=== PATIENT | male | born 1960 | race Caucasian/White ===

== ENCOUNTER 2017-02-24 18:11 | Emergency (ER) | payer OTHER ==
[~2017-02-24] VITALS: Ht 185.4 cm; Wt 92.9 kg
[~2017-02-24 18:11] MED LIST: AMLO-114 PO; GABA600T PO; METH10TA2 PO; OXYC-57 PO
[2017-02-24 18:24] VITALS: TEMP 36.5; Ht 185.4 cm; Wt 92.9 kg
[2017-02-24] MEDS ORDERED: NRN800 PO (19:10)
[2017-02-24] MEDS ORDERED: AMT10 PO (19:10)
--- NOTE | 2017-02-24 19:13 | DIAGNOSTIC IMAGING REPORT ---
PA CHEST WITH LEFT-SIDED RIB SERIES CLINICAL HISTORY: Left chest wall pain. FINDINGS: A PA chest radiograph with 4 additional views may left-sided rib series is obtained. No prior studies are available for comparison at the time of dictation. The cardiomediastinal silhouette is unremarkable. The lungs and pleural spaces are clear. Apical scarring is observed. No pneumothorax is seen. There is no radiographic evidence of acute/distracted left-sided rib fracture on the rib series. Chronic appearing bilateral rib fractures are noted. Degenerative change is seen throughout the thoracic spine. IMPRESSION: 1. No active disease in the chest. 2. There is no radiographic evidence of acute/distracted left-sided rib fracture on the rib series. 3. There are numerous chronic-appearing/healed bilateral rib fractures identified. Electronically signed by: Wyatt Williamson M.D. 02/24/2017 7:12 PM Dictated Date/Time: 02/24/2017 7:10 PM
[2017-02-24] MEDS ORDERED: HYDR-5688 PO (19:51)
--- NOTE | 2017-02-24 19:51 | EMERGENCY ROOM VISIT NOTE ---
ED Visit Note First contact with patient: 18:27 This Patient was discussed with the physician [employer] Sponger, Pilo Roe PA-C. The pertinent historical and physical exam findings were confirmed. I agree with the studies ordered and with the interpretations of these studies. I agree with the disposition and care plan.
[2017-02-24] MEDS ORDERED: NORCO 5/325MG HOME PACK PO STA (19:52)
--- NOTE | 2017-02-24 19:52 | EMERGENCY ROOM VISIT NOTE ---
History First contact with patient: 18:26 Chief Complaint: RIB PAIN Stated Complaint: BROKEN RIBS History of Present Illness The patient is a 56 year old male who presents to the Emergency Room via private vehicle with complaints of "broken ribs". The patient states that 3 days ago he was attempting to plug a flat tire, when he was pressing up on the told, and had his friend press on his back to help compress. He states that when his friend pressed upon his back it pushed his left rib cage into the total. He notes pain in this region since that time. He felt a pop in the region. He is concerned he may broken his ribs. He rates the pain as a 7/10. Review of Systems A complete 6-point Review of Systems was discussed with the patient, with pertinent positives and negatives listed in the History of Present Illness. All remaining Review of Systems questions can be considered negative unless otherwise specified. Past Medical/Surgical History Medical Problems: (1) Cervical disc herniation (2) Hypertension Social History Smoking Status: Current Every Day Smoker Alcohol Use: none Drug Use: none Marital Status: Housing Status: lives with family Occupation Status: unemployed Current/Historical Medications Scheduled Amitriptyline HCl (Amitriptyline HCl), 10 MG PO DAILY Amlodipine (Norvasc), 10 MG PO DAILY Gabapentin (Gabapentin), 800 MG PO TID Scheduled PRN Hydrocodone/Acetaminophen 5MG/325MG (Lyle 5MG/325MG), 1-2 TABLET PO Q6 PRN for Pain Physical Exam Vital Signs Date Time Temp Pulse Resp B/P (MAP) Pulse Ox O2 Delivery O2 Flow Rate FiO2 02/24/17 19:58 78 16 174/100 97 02/24/17 18:24 36.5 78 20 188/112 97 Room Air Physical Exam VITAL SIGNS - Vital signs and nursing notes were reviewed. Stable. GENERAL - 56-year-old male appearing his stated age who is in no acute distress. Communicates well with provider and answers questions appropriately. SKIN - Without rashes. Small area of bruising on L anterior ribs. HEAD - NC/AT. EYES - Sclera anicteric. EARS - No deformities of external structures noted on gross examination bilaterally. NOSE - Midline and without cyanosis. No epistaxis or purulent drainage noted. MOUTH/OROPHARYNX - Without perioral cyanosis. LUNGS - Chest wall symmetric without accessory muscle use, intercostals retractions, or central cyanosis. Normal vesicular breath sounds CTA B/L. No wheezes, rales, or rhonchi appreciated. CARDIAC - RRR with S1/S2. No murmur, rubs, or gallops appreciated. L anterior ribs are tender. No step off. No flail chest. ABDOMEN - Abdominal contour normal without pulsations or visible masses. No tenderness, palpable masses, hepatosplenomegaly, or ascites noted. Medical Decision & Procedures ER Provider Diagnostic Interpretation: PA CHEST WITH LEFT-SIDED RIB SERIES CLINICAL HISTORY: Left chest wall pain. FINDINGS: A PA chest radiograph with 4 additional views may left-sided rib series is obtained. No prior studies are available for comparison at the time of dictation. The cardiomediastinal silhouette is unremarkable. The lungs and pleural spaces are clear. Apical scarring is observed. No pneumothorax is seen. There is no radiographic evidence of acute/distracted left-sided rib fracture on the rib series. Chronic appearing bilateral rib fractures are noted. Degenerative change is seen throughout the thoracic spine. IMPRESSION: 1. No active disease in the chest. 2. There is no radiographic evidence of acute/distracted left-sided rib fracture on the rib series. 3. There are numerous chronic-appearing/healed bilateral rib fractures identified. Electronically signed by: Wyatt Williamson M.D. 02/24/2017 7:12 PM Dictated Date/Time: 02/24/2017 7:10 PM Medications Administered Medications (Trade) Dose Ordered Sig/Shahid Route Start Time Stop Time Status Last Admin Dose Admin Acetaminophen/ Hydrocodone Bitart (Lyle 5/325mg Home Pack) 1 [facility] [place] UD STAT PO 02/24/17 19:52 02/24/17 19:54 DC 02/24/17 19:58 1 [facility] Medical Decision Patient was seen and evaluated as above. He presents to us today with rib pain. Status post minimal trauma. It is reproducible on exam. No evidence of underlying etiology. X-ray was obtained and found to be negative. I suspect he likely has bruised ribs or even cracked ribs that are not apparent on x-ray. He declined pain medication here, but was given a short supply of pain medicine at home. No red flags the [employer] drug monitoring system. He is to follow with his family doctor. He was given an incentive spirometer. He was educated upon management, educated upon worrisome symptoms which to return, had questions and provided discharge, and was discharged home in good condition. In the evaluation and treatment of this patient, the following differential diagnoses were considered: Rib Fracture, Rib Contusion, Hemothorax, Pneumothorax , Pneumonia, Pleural Effusion. Medication list reviewed. He is hypertensive I believe secondary to use a situation but he is to follow-up with the family doctor. Impression Primary Impression: Rib injury Departure Information Dispostion Home / Self-Care Condition GOOD Prescriptions Hydrocodone/Acetaminophen 5MG/325MG (Lyle 5MG/325MG) Tab 1-2 TABLET PO Q6 Y for Pain, #15 TAB For Initial Treatment Prov: Pilo Roe PA-C 02/24/17 Referrals No Doctor, Assigned (PCP) Patient Instructions [facility] Additional Instructions You have been treated in the Emergency Department for Rib pain. You have been prescribed Lyle to be used for pain control. This is a narcotic medication. You cannot drive or consume alcohol while on this medicine. This medicine should only be used for pain that cannot be controlled with over-the- counter pain medicines. For pain control, you can use the following [id number] medicines (if >12 yo): - Regular strength (325mg/tab) Tylenol (acetaminophen) 2 tabs every 4-6 hours as needed. Do not exceed 12 tablets in a 24 hour period. Avoid taking more than 3 grams (3000 mg) of Tylenol per day. This includes any other sources of acetaminophen you may take on a regular basis. - Regular strength (200 mg/tab) Advil (ibuprofen) 1-2 tabs every 4-6 hours as needed. Do not exceed a dose of 3200 mg per day. If this is an acute injury, ice can be applied to the area of pain for the first 3 days to help decrease pain and inflammation. After the first 3 days, a heating pad can be used over the area for continued soothing relief. To minimize your discomfort, you can hug a pillow while coughing or sneezing. Additionally, you should continue to force yourself to take nice, deep breaths. Full expansion of the lungs is necessary to prevent the accumulation of fluid in the lung tissue and development of pneumonia. You should schedule a follow-up appointment in 2-3 days with your Primary Care Provider for further evaluation and treatment of your back pain. Please use the Incentive Spirometer several times per hour while awake to help prevent the development of pneumonia. Return to the Emergency Department if your current symptoms worsen despite treatment course outlined above, or if you develop any of the following symptoms : intractable pain despite aforementioned treatment course, development of a wet cough, bloody cough, fever, chills, or increased shortness of breath.
[2017-02-24 19:58] VITALS: BP 174/100; PULSE 78; O2SAT 97
== END 2017-02-24 20:00 | disposition home or self-care (01) ==
LOC: C.EDB 18:12 → C.EDD 20:00
DX: S29.9XXA Unspecified injury of thorax, initial encounter (principal); X58.XXXA Exposure to other specified factors, initial encounter; I10 Essential (primary) hypertension; F17.200 Nicotine dependence, unspecified, uncomplicated

== ENCOUNTER → 2017-04-13 | Outpatient (CLI) | payer OTHER ==
[~2017-04-13] MED LIST changes: +AMT10 PO; -GABA600T PO; +HYDR-5688 PO; -METH10TA2 PO; +NRN800 PO; -OXYC-57 PO
[2017-04-13 12:40] LABS: BASO % 0.7 %; BASO ABS # 0.05 K/uL (0-0.2); EOS % 4.2 %; EOS ABS # 0.32 K/uL (0-0.5); HEMATOCRIT 38.6 % (42-52); HEMOGLOBIN 12.8 g/dL (14.0-18.0); IG# 0.01 K/uL (0.00-0.02); LYMPH % 20.1 %; LYMPH ABS # 1.54 K/uL (1.2-3.4); MEAN CELL VOLUME 85.2 fL (80-100); MEAN CORPUSCULAR HEMOGLOBIN 28.3 pg (25-34); MEAN CORPUSCULAR HGB CONC 33.2 g/dl (32-36); MEAN PLATELET VOLUME 10.7 fL (7.4-10.4); MONO ABS # 0.46 K/uL (0.11-0.59); NEUT % 68.9 %; NEUT ABS # 5.29 K/uL (1.4-6.5); PLATELET COUNT 409 K/uL (130-400); RED CELL DISTRIBUTION WIDTH SD 43.8 fL (36.4-46.3); WHITE BLOOD COUNT 7.67 K/uL (4.8-10.8)
[2017-04-13 13:18] LABS: ALT/SGPT 24 U/L (12-78); BLOOD UREA NITROGEN 15 mg/dl (7-18); CALCIUM 9.5 mg/dl (8.5-10.1); CARBON DIOXIDE 28 mmol/L (21-32); CHOLESTEROL 198 mg/dl (0-200); CREATININE 0.98 mg/dl (0.60-1.40); GLUCOSE 97 mg/dl (70-99); POTASSIUM 4.4 mmol/L (3.5-5.1); SODIUM 135 mmol/L (136-145)
[2017-04-13 13:21] LABS: ALKALINE PHOSPHATASE 91 U/L (45-117); AST/SGOT 16 U/L (15-37); LDL CHOLESTEROL CALCULATED 139 mg/dl
== END | disposition home or self-care (01) ==
LOC: C.LABMFLN 09:10
PROVIDERS: ATTEND Neuromusculoskeletal Medicine & OMM
DX: Z00.00 Encounter for general adult medical examination without abnormal findings (principal); Z13.220 Encounter for screening for lipoid disorders; Z13.1 Encounter for screening for diabetes mellitus

== ENCOUNTER 2019-03-01 00:16 | Observation (INO) ==
[2019-03-01] MEDS ORDERED: NICOTINE 21 MG/24 HR TDSY TD STA (00:42)
[2019-03-01] MEDS ORDERED: SODIUM CHLORIDE 0.9% 1000ML 1,000 ML IV SCH (00:45)
--- NOTE | 2019-03-01 00:50 | Emergency Department Note ---
History of Present Illness General Chief complaint: Chest Pain Stated complaint: CHEST PAIN,BACK PAIN,SOB History of Present Illness Maximum Pain Intensity: 4 This 58-year-old presents to the ER complaining of chest pain, dyspnea, back pain and abdominal pain Location: Chest back and abdomen Quality: Painful Severity: Moderate Duration: Past few days Timing: Started few days ago Context: Symptoms persisted and patient came in Modifying factors: better with nothing; worse with palpation Patient has a history of anemia and states symptoms feel somewhat similar. Last blood transfusion was a year ago. He normally needs a more frequently. No recent H&H testing. He does smoke. He does have high blood pressure. No prior heart disease. He is currently being weaned off narcotics. He has had unintentional weight loss. Patient denies vomiting, diarrhea, fevers, flulike illness, leg pain or swelling. Home Medications Home Medications Medication Instructions Recorded Confirmed Type diclofenac sodium 1 dose TOPICAL QID PRN 06/06/18 03/01/19 History fluticasone propionate 50 1 spray INTRANASAL BID PRN #16 gm 11/25/18 03/01/19 Rx mcg/actuation nasal spray,suspension gabapentin 600 mg tablet 1,200 mg PO TID #180 tab 11/25/18 03/01/19 Rx lisinopril 10 1 tab PO DAILY #30 tab 11/25/18 03/01/19 Rx mg-hydrochlorothiazide 12.5 mg tablet methadone 10 mg tablet 10 mg PO Q8H 14 Days #42 tabs 02/19/19 03/01/19 Rx hydrocodone 5 mg-acetaminophen 325 1 tab PO BID PRN 7 Days #14 tab 02/26/19 03/01/19 Rx mg tablet Allergies Allergy/AdvReac Type Severity Reaction Status Date / Time No Known Allergies Allergy Verified 03/01/19 03:33 Past Med/Surg History Medical History Anemia HX Cervical disc disease C5-C6 Chronic back pain Hepatitis C treated--no longer has Hx of bleeding disorder HAS CAUSED BLEEDING INTO STOMACH REQUIRING CAUTERIZATION-F/U DR LORETA KELLEY-HX BLOOD TRANSFUSIONS IN THE PAST Hypertension Osler-Rendu disease (Acute) Surgical History History of colonoscopy History of esophagogastroduodenoscopy (EGD) History of herniorrhaphy X 4 History of open reduction and internal fixation (ORIF) procedure left hand/wrist fx--hardware removed History of repair of rotator cuff RIGHT History of shoulder surgery right History of tooth extraction all teeth removed Hx of excision of testicular mass X MULTIPLE BENIGN CYSTS Family History Other No family history of adverse response to anesthesia Social History Preferred Language: Chinese Communication Ability: Effective Visual Impairment: Limited Hearing Ability: Hard of Hearing On Air Announcer Required: No Beliefs That Will Affect Care: None Current Living Situation: Spouse and Family Current Living Situation Comment: Lives with and daughter current occupational status: employed Feels Safe at Home: Yes Smoking Status: Current every day smoker Tobacco Type: cigarettes ; Cigarettes Per Day: 20 a day ; Second Hand Exposure: No ; Hx Alcohol Use: No Hx Substance Use: No Dental Care, Regularly: Yes Physical Activity Frequency: Daily Seatbelt Use: never Sunscreen Use: No Review of Systems A total of 10 systems reviewed and were otherwise negative Physical Exam Vital Signs Vital Signs - 24 hr 03/01/19 00:23 03/01/19 00:36 03/01/19 00:55 Temperature 36.8 C Temperature Source Oral Pulse Rate 67 Pulse Rate [Bilateral Apical] 65 Respiratory Rate 18 18 Respiratory Effort / Characteristics Non-Labored Spontaneous Respiratory Depth Normal Blood Pressure 158/89 H Blood Pressure [Left Arm] 155/87 H Blood Pressure Mean 112 Blood Pressure Mean [Left Arm] 109 Pulse Oximetry 97 96 94 Oxygen Delivery Method Room Air Room Air Room Air Sepsis Recent Fever Within 48 Hours No Sepsis Action Taken by Nursing No Action Required 03/01/19 02:02 03/01/19 02:48 Temperature Temperature Source Pulse Rate Pulse Rate [Bilateral Apical] 55 L 65 Respiratory Rate 20 18 Respiratory Effort / Characteristics Respiratory Depth Blood Pressure Blood Pressure [Left Arm] 152/73 H 156/93 H Blood Pressure Mean Blood Pressure Mean [Left Arm] 99 114 Pulse Oximetry 93 93 Oxygen Delivery Method Room Air Room Air Sepsis Recent Fever Within 48 Hours Sepsis Action Taken by Nursing VITALS: Vitals are noted on the nurse's note and reviewed by myself. Vital signs stable. GENERAL: Pleasant male with tobacco odor, in no acute distress, nondiaphoretic, well-developed well-nourished. SKIN: The skin was without rashes, erythema, edema, or bruising. There is no tenting of the skin. Capillary reflex less than 2 seconds. HEAD: Normocephalic atraumatic. EARS: External auditory canals clear, tympanic membranes pearly brown without erythema or effusion bilaterally. EYES: Pupils equal round and reactive to light and accommodation. Conjunctivae without injection, sclerae without icterus. Extraocular movements intact. NOSE: Patent, turbinates without inflammation or discharge. MOUTH: Mucous membranes moist. Pharynx without erythema or exudate. Uvula midline. Airway patent. Tongue does not deviate. NECK: Supple without nuchal rigidity. No lymphadenopathy. No thyromegaly. Cervical spine is nontender. No JVD. HEART: Regular rate and rhythm LUNGS: Clear to auscultation bilaterally without wheezes, rales or rhonchi. No retractions or accessory muscle use. ABDOMEN: Positive bowel sounds x 4. Normal tympanic percussion. Soft, tender to palpation upper abdomen, without masses or organomegaly. Hughes sign negative. No guarding or rebound tenderness. No CVA tenderness MUSCULOSKELETAL: No muscle atrophy, erythema, or edema noted. NEURO: Patient was alert and oriented to person place and time. Normal sensation to light and sharp touch. No focal neurological deficits. Course Administered Medications Ioversol (Optiray 320 125ml) 118 ml IV ONCE PRN PRN Reason: Interaction Checking Stop: 03/05/19 03:05 Last Admin: 03/01/19 03:06 Dose: 118 ml Documented by: [id number] Discontinued Medications Sodium Chloride (Nss 1000ml) 1,000 mls @ 999 mls/hr IV .Q1H1M TOSHIA Stop: 03/01/19 01:45 Last Infusion: 03/01/19 02:05 Dose: 0 mls/hr Documented by: [id number] Admin: 03/01/19 00:53 Dose: 999 mls/hr Documented by: [id number] Nicotine (Nicoderm Cq) 21 mg TD NOW STA Stop: 03/01/19 00:43 Last Admin: 03/01/19 00:53 Dose: 21 mg Documented by: [id number] Medical Decision Making Medical Records Attestation: I reviewed the patient's medical records. Home Medications Current Medication List: was personally reviewed by me Laboratory Data Attestation: I reviewed the patient's lab results. Result diagrams: 03/01/19 00:34 03/01/19 00:34 Lab Results 03/01/19 03/01/19 03/01/19 Range/Units 00:34 00:34 00:34 WBC 8.32 (4.8-10.8) K/uL RBC 3.84 L (4.7-6.1) M/uL Hgb 7.2 L (14.0-18.0) g/dL Hct 25.1 L (42-52) % MCV 65.4 L (80-100) fL MCH 18.8 L (25-34) pg MCHC 28.7 L (32-36) g/dL RDW Std Deviation 37.9 (36.4-46.3) fL RDW Coeff of Ady 15.9 H (11.5-14.5) % Plt Count 436 H (130-400) K/uL MPV 9.5 (7.4-10.4) fL Immature Gran % (Auto) 0.1 % Neut % (Auto) 62.9 % Lymph % (Auto) 22.7 % [place] % (Auto) 8.8 % Eos % (Auto) 4.9 % Baso % (Auto) 0.6 % Immature Gran # (Auto) 0.01 (0.00-0.02) K/uL Neut # (Auto) 5.23 (1.4-6.5) K/uL Lymph # (Auto) 1.89 (1.2-3.4) K/uL [place] # (Auto) 0.73 H (0.11-0.59) K/uL Eos # (Auto) 0.41 (0-0.5) K/uL Baso # (Auto) 0.05 (0-0.2) K/uL Polychromasia 1+ Hypochromasia Present Anisocytosis Present Ovalocytes 1+ D-Dimer 250 (0-500) ug/L FEU Sodium 138 (136-145) mmol/L Potassium 4.1 (3.5-5.1) mmol/L Chloride 106 (98-107) mmol/L Carbon Dioxide 29 (21-32) mmol/L Anion Gap 3.0 (3-11) BUN 15 (7-18) mg/dl Creatinine 0.96 (0.6-1.4) mg/dl Est Cr Clr Drug Dosing 92.9 ml/min Est GFR ( Amer) 101.3 Est GFR (Non-Af Amer) 87.4 BUN/Creatinine Ratio 15.3 (10-20) Glucose 94 (70-99) mg/dl Calcium 8.5 (8.5-10.1) mg/dl Total Bilirubin 0.2 (0.2-1) mg/dl AST 9 L (15-37) U/L ALT 16 (12-78) U/L Alkaline Phosphatase 90 (45-117) U/L Troponin I < 0.015 (0-0.045) ng/ml Total Protein 7.0 (6.4-8.2) gm/dl Albumin 3.3 L (3.4-5.0) gm/dl Globulin 3.7 (2.5-4.0) gm/dl Albumin/Globulin Ratio 0.9 (0.9-2) Lipase 52 L (73-393) U/L Blood Type Antibody Screen Crossmatch 03/01/19 Range/Units 02:16 WBC (4.8-10.8) K/uL RBC (4.7-6.1) M/uL Hgb (14.0-18.0) g/dL Hct (42-52) % MCV (80-100) fL MCH (25-34) pg MCHC (32-36) g/dL RDW Std Deviation (36.4-46.3) fL RDW Coeff of Ady (11.5-14.5) % Plt Count (130-400) K/uL MPV (7.4-10.4) fL Immature Gran % (Auto) % Neut % (Auto) % Lymph % (Auto) % [place] % (Auto) % Eos % (Auto) % Baso % (Auto) % Immature Gran # (Auto) (0.00-0.02) K/uL Neut # (Auto) (1.4-6.5) K/uL Lymph # (Auto) (1.2-3.4) K/uL [place] # (Auto) (0.11-0.59) K/uL Eos # (Auto) (0-0.5) K/uL Baso # (Auto) (0-0.2) K/uL Polychromasia Hypochromasia Anisocytosis Ovalocytes D-Dimer (0-500) ug/L FEU Sodium (136-145) mmol/L Potassium (3.5-5.1) mmol/L Chloride (98-107) mmol/L Carbon Dioxide (21-32) mmol/L Anion Gap (3-11) BUN (7-18) mg/dl Creatinine (0.6-1.4) mg/dl Est Cr Clr Drug Dosing ml/min Est GFR ( Amer) Est GFR (Non-Af Amer) BUN/Creatinine Ratio (10-20) Glucose (70-99) mg/dl Calcium (8.5-10.1) mg/dl Total Bilirubin (0.2-1) mg/dl AST (15-37) U/L ALT (12-78) U/L Alkaline Phosphatase (45-117) U/L Troponin I (0-0.045) ng/ml Total Protein (6.4-8.2) gm/dl Albumin (3.4-5.0) gm/dl Globulin (2.5-4.0) gm/dl Albumin/Globulin Ratio (0.9-2) Lipase (73-393) U/L Blood Type B Positive Antibody Screen NEGATIVE Crossmatch See Detail Imaging Data Attestation: I personally reviewed and interpreted this imaging study as follows: Blood Pressure Blood Pressure Findings: Elevated blood pressure Blood Pressure Disposition: Referred to patients primary care provider MDM Narrative Prior records/ancillary studies reviewed. Triage Nursing notes reviewed. Additional history obtained from family. The patient's history was concerning for chest pain. Differential diagnosis: Etiologies such as cardiac ischemia, aortic dissection, pulmonary embolism, pneumonia, pneumothorax, musculoskeletal, infections, pericarditis, myocarditis, esophageal rupture, gastrointestinal, as well as others were entertained. Physical examination: As above. ER treatment provided: An order was placed for continuous cardiac monitoring. The monitor shows a rate of 60-90 with a normal sinus rhythm. IV fluids, 3 units of blood and patient was typed and crossmatched and consented On reassessment the patient felt better. Diagnostic interpretation by me: The electrocardiogram was negative for pathologic change. Normal sinus, normal intervals, no acute ST-T wave changes. Impression normal sinus rhythm interpreted by myself EKG ordered for chest pain I think arrhythmia is unlikely. EKG shows normal sinus rhythm with no interval abnormalities such as QT prolongation or WPW. There are no findings to suggest Brugada syndrome. Cardiac monitoring in the emergency department reveals no tachycardic or bradycardic dysrhythmia. Hypertrophic cardiomyopathy was considered but there are no clear historical elements pointing toward this. EKG is not suggestive. The QRS voltage is not extremely large and there are no suggestive Q waves. The labs revealed severe anemia. Negative troponin Imaging studies: Chest x-ray with no acute consolidation, pneumothorax or free air per my interpretation CTA CHEST: No evidence of aortic aneurysm or dissection. Mild atherosclerotic calcifications including coronary arteries. Some breathing motion artifact. No PE visualized. Small and mildly enlarged mediastinal and right hilar nodes. Largest approximately 12 mm. Nonspecific. Correlate and consider follow-up. Emphysematous changes. Bilateral upper lobe blebs. Bibasilar atelectasis. Mild bronchial wall thickening especially in the lower lobes and mucous plugging of few of the smaller airways. May represent bronchitis/bronchiolitis. Old right rib fractures. Multilevel degenerative changes of the thoracic spine. No evidence of acute fracture or malalignment. CTA ABDOMEN & PELVIS With Contrast: No aortic dissection or aneurysm. Mild atherosclerotic vascular calcifications. Major abdominal arteries are patent without severe stenosis. Mild to moderate narrowing of the left common iliac artery. Appendicolith within otherwise normal appearing appendix. No evidence of acute appendicitis. No free air, free fluid or bowel obstruction. Mild nonspecific perinephric stranding appears slightly greater on the left side. No hydronephrosis or obstructing calculus. Correlate for medical renal disease, infection. Small fat-containing inguinal hernias Skin thickening/chronic changes of the umbilicus and subjacent abdominal wall. Degenerative changes of the lumbosacral spine. No evidence of acute fracture or malalignment Radiologist: Robyn Tierney M.D. HEART SCORE: Hx: high/mod/low suspicion: 0 ECG: ST depression/nonspecific changes/normal: 0 Age: Greater than 65/45-64/less than 45: 1 Risk factors: (Hypertension, hyperlipidemia, diabetes, coronary disease, tobacco use, cocaine use): 2 Troponin: Greater than 2 times normal limits/1-2 times normal limits/normal: 0 Total: 3 Consultation: A consultation was placed with the hospitalist. The case was discussed and diagnostics were reviewed. The patient was evaluated in the ER for further treatment. Exam and history seem consistent with chest pain with severe anemia. Patient was typed and crossmatched for 3 units. He was consented to the blood. CTA was negative. Patient is agreeable to treatment plan of admission. Medicine was consulted. Patient seemed pleased with treatment plan. By the evaluation outlined above emergent etiologies such as aortic dissection, pulmonary embolism, pneumonia, pneumothorax, infections, pericarditis, myocarditis, gastr ointestinal, as well as others were deemed relatively unlikely. The pt informed about the findings as listed above. All questions were answered and pleased with the treatment. Case reviewed with my attending The chart was completed utilizing [employer] voice recognition software. Grammatical errors, random word insertions, pronoun errors, and incomplete sentences are an occassional consequence of this system due to software limitations, ambient noise, and hardware issues. Any formal questions or concerns about the content, text, or information contained within the body of this dictation should be directly addressed to the physician workforce development assistant for clarification. Impression & Plan Anemia, Pcdbh-Mpzpg-Mxgmk disease, Chest pain Discharge Plan Visit Data Chief Complaint: Chest Pain Stated Complaint: CHEST PAIN,BACK PAIN,SOB ED Provider: Rozina Mitchell ED Midlevel Provider: Margot Matthew Discharge Problem: Anemia, Kvvhr-Vetbf-Bhfdx disease, Chest pain Patient Disposition: Being Evaluated by Hospitalist Condition: Good Forms Stand Alone Forms: Call Back Authorization, [facility] Prescriptions Prescriptions: No Action hydrocodone-acetaminophen 5-325 mg tablet 1 tab PO BID PRN (Reason: Pain) 7 Days Qty: 14 RF: 0 methadone 10 mg tablet 10 mg PO Q8H 14 Days Qty: 42 RF: 0 lisinopril-hydrochlorothiazide 10-12.5 mg tablet 1 tab PO DAILY Qty: 30 RF: 11 gabapentin 600 mg tablet 1,200 mg PO TID Qty: 180 RF: 5 fluticasone propionate [Flonase Allergy Relief] 50 mcg/actuation spray,suspension 1 spray INTRANASAL BID PRN (Reason: Allergy Symptoms) Qty: 16 RF: 5 diclofenac sodium 1 % Gel 1 dose TOPICAL QID PRN (Reason: joint pain) RF: 0 Referrals Referrals: Roger Talbert DO [Primary Care Provider] - Discharge Problem: Chest pain Qualifiers: Chest pain type: unspecified Qualified Code(s): R07.9 - Chest pain, unspecified
[2019-03-01 01:19] LABS: D Dimer 250 ug/L FEU (0-500)
[2019-03-01 01:21] LABS: Alanine Aminotransferase 16 U/L (12-78); Albumin Level 3.3 gm/dl (3.4-5.0); Aspartate Aminotransferase 9 U/L (15-37); BUN Creatinine Ratio 15.3 (10-20); Blood Urea Nitrogen 15 mg/dl (7-18); Calcium 8.5 mg/dl (8.5-10.1); Carbon Dioxide 29 mmol/L (21-32); Chloride 106 mmol/L (98-107); Creatinine Clr Calc Pharmacy 92.9 ml/min; Est GFR (African American) 101.3; Est GFR (Non-African American) 87.4; Glucose 94 mg/dl (70-99); Lipase 52 U/L (73-393); Potassium 4.1 mmol/L (3.5-5.1); Sodium 138 mmol/L (136-145)
[2019-03-01 01:26] LABS: Albumin Globulin Ratio 0.9 (0.9-2); Alkaline Phosphatase 90 U/L (45-117); Bilirubin,Total 0.2 mg/dl (0.2-1); Globulin 3.7 gm/dl (2.5-4.0); Troponin I < 0.015 ng/ml (0-0.045)
[2019-03-01 02:08] LABS: Hematocrit (blood only) 25.1 % (42-52); Hemoglobin 7.2 g/dL (14.0-18.0); Mean Corpuscular Hemoglobin 18.8 pg (25-34); Mean Corpuscular Hgb Conc 28.7 g/dL (32-36); Mean Corpuscular Volume 65.4 fL (80-100); Mean Platelet Volume 9.5 fL (7.4-10.4); Platelet Count 436 K/uL (130-400); RDW Coefficient of Variation 15.9 % (11.5-14.5); RDW Standard Deviation 37.9 fL (36.4-46.3); Red Blood Count 3.84 M/uL (4.7-6.1); White Blood Count 8.32 K/uL (4.8-10.8)
[2019-03-01] MEDS ORDERED: SODIUM CHLORIDE 0.9% 250 ML IV PRN ×3 (02:08→09:05)
[2019-03-01 02:11] LABS: Anisocytosis Present; Basophils # (auto) 0.05 K/uL (0-0.2); Basophils % (auto) 0.6 %; Eosinophils # (auto) 0.41 K/uL (0-0.5); Eosinophils % (auto) 4.9 %; Hypochromasia Present; Immature Granulocytes # (auto) 0.01 K/uL (0.00-0.02); Immature Granulocytes % (auto) 0.1 %; Lymphocytes # (auto) 1.89 K/uL (1.2-3.4); Lymphocytes % (auto) 22.7 %; Monocytes # (auto) 0.73 K/uL (0.11-0.59); Monocytes % (auto) 8.8 %; Neutrophils # (auto) 5.23 K/uL (1.4-6.5); Neutrophils % (auto) 62.9 %; Ovalocytes 1+; Polychromasia 1+
[2019-03-01] MEDS ORDERED: OPTIRAY 320 125ml IV PRN (03:06)
--- NOTE | 2019-03-01 04:01 | Emergency Department Note ---
ED Visit Note I saw this patient in conjunction with Iraida Matthew PA-C. I agree with her decision making and treatment plan. . : Chest pain Qualifiers: Chest pain type: unspecified Qualified Code(s): R07.9 - Chest pain, unspecified
[2019-03-01 04:03] LABS: Appearance Urine Clear (Clear); Bilirubin Urine Negative (Negative); Blood Urine Negative (Negative); Color Urine Yellow; Glucose Urine UA Negative (Negative); Ketones Urine Negative (Negative); Leukocyte Esterase Urine Negative (Negative); Nitrite Urine Negative (Negative); Protein Urine Negative (Negative); Specific Gravity Urine 1.041 (1.000-1.030); Urobilinogen Urine Negative (Negative)
[2019-03-01] MEDS ORDERED: MoRPHine SULFATE 4 MG/ML 1 ML CARP\\VIAL IV STA (04:05)
[2019-03-01 04:21] LABS: Amphetamines+Metham, Urine Neg (Neg); Barbiturates, Urine Neg (Neg); Benzodiazepine, Urine Neg (Neg); Cocaine, Urine Neg (Neg); MDMA (Ecstacy), Urine Neg (Neg); Methadone, Urine Pos (Neg); Opiate, Urine Pos (Neg); Phencyclidine, Urine Neg (Neg)
--- NOTE | 2019-03-01 04:21 | History & Physical Report ---
Date of Service March 01, 2019 Assessment & Plan (1) Symptomatic anemia: Symptomatic anemia/Wrctf-Mxfcs-Bquoz disease- Patient reports that he periodically requires transfusions, and is usually aware of the need for transfusion by being short of breath and having dyspnea on exertion has now. Admit to medical telemetry unit. Transfusion of PRBCs written for by ED. Follow-up H&H following last unit. Patient has had a complete work-up in the past Present on Admission?: Yes (2) Ecldu-Ufsiu-Zuzwr disease: See above Present on Admission?: Yes (3) Chest pain: Chest pain is likely combination of symptoms related to anemia and also mucus plugging and COPD. Present on Admission?: Yes (4) Hilar lymphadenopathy: Mediastinal and right hilar lymphadenopathy- Consult pulmonology Present on Admission?: Yes (5) Mediastinal lymphadenopathy: See above Present on Admission?: Yes (6) Hypertension: Continue lisinopril/HCTZ 10/12.5 p.o. daily Present on Admission?: Yes (7) Opioid dependence: Chronic back pain and generalized bone pain- Orders as written for methadone and as needed Vicodin for breakthrough Present on Admission?: Yes (8) Tobacco use disorder, continuous: Patient is working on tobacco cessation, along with cessation from narcotics Present on Admission?: Yes (9) Chronic back pain: See above Present on Admission?: Yes History of Present Illness Chief Complaint: The patient presents to the emergency department with worsening shortness of breath and dyspnea on exertion. Primary Care Provider: Roger Talbert, The patient is a 58-year-old male with a past medical history including hypertension, cervical disc herniation, opioid dependence, anemia, Olajl-Upcsc-Crwcb disease and chronic back, shoulder and generalized joint pain. He presents to the emergency department with shortness of breath at rest and worsening dyspnea on exertion, which in the past has indicated to him that his hemoglobin is low and needs to be transfused. His hemoglobin is 7.2 emergency department, significantly below his range of 8.8-12.8, with usual range 11-12.8. Allergies Allergy/AdvReac Type Severity Reaction Status Date / Time No Known Allergies Allergy Verified 03/01/19 03:33 Home Medications Home Medications Medication Instructions Recorded Confirmed Type diclofenac sodium 1 dose TOPICAL QID PRN 06/06/18 03/01/19 History fluticasone propionate 50 1 spray INTRANASAL BID PRN #16 gm 11/25/18 03/01/19 Rx mcg/actuation nasal spray,suspension gabapentin 600 mg tablet 1,200 mg PO TID #180 tab 11/25/18 03/01/19 Rx lisinopril 10 1 tab PO DAILY #30 tab 11/25/18 03/01/19 Rx mg-hydrochlorothiazide 12.5 mg tablet methadone 10 mg tablet 10 mg PO Q8H 14 Days #42 tabs 02/19/19 03/01/19 Rx hydrocodone 5 mg-acetaminophen 325 1 tab PO BID PRN 7 Days #14 tab 02/26/19 03/01/19 Rx mg tablet Past Med/Surg History Medical History Anemia HX Cervical disc disease C5-C6 Chronic back pain Hepatitis C treated--no longer has Hx of bleeding disorder HAS CAUSED BLEEDING INTO STOMACH REQUIRING CAUTERIZATION-F/U DR LORETA KELLEY-HX BLOOD TRANSFUSIONS IN THE PAST Hypertension Osler-Rendu disease (Acute) Surgical History History of colonoscopy History of esophagogastroduodenoscopy (EGD) History of herniorrhaphy X 4 History of open reduction and internal fixation (ORIF) procedure left hand/wrist fx--hardware removed History of repair of rotator cuff RIGHT History of shoulder surgery right History of tooth extraction all teeth removed Hx of excision of testicular mass X MULTIPLE BENIGN CYSTS Family History Other No family history of adverse response to anesthesia Social History Preferred Language: Icelandic Communication Ability: Effective Visual Impairment: Limited Hearing Ability: Hard of Hearing Box Stamper Required: No Beliefs That Will Affect Care: None Current Living Situation: Spouse and Family Current Living Situation Comment: Lives with and daughter current occupational status: employed Feels Safe at Home: Yes Smoking Status: Current every day smoker Tobacco Type: cigarettes ; Cigarettes Per Day: 20 a day ; Second Hand Exposure: No ; Hx Alcohol Use: No Hx Substance Use: No Dental Care, Regularly: Yes Physical Activity Frequency: Daily Seatbelt Use: never Sunscreen Use: No Review of Systems Review of Systems: The patient denies palpitations, cough, lower extremity swelling, sore throat, fevers, chills, sweats, weight change, nausea, vomiting, diarrhea , constipation, abdominal pain, pelvic pain, blood in urine or stool, dysuria, urinary frequency or urgency, lightheadedness, dizziness, headache, memory loss, loss of consciousness, rash, imbalance, focal weakness, numbness or tingling in arms or legs, or night sweats. The review of systems is otherwise negative other than for that already noted above, and at least 10 systems have been reviewed. Physical Exam Physical Exam: The patient is awake, alert and oriented 3, looks fatigued, normocephalic and atraumatic, sitting upright on the edge of the bed and in no acute distress. HEENT--PERRL, EOMI, mucous membranes and oropharynx dry. Neck--supple. No JVD. No bruits. Thyroid normal, trachea midline, no adenopathy. Heart--normal S1 and S2. No murmurs, rubs or gallops. Lungs--clear bilaterally, no respiratory distress, no accessory muscle use. Abdomen--normal bowel sounds and soft. Nontender. Nondistended, no hernias or masses, no organomegaly. Extremities--no cyanosis or clubbing. No edema. There are good distal pulses b/l. Dermatologic--normal skin turgor, normal color, no abnormal lymph nodes, no rash. Neurologic--cranial nerves II through XII grossly intact. Rheumatologic--normal range of motion. Psychiatric--normal affect. Results & Data Vital Signs (Past 12 Hours) Vital Signs Temp Pulse Pulse Resp BP BP Pulse Ox 03/01/19 03:55 60 20 162/85 H 94 03/01/19 02:48 65 18 156/93 H 93 03/01/19 02:02 55 L 20 152/73 H 93 03/01/19 00:55 65 18 155/87 H 94 03/01/19 00:36 96 03/01/19 00:23 98.2 F 67 18 158/89 H 97 Laboratory Results Laboratory Results WBC 8.32 K/uL (4.8-10.8) 03/01/19 00:34 RBC 3.84 M/uL (4.7-6.1) L 03/01/19 00:34 Hgb 7.2 g/dL (14.0-18.0) L 03/01/19 00:34 Hct 25.1 % (42-52) L 03/01/19 00:34 MCV 65.4 fL (80-100) L 03/01/19 00:34 MCH 18.8 pg (25-34) L 03/01/19 00:34 MCHC 28.7 g/dL (32-36) L 03/01/19 00:34 RDW Std Deviation 37.9 fL (36.4-46.3) 03/01/19 00:34 RDW Coeff of Ady 15.9 % (11.5-14.5) H 03/01/19 00:34 Plt Count 436 K/uL (130-400) H 03/01/19 00:34 MPV 9.5 fL (7.4-10.4) 03/01/19 00:34 Immature Gran % (Auto) 0.1 % 03/01/19 00:34 Neut % (Auto) 62.9 % 03/01/19 00:34 Lymph % (Auto) 22.7 % 03/01/19 00:34 [place] % (Auto) 8.8 % 03/01/19 00:34 Eos % (Auto) 4.9 % 03/01/19 00:34 Baso % (Auto) 0.6 % 03/01/19 00:34 Immature Gran # (Auto) 0.01 K/uL (0.00-0.02) 03/01/19 00:34 Neut # (Auto) 5.23 K/uL (1.4-6.5) 03/01/19 00:34 Lymph # (Auto) 1.89 K/uL (1.2-3.4) 03/01/19 00:34 [place] # (Auto) 0.73 K/uL (0.11-0.59) H 03/01/19 00:34 Eos # (Auto) 0.41 K/uL (0-0.5) 03/01/19 00:34 Baso # (Auto) 0.05 K/uL (0-0.2) 03/01/19 00:34 Polychromasia 1+ 03/01/19 00:34 Hypochromasia Present 03/01/19 00:34 Anisocytosis Present 03/01/19 00:34 Ovalocytes 1+ 03/01/19 00:34 D-Dimer 250 ug/L FEU (0-500) 03/01/19 00:34 Sodium 138 mmol/L (136-145) 03/01/19 00:34 Potassium 4.1 mmol/L (3.5-5.1) 03/01/19 00:34 Chloride 106 mmol/L (98-107) 03/01/19 00:34 Carbon Dioxide 29 mmol/L (21-32) 03/01/19 00:34 Anion Gap 3.0 (3-11) 03/01/19 00:34 BUN 15 mg/dl (7-18) 03/01/19 00:34 Creatinine 0.96 mg/dl (0.6-1.4) 03/01/19 00:34 Est Cr Clr Drug Dosing 92.9 ml/min 03/01/19 00:34 Est GFR ( Amer) 101.3 03/01/19 00:34 Est GFR (Non-Af Amer) 87.4 03/01/19 00:34 BUN/Creatinine Ratio 15.3 (10-20) 03/01/19 00:34 Glucose 94 mg/dl (70-99) 03/01/19 00:34 Calcium 8.5 mg/dl (8.5-10.1) 03/01/19 00:34 Total Bilirubin 0.2 mg/dl (0.2-1) 03/01/19 00:34 AST 9 U/L (15-37) L 03/01/19 00:34 ALT 16 U/L (12-78) 03/01/19 00:34 Alkaline Phosphatase 90 U/L (45-117) 03/01/19 00:34 Troponin I < 0.015 ng/ml (0-0.045) 03/01/19 00:34 Total Protein 7.0 gm/dl (6.4-8.2) 03/01/19 00:34 Albumin 3.3 gm/dl (3.4-5.0) L 03/01/19 00:34 Globulin 3.7 gm/dl (2.5-4.0) 03/01/19 00:34 Albumin/Globulin Ratio 0.9 (0.9-2) 03/01/19 00:34 Lipase 52 U/L (73-393) L 03/01/19 00:34 Urine Color Yellow 03/01/19 03:00 Urine Appearance Clear (Clear) 03/01/19 03:00 Urine pH 7.0 (4.5-7.5) 03/01/19 03:00 Ur Specific [place] 1.041 (1.000-1.030) H 03/01/19 03:00 Urine Protein Negative (Negative) 03/01/19 03:00 Urine Glucose (UA) Negative (Negative) 03/01/19 03:00 Urine Ketones Negative (Negative) 03/01/19 03:00 Urine Blood Negative (Negative) 03/01/19 03:00 Urine Nitrite Negative (Negative) 03/01/19 03:00 Urine Bilirubin Negative (Negative) 03/01/19 03:00 Urine Urobilinogen Negative (Negative) 03/01/19 03:00 Ur Leukocyte Esterase Negative (Negative) 03/01/19 03:00 Blood Type B Positive 03/01/19 02:16 Antibody Screen NEGATIVE 03/01/19 02:16 Crossmatch See Detail 03/01/19 02:16 Code Status & VTE Plan Code Status Full code VTE Prophylaxis Plan VTE Prophylaxis will be ordered: Yes PG Care Time/CCT Total # of Minutes Spent Total Time Spent with Patient: Total time spent is greater than 50% in coordination of care (as documented) at patient's floor/unit and/or counseling patient: Coding Level of Care Code 28148 OBS Care - Level 3 Diagnoses Symptomatic anemia D64.9 Ckbfu-Vqujo-Bdrdb disease I78.0 Chest pain R07.9 Chest pain type: unspecified Hilar lymphadenopathy R59.0 Mediastinal lymphadenopathy R59.0 Hypertension I10 Opioid dependence F11.20 Tobacco use disorder, continuous F17.209 Chronic back pain M54.6; G89.29 Back pain location: thoracic back pain Back pain laterality: bilateral (1) Chest pain Chest pain type: unspecified Qualified Code(s): R07.9 - Chest pain, unspecified (2) Chronic back pain Back pain location: thoracic back pain Back pain laterality: bilateral Q ualified Code(s): M54.6 - Pain in thoracic spine; G89.29 - Other chronic pain
[2019-03-01] MEDS ORDERED: FLUTICASONE PROPIONATE NA SPR 16 GM BTL NAE PRN (05:26)
[2019-03-01] MEDS ORDERED: ALUMINUM/MAGNESIUM SUSP 30 ML UDC PO PRN (05:26)
[2019-03-01] MEDS ORDERED: ONDANSETRON INJ 2 MG/ML 2 ML VIAL IV PRN (05:26)
[2019-03-01] MEDS ORDERED: MAGNESIUM HYDROXIDE SUSP 30 ML UDC PO PRN (05:26)
[2019-03-01] MEDS ORDERED: ACETAMINOPHEN 325 MG TAB PO PRN (05:26)
[2019-03-01] MEDS ORDERED: DICLOFENAC SOD 1% GEL 100 GM TUBE EXT PRN (05:26)
[2019-03-01] MEDS ORDERED: PNEUMOCOCCAL ADMINISTRATION CHARGE ONE (06:03)
[2019-03-01] MEDS ORDERED: PNEUMOCOCCAL POLYSACCHARIDES 25 MCG/0.5 ML VIAL/SYR IM ONE (06:03)
[2019-03-01] MEDS ORDERED: INFLUENZA VIRUS QUAD VACCINE 0.5 ML SYR IM ONE (06:03)
[2019-03-01] MEDS ORDERED: INFLUENZA ADMINISTRATION CHARGE ONE (06:03)
[2019-03-01] MEDS: METHADONE HCL 10 MG TAB PO SCH ×3 (06:31→21:38)
--- NOTE | 2019-03-01 07:31 | CT Scan Report ---
CT ANGIOGRAM OF THE CHEST COMBO; CT ANGIOGRAM OF THE ABDOMEN AND PELVIS CLINICAL HISTORY: Atypical chest pain radiating to the back. COMPARISON STUDY: Chest x-ray dated 03/01/2019. TECHNIQUE: Unenhanced CT scan of the chest is performed. Following the IV administration of 118 cc of Optiray 320, CT angiogram of the chest, abdomen, and pelvis was performed from the thoracic inlet to the proximal femora. Images are reviewed in the axial, sagittal, and coronal planes. 3-D MIPS images are created and assessed. IV contrast was administered without complication. A dose lowering techniq ue was utilized adhering to the principles of ALARA. CT DOSE: 1045.19 mGy.cm FINDINGS: CHEST: Thyroid: Imaged portions of the thyroid gland are normal in size and attenuation. Thoracic aorta: No intramural hemorrhage is seen on the unenhanced series. There is mild atherosclero tic calcification of the thoracic aorta, which is normal in caliber and demonstrates standard 3-vesse l arch anatomy. No dissection is seen. The arch vessels are widely patent. Pulmonary vasculature: The pulmonary trunk is normal in caliber. There are no filling defects identif ied in the main, lobar, or segmental pulmonary arteries to suggest pulmonary embolus. Heart: The heart is normal in size and without pericardial effusion. The coronary arteries are densel y calcified. Lungs and pleural spaces: There is biapical scarring and moderate emphysematous change. No airspace c onsolidation or pleural effusion is identified. There are foci of bibasilar scarring/atelectasis. Mil d peribronchial thickening is noted in the lower lobes with foci of mucus plugging. There is a 7 mm n odule at the left lung base seen on image #254. Mediastinum: There is no mediastinal lymphadenopathy. Hailee: Clear. Axillae: There is no axillary lymphadenopathy. Bony thorax: The skeletal structures are osteopenic. Degenerative change and mild hyperkyphosis are n oted in the thoracic spine. No lytic or blastic lesion is identified. There are numerous healed right -sided rib fractures. ABDOMEN AND PELVIS: Liver: The contrast-enhanced liver is normal in size, contour, and attenuation. There is no intrahepa tic biliary ductal dilatation. The main portal vein appears patent. Gallbladder: Unremarkable. Spleen: Normal in size and attenuation noting heterogeneous arterial phase enhancement. Pancreas: Unremarkable. Adrenal glands: Unremarkable. Kidneys: The contrast enhanced kidneys are normal in size and without hydronephrosis. The kidneys enh ance symmetrically. Abdominal aorta and iliac arteries: The abdominal aorta is normal in course and caliber noting mild t o moderate atherosclerotic calcification. The abdominal aorta and iliac arteries are widely patent bi laterally. No dissection is seen. Major branches of the abdominal aorta: The celiac trunk, superior mesenteric, and inferior mesenteric arteries are widely patent. There is an accessory left hepatic artery which arises from the left gas tric artery. The splenic artery is patent. Single bilateral renal arteries are patent. Bowel: There is no bowel obstruction. Mild fecal retention is noted in the colon. There are scattered colonic diverticula without CT evidence of acute diverticulitis. The appendix is well-visualized an d normal. Peritoneum: There is no intraperitoneal free air or abdominal ascites. Findings suggest previous vent ral hernia repair. Lymphadenopathy: None. Pelvic viscera: The prostate gland is mildly enlarged and heterogeneous. The bladder wall appears thi ckened and trabeculated indicating chronic outlet obstruction. Skeletal structures: The skeletal structures are osteopenic. There is mild to moderate lumbosacral sp ondylosis. No lytic or blastic lesion is seen. IMPRESSION: 1. There is no aneurysm or dissection involving the thoracic or abdominal aorta. 2. Moderate emphysema. 3. There is no evidence of pulmonary embolus in the main, lobar, or segmental pulmonary arteries. 4. There is no airspace consolidation or pleural effusion. 5. Unremarkable CT angiogram of the major branches of the abdominal aorta. 6. No acute infectious or inflammatory findings are identified in the abdomen or pelvis. 7. A 7 mm nodular density is identified at the left lung base. Follow-up as per the Fleischner criter ia. See below. 8. Additional findings as above. Please refer to below summary of Fleischner criteria recommendations for follow-up of incidental CT n odules (Viky Angulo, Guidelines for management of small pulmonary nodules detected on CT scans: A sta tement from the Fleischner Society, Radiology 237: [phone].) SOLID NODULES Solitary nodule size: <6 mm * low risk patients: no follow-up needed * high risk patients: optional CT at 12 months Solitary nodule size: 6-8 mm * low risk patients: follow-up at 6-12 months, then consider further follow-up at 18-24 months * high risk patients: initial follow-up CT at 6-12 months and then at 18-24 months if no change Solitary nodule size: >8 mm * either low or high risk patients - consider follow-up CT at 3 months, and/or CT-PET, and/or biopsy Multiple nodules size: <6 mm * low risk patients: no routine follow-up * high risk patients: optional CT at 12 months Multiple nodules size: 6-8 mm * low risk patients: follow-up at 3-6 months, then consider further follow-up at 18-24 months * high risk patients: follow-up at 3-6 months, then at 18-24 months if no change Multiple nodules size: >8 mm * low risk patients: follow-up at 3-6 months, then consider further follow-up at 18-24 months * high risk patients: follow-up at 3-6 months, then at 18-24 months if no change Note: newly detected indeterminate nodule in persons 35 years of age or older. * low risk patients: minimal or absent history of smoking and/or other known risk factors * high risk patients: history of smoking or of other known risk factors (e.g. first degree relative with lung cancer, or exposure to asbestos, radon, uranium) * if a nodule up to 8 mm is partly solid or is ground glass further follow-up is required after 24 m onths to exclude possible slow growing adenocarcinoma (SERA) SUBSOLID NODULES Solitary pure ground-glass nodule * nodule size <6 mm - no CT follow-up required * nodule size >=6 mm - follow-up CT at 6-12 months, then every 2 years until 5 years Solitary part-solid nodule * nodule size <6 mm - no CT follow-up required * nodule size >=6 mm - follow-up CT at 3-6 months. If unchanged, and solid component remains <6 mm, then annual follow-up for 5 years Multiple subsolid nodules * nodule size <6 mm - follow-up CT at 3-6 months, consider further follow-up at 2 and 4 years if sta ble * nodule size >=6 mm - follow-up CT at 3-6 months, subsequent management based on the most suspiciou s nodule(s) ACT 112: Negative or not required by law. Electronically signed by: Wyatt Williamson M.D. 03/01/2019 7:30 AM
[2019-03-01] MEDS: GABAPENTIN 600 MG TAB PO SCH ×3 (07:46→21:38)
[2019-03-01] MEDS: LISINOPRIL/HCTZ 10/12.5MG TAB PO SCH (07:46)
[2019-03-01 08:33] LABS: Hematocrit (blood only) 27.6 % (42-52); Hemoglobin 8.1 g/dL (14.0-18.0); Mean Corpuscular Hemoglobin 19.9 pg (25-34); Mean Corpuscular Hgb Conc 29.3 g/dL (32-36); Mean Corpuscular Volume 67.6 fL (80-100); Mean Platelet Volume 9.5 fL (7.4-10.4); Platelet Count 408 K/uL (130-400); RDW Coefficient of Variation 17.9 % (11.5-14.5); RDW Standard Deviation 41.2 fL (36.4-46.3); Red Blood Count 4.08 M/uL (4.7-6.1); White Blood Count 7.41 K/uL (4.8-10.8)
[2019-03-01] MEDS: HYDROCODONE/ACETAMOPHEN 5/325MG TAB PO PRN (09:11)
--- NOTE | 2019-03-01 12:35 | Hospitalist Progress Note ---
Date of Service March 01, 2019 Assessment & Plan (1) Symptomatic anemia: - Symptomatic anemia in setting of Ufhgx-Omagu-Muage disease. Also developed acute SOB at home related to anemia. - Pt. reports he typically requires transfusion support every 2-3 years. - Transfused 1 unit pRBCs, repeat H/H was 8.1. - Hgb increased to 9.5 following additional unit; will repeat CBC in the morning. - Iron panel is pending; concern for underlying bleed leading to iron deficiency anemia. (2) Lwckb-Inzna-Vazei disease: - Monitored, anemia as noted above. (3) Chest pain: - CT PE was negative. - Possibly related to anemia and mucous plugging in setting of COPD. Per patient, this is likely a chronic issue. (4) Hypertension: - Continue Lisinopril/HCTZ as prescribed. (5) Pulmonary nodule: - 7 mm nodule noted in left lung base. - Will need f/u CT PE in 6-12 months. (6) Opioid dependence: - Continue home Methadone as prescribed. (7) Tobacco use disorder, continuous: - Nicotine patch. - Encourage tobacco cessation -- pt. has requested prescription for Nicotine patches at discharge. (8) Chronic back pain: - Continue Methadone and gabapentin as prescribed. DVT ppx: SCDs; hold pharmacologic ppx in setting of acute anemia. Dispo: Med/surg with tele for evaluation of anemia/transfusion support. Discharge likely on Sunday pending improvement in anemia. Subjective Pt. reports shortness of breath is improved following 1 unit pRBCs. He usually requires 2-3 units to achieve goal hgb. Pt. has not required blood transfusions for 2-3 years but developed SOB over the last week leading to hospitalization. Denies chest pain but does have "shoulder blade pain" -- CT chest neg for PE. Is currently smoking but would like to quit. Has pulm nodule on CT that will need follow up in 6-12 months. Currently receiving 2nd unit of PRBCs this morning, will repeat H/H this afternoon. Review of Systems Review of Systems: All systems reviewed & are unremarkable except as noted in HPI & below Constitutional: + fatigue and + weakness; no fever and no chills Respiratory: no cough, no dyspnea and no dyspnea on exertion Cardiovascular: no chest pain, no palpitations and no edema Gastrointestinal: no abdominal pain, no nausea and no constipation Genitourinary: no difficulty urinating Musculoskeletal: no back pain and no joint pain Integumentary: no non-healing lesions Physical Exam Physical Exam: General: Resting comfortably HEENT: NC/AT; PERRLA with EOMI; [place] conjunctiva, MMM. No erythema of posterior pharynx Neck: Supple and nontender Cardiac: RRR Lungs: CTA bilaterally Abdomen: Bowel normoactive X 4; Nontender to palpation Extremities: Warm. No edema present Neuro: No focal weakness Skin: No rash Results & Data Vital Signs (Past 12 Hours) Vital Signs Temp Pulse Pulse Resp BP BP Pulse Ox 03/01/19 11:30 36.6 C 62 16 116/63 96 03/01/19 10:30 36.9 C 60 20 164/85 H 03/01/19 09:48 36.5 C 64 18 170/63 H 94 03/01/19 09:31 36.3 C L 67 18 159/84 H 93 03/01/19 07:44 36.5 C 52 L 20 168/78 H 95 03/01/19 07:25 56 L 03/01/19 06:21 36.5 C 57 L 20 173/90 H 95 03/01/19 05:45 36.4 C L 55 L 20 161/89 H 93 03/01/19 04:51 36.5 C 57 L 18 160/88 H 93 03/01/19 04:36 36.6 C 58 L 18 167/84 H 92 03/01/19 04:32 58 L 18 153/92 H 92 03/01/19 04:18 36.8 C 59 L 18 153/92 H 92 03/01/19 03:55 60 20 162/85 H 94 03/01/19 02:48 65 18 156/93 H 93 03/01/19 02:02 55 L 20 152/73 H 93 03/01/19 00:55 65 18 155/87 H 94 03/01/19 00:36 96 Laboratory Results 03/01/19 03/01/19 03/01/19 Range/Units 08:22 03:00 03:00 WBC 7.41 (4.8-10.8) K/uL RBC 4.08 L (4.7-6.1) M/uL Hgb 8.1 L (14.0-18.0) g/dL Hct 27.6 L (42-52) % MCV 67.6 L (80-100) fL MCH 19.9 L (25-34) pg MCHC 29.3 L (32-36) g/dL RDW Std Deviation 41.2 (36.4-46.3) fL RDW Coeff of Ady 17.9 H (11.5-14.5) % Plt Count 408 H (130-400) K/uL MPV 9.5 (7.4-10.4) fL Immature Gran % (Auto) % Neut % (Auto) % Lymph % (Auto) % [place] % (Auto) % Eos % (Auto) % Baso % (Auto) % Immature Gran # (Auto) (0.00-0.02) K/uL Neut # (Auto) (1.4-6.5) K/uL Lymph # (Auto) (1.2-3.4) K/uL [place] # (Auto) (0.11-0.59) K/uL Eos # (Auto) (0-0.5) K/uL Baso # (Auto) (0-0.2) K/uL Polychromasia Hypochromasia Anisocytosis Ovalocytes D-Dimer (0-500) ug/L FEU Sodium (136-145) mmol/L Potassium (3.5-5.1) mmol/L Chloride (98-107) mmol/L Carbon Dioxide (21-32) mmol/L Anion Gap (3-11) BUN (7-18) mg/dl Creatinine (0.6-1.4) mg/dl Est Cr Clr Drug Dosing ml/min Est GFR ( Amer) Est GFR (Non-Af Amer) BUN/Creatinine Ratio (10-20) Glucose (70-99) mg/dl Calcium (8.5-10.1) mg/dl Total Bilirubin (0.2-1) mg/dl AST (15-37) U/L ALT (12-78) U/L Alkaline Phosphatase (45-117) U/L Troponin I (0-0.045) ng/ml Total Protein (6.4-8.2) gm/dl Albumin (3.4-5.0) gm/dl Globulin (2.5-4.0) gm/dl Albumin/Globulin Ratio (0.9-2) Lipase (73-393) U/L Urine Color Urine Appearance (Clear) Urine pH (4.5-7.5) Ur Specific [place] (1.000-1.030) Urine Protein (Negative) Urine Glucose (UA) (Negative) Urine Ketones (Negative) Urine Blood (Negative) Urine Nitrite (Negative) Urine Bilirubin (Negative) Urine Urobilinogen (Negative) Ur Leukocyte Esterase (Negative) Urine Opiates Screen Pos H (Neg) U Codeine Confrm GC/MS Pending Ur Morphine (GC/MS) Pending Ur Hydrocodone (GC/MS) Pending Ur Norhydrocodone Pending Ur Noroxycodone Pending Urine Oxycodone (GC/MS) Pending U Oxymorphone GC/MS Pending Ur Methadone, Qual Pos H (Neg) U Methadone Metabolites Pending Ur Methadone Confirm Pending Ur Hydromorphone (GC/MS) Pending Urine Barbiturates Neg (Neg) Ur Phencyclidine (PCP) Neg (Neg) U Amphetamin/Meth Scrn Neg (Neg) MDMA (Ecstasy) Screen Neg (Neg) U Benzodiazepines Scrn Neg (Neg) Ur Cocaine Metabolite Neg (Neg) U Marijuana (THC) Screen Neg (Neg) Drug Screen Comment Pending Blood Type Antibody Screen Crossmatch 03/01/19 03/01/19 03/01/19 Range/Units 03:00 02:16 00:34 WBC (4.8-10.8) K/uL RBC (4.7-6.1) M/uL Hgb (14.0-18.0) g/dL Hct (42-52) % MCV (80-100) fL MCH (25-34) pg MCHC (32-36) g/dL RDW Std Deviation (36.4-46.3) fL RDW Coeff of Ady (11.5-14.5) % Plt Count (130-400) K/uL MPV (7.4-10.4) fL Immature Gran % (Auto) % Neut % (Auto) % Lymph % (Auto) % [place] % (Auto) % Eos % (Auto) % Baso % (Auto) % Immature Gran # (Auto) (0.00-0.02) K/uL Neut # (Auto) (1.4-6.5) K/uL Lymph # (Auto) (1.2-3.4) K/uL [place] # (Auto) (0.11-0.59) K/uL Eos # (Auto) (0-0.5) K/uL Baso # (Auto) (0-0.2) K/uL Polychromasia Hypochromasia Anisocytosis Ovalocytes D-Dimer (0-500) ug/L FEU Sodium 138 (136-145) mmol/L Potassium 4.1 (3.5-5.1) mmol/L Chloride 106 (98-107) mmol/L Carbon Dioxide 29 (21-32) mmol/L Anion Gap 3.0 (3-11) BUN 15 (7-18) mg/dl Creatinine 0.96 (0.6-1.4) mg/dl Est Cr Clr Drug Dosing 92.9 ml/min Est GFR ( Amer) 101.3 Est GFR (Non-Af Amer) 87.4 BUN/Creatinine Ratio 15.3 (10-20) Glucose 94 (70-99) mg/dl Calcium 8.5 (8.5-10.1) mg/dl Total Bilirubin 0.2 (0.2-1) mg/dl AST 9 L (15-37) U/L ALT 16 (12-78) U/L Alkaline Phosphatase 90 (45-117) U/L Troponin I < 0.015 (0-0.045) ng/ml Total Protein 7.0 (6.4-8.2) gm/dl Albumin 3.3 L (3.4-5.0) gm/dl Globulin 3.7 (2.5-4.0) gm/dl Albumin/Globulin Ratio 0.9 (0.9-2) Lipase 52 L (73-393) U/L Urine Color Yellow Urine Appearance Clear (Clear) Urine pH 7.0 (4.5-7.5) Ur Specific [place] 1.041 H (1.000-1.030) Urine Protein Negative (Negative) Urine Glucose (UA) Negative (Negative) Urine Ketones Negative (Negative) Urine Blood Negative (Negative) Urine Nitrite Negative (Negative) Urine Bilirubin Negative (Negative) Urine Urobilinogen Negative (Negative) Ur Leukocyte Esterase Negative (Negative) Urine Opiates Screen (Neg) U Codeine Confrm GC/MS Ur Morphine (GC/MS) Ur Hydrocodone (GC/MS) Ur Norhydrocodone Ur Noroxycodone Urine Oxycodone (GC/MS) U Oxymorphone GC/MS Ur Methadone, Qual (Neg) U Methadone Metabolites Ur Methadone Confirm Ur Hydromorphone (GC/MS) Urine Barbiturates (Neg) Ur Phencyclidine (PCP) (Neg) U Amphetamin/Meth Scrn (Neg) MDMA (Ecstasy) Screen (Neg) U Benzodiazepines Scrn (Neg) Ur Cocaine Metabolite (Neg) U Marijuana (THC) Screen (Neg) Drug Screen Comment Blood Type B Positive Antibody Screen NEGATIVE Crossmatch See Detail 03/01/19 03/01/19 Range/Units 00:34 00:34 WBC 8.32 (4.8-10.8) K/uL RBC 3.84 L (4.7-6.1) M/uL Hgb 7.2 L (14.0-18.0) g/dL Hct 25.1 L (42-52) % MCV 65.4 L (80-100) fL MCH 18.8 L (25-34) pg MCHC 28.7 L (32-36) g/dL RDW Std Deviation 37.9 (36.4-46.3) fL RDW Coeff of Ady 15.9 H (11.5-14.5) % Plt Count 436 H (130-400) K/uL MPV 9.5 (7.4-10.4) fL Immature Gran % (Auto) 0.1 % Neut % (Auto) 62.9 % Lymph % (Auto) 22.7 % [place] % (Auto) 8.8 % Eos % (Auto) 4.9 % Baso % (Auto) 0.6 % Immature Gran # (Auto) 0.01 (0.00-0.02) K/uL Neut # (Auto) 5.23 (1.4-6.5) K/uL Lymph # (Auto) 1.89 (1.2-3.4) K/uL [place] # (Auto) 0.73 H (0.11-0.59) K/uL Eos # (Auto) 0.41 (0-0.5) K/uL Baso # (Auto) 0.05 (0-0.2) K/uL Polychromasia 1+ Hypochromasia Present Anisocytosis Present Ovalocytes 1+ D-Dimer 250 (0-500) ug/L FEU Sodium (136-145) mmol/L Potassium (3.5-5.1) mmol/L Chloride (98-107) mmol/L Carbon Dioxide (21-32) mmol/L Anion Gap (3-11) BUN (7-18) mg/dl Creatinine (0.6-1.4) mg/dl Est Cr Clr Drug Dosing ml/min Est GFR ( Amer) Est GFR (Non-Af Amer) BUN/Creatinine Ratio (10-20) Glucose (70-99) mg/dl Calcium (8.5-10.1) mg/dl Total Bilirubin (0.2-1) mg/dl AST (15-37) U/L ALT (12-78) U/L Alkaline Phosphatase (45-117) U/L Troponin I (0-0.045) ng/ml Total Protein (6.4-8.2) gm/dl Albumin (3.4-5.0) gm/dl Globulin (2.5-4.0) gm/dl Albumin/Globulin Ratio (0.9-2) Lipase (73-393) U/L Urine Color Urine Appearance (Clear) Urine pH (4.5-7.5) Ur Specific [place] (1.000-1.030) Urine Protein (Negative) Urine Glucose (UA) (Negative) Urine Ketones (Negative) Urine Blood (Negative) Urine Nitrite (Negative) Urine Bilirubin (Negative) Urine Urobilinogen (Negative) Ur Leukocyte Esterase (Negative) Urine Opiates Screen (Neg) U Codeine Confrm GC/MS Ur Morphine (GC/MS) Ur Hydrocodone (GC/MS) Ur Norhydrocodone Ur Noroxycodone Urine Oxycodone (GC/MS) U Oxymorphone GC/MS Ur Methadone, Qual (Neg) U Methadone Metabolites Ur Methadone Confirm Ur Hydromorphone (GC/MS) Urine Barbiturates (Neg) Ur Phencyclidine (PCP) (Neg) U Amphetamin/Meth Scrn (Neg) MDMA (Ecstasy) Screen (Neg) U Benzodiazepines Scrn (Neg) Ur Cocaine Metabolite (Neg) U Marijuana (THC) Screen (Neg) Drug Screen Comment Blood Type Antibody Screen Crossmatch PG Care Time/CCT Total # of Minutes Spent Total Time Spent with Patient: Total time spent is greater than 50% in coordination of care (as documented) at patient's floor/unit and/or counseling patient: Coding Level of Care Code None Diagnoses Symptomatic anemia D64.9 Mpebq-Txxpq-Fvons disease I78.0 Chest pain R07.9 Chest pain type: unspecified Hypertension I10 Pulmonary nodule R91.1 Opioid dependence F11.20 Tobacco use disorder, continuous F17.209 Chronic back pain M54.6; G89.29 Back pain laterality: bilateral Back pain location: thoracic back pain (1) Chronic back pain Back pain laterality: bilateral Back pain location: thoracic back pain Qualified Code(s): M54.6 - Pain in thoracic spine; G89.29 - Other chronic pain (2) Chest pain Chest pain type: unspecified Qualified Code(s): R07.9 - Chest pain, unspecified
--- NOTE | 2019-03-01 12:37 | XRay Report ---
SINGLE VIEW CHEST CLINICAL HISTORY: Atypical chest pain. FINDINGS: An AP, portable, upright chest radiograph is compared to study dated 02/24/2017. The examina tion is mildly degraded by portable technique and patient rotation. The heart is top normal for proje ction noting atherosclerotic calcification of the thoracic aorta. Emphysema and chronic interstitial thickening are similar to previous. There is bibasilar scarring/atelectasis. No airspace consolidatio n or large pleural effusion is seen. No pneumothorax is seen. There are healed right-sided rib fractu res. Degenerative change is noted throughout the thoracic spine. IMPRESSION: Emphysematous change with no acute cardiopulmonary abnormality. ACT 112: Negative or not required by law. Electronically signed by: Wyatt Williamson M.D. 03/01/2019 12:36 PM
[2019-03-01 12:46] LABS: Hematocrit (blood only) 31.8 % (42-52); Hemoglobin 9.5 g/dL (14.0-18.0)
[2019-03-01 15:06] LABS: Ferritin 2.9 ng/ml (8-388)
[2019-03-01] MEDS ORDERED: IRON SUCROSE 100 MG in 0.9 % SODIUM CHLORIDE 100 ML IV SCH (15:15)
--- NOTE | 2019-03-01 20:10 | Electrocardiogram Report ---
Test Reason : Blood Pressure : / mmHG Vent. Rate : 068 BPM Atrial Rate : 068 BPM P-R Int : 136 ms QRS Dur : 088 ms QT Int : 398 ms P-R-T Axes : 073 072 066 degrees QTc Int : 423 ms Poor data quality, interpretation may be adversely affected Normal sinus rhythm Normal ECG No previous ECGs available Confirmed by Kyle Contreras ([id number]) on 03/01/2019 8:10:47 PM Referred By: REFERRED SELF Confirmed By:Addy Contreras
[2019-03-01] MEDS: NICOTINE 21 MG/24 HR TDSY TD SCH (23:28)
[2019-03-02] MEDS: METHADONE HCL 10 MG TAB PO SCH (06:04)
[2019-03-02 06:23] LABS: Hematocrit (blood only) 32.9 % (42-52); Hemoglobin 9.8 g/dL (14.0-18.0); Mean Corpuscular Hemoglobin 20.7 pg (25-34); Mean Corpuscular Hgb Conc 29.8 g/dL (32-36); Mean Corpuscular Volume 69.6 fL (80-100); Mean Platelet Volume 9.5 fL (7.4-10.4); Platelet Count 428 K/uL (130-400); RDW Coefficient of Variation 19.6 % (11.5-14.5); RDW Standard Deviation 47.4 fL (36.4-46.3); Red Blood Count 4.73 M/uL (4.7-6.1); White Blood Count 8.53 K/uL (4.8-10.8)
[2019-03-02 06:55] LABS: BUN Creatinine Ratio 11.7 (10-20); Calcium 8.9 mg/dl (8.5-10.1); Creatinine Clr Calc Pharmacy 100.1 ml/min; Est GFR (African American) 106.6; Potassium 3.7 mmol/L (3.5-5.1)
[2019-03-02] MEDS: GABAPENTIN 600 MG TAB PO SCH (07:42)
[2019-03-02] MEDS: LISINOPRIL/HCTZ 10/12.5MG TAB PO SCH (07:42)
[2019-03-02] MEDS: NICOTINE 21 MG/24 HR TDSY TD SCH (07:43)
[2019-03-02] MEDS: HYDROCODONE/ACETAMOPHEN 5/325MG TAB PO PRN (07:53)
[2019-03-02] MEDS ORDERED: PANTOprazole 40 MG TAB PO SCH (09:00)
[2019-03-02] MEDS ORDERED: IRON SUCROSE 100 MG in 0.9 % SODIUM CHLORIDE 100 ML IV SCH (09:00)
--- NOTE | 2019-03-02 13:11 | Discharge Summary ---
Date of Service March 02, 2019 Admission HPI Per Admitting Provider The patient is a 58-year-old male with a past medical history including hypertension, cervical disc herniation, opioid dependence, anemia, Zkpkz-Zbbfa-Bttvb disease and chronic back, shoulder and generalized joint pain. He presents to the emergency department with shortness of breath at rest and worsening dyspnea on exertion, which in the past has indicated to him that his hemoglobin is low and needs to be transfused. His hemoglobin is 7.2 emergency department, significantly below his range of 8.8-12.8, with usual range 11-12.8. Admission Exam Per Admitting Provider The patient is awake, alert and oriented 3, looks fatigued, normocephalic and atraumatic, sitting upright on the edge of the bed and in no acute distress. HEENT--PERRL, EOMI, mucous membranes and oropharynx dry. Neck--supple. No JVD. No bruits. Thyroid normal, trachea midline, no adenopathy. Heart--normal S1 and S2. No murmurs, rubs or gallops. Lungs--clear bilaterally, no respiratory distress, no accessory muscle use. Abdomen--normal bowel sounds and soft. Nontender. Nondistended, no hernias or masses, no organomegaly. Extremities--no cyanosis or clubbing. No edema. There are good distal pulses b/l. Dermatologic--normal skin turgor, normal color, no abnormal lymph nodes, no rash. Neurologic--cranial nerves II through XII grossly intact. Rheumatologic--normal range of motion. Psychiatric--normal affect. Principal Diagnosis Iron deficiency anemia, GI bleed Discharge Exam General: Resting comfortably HEENT: NC/AT; PERRLA with EOMI; [place] conjunctiva, MMM. No erythema of posterior pharynx Neck: Supple and nontender Cardiac: RRR Lungs: CTA bilaterally Abdomen: Bowel normoactive X 4; Nontender to palpation Extremities: Warm. No edema present Neuro: No focal weakness Skin: No rash Discharge Data Allergies Allergy/AdvReac Type Severity Reaction Status Date / Time No Known Allergies Allergy Verified 03/01/19 03:33 Consultations 03/01/19 03:21 ED Decision to Admit Stat 03/01/19 05:26 Consult Case Management - Discharge Planning Routine 03/01/19 15:55 Consult Gastroenterology Routine 03/02/19 10:21 Consult [facility] jury consultant Routine Ordered Studies 03/01/19 02:06 CT angio abdomen pelvis w con Urgent CT angio chest dissec wo/w con Urgent CXR Hospital Course (1) Symptomatic anemia: Symptomatic anemia in setting of Pkzpa-Hgmpw-Imwnu disease & presumed GI bleed. Had SOB at home. Hgb responded well to 2 units pRBCs. Iron panel c/w severe iron deficiency anemia; received Venofer 100 mg x 2 days. Recommend taking ferrous sulfate 325 mg BID. FOBT was positive; presumed slow GI bleed at home -- started Protonix 40 mg PO daily. Will need close follow up with [facility] to discuss completing EGD/colonoscopy to evaluate for source of bleed. Provided script for labs in 2 days to monitor H/H. (2) Tfhxg-Jeljk-Erlka disease: Anemia as noted above. (3) Chest pain: CT PE was negative. Per patient, this is likely a chronic issue. (4) Hypertension: Continued Lisinopril/HCTZ as prescribed. (5) Pulmonary nodule: 7 mm nodule noted in left lung base. F/u CT PE in 6-12 months. (6) Opioid dependence: Continued home Methadone as prescribed. (7) Tobacco use disorder, continuous: Nicotine patch. Encouraged tobacco cessation -- script for tapering patches at discharge (21 mg x 7 days, 14 mg x 7 days, 7 mg x 7 days) (8) Chronic back pain: Continued Methadone and gabapentin as prescribed. Discharged to home on 03/02/19. Total Time Total Time Spent Total Time Spent (In Minutes): >30 minutes Total Time Includes: Examination of the Patient, Discharge Planning, Medication Reconciliation, Communication With Other Providers and Other Discharge Plan Discharge Items Patient Disposition: Home - Self-Care Reason For Visit: SYMPTOMATIC ANEMIA Discharge Diagnosis: Iron Deficiency Anemia, GI bleed Condition on Discharge: Good Goals: You have been hospitalized for an acute medical problem. During your stay at [facility], we have made an effort to correct the problem that brought you to the hospital while keeping you as comfortable as possible. Medications were used to bring your condition under control and your discharge instructions will include directions for any medications you should take after leaving the hospital. Please make sure you see your Primary Care Provider as part of your follow up plan. Activity: As commented below Exercise/Sports: Wait until after follow-up appointment Non-emergency contact: Primary Care Provider and Communications Planner Call non-emergency contact if: you have any medication questions, your symptoms worsen and you have a fever Follow-up/Referrals: Roger Talbert DO [Primary Care Provider] - Diet: Regular Ambulatory Orders: Complete Blood Count no Diff (Timed) Timeframe: 2 Days Location: Determined by Patient Ordered By: Melvina York Attending Provider Instructions: 1. Iron Deficiency Anemia in setting of presumed GI bleed * You will need to follow up with [facility] in 1-2 weeks to discuss scheduling a scope due to concern for underlying bleed. This appointment will be scheduled by our nurse navigator; you will be contacted regarding a time/date of this appointment. * It is also recommended to follow up with your primary care provider in 5-7 days. * A script was provided for lab work in 2 days (on Sunday or Sunday of this week) to monitor blood counts. Results will need to be faxed to your PCP. * Please take Protonix 40 mg daily for presumed GI bleeding. * Please take ferrous sulfate 325 mg twice daily at home. Continue to follow up with PCP for Venofer infusions. 2. Tobacco cessation * A script was sent to your pharmacy for nicotine patches (21 mg x 7 days, 14 mg x 7 days, 7 mg x 7 days then discontinue) * Complete discontinuation of tobacco containing products is encouraged. 3. Pulmonary nodule * 7 mm pulmonary nodule was noted on CT during this admission. * You will need follow up imaging in 6-12 months -- please discuss with PCP. Pending Studies at Discharge: No Stand-Alone Forms: Call Back Authorization, [facility], Smoking Cessation Medications and DC Order Prescriptions: New pantoprazole 40 mg Tablet,Delayed Release (Dr/Ec) 40 mg PO DAILY 30 Days Qty: 30 RF: 2 nicotine [Nicoderm CQ] 21 mg/24 hr Patch 24 Hour 21 mg transdermal QAM 7 Days Qty: 7 RF: 0 nicotine 14 mg/24 hr patch 24 hour 1 patch TD DAILY Qty: 7 RF: 0 nicotine 7 mg/24 hr patch 24 hour 1 patch TD DAILY Qty: 7 RF: 0 ferrous sulfate 325 mg (65 mg iron) tablet 325 mg PO BID Qty: 60 RF: 2 Continued hydrocodone-acetaminophen 5-325 mg tablet 1 tab PO BID PRN (Reason: Pain) 7 Days Qty: 14 RF: 0 methadone 10 mg tablet 10 mg PO Q8H 14 Days Qty: 42 RF: 0 lisinopril-hydrochlorothiazide 10-12.5 mg tablet 1 tab PO DAILY Qty: 30 RF: 11 gabapentin 600 mg tablet 1,200 mg PO TID Qty: 180 RF: 5 fluticasone propionate [Flonase Allergy Relief] 50 mcg/actuation spray,suspension 1 spray INTRANASAL BID PRN (Reason: Allergy Symptoms) Qty: 16 RF: 5 diclofenac sodium 1 % Gel 1 dose TOPICAL QID PRN (Reason: joint pain) RF: 0 Discharge Orders: Discharge Order (Routine); Ordered 03/02/19 Ordered By: Melvina Humphries Admission Data Admit Date/Time: 03/01/19 04:05 Attending Provider: Satya Duron Admit Provider: Luis Gonzalez Primary Care Provider: Roger Talbert Other Providers: Luis Gonzalez ; Sharad Carter Other Interventions: Discharge Summary Assessment (RN) Last Done: 03/02/19 10:33 DC Date/Time DO NOT enter until pt leaves facility: 03/02/19 11:58 Supervising Physician Co-Signing Physician Notes Attending note: patient seen and examined with Melvina Humphries PA-C. I agree with her discharge summary. I personally reviewed the labs and imaging findings. patient feeling great, his Hb is up to 9.8. blood pressure stable, eating well heme occult was positive very iron deficient with Ferritin of 2 discussed need for iron supplementation as well as endoscopy to look for bleeding he agrees to outpatient work up, does not want to stay - Symptomatic anemia: likely related to slow GI bleed related to Krolo-Bvbyb-Psurl disease Hb up to 9.8 after transfusions very iron deficient, cells are microcytic d/c to home with iron supplementation, PCP should arrange for Venofer routinely [facility] Nurse Navigator consulted to help arrange follow up with [facility] for scopes in near future - GI bleed: highly likely given his anemia, Iron deficiency and heme occult positive stool sample has been scoped by [facility] in the past Hqjsr-Jefof-Ayner disease can cause AVM in the GI tract will arrange for outpatient endoscopic evaluation Coding Level of Care Code D/C Day Management >30 mins Diagnoses Symptomatic anemia D64.9 Ucljt-Bjhzk-Bovkj disease I78.0 Chest pain R07.9 Chest pain type: unspecified Hypertension I10 Pulmonary nodule R91.1 Opioid dependence F11.20 Tobacco use disorder, continuous F17.209 Chronic back pain M54.6; G89.29 Back pain laterality: bilateral Back pain location: thoracic back pain
--- NOTE | 2019-03-02 14:51 | Gastroenterology Progress Note ---
Date of Service March 02, 2019 Subjective Pt discharged by time I came to see for consult. Results & Data Vital Signs (Past 12 Hours) Vital Signs Temp Pulse Pulse Pulse Resp BP BP 03/02/19 10:33 36.7 C 52 L 67 18 146/69 H 149/82 H 03/02/19 08:00 69 03/02/19 07:40 36.7 C 67 18 146/69 H Pulse Ox 03/02/19 10:33 94 03/02/19 08:00 03/02/19 07:40 94
[2019-03-03 15:17] LABS: Codeine Urine NEGATIVE ng/mL (<50); Hydrocodone Urine 102 ng/mL (<50); Hydromor Urine 57 ng/mL (<50); Methadone, Ur Metabolite 782 ng/mL (<100); Morphine Urine NEGATIVE ng/mL (<50); Norhydrocodone Conf Ur 350 ng/mL (<50); Noroxycodone Urine NEGATIVE ng/mL (<50); Oxycodone Urine NEGATIVE ng/mL (<50); Oxymorph Urine NEGATIVE ng/mL (<50)
== END 2019-03-02 11:58 | disposition home or self-care (01) ==
LOC: 2N 00:16 → ED 00:16 → SUATTDRO 04:05 → 2N 04:57

== ENCOUNTER 2019-04-22 05:42 | Inpatient (IN) ==
--- NOTE | 2019-04-22 06:24 | Emergency Department Note ---
History of Present Illness General Chief complaint: Chest Pain Stated complaint: CHEST PAIN,BACK PAIN,SHOULDER,POSS HEART ATTACK Time Seen by Provider: 04/22/19 05:56 Source: patient Mode of arrival: ambulatory Limitations: no limitations History of Present Illness Provider complaint: chest pain Onset (ago): hour(s) 6 Location: chest Radiation: back and extremity (left shoulder) Severity: moderate Pain Consistency: + constant Maximum Pain Intensity: 4 Quality: + aching and + constant Relieved By: + none Exacerbated By: + movement Associated symptoms: + nausea/vomiting and + shortness of breath Treatments prior to arrival: none This is a 58-year-old male who presents tonight with concerns for central and left-sided chest pain. Patient states he began feeling not well yesterday while at work. Patient states around lunchtime he left work early and went home to rest. He states that approximately 5 PM he began noticing some discomfort in his chest. Patient states he continued to rest and wait at home to see if it would pass. Patient states it continued to become severe. Patient states this morning he eventually decided he should come and be seen. Patient denies any recent change in medications. 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 Patient has previously been admitted for this and needed prior blood transfusions. Patient denies any recent vomiting, although was nauseated with pain tonight. No recent change in stools, including no black or bloody stools. Patient denies any recent fevers, does admit to a persistent cough, however he is still smoking. Patient states yesterday when he left work he did go to the [place] emergency room and asked him to check his blood counts. He states it was reported to him that his hemoglobin was 8. Home Medications Home Medications Medication Instructions Recorded Confirmed Type diclofenac sodium 1 dose TOPICAL QID PRN 06/06/18 04/22/19 History lisinopril 10 1 tab PO DAILY #30 tab 11/25/18 04/22/19 Rx mg-hydrochlorothiazide 12.5 mg tablet ferrous sulfate 325 mg PO BID #60 tab 03/02/19 04/22/19 Rx nicotine 1 patch TD DAILY #7 ea 03/02/19 04/22/19 Rx pantoprazole 40 mg PO DAILY 30 Days #30 tab 03/02/19 04/22/19 Rx dutasteride 0.5 mg capsule 0.5 mg PO DAILY #30 cap 04/08/19 04/22/19 Rx fluticasone propionate 50 1 spray INTRANASAL BID PRN #16 gm 04/08/19 04/22/19 Rx mcg/actuation nasal spray,suspension gabapentin 600 mg tablet 1,200 mg PO TID #180 tab 04/08/19 04/22/19 Rx hydrocodone 5 mg-acetaminophen 325 1 tab PO TID PRN 14 Days #42 tabs 04/08/19 04/22/19 Rx mg tablet methadone 10 mg tablet 10 mg PO Q8H 30 Days #90 tabs 04/08/19 04/22/19 Rx albuterol sulfate 90 mcg/actuation 1 - 2 puffs INH QID #18 gm 04/14/19 04/22/19 Rx aerosol inhaler Allergies Allergy/AdvReac Type Severity Reaction Status Date / Time No Known Allergies Allergy Verified 04/22/19 06:27 Past Med/Surg History Medical History Anemia HX Cervical disc disease C5-C6 Chronic back pain Hepatitis C treated--no longer has Hx of bleeding disorder HAS CAUSED BLEEDING INTO STOMACH REQUIRING CAUTERIZATION-F/U DR LORETA KELLEY-HX BLOOD TRANSFUSIONS IN THE PAST Hypertension Osler-Rendu disease (Acute) Surgical History History of colonoscopy History of esophagogastroduodenoscopy (EGD) History of herniorrhaphy X 4 History of open reduction and internal fixation (ORIF) procedure left hand/wrist fx--hardware removed History of repair of rotator cuff RIGHT History of shoulder surgery right History of tooth extraction all teeth removed Hx of excision of testicular mass X MULTIPLE BENIGN CYSTS Family History Other No family history of adverse response to anesthesia Denies family history of Colon cancer Ovarian cancer Prostate cancer Myocardial infarction Breast cancer Social History Preferred Language: [place] Communication Ability: Effective Visual Impairment: Limited Hearing Ability: Hard of Hearing 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 Beliefs That Will Affect Care: None marital status: Current Living Situation: Alone Current Living Situation Comment: Lives with and daughter current occupational status: employed Other Information That Helps Us Care for You: No Feels Safe at Home: Yes Safety Concerns: Feels Safe At This Time Smoking Status: Current every day smoker Tobacco Type: cigarettes ; Cigarettes Per Day: 20 ; Do You Dip or Chew Tobacco: No ; Second Hand Exposure: No ; Tobacco Cessation Education Requested by Patient: No Hx Alcohol Use: No Hx Substance Use: Yes substance use type: opiates and prescription drug Substance Use Type Other:: opiate, methadone Last Used Substance: Unknown Dental Care, Regularly: Yes Physical Activity Frequency: Daily Seatbelt Use: never Sunscreen Use: No Review of Systems See HPI for pertinent positives & negatives. and A total of 10 systems reviewed and were otherwise negative Physical Exam Vital Signs Vital Signs - 24 hr 04/22/19 05:45 04/22/19 05:56 04/22/19 06:00 Temperature 36.7 C Temperature Source Oral Pulse Rate 80 79 73 Pulse Rate from SpO2 Sensor 79 74 Respiratory Rate 18 21 17 Respiratory Effort / Characteristics Non-Labored Spontaneous Respiratory Depth Normal Respiratory Pattern Regular Blood Pressure 158/92 H Blood Pressure Mean 114 Blood Pressure Position Sitting Pulse Oximetry 95 93 93 Oxygen Delivery Method Room Air Sepsis Recent Fever Within 48 Hours No Sepsis Action Taken by Nursing No Action Required 04/22/19 06:01 04/22/19 06:15 04/22/19 06:30 Temperature Temperature Source Pulse Rate 72 77 75 Pulse Rate from SpO2 Sensor 73 78 75 Respiratory Rate 15 17 15 Respiratory Effort / Characteristics Respiratory Depth Respiratory Pattern Blood Pressure 153/89 H 156/81 H Blood Pressure Mean 111 92 Blood Pressure Position Pulse Oximetry 93 94 92 Oxygen Delivery Method Sepsis Recent Fever Within 48 Hours Sepsis Action Taken by Nursing 04/22/19 06:45 04/22/19 07:00 04/22/19 07:15 Temperature Temperature Source Pulse Rate 78 75 85 Pulse Rate from SpO2 Sensor 77 76 Respiratory Rate 16 15 Respiratory Effort / Characteristics Respiratory Depth Respiratory Pattern Blood Pressure 151/92 H Blood Pressure Mean 94 Blood Pressure Position Pulse Oximetry 91 94 Oxygen Delivery Method Sepsis Recent Fever Within 48 Hours Sepsis Action Taken by Nursing 04/22/19 07:30 04/22/19 07:45 04/22/19 07:59 Temperature Temperature Source Pulse Rate 76 69 Pulse Rate from SpO2 Sensor Respiratory Rate 16 17 Respiratory Effort / Characteristics Spontaneous Respiratory Depth Respiratory Pattern Blood Pressure Blood Pressure Mean Blood Pressure Position Pulse Oximetry 94 Oxygen Delivery Method Room Air Sepsis Recent Fever Within 48 Hours Sepsis Action Taken by Nursing 04/22/19 08:00 04/22/19 08:15 04/22/19 08:35 Temperature Temperature Source Pulse Rate 68 72 94 H Pulse Rate from SpO2 Sensor Respiratory Rate 13 15 21 Respiratory Effort / Characteristics Respiratory Depth Respiratory Pattern Blood Pressure 138/83 Blood Pressure Mean 102 Blood Pressure Position Pulse Oximetry Oxygen Delivery Method Sepsis Recent Fever Within 48 Hours Sepsis Action Taken by Nursing 04/22/19 08:45 04/22/19 09:00 04/22/19 09:01 Temperature Temperature Source Pulse Rate 77 73 75 Pulse Rate from SpO2 Sensor 77 73 75 Respiratory Rate 14 14 20 Respiratory Effort / Characteristics Respiratory Depth Respiratory Pattern Blood Pressure 161/89 H Blood Pressure Mean 119 Blood Pressure Position Pulse Oximetry 90 90 91 Oxygen Delivery Method Sepsis Recent Fever Within 48 Hours Sepsis Action Taken by Nursing 04/22/19 09:15 Temperature Temperature Source Pulse Rate 75 Pulse Rate from SpO2 Sensor 74 Respiratory Rate 13 Respiratory Effort / Characteristics Respiratory Depth Respiratory Pattern Blood Pressure Blood Pressure Mean Blood Pressure Position Pulse Oximetry 91 Oxygen Delivery Method Sepsis Recent Fever Within 48 Hours Sepsis Action Taken by Nursing GENERAL: alert, uncomfortable appearing, well nourished, no distress, non-toxic EYE EXAM: normal conjunctiva, PERRL and EOM's grossly intact OROPHARYNX: no exudate, no erythema, lips, buccal mucosa, and tongue normal and mucous membranes are dry with brown staining on tongue consistent with chronic tobacco abuse NECK: supple, no nuchal rigidity, no adenopathy, non-tender LUNGS: Clear to auscultation but decreased. Normal chest wall mechanics, no w/r/r HEART: no murmurs, S1 normal and S2 normal, mild chest wall tenderness with palpation ABDOMEN: abdomen soft, non-tender, normo-active bowel sounds, no masses, no rebound or guarding. Well-healed scar from prior trauma per patient as well as well-healed surgical scars noted. BACK: Back is symmetrical on inspection and there is no deformity, no midline tenderness, no CVA tenderness. SKIN: no rashes and no bruising, no petechiae UPPER EXTREMITIES: upper extremities are grossly normal. FROM, nml pulses b/l. LOWER EXTREMITIES: 1+ pitting edema. FROM, nml pulses b/l. NEURO EXAM: Normal sensorium, cranial nerves II-XII grossly intact, normal speech, no gross weakness of arms, no gross weakness of legs. Gross sensation intact. Course Course 0755: Patient updated on results so far. No prior history of pneumonia. Patient states he did not get a flu vaccine this year. 0900: Patient updated on all results. Discussed concern given risks of COPD/emphysema and multi lobar pneumonia. Patient's oxygen saturations holding at 90% on room air. Patient states pain is mildly improved. Discussed with agnes taylor additional inpatient evaluation and he was in agreement. 09: Discussed with Dr. Satya Duron, [place] [facility] for additional inpatient evaluation and management. Administered Medications Acetaminophen (Tylenol) 650 mg PO Q4H PRN PRN Reason: pain/fever Stop: 05/22/19 10:46 Last Admin: 04/23/19 00:28 Dose: 650 mg Documented by: [id number] Hydrocodone Bitart/Acetaminophen ([place] 5/325) 1 tab PO TID PRN PRN Reason: Pain Stop: 05/06/19 11:00 Last Admin: 04/22/19 20:08 Dose: 1 tab Documented by: [id number] Admin: 04/22/19 13:57 Dose: 1 tab Documented by: [id number] Albuterol (Duoneb) 3 ml NEB QIDR TOSHIA Stop: 05/22/19 10:59 Last Admin: 04/22/19 19:10 Dose: 3 ml Documented by: [id number] Admin: 04/22/19 15:23 Dose: 3 ml Documented by: [id number] Admin: 04/22/19 11:42 Dose: 3 ml Documented by: [id number] Ferrous Sulfate (Feosol) 325 mg PO BID TOSHIA Stop: 05/22/19 20:59 Last Admin: 04/22/19 20:08 Dose: 325 mg Documented by: [id number] Gabapentin (Neurontin) 1,200 mg PO TID TOSHIA Stop: 05/22/19 13:59 Last Admin: 04/22/19 20:08 Dose: 1,200 mg Documented by: [id number] Admin: 04/22/19 13:57 Dose: 1,200 mg Documented by: [id number] Sodium Chloride (Nss 1000ml) 1,000 mls @ 80 mls/hr IV .[id number] TOSHIA Stop: 05/22/19 10:46 Last Admin: 04/23/19 00:21 Dose: 80 mls/hr Documented by: [id number] Infusion: 04/23/19 00:07 Dose: 80 mls/hr Documented by: [id number] Admin: 04/22/19 11:37 Dose: 80 mls/hr Documented by: [id number] Ioversol (Optiray 320 125ml) 120 ml IV ONCE PRN PRN Reason: Interaction Checking Stop: 04/26/19 08:24 Last Admin: 04/22/19 08:25 Dose: 120 ml Documented by: [id number] Methadone HCl (Dolophine) 10 mg PO Q8H TOSHIA Stop: 05/06/19 11:59 Last Admin: 04/22/19 20:07 Dose: 10 mg Documented by: [id number] Admin: 04/22/19 11:37 Dose: 10 mg Documented by: [id number] Miscellaneous (Order Awaiting Action) 1 ea N/A QS TOSHIA Stop: 05/22/19 15:59 Last Admin: 04/22/19 22:59 Dose: Not Given Documented by: [id number] Admin: 04/22/19 15:27 Dose: Not Given Documented by: [id number] Discontinued Medications Albuterol (Duoneb) 3 ml NEB NOW STA Stop: 04/22/19 07:23 Last Admin: 04/22/19 07:58 Dose: 3 ml Documented by: [id number] Acetaminophen (Ofirmev) 1,000 mg in 100 mls @ 400 mls/hr IV NOW STA Stop: 04/22/19 07:27 Last Infusion: 04/22/19 08:12 Dose: 0 mls/hr Documented by: [id number] Admin: 04/22/19 07:52 Dose: 400 mls/hr Documented by: [id number] Levofloxacin/Dextrose (Levaquin/D5w) 750 mg in 150 mls @ 100 mls/hr IV NOW STA Stop: 04/22/19 08:42 Last Infusion: 04/22/19 09:41 Dose: 0 mls/hr Documented by: [id number] Admin: 04/22/19 07:53 Dose: 100 mls/hr Documented by: [id number] Sodium Chloride (Nss 1000ml) 1,000 mls @ 999 mls/hr IV .Q1H1M ONE Stop: 04/22/19 08:16 Last Infusion: 03/17/20 09:41 Dose: 0 mls/hr Documented by: [id number] Admin: 04/22/19 07:53 Dose: 999 mls/hr Documented by: [id number] Methylprednisolone (Solumedrol) 40 mg IV NOW STA Stop: 04/22/19 07:23 Last Admin: 04/22/19 07:53 Dose: 40 mg Documented by: [id number] Medical Decision Making Differential Diagnosis Differential diagnoses includes but is not limited to acute coronary syndrome, myocardial infarction, pericarditis, pulmonary embolus, aortic dissection, pneumonia, pneumothorax, musculoskeletal, shingles, esophageal. Medical Records Attestation: I reviewed the patient's medical records. Home Medications Current Medication List: was personally reviewed by me Laboratory Data Attestation: I reviewed the patient's lab results. Result diagrams: 04/22/19 05:55 04/22/19 05:55 Lab Results 04/22/19 04/22/19 04/22/19 Range/Units 05:55 05:55 05:55 WBC 14.05 H (4.8-10.8) K/uL RBC 4.46 L (4.7-6.1) M/uL Hgb 9.4 L (14.0-18.0) g/dL Hct 31.7 L (42-52) % MCV 71.1 L (80-100) fL MCH 21.1 L (25-34) pg MCHC 29.7 L (32-36) g/dL RDW Std Deviation 55.2 H (36.4-46.3) fL RDW Coeff of Ady 21.4 H (11.5-14.5) % Plt Count 516 H (130-400) K/uL MPV 9.7 (7.4-10.4) fL Immature Gran % (Auto) 0.2 % Neut % (Auto) 86.3 % Lymph % (Auto) 6.8 % Carbon % (Auto) 5.5 % Eos % (Auto) 1.0 % Baso % (Auto) 0.2 % Immature Gran # (Auto) 0.03 H (0.00-0.02) K/uL Neut # (Auto) 12.13 H (1.4-6.5) K/uL Lymph # (Auto) 0.95 L (1.2-3.4) K/uL Carbon # (Auto) 0.77 H (0.11-0.59) K/uL Eos # (Auto) 0.14 (0-0.5) K/uL Baso # (Auto) 0.03 (0-0.2) K/uL Hypochromasia Present Anisocytosis Present Spherocytes 1+ D-Dimer 640 H* (0-500) ug/L FEU Sodium 134 L (136-145) mmol/L Potassium 3.9 (3.5-5.1) mmol/L Chloride 101 (98-107) mmol/L Carbon Dioxide 28 (21-32) mmol/L Anion Gap 5.0 (3-11) BUN 13 (7-18) mg/dl Creatinine 0.87 (0.6-1.4) mg/dl Est Cr Clr Drug Dosing 105.9 ml/min Est GFR ( Amer) 111.0 Est GFR (Non-Af Amer) 95.8 BUN/Creatinine Ratio 14.4 (10-20) Glucose 123 H (70-99) mg/dl Calcium 9.3 (8.5-10.1) mg/dl Magnesium 2.2 (1.8-2.4) mg/dl Total Bilirubin 0.4 (0.2-1) mg/dl AST 10 L (15-37) U/L ALT 19 (12-78) U/L Alkaline Phosphatase 105 (45-117) U/L Troponin I < 0.015 (0-0.045) ng/ml NT-Pro-B Natriuret Pep 139 (0-900) pg/ml Total Protein 8.8 H (6.4-8.2) gm/dl Albumin 3.5 (3.4-5.0) gm/dl Globulin 5.3 H (2.5-4.0) gm/dl Albumin/Globulin Ratio 0.7 L (0.9-2) Lipase 75 (73-393) U/L TSH 0.794 (0.300-4.500) uIu/ml Influenza Type A (PCR) (Neg) Influenza Type B (PCR) (Neg) 04/22/19 Range/Units 07:50 WBC (4.8-10.8) K/uL RBC (4.7-6.1) M/uL Hgb (14.0-18.0) g/dL Hct (42-52) % MCV (80-100) fL MCH (25-34) pg MCHC (32-36) g/dL RDW Std Deviation (36.4-46.3) fL RDW Coeff of Ady (11.5-14.5) % Plt Count (130-400) K/uL MPV (7.4-10.4) fL Immature Gran % (Auto) % Neut % (Auto) % Lymph % (Auto) % Carbon % (Auto) % Eos % (Auto) % Baso % (Auto) % Immature Gran # (Auto) (0.00-0.02) K/uL Neut # (Auto) (1.4-6.5) K/uL Lymph # (Auto) (1.2-3.4) K/uL Carbon # (Auto) (0.11-0.59) K/uL Eos # (Auto) (0-0.5) K/uL Baso # (Auto) (0-0.2) K/uL Hypochromasia Anisocytosis Spherocytes D-Dimer (0-500) ug/L FEU Sodium (136-145) mmol/L Potassium (3.5-5.1) mmol/L Chloride (98-107) mmol/L Carbon Dioxide (21-32) mmol/L Anion Gap (3-11) BUN (7-18) mg/dl Creatinine (0.6-1.4) mg/dl Est Cr Clr Drug Dosing ml/min Est GFR ( Amer) Est GFR (Non-Af Amer) BUN/Creatinine Ratio (10-20) Glucose (70-99) mg/dl Calcium (8.5-10.1) mg/dl Magnesium (1.8-2.4) mg/dl Total Bilirubin (0.2-1) mg/dl AST (15-37) U/L ALT (12-78) U/L Alkaline Phosphatase (45-117) U/L Troponin I (0-0.045) ng/ml NT-Pro-B Natriuret Pep (0-900) pg/ml Total Protein (6.4-8.2) gm/dl Albumin (3.4-5.0) gm/dl Globulin (2.5-4.0) gm/dl Albumin/Globulin Ratio (0.9-2) Lipase (73-393) U/L TSH (0.300-4.500) uIu/ml Influenza Type A (PCR) Neg for Influ A (Neg) Influenza Type B (PCR) Neg for Influ B (Neg) Imaging Data Radiologist's Impression: XR chest 1V portable CLINICAL HISTORY: Chest pain. COMPARISON STUDY: Chest radiograph and chest CT March 01, 2019. FINDINGS: Note is made of a 5.8 cm left infrahilar airspace opacity which is new since prior chest radiograph and chest CT of March 01, 2019. There is no evidence for pulmonary edema. No pneumothorax or pleural effusion is noted. Cardiac size is normal. Mediastinal contours are normal. There is underlying emphysema. IMPRESSION: 5.8 cm left infrahilar airspace opacity, new since chest CT of March 01, 2019. This favors pneumonia. Post treatment radiographs to ensure resolution are recommended. ACT 112: Negative or not required by law. CT angio chest PE protocol CT DOSE: 321.59 mGy.cm HISTORY: PE TECHNIQUE: Multiaxial CT images of the chest were performed following the intravenous administration of contrast to evaluate the pulmonary arteries. Maximal intensity projection images were also obtained. A dose lowering technique was utilized adhering to the principles of ALARA. COMPARISON STUDY: None. FINDINGS: There is a normal caliber thoracic aorta with no evidence for dissection. There is no evidence for pulmonary embolus. No pleural effusions. No evidence for pneumothorax. Minimal interstitial change at both lung bases. Consolidative infiltrative process left upper lobe measuring 4.5 cm at maximum. Patchy somewhat nodular infiltrative changes in the right upper lung. Emphysematous change. Bleb formation over the pulmonary apices. IMPRESSION: 1. Study is negative for pulmonary embolus. 2. Consolidative parenchymal infiltrate left upper lobe. 3. Patchy parenchymal infiltrative changes right upper and to a lesser extent right lower lobe region. ACT 112: Negative or not required by law. The above report was generated using voice recognition software. It may contain grammatical, syntax or spelling errors. Electronically signed by: Chino Morrison M.D. 04/22/2019 8:44 AM ECG Data Attestation: I personally reviewed and interpreted this ECG as follows: Indication: + chest pain Rate (beats per minute): 80 Rhythm: + normal sinus ECG Intervals/blocks: + Normal QRS and + Normal QT ECG [place]: + Normal ECG ST segments: + Normal ST segments Blood Pressure Blood Pressure Findings: Elevated blood pressure Blood Pressure Disposition: further management by hospitalist GABBI Gallo Patient here ill-appearing and in distress with complaints of chest pain. Initial concern for both cardiac, pulmonary, and vascular etiology given patient's comorbidities. Patient remained hemodynamically stable in the emergency room and did not require any additional oxygen. Patient found to have infiltrate noted on chest x-ray, and due to concern for increased risk because of severe underlying COPD/emphysema, patient sent for additional CT imaging. This revealed a multi lobar pneumonia. 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 Patient denies any recent black or bloody stools, or hematemesis. Patient does admit to intermittent nosebleeds. While patient's pneumonia severity index scoring is not significantly elevated, I feel given his comorbidities and a multi lobar pneumonia, that he would benefit from additional inpatient evaluation and treatment. Patient was started on IV Levaquin in the emergency room and was given a dose of Solu-Medrol. Patient was given duo nebs here which she did state helped with his breathing. Patient was given Tylenol for pain. No additional narcotics were given as patient is already on chronic narcotics for pain control. Will defer additional pain medications to the admitting team. Case discussed with hospitalist for additional evaluation and management. I do not suspect bacteremia/sepsis at this time. No evidence for PE, ACS, pericardial effusion. I do not suspect pericarditis/myocarditis. No other evidence of vascular etiology. I do not suspect COVID 19. Impression & Plan Chest pain, Anemia, Pneumonia, Tobacco use disorder, continuous Discharge Plan Visit Data *Final* Discharge Date/Time: 04/22/19 10:30 Chief Complaint: Chest Pain Stated Complaint: CHEST PAIN,BACK PAIN,SHOULDER,POSS HEART ATTACK ED Provider: Karena Denney Discharge Problem: Chest pain, Anemia, Pneumonia, Tobacco use disorder, continuous Patient Disposition: Admitted As Inpatient Condition: Good Discharge Instructions Interventions: ED Discharge Assessment Last Done: 04/22/19 10:30 Discharge Problem: Chest pain Qualifiers: Chest pain type: unspecified Qualified Code(s): R07.9 - Chest pain, unspecified Anemia Qualifiers: Anemia type: other cause Other causes of anemia: other cause, not classified Qualified Code(s): D64.89 - Other specified anemias Pneumonia Qualifiers: Pneumonia type: due to unspecified organism Laterality: left Lung location: lower lobe of lung Qualified Code(s): J18.9 - Pneumonia, unspecified organism
[2019-04-22 06:26] LABS: Basophils # (auto) 0.03 K/uL (0-0.2); Basophils % (auto) 0.2 %; Eosinophils # (auto) 0.14 K/uL (0-0.5); Hematocrit (blood only) 31.7 % (42-52); Hemoglobin 9.4 g/dL (14.0-18.0); Immature Granulocytes # (auto) 0.03 K/uL (0.00-0.02); Immature Granulocytes % (auto) 0.2 %; Lymphocytes # (auto) 0.95 K/uL (1.2-3.4); Lymphocytes % (auto) 6.8 %; Mean Corpuscular Hemoglobin 21.1 pg (25-34); Mean Corpuscular Hgb Conc 29.7 g/dL (32-36); Mean Corpuscular Volume 71.1 fL (80-100); Mean Platelet Volume 9.7 fL (7.4-10.4); Monocytes # (auto) 0.77 K/uL (0.11-0.59); Monocytes % (auto) 5.5 %; Neutrophils # (auto) 12.13 K/uL (1.4-6.5); Neutrophils % (auto) 86.3 %; Platelet Count 516 K/uL (130-400); RDW Coefficient of Variation 21.4 % (11.5-14.5); RDW Standard Deviation 55.2 fL (36.4-46.3); Red Blood Count 4.46 M/uL (4.7-6.1); White Blood Count 14.05 K/uL (4.8-10.8)
[2019-04-22 06:44] LABS: Alanine Aminotransferase 19 U/L (12-78); Albumin Level 3.5 gm/dl (3.4-5.0); Aspartate Aminotransferase 10 U/L (15-37); BUN Creatinine Ratio 14.4 (10-20); Blood Urea Nitrogen 13 mg/dl (7-18); Calcium 9.3 mg/dl (8.5-10.1); Carbon Dioxide 28 mmol/L (21-32); Chloride 101 mmol/L (98-107); Creatinine Clr Calc Pharmacy 105.9 ml/min; Est GFR (Non-African American) 95.8; Glucose 123 mg/dl (70-99); Lipase 75 U/L (73-393); Magnesium 2.2 mg/dl (1.8-2.4); Potassium 3.9 mmol/L (3.5-5.1); Sodium 134 mmol/L (136-145)
--- NOTE | 2019-04-22 06:44 | XRay Report ---
XR chest 1V portable CLINICAL HISTORY: Chest pain. COMPARISON STUDY: Chest radiograph and chest CT March 01, 2019. FINDINGS: Note is made of a 5.8 cm left infrahilar airspace opacity which is new since prior chest ra diograph and chest CT of March 01, 2019. There is no evidence for pulmonary edema. No pneumothorax or pleural effusion is noted. Cardiac size is normal. Mediastinal contours are normal. There is under lying emphysema. IMPRESSION: 5.8 cm left infrahilar airspace opacity, new since chest CT of March 01, 2019. This fa vors pneumonia. Post treatment radiographs to ensure resolution are recommended. ACT 112: Negative or not required by law. Electronically signed by: Jeremiah Smith M.D. 04/22/2019 6:43 AM
[2019-04-22 06:55] LABS: Albumin Globulin Ratio 0.7 (0.9-2); Alkaline Phosphatase 105 U/L (45-117); Bilirubin,Total 0.4 mg/dl (0.2-1); Globulin 5.3 gm/dl (2.5-4.0); NT Pro B Type Natriuretic Pept 139 pg/ml (0-900); Thyroid Stimulating Hormone 0.794 uIu/ml (0.300-4.500); Total Protein 8.8 gm/dl (6.4-8.2); Troponin I < 0.015 ng/ml (0-0.045)
[2019-04-22 07:05] LABS: Anisocytosis Present; Hypochromasia Present; Spherocytes 1+
[2019-04-22 07:11] LABS: D Dimer 640 ug/L FEU (0-500)
[2019-04-22] MEDS ORDERED: LEVOFLOXACIN/D5W 750 MG/150 ML BAG IV STA (07:13)
[2019-04-22] MEDS ORDERED: ACETAMINOPHEN 1,000 MG/100 ML VIAL IV STA (07:13)
[2019-04-22] MEDS ORDERED: SODIUM CHLORIDE 0.9% 1000ML 1,000 ML IV ONE (07:16)
[2019-04-22] MEDS ORDERED: ALBUT/IPRATROP 3MG/0.5MG NEB 3 ML VIAL NEB STA (07:22)
[2019-04-22] MEDS ORDERED: OPTIRAY 320 125ml IV PRN (08:25)
[2019-04-22 08:35] LABS: Influenza A virus by PCR Neg for Influ A (Neg); Influenza B virus by PCR Neg for Influ B (Neg)
--- NOTE | 2019-04-22 08:45 | CT Scan Report ---
CT angio chest PE protocol CT DOSE: 321.59 mGy.cm HISTORY: PE TECHNIQUE: Multiaxial CT images of the chest were performed following the intravenous administration of contrast to evaluate the pulmonary arteries. Maximal intensity projection images were also obtaine d. A dose lowering technique was utilized adhering to the principles of ALARA. COMPARISON STUDY: None. FINDINGS: There is a normal caliber thoracic aorta with no evidence for dissection. There is no evide nce for pulmonary embolus. No pleural effusions. No evidence for pneumothorax. Minimal interstitial c hange at both lung bases. Consolidative infiltrative process left upper lobe measuring 4.5 cm at maxi mum. Patchy somewhat nodular infiltrative changes in the right upper lung. Emphysematous change. Bleb formation over the pulmonary apices. IMPRESSION: 1. Study is negative for pulmonary embolus. 2. Consolidative parenchymal infiltrate left upper lobe. 3. Patchy parenchymal infiltrative changes right upper and to a lesser extent right lower lobe region . ACT 112: Negative or not required by law. The above report was generated using voice recognition software. It may contain grammatical, syntax or spelling errors. Electronically signed by: Chino Morrison M.D. 04/22/2019 8:44 AM
[2019-04-22] MEDS ORDERED: ONDANSETRON INJ 2 MG/ML 2 ML VIAL IV PRN (10:47)
[2019-04-22] MEDS ORDERED: ACETAMINOPHEN 325 MG TAB PO PRN (10:47)
[2019-04-22] MEDS ORDERED: POLYETHYLENE (MIRALAX) 17 GM PACK PO PRN (10:47)
[2019-04-22] MEDS ORDERED: FLUTICASONE PROPIONATE NA SPR 16 GM BTL PRN (10:47)
[2019-04-22] MEDS ORDERED: DICLOFENAC SOD 1% GEL 100 GM TUBE EXT PRN (10:47)
[2019-04-22] MEDS: METHADONE HCL 10 MG TAB PO SCH ×2 (11:37→20:07)
[2019-04-22] MEDS: SODIUM CHLORIDE 0.9% 1000ML 1,000 ML IV SCH (11:37)
[2019-04-22] MEDS: ALBUT/IPRATROP 3MG/0.5MG NEB 3 ML VIAL NEB SCH ×3 (11:42→19:10)
[2019-04-22] MEDS: HYDROCODONE/ACETAMOPHEN 5/325MG TAB PO PRN ×2 (13:57→20:08)
[2019-04-22] MEDS: GABAPENTIN 600 MG TAB PO SCH ×2 (13:57→20:08)
--- NOTE | 2019-04-22 15:17 | History & Physical Report ---
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 He said the symptoms started yesterday morning, they were mild at that time. He just felt fatigued, did not notice dyspnea. He pushed himself yesterday, working outside on a job all day. Toward the end of the day he started to feel more run down. He assumed that his hemoglobin was getting low as he is prone to anemia, Hb has been as low at 5 in the past. He figured he would just get some rest and get his Hb checked the next few days. He ate a little last night but appetite was not great. He did not drink much either. He started to feel more short of breath, even a little when at rest. He did not notice any fever or chills. He came to the ED primarily for the dyspnea. In the ED he was afebrile, hypertensive, no hypoxia. He had a WBC of 14k and Hb was 9. D dimer was elevated so he was sent for CTA chest. No evidence of PE but he did have left upper lobe infiltrate, right upper and middle lobe infiltrates. He was started on Levaquin and given IV fluids. BMP was normal. Allergies Allergy/AdvReac Type Severity Reaction Status Date / Time No Known Allergies Allergy Verified 04/22/19 06:27 Home Medications Home Medications Medication Instructions Recorded Confirmed Type diclofenac sodium 1 dose TOPICAL QID PRN 06/06/18 04/22/19 History lisinopril 10 1 tab PO DAILY #30 tab 11/25/18 04/22/19 Rx mg-hydrochlorothiazide 12.5 mg tablet ferrous sulfate 325 mg PO BID #60 tab 03/02/19 04/22/19 Rx nicotine 1 patch TD DAILY #7 ea 03/02/19 04/22/19 Rx pantoprazole 40 mg PO DAILY 30 Days #30 tab 03/02/19 04/22/19 Rx dutasteride 0.5 mg capsule 0.5 mg PO DAILY #30 cap 04/08/19 04/22/19 Rx fluticasone propionate 50 1 spray INTRANASAL BID PRN #16 gm 04/08/19 04/22/19 Rx mcg/actuation nasal spray,suspension gabapentin 600 mg tablet 1,200 mg PO TID #180 tab 04/08/19 04/22/19 Rx hydrocodone 5 mg-acetaminophen 325 1 tab PO TID PRN 14 Days #42 tabs 04/08/19 04/22/19 Rx mg tablet methadone 10 mg tablet 10 mg PO Q8H 30 Days #90 tabs 04/08/19 04/22/19 Rx albuterol sulfate 90 mcg/actuation 1 - 2 puffs INH QID #18 gm 04/14/19 04/22/19 Rx aerosol inhaler Past Med/Surg History Medical History Anemia HX Cervical disc disease C5-C6 Chronic back pain Hepatitis C treated--no longer has Hx of bleeding disorder HAS CAUSED BLEEDING INTO STOMACH REQUIRING CAUTERIZATION-F/U DR LORETA KELLEY-HX BLOOD TRANSFUSIONS IN THE PAST Hypertension Osler-Rendu disease (Acute) Surgical History History of colonoscopy History of esophagogastroduodenoscopy (EGD) History of herniorrhaphy X 4 History of open reduction and internal fixation (ORIF) procedure left hand/wrist fx--hardware removed History of repair of rotator cuff RIGHT History of shoulder surgery right History of tooth extraction all teeth removed Hx of excision of testicular mass X MULTIPLE BENIGN CYSTS Family History Other No family history of adverse response to anesthesia Denies family history of Colon cancer Ovarian cancer Prostate cancer Myocardial infarction Breast cancer Social History Preferred Language: Sami Communication Ability: Effective Visual Impairment: Limited Hearing Ability: Hard of Hearing Mannequin Molder Required: No Beliefs That Will Affect Care: None marital status: Current Living Situation: Alone Current Living Situation Comment: Lives with and daughter current occupational status: employed Other Information That Helps Us Care for You: No Feels Safe at Home: Yes Safety Concerns: Feels Safe At This Time Smoking Status: Current every day smoker Tobacco Type: cigarettes ; Cigarettes Per Day: 20 ; Do You Dip or Chew Tobacco: No ; Second Hand Exposure: No ; Tobacco Cessation Education Requested by Patient: No Hx Alcohol Use: No Hx Substance Use: Yes substance use type: opiates and prescription drug Substance Use Type Other:: opiate, methadone Last Used Substance: Unknown Dental Care, Regularly: Yes Physical Activity Frequency: Daily Seatbelt Use: never Sunscreen Use: No Review of Systems Review of Systems: All systems reviewed & are unremarkable except as noted in HPI & below Constitutional: + fatigue and + weakness; no fever, no chills and no sweats Respiratory: + cough, + dyspnea and + dyspnea on exertion; no pain on inspiration and no wheezing Cardiovascular: no chest pain and no edema Gastrointestinal: no abdominal pain, no nausea, no vomiting, no constipation, no diarrhea/loose stools, no blood in stools and no melena Genitourinary: no dysuria and no difficulty urinating Musculoskeletal: + muscle weakness; no back pain and no joint pain Physical Exam Constitutional: WD/WN, vitals as above Eyes: PERRL, conjunctivae normal, anicteric sclerae ENMT: external ear and nose normal, oropharynx normal Neck: trachea midline, no thyromegaly Respiratory: normal respiratory effort, lungs clear to auscultation Cardiovascular: RRR, no murmur, no edema Gastrointestinal (Abdomen): normal bowel sounds, soft, nontender, no hepatosplenomegaly Musculoskeletal: no cyanosis or clubbing, extremities motor strength 5/5 Skin: no rashes, warm and dry Neurologic: patellar DTR's 2+ bilat, sensation intact and PERRL, EOMI, accommodation nl, no face palsy, no dysarthria Psychiatric: A+Ox3, euthymic affect Lymphatic: no cervical or axillary lymphadenopathy Results & Data Vital Signs (Past 12 Hours) Vital Signs Temp Pulse Pulse Resp BP BP Pulse Ox 04/22/19 11:46 75 18 95 04/22/19 10:40 36.4 C L 74 16 157/94 H 93 04/22/19 10:00 75 14 140/102 H 92 04/22/19 09:48 93 04/22/19 09:31 84 18 04/22/19 09:15 75 13 91 04/22/19 09:01 75 20 91 04/22/19 09:00 73 14 161/89 H 90 04/22/19 08:45 77 14 90 04/22/19 08:35 94 H 21 04/22/19 08:15 72 15 04/22/19 08:00 68 13 138/83 04/22/19 07:59 17 94 04/22/19 07:45 69 16 04/22/19 07:30 76 04/22/19 07:15 85 04/22/19 07:00 75 15 151/92 H 94 04/22/19 06:45 78 16 91 04/22/19 06:30 75 15 156/81 H 92 04/22/19 06:15 77 17 94 04/22/19 06:01 72 15 153/89 H 93 04/22/19 06:00 73 17 93 04/22/19 05:56 79 21 93 04/22/19 05:45 36.7 C 80 18 158/92 H 95 Laboratory Results Laboratory Results - last 24 hr 04/22/19 04/22/19 04/22/19 05:55 05:55 05:55 WBC 14.05 H RBC 4.46 L Hgb 9.4 L Hct 31.7 L MCV 71.1 L MCH 21.1 L MCHC 29.7 L RDW Std Deviation 55.2 H RDW Coeff of Ady 21.4 H Plt Count 516 H MPV 9.7 Immature Gran % (Auto) 0.2 Neut % (Auto) 86.3 Lymph % (Auto) 6.8 [place] % (Auto) 5.5 Eos % (Auto) 1.0 Baso % (Auto) 0.2 Immature Gran # (Auto) 0.03 H Neut # (Auto) 12.13 H Lymph # (Auto) 0.95 L [place] # (Auto) 0.77 H Eos # (Auto) 0.14 Baso # (Auto) 0.03 Hypochromasia Present Anisocytosis Present Spherocytes 1+ D-Dimer 640 H* Sodium 134 L Potassium 3.9 Chloride 101 Carbon Dioxide 28 Anion Gap 5.0 BUN 13 Creatinine 0.87 Est Cr Clr Drug Dosing 105.9 Est GFR ( Amer) 111.0 Est GFR (Non-Af Amer) 95.8 BUN/Creatinine Ratio 14.4 Glucose 123 H Calcium 9.3 Magnesium 2.2 Total Bilirubin 0.4 AST 10 L ALT 19 Alkaline Phosphatase 105 Troponin I < 0.015 NT-Pro-B Natriuret Pep 139 Total Protein 8.8 H Albumin 3.5 Globulin 5.3 H Albumin/Globulin Ratio 0.7 L Lipase 75 TSH 0.794 Influenza Type A (PCR) Influenza Type B (PCR) 04/22/19 07:50 WBC RBC Hgb Hct MCV MCH MCHC RDW Std Deviation RDW Coeff of Ady Plt Count MPV Immature Gran % (Auto) Neut % (Auto) Lymph % (Auto) [place] % (Auto) Eos % (Auto) Baso % (Auto) Immature Gran # (Auto) Neut # (Auto) Lymph # (Auto) [place] # (Auto) Eos # (Auto) Baso # (Auto) Hypochromasia Anisocytosis Spherocytes D-Dimer Sodium Potassium Chloride Carbon Dioxide Anion Gap BUN Creatinine Est Cr Clr Drug Dosing Est GFR ( Amer) Est GFR (Non-Af Amer) BUN/Creatinine Ratio Glucose Calcium Magnesium Total Bilirubin AST ALT Alkaline Phosphatase Troponin I NT-Pro-B Natriuret Pep Total Protein Albumin Globulin Albumin/Globulin Ratio Lipase TSH Influenza Type A (PCR) Neg for Influ A Influenza Type B (PCR) Neg for Influ B Diagnostic Findings CTA chest IMPRESSION: 1. Study is negative for pulmonary embolus. 2. Consolidative parenchymal infiltrate left upper lobe. 3. Patchy parenchymal infiltrative changes right upper and to a lesser extent right lower lobe region. XR chest 1V portable CLINICAL HISTORY: Chest pain. COMPARISON STUDY: Chest radiograph and chest CT March 01, 2019. FINDINGS: Note is made of a 5.8 cm left infrahilar airspace opacity which is new since prior chest radiograph and chest CT of March 01, 2019. There is no evidence for pulmonary edema. No pneumothorax or pleural effusion is noted. Cardiac size is normal. Mediastinal contours are normal. There is underlying emphysema. IMPRESSION: 5.8 cm left infrahilar airspace opacity, new since chest CT of March 01, 2019. This favors pneumonia. Post treatment radiographs to ensure resolution are recommended. Code Status & VTE Plan Code Status full code VTE Prophylaxis Plan VTE Prophylaxis will be ordered: Yes PG Care Time/CCT Total # of Minutes Spent Total Time Spent with Patient: Total time spent is greater than 50% in coordination of care (as documented) at patient's floor/unit and/or counseling patient: Coding Level of Care Code 61162 Initial Inpt Care Lvl 3 Diagnoses Pneumonia J18.9 Laterality: left Lung location: lower lobe of lung Pneumonia type: due to unspecified organism Anemia D64.89 Anemia type: other cause Other causes of anemia: other cause, not classified Dyspnea R06.00 Pnaxu-Hytdn-Cyhlj disease I78.0 Opioid dependence F11.20 (1) Pneumonia Laterality: left Lung location: lower lobe of lung Pneumonia type: due to unspecified organism Qualified Code(s): J18.9 - Pneumonia, unspecified organism (2) Anemia Anemia type: other cause Other causes of anemia: other cause, not classified Qualified Code(s): D64.89 - Other specified anemias
[2019-04-22] MEDS: FERROUS SULFATE 325 MG TAB PO SCH (20:08)
--- NOTE | 2019-04-22 22:30 | Electrocardiogram Report ---
Test Reason : Blood Pressure : / mmHG Vent. Rate : 080 BPM Atrial Rate : 080 BPM P-R Int : 130 ms QRS Dur : 092 ms QT Int : 372 ms P-R-T Axes : 073 070 047 degrees QTc Int : 429 ms Normal sinus rhythm Normal ECG When compared with ECG of 01-MAR-2019 00:24, No significant change was found Confirmed by Luis Ramirez ([id number]) on 04/22/2019 10:30:14 PM Referred By: REFERRED SELF Confirmed By:Luis Ramirez
[2019-04-23] MEDS: SODIUM CHLORIDE 0.9% 1000ML 1,000 ML IV SCH ×2 (00:21→13:07)
[2019-04-23] MEDS: METHADONE HCL 10 MG TAB PO SCH ×2 (03:50→13:26)
[2019-04-23] MEDS: HYDROCODONE/ACETAMOPHEN 5/325MG TAB PO PRN (06:00)
[2019-04-23 06:04] LABS: BUN Creatinine Ratio 18.1 (10-20); Calcium 8.7 mg/dl (8.5-10.1); Creatinine Clr Calc Pharmacy 122.8 ml/min; Est GFR (Non-African American) 101.8; Potassium 3.8 mmol/L (3.5-5.1)
[2019-04-23 06:08] LABS: Hematocrit (blood only) 27.2 % (42-52); Hemoglobin 7.8 g/dL (14.0-18.0); Mean Corpuscular Hemoglobin 20.4 pg (25-34); Mean Corpuscular Hgb Conc 28.7 g/dL (32-36); Mean Corpuscular Volume 71.2 fL (80-100); Mean Platelet Volume 9.6 fL (7.4-10.4); Platelet Count 406 K/uL (130-400); RDW Coefficient of Variation 21.2 % (11.5-14.5); RDW Standard Deviation 54.8 fL (36.4-46.3); Red Blood Count 3.82 M/uL (4.7-6.1); White Blood Count 11.56 K/uL (4.8-10.8)
[2019-04-23 06:22] LABS: Anisocytosis Present; Basophils # (auto) 0.02 K/uL (0-0.2); Basophils % (auto) 0.2 %; Eosinophils # (auto) 0.09 K/uL (0-0.5); Eosinophils % (auto) 0.8 %; Hypochromasia Present; Immature Granulocytes # (auto) 0.01 K/uL (0.00-0.02); Immature Granulocytes % (auto) 0.1 %; Lymphocytes # (auto) 1.92 K/uL (1.2-3.4); Lymphocytes % (auto) 16.6 %; Monocytes # (auto) 0.89 K/uL (0.11-0.59); Monocytes % (auto) 7.7 %; Neutrophils # (auto) 8.63 K/uL (1.4-6.5); Neutrophils % (auto) 74.6 %; Ovalocytes 1+; Spherocytes Occasional
[2019-04-23] MEDS: ALBUT/IPRATROP 3MG/0.5MG NEB 3 ML VIAL NEB SCH ×2 (07:01→11:45)
[2019-04-23] MEDS: GABAPENTIN 600 MG TAB PO SCH ×2 (07:50→13:26)
[2019-04-23] MEDS: FERROUS SULFATE 325 MG TAB PO SCH (07:53)
[2019-04-23] MEDS ORDERED: LEVOFLOXACIN/D5W 750 MG/150 ML BAG IV SCH (08:00)
[2019-04-23] MEDS ORDERED: NICOTINE 14 MG/24 HR PATCH TD SCH (09:00)
[2019-04-23] MEDS ORDERED: PANTOprazole 40 MG TAB PO SCH (09:00)
[2019-04-24] MEDS ORDERED: levoFLOXacin 750 MG TAB PO SCH (08:00)
--- NOTE | 2019-04-24 15:30 | Discharge Summary ---
Date of Service April 23, 2019 Admission HPI Per Admitting Provider 58 yo male with history of anemia and iron deficiency, presents with shortness of breath, mild cough and just feeling incredibly fatigued. He said the symptoms started yesterday morning, they were mild at that time. He just felt fatigued, did not notice dyspnea. He pushed himself yesterday, working outside on a job all day. Toward the end of the day he started to feel more run down. He assumed that his hemoglobin was getting low as he is prone to anemia, Hb has been as low at 5 in the past. He figured he would just get some rest and get his Hb checked the next few days. He ate a little last night but appetite was not great. He did not drink much either. He started to feel more short of breath, even a little when at rest. He did not notice any fever or chills. He came to the ED primarily for the dyspnea. In the ED he was afebrile, hypertensive, no hypoxia. He had a WBC of 14k and Hb was 9. D dimer was elevated so he was sent for CTA chest. No evidence of PE but he did have left upper lobe infiltrate, right upper and middle lobe infiltrates. He was started on Levaquin and given IV fluids. BMP was normal. Principal Diagnosis Multifocal pneumonia Discharge Exam Constitutional WD/WN, vitals as above Eyes PERRL, conjunctivae normal, anicteric sclerae ENMT external ear and nose normal, oropharynx normal Neck trachea midline, no thyromegaly Respiratory normal respiratory effort, lungs clear to auscultation Cardiovascular RRR, no murmur, no edema Gastrointestinal (Abdomen) normal bowel sounds, soft, nontender, no hepatosplenomegaly Musculoskeletal no cyanosis or clubbing, extremities motor strength 5/5 Skin no rashes, warm and dry Neurologic patellar DTR's 2+ bilat, sensation intact and PERRL, EOMI, accommodation nl, no face palsy, no dysarthria Psychiatric A+Ox3, euthymic affect Lymphatic no cervical or axillary lymphadenopathy Discharge Data Allergies Allergy/AdvReac Type Severity Reaction Status Date / Time No Known Allergies Allergy Verified 04/22/19 06:27 Consultations 04/22/19 09:21 ED Decision to Admit Stat Ordered Studies 04/22/19 07:16 CT angio chest PE protocol Stat Hospital Course (1) Pneumonia: WBC elevated 14k on admission, bilateral infiltrates on CT chest responded well to Levaquin 750mg IV NSS at 80cc/hr, eating and drinking much better today, no further fluids required WBC down to 11k, no fever, vitals stable plan for 7 days of treatment, will transition to PO Levaquin on discharge there was no concern for COVID 19, he had no travel history, no exposure to a confirmed case, he had no fever got better with Levofloxacin (2) 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 continue iron supplement Hb down to 7.8 patient agrees to blood work later this week, will check ferritin level as well (3) Dyspnea: due to pneumonia improved greatly in 24 hours, no hypoxia (4) Oqwef-Uloms-Kychj disease: gets routine colonoscopies (5) Opioid dependence: continue chronic opiates, pain is controlled Total Time Total Time Spent Total Time Spent (In Minutes): 32 minutes Total Time Includes: Examination of the Patient, Discharge Planning and Medication Reconciliation Discharge Plan Discharge Items Patient Disposition: Home - Self-Care Reason For Visit: PNEUMONIA Discharge Diagnosis: Pneumonia Condition on Discharge: Good Goals: improve strength and mobility complete course of Levofloxacin follow up for hemoglobin level and iron level on Sunday Activity: Resume your previous activity Non-emergency contact: Primary Care Provider Call non-emergency contact if: you have any medication questions, your symptoms worsen and you have a fever Follow-up/Referrals: Roger Talbert, DO [Primary Care Provider] - () Diet: Regular Ambulatory Orders: Complete Blood Count no Diff (Routine) Timeframe: 2 Days Location: Determined by Patient Ordered By: Satya Duron Ferritin (Routine) Timeframe: 2 Days Location: Determined by Patient Ordered By: Satya York Attending Provider Instructions: Medications: LEVOFLOXACIN: 750mg daily for 5 more days, next dose due tomorrow morning Bilateral pneumonia, dehydration responded well to IV fluids and Levaquin IV your WBC went down to 11k from 14k Hb is low at 7.8 which is relatively stable for you since it was 8.3 recommend finishing course of Levofloxacin you need to stay well hydrated, well nourished, get plenty of sleep okay to resume work but NO strenuous activity for two weeks Anemia, iron deficiency follow up for labs on Monday 04/24 may need transfusion in near future at the [facility] No concerns for coronavirus, you are clear to return to work Pending Studies at Discharge: No Stand-Alone Forms: [facility], Work/School Release (Inpt), Smoking Cessation Medications and DC Order Prescriptions: New levofloxacin 750 mg Tablet 750 mg PO Q24H 5 Days Qty: 5 RF: 0 Continued albuterol sulfate [ProAir HFA] 90 mcg/actuation HFA aerosol inhaler 1 - 2 puffs INH QID Qty: 18 RF: 2 lisinopril-hydrochlorothiazide 10-12.5 mg tablet 1 tab PO DAILY Qty: 30 RF: 11 methadone 10 mg tablet 10 mg PO Q8H 30 Days Qty: 90 RF: 0 dutasteride [Avodart] 0.5 mg capsule 0.5 mg PO DAILY Qty: 30 RF: 2 gabapentin 600 mg tablet 1,200 mg PO TID Qty: 180 RF: 5 fluticasone propionate [Flonase Allergy Relief] 50 mcg/actuation spray,suspension 1 spray INTRANASAL BID PRN (Reason: Allergy Symptoms) Qty: 16 RF: 5 diclofenac sodium 1 % Gel 1 dose TOPICAL QID PRN (Reason: joint pain) RF: 0 pantoprazole 40 mg Tablet,Delayed Release (Dr/Ec) 40 mg PO DAILY 30 Days Qty: 30 RF: 2 nicotine 14 mg/24 hr patch 24 hour 1 patch TD DAILY Qty: 7 RF: 0 ferrous sulfate 325 mg (65 mg iron) tablet 325 mg PO BID Qty: 60 RF: 2 No Action hydrocodone-acetaminophen 5-325 mg tablet 1 tab PO TID PRN (Reason: Pain) 14 Days Qty: 42 RF: 0 Discharge Orders: Discharge Order (Routine); Ordered 04/23/19 Ordered By: Satya Duron Admission Data Admit Date/Time: 04/22/19 09:25 Attending Provider: Satya Duron Admit Provider: Satya Duron Primary Care Provider: Roger Talbert Other Providers: Satya Duron Other Interventions: Discharge Summary Assessment (RN) Last Done: 04/23/19 13:19 DC Date/Time DO NOT enter until pt leaves facility: 04/23/19 13:49 Coding Level of Care Code D/C Day Management >30 mins Diagnoses Pneumonia J18.9 Laterality: left Lung location: lower lobe of lung Pneumonia type: due to unspecified organism Anemia D64.89 Anemia type: other cause Other causes of anemia: other cause, not classified Dyspnea R06.00 Ydvdy-Nrmcn-Kkzav disease I78.0 Opioid dependence F11.20
== END 2019-04-23 13:49 | disposition home or self-care (01) | DRG 194 ==
LOC: ED 05:42 → 4W 09:25

== ENCOUNTER 2019-06-22 12:23 | Observation (INO) ==
--- NOTE | 2019-06-22 12:45 | Emergency Department Note ---
History of Present Illness General Chief complaint: Shortness of Breath/Dyspnea Stated complaint: SOB,DIZZY Time Seen by Provider: 06/22/19 12:31 Source: patient, RN notes reviewed and old records reviewed Mode of arrival: ambulatory Limitations: no limitations History of Present Illness Provider complaint: weakness Onset (ago): day(s) 3 Associated symptoms: + cough (white phlegm) and + headaches; no chest pain, no fever/chills, no nausea/vomiting and no shortness of breath Treatments prior to arrival: none This is a 59-year-old male who presents emergency department complaining of generalized weakness. Patient has a history of Osler Connor Rendu syndrome. He feels he needs a blood transfusion. He reports that he normally watches his stool very closely and he has had not had any black or tarry stools or bleeding that he knows of. However the patient has needed blood transfusions previously and feels because of how weak he feels as well as the headache that he needs 1. He reports this is not the worst headache of his life and he normally gets headaches like this when he needs a blood transfusion due to his anemia. He also reports a white phlegmy cough as well as a history of pneumonia previously. Home Medications Home Medications Medication Instructions Recorded Confirmed Type diclofenac sodium 1 dose TOPICAL QID PRN 06/06/18 06/22/19 History fluticasone propionate 50 1 spray INTRANASAL BID PRN #16 gm 04/08/19 06/22/19 Rx mcg/actuation nasal spray,suspension albuterol sulfate 90 mcg/actuation 1 - 2 puffs INH QID #18 gm 04/14/19 06/22/19 Rx aerosol inhaler ferrous sulfate [iron] 325 mg PO BID 06/22/19 06/22/19 History gabapentin [Neurontin] 1,200 mg PO TID 06/22/19 06/22/19 History lisinopril-hydrochlorothiazide 1 tab PO QAM 06/22/19 06/22/19 History [Zestoretic] methadone [Dolophine] 20 mg PO Q12H 06/22/19 06/22/19 History nicotine [Nicoderm CQ] 1 patch TD DAILY 06/22/19 06/22/19 History pantoprazole [Protonix] 40 mg PO DAILY 06/22/19 06/22/19 History Allergies Allergy/AdvReac Type Severity Reaction Status Date / Time No Known Allergies Allergy Verified 06/22/19 14:29 Past Med/Surg History Medical History Anemia HX Cervical disc disease C5-C6 Chronic back pain Fall from ladder (Inactive) Hepatitis C treated--no longer has Hx of bleeding disorder HAS CAUSED BLEEDING INTO STOMACH REQUIRING CAUTERIZATION-F/U DR LORETA KELLEY-HX BLOOD TRANSFUSIONS IN THE PAST Hypertension Osler-Rendu disease (Acute) Pneumonia (Inactive) Scrotal mass (Inactive) Surgical History History of colonoscopy History of esophagogastroduodenoscopy (EGD) History of herniorrhaphy X 4 History of open reduction and internal fixation (ORIF) procedure left hand/wrist fx--hardware removed History of repair of rotator cuff RIGHT History of shoulder surgery right History of tooth extraction all teeth removed Hx of excision of testicular mass X MULTIPLE BENIGN CYSTS Family History Other No family history of adverse response to anesthesia Denies family history of Colon cancer Ovarian cancer Prostate cancer Myocardial infarction Breast cancer Social History Preferred Language: [place] Communication Ability: Effective Visual Impairment: Limited Hearing Ability: Hard of Hearing Process Pumper Required: No Beliefs That Will Affect Care: None marital status: Current Living Situation: Family Current Living Situation Comment: Lives with and daughter current occupational status: employed Feels Safe at Home: Yes Smoking Status: Current every day smoker Tobacco Type: cigarettes ; Cigarettes Per Day: 5 ; Second Hand Exposure: No ; Hx Alcohol Use: No Hx Substance Use: No Dental Care, Regularly: Yes Physical Activity Frequency: Daily Seatbelt Use: never Sunscreen Use: No Review of Systems A total of 10 systems reviewed and were otherwise negative Physical Exam Vital Signs Vital Signs - 24 hr 06/22/19 12:26 06/22/19 12:31 06/22/19 12:32 Temperature 36.6 C Temperature Source Oral Pulse Rate 74 Pulse Rate from SpO2 Sensor Pulse Rhythm Regular Pulse Strength Normal Respiratory Rate 18 Respiratory Effort / Characteristics Non-Labored Spontaneous Respiratory Depth Normal Respiratory Pattern Regular Blood Pressure 176/93 H Blood Pressure Mean 120 Blood Pressure Position Sitting Pulse Oximetry 94 93 Oxygen Delivery Method Room Air Room Air Room Air Sepsis Recent Fever Within 48 Hours No Sepsis Action Taken by Nursing No Action Required 06/22/19 12:49 06/22/19 13:00 06/22/19 13:30 Temperature Temperature Source Pulse Rate 66 62 74 Pulse Rate from SpO2 Sensor 64 63 75 Pulse Rhythm Pulse Strength Respiratory Rate 17 15 21 Respiratory Effort / Characteristics Respiratory Depth Respiratory Pattern Blood Pressure 161/92 H 144/85 H 146/92 H Blood Pressure Mean 109 100 111 Blood Pressure Position Pulse Oximetry 93 93 94 Oxygen Delivery Method Room Air Room Air Room Air Sepsis Recent Fever Within 48 Hours Sepsis Action Taken by Nursing 06/22/19 14:00 06/22/19 14:28 06/22/19 14:29 Temperature 36.7 C Temperature Source Oral Pulse Rate 74 61 58 L Pulse Rate from SpO2 Sensor 71 57 L Pulse Rhythm Regular Pulse Strength Respiratory Rate 25 H 16 16 Respiratory Effort / Characteristics Respiratory Depth Respiratory Pattern Blood Pressure 176/117 H 154/93 H 154/93 H Blood Pressure Mean 146 113 115 Blood Pressure Position Lying Pulse Oximetry 94 94 93 Oxygen Delivery Method Room Air Room Air Sepsis Recent Fever Within 48 Hours Sepsis Action Taken by Nursing 06/22/19 14:30 06/22/19 14:45 06/22/19 14:46 Temperature 36.6 C 36.4 C L Temperature Source Oral Oral Pulse Rate 57 L 66 56 L Pulse Rate from SpO2 Sensor 56 L 68 Pulse Rhythm Regular Pulse Strength Normal Respiratory Rate 14 16 18 Respiratory Effort / Characteristics Respiratory Depth Respiratory Pattern Blood Pressure 167/98 H 162/92 H 177/92 H Blood Pressure Mean 126 105 120 Blood Pressure Position Lying Pulse Oximetry 93 92 94 Oxygen Delivery Method Room Air Room Air Sepsis Recent Fever Within 48 Hours Sepsis Action Taken by Nursing 06/22/19 15:00 06/22/19 15:01 06/22/19 15:15 Temperature 36.3 C L Temperature Source Oral Pulse Rate 61 70 55 L Pulse Rate from SpO2 Sensor 61 55 L Pulse Rhythm Pulse Strength Respiratory Rate 14 16 13 Respiratory Effort / Characteristics Respiratory Depth Respiratory Pattern Blood Pressure 186/94 H 153/79 H 173/76 H Blood Pressure Mean 105 103 90 Blood Pressure Position Sitting Pulse Oximetry 96 92 97 Oxygen Delivery Method Room Air Room Air Sepsis Recent Fever Within 48 Hours Sepsis Action Taken by Nursing VITAL SIGNS - Vital signs and nursing notes were reviewed. GENERAL - 59-year-old male appearing stated age who is in no acute distress. Communicates well with provider and answers questions appropriately. SKIN - Without rashes. HEAD - NC/AT. EYES - PERRL with EOMI bilaterally. Sclera anicteric. Palpebral conjunctiva pink and moist with no injection noted. EARS - No deformities of external structures noted on gross examination bilaterally. No pain elicited with palpation of the tragus bilaterally. External auditory canals without discharge or otorrhea. Tympanic membranes pearly brown without retraction or bulging. No fluid or purulent material visualized behind the TM. Handle of malleus, umbo, cone of light, pars tensa/flaccid all easily visualized. NOSE - Midline and without cyanosis. No epistaxis or purulent drainage noted. Septum midline without deviation or septal hematoma noted. MOUTH/OROPHARYNX - Without perioral cyanosis. Buccal mucosa pink and moist and without leukoplakia. Tongue midline with equal elevation of palate bilaterally. No tonsillar hypertrophy, erythema, or exudates noted. dentition noted. NECK - Neck with FROM. Supple to palpation. lymphadenopathy noted. No nuchal rigidity. LUNGS - Chest wall symmetric without accessory muscle use, intercostals retractions, or central cyanosis. Normal vesicular breath sounds CTA B/L. No wheezes, rales, or rhonchi appreciated. CARDIAC - RRR with S1/S2. No murmur, rubs, or gallops appreciated. ABDOMEN - Abdominal contour without pulsations or visible masses. BS normoactive all four quadrants. No tenderness, palpable masses, hepat osplenomegaly, or ascites noted. EXTREMITIES - No clubbing or peripheral cyanosis. No pretibial edema present. +3/5 radial, posterior tibial, and dorsalis pedis pulses palpated throughout. +5/5 strength noted in UE/LE bilaterally. NEUROLOGIC - Cranial nerves II through XII grossly intact. Sensory intact to light touch throughout. Patellar reflexes +2/4. PSYCH - A&Ox3 and cooperates fully with examiner. Pt is very pleasant and interacts well with examiner. Course Administered Medications Pantoprazole Sodium 40 mg/ (Dextrose) 100 mls @ 20 mls/hr IV Q5H TOSHIA Stop: 07/22/19 14:14 Last Admin: 06/22/19 14:43 Dose: 8 mg/hr, 20 mls/hr Documented by: [id number] Discontinued Medications Pantoprazole Sodium (Protonix Bolus/Drip) 0 mls @ 1 mls/hr IV ONE STA Stop: 06/22/19 14:00 Last Admin: 06/22/19 14:32 Dose: Not Given Documented by: [id number] Pantoprazole Sodium 80 mg/ (Dextrose) 120 mls @ 400 mls/hr IV NOW ONE Stop: 06/22/19 14:16 Last Infusion: 06/22/19 14:39 Dose: 0 mls/hr Documented by: [id number] Admin: 06/22/19 14:20 Dose: 400 mls/hr Documented by: [id number] Critical Care Time I have personally spent greater than 90 minutes of critical care time in the direct management of this patient. This includes bedside care, interpretation of diagnostic studies, and testing, discussion with consultants, patient, and family members, and other required patient management activities. This 90 minutes is in excess of all separately billable procedures. Medical Decision Making Differential Diagnosis Cardiac ischemia, aortic dissection, pulmonary embolism, pneumothorax, pneumonia, pericarditis, myocarditis, esophageal rupture, GERD, cholecystitis, pancreatitis, musculoskeletal, as well as other pathologies. Medical Records Attestation: I reviewed the patient's medical records. Home Medications Current Medication List: was personally reviewed by me Laboratory Data Attestation: I reviewed the patient's lab results. Result diagrams: 06/22/19 12:39 06/22/19 12:39 Lab Results 06/22/19 06/22/19 06/22/19 Range/Units 12:39 12:39 12:39 WBC 10.34 (4.8-10.8) K/uL RBC 4.32 L (4.7-6.1) M/uL Hgb 8.5 L (14.0-18.0) g/dL POC Hgb (14.0-18.0) g/dl Hct 29.1 L (42-52) % POC Hct (42-52) % MCV 67.4 L (80-100) fL MCH 19.7 L (25-34) pg MCHC 29.2 L (32-36) g/dL RDW Std Deviation 40.4 (36.4-46.3) fL RDW Coeff of Ady 16.2 H (11.5-14.5) % Plt Count 464 H (130-400) K/uL MPV 9.2 (7.4-10.4) fL Immature Gran % (Auto) 0.2 % Neut % (Auto) 77.7 % Lymph % (Auto) 13.4 % [place] % (Auto) 5.4 % Eos % (Auto) 2.8 % Baso % (Auto) 0.5 % Immature Gran # (Auto) 0.02 (0.00-0.02) K/uL Neut # (Auto) 8.03 H (1.4-6.5) K/uL Lymph # (Auto) 1.39 (1.2-3.4) K/uL [place] # (Auto) 0.56 (0.11-0.59) K/uL Eos # (Auto) 0.29 (0-0.5) K/uL Baso # (Auto) 0.05 (0-0.2) K/uL Hypochromasia Present Microcytosis Present Ovalocytes 1+ ESR (0-14) mm/hr PT 10.1 (9.0-12.0) Seconds INR 1.0 (0.9-1.1) APTT 28.5 (21.0-31.0) Seconds PTT Ratio 1.0 POC Sodium (135-144) mmol/L Sodium (136-145) mmol/L POC Potassium (3.3-5.0) mmol/L Potassium (3.5-5.1) mmol/L POC Chloride (101-112) mmol/L Chloride (98-107) mmol/L Carbon Dioxide (21-32) mmol/L POC Total CO2 (24-31) mmol/L Anion Gap (3-11) POC Anion Gap (16-25) mmol/L POC BUN (7-18) mg/dl BUN (7-18) mg/dl Creatinine (0.6-1.4) mg/dl POC Creatinine (0.6-1.3) mg/dl Est Cr Clr Drug Dosing ml/min Est GFR ( Amer) Est GFR (Non-Af Amer) BUN/Creatinine Ratio (10-20) Glucose (70-99) mg/dl POC Glucose (other) (70-99) mg/dl Calcium (8.5-10.1) mg/dl POC Ioniz Calcium Arnaldo (1.12-1.32) mmol/l Ferritin (8-388) ng/ml Total Bilirubin (0.2-1) mg/dl AST (15-37) U/L ALT (12-78) U/L Alkaline Phosphatase (45-117) U/L Lactate Dehydrogenase (87-241) U/L Total Creatine Kinase (39-308) U/L CK-MB (CK-2) (0.5-3.6) ng/ml CK/CKMB % Calc (0-3.0) C-Reactive Protein (0-0.29) mg/dl NT-Pro-B Natriuret Pep (0-900) pg/ml Total Protein (6.4-8.2) gm/dl Albumin (3.4-5.0) gm/dl Globulin (2.5-4.0) gm/dl Albumin/Globulin Ratio (0.9-2) POC Stool Occult Blood (Negative) Blood Type B Positive Antibody Screen NEGATIVE Crossmatch See Detail 06/22/19 06/22/19 06/22/19 Range/Units 12:39 12:39 12:39 WBC (4.8-10.8) K/uL RBC (4.7-6.1) M/uL Hgb (14.0-18.0) g/dL POC Hgb (14.0-18.0) g/dl Hct (42-52) % POC Hct (42-52) % MCV (80-100) fL MCH (25-34) pg MCHC (32-36) g/dL RDW Std Deviation (36.4-46.3) fL RDW Coeff of Ady (11.5-14.5) % Plt Count (130-400) K/uL MPV (7.4-10.4) fL Immature Gran % (Auto) % Neut % (Auto) % Lymph % (Auto) % [place] % (Auto) % Eos % (Auto) % Baso % (Auto) % Immature Gran # (Auto) (0.00-0.02) K/uL Neut # (Auto) (1.4-6.5) K/uL Lymph # (Auto) (1.2-3.4) K/uL [place] # (Auto) (0.11-0.59) K/uL Eos # (Auto) (0-0.5) K/uL Baso # (Auto) (0-0.2) K/uL Hypochromasia Microcytosis Ovalocytes ESR > 90 H (0-14) mm/hr PT (9.0-12.0) Seconds INR (0.9-1.1) APTT (21.0-31.0) Seconds PTT Ratio POC Sodium (135-144) mmol/L Sodium 138 (136-145) mmol/L POC Potassium (3.3-5.0) mmol/L Potassium 3.9 (3.5-5.1) mmol/L POC Chloride (101-112) mmol/L Chloride 102 (98-107) mmol/L Carbon Dioxide 30 (21-32) mmol/L POC Total CO2 (24-31) mmol/L Anion Gap 6.0 (3-11) POC Anion Gap (16-25) mmol/L POC BUN (7-18) mg/dl BUN 11 (7-18) mg/dl Creatinine 1.08 (0.6-1.4) mg/dl POC Creatinine (0.6-1.3) mg/dl Est Cr Clr Drug Dosing 84.3 ml/min Est GFR ( Amer) 87.2 Est GFR (Non-Af Amer) 75.3 BUN/Creatinine Ratio 9.8 L (10-20) Glucose 83 (70-99) mg/dl POC Glucose (other) (70-99) mg/dl Calcium 8.9 (8.5-10.1) mg/dl POC Ioniz Calcium Arnaldo (1.12-1.32) mmol/l Ferritin 3.0 L (8-388) ng/ml Total Bilirubin 0.2 (0.2-1) mg/dl AST 11 L (15-37) U/L ALT 20 (12-78) U/L Alkaline Phosphatase 114 (45-117) U/L Lactate Dehydrogenase 156 (87-241) U/L Total Creatine Kinase 81 (39-308) U/L CK-MB (CK-2) 1.4 (0.5-3.6) ng/ml CK/CKMB % Calc 1.7 (0-3.0) C-Reactive Protein 2.33 H (0-0.29) mg/dl NT-Pro-B Natriuret Pep 118 (0-900) pg/ml Total Protein 8.3 H (6.4-8.2) gm/dl Albumin 3.5 (3.4-5.0) gm/dl Globulin 4.8 H (2.5-4.0) gm/dl Albumin/Globulin Ratio 0.7 L (0.9-2) POC Stool Occult Blood (Negative) Blood Type Antibody Screen Crossmatch 06/22/19 06/22/19 Range/Units 12:53 13:59 WBC (4.8-10.8) K/uL RBC (4.7-6.1) M/uL Hgb (14.0-18.0) g/dL POC Hgb 10.5 L (14.0-18.0) g/dl Hct (42-52) % POC Hct 31 L (42-52) % MCV (80-100) fL MCH (25-34) pg MCHC (32-36) g/dL RDW Std Deviation (36.4-46.3) fL RDW Coeff of Ady (11.5-14.5) % Plt Count (130-400) K/uL MPV (7.4-10.4) fL Immature Gran % (Auto) % Neut % (Auto) % Lymph % (Auto) % [place] % (Auto) % Eos % (Auto) % Baso % (Auto) % Immature Gran # (Auto) (0.00-0.02) K/uL Neut # (Auto) (1.4-6.5) K/uL Lymph # (Auto) (1.2-3.4) K/uL [place] # (Auto) (0.11-0.59) K/uL Eos # (Auto) (0-0.5) K/uL Baso # (Auto) (0-0.2) K/uL Hypochromasia Microcytosis Ovalocytes ESR (0-14) mm/hr PT (9.0-12.0) Seconds INR (0.9-1.1) APTT (21.0-31.0) Seconds PTT Ratio POC Sodium 138 (135-144) mmol/L Sodium (136-145) mmol/L POC Potassium 3.9 (3.3-5.0) mmol/L Potassium (3.5-5.1) mmol/L POC Chloride 99 L (101-112) mmol/L Chloride (98-107) mmol/L Carbon Dioxide (21-32) mmol/L POC Total CO2 28 (24-31) mmol/L Anion Gap (3-11) POC Anion Gap 16.0 (16-25) mmol/L POC BUN 10 (7-18) mg/dl BUN (7-18) mg/dl Creatinine (0.6-1.4) mg/dl POC Creatinine 1.0 (0.6-1.3) mg/dl Est Cr Clr Drug Dosing ml/min Est GFR ( Amer) Est GFR (Non-Af Amer) BUN/Creatinine Ratio (10-20) Glucose (70-99) mg/dl POC Glucose (other) 86 (70-99) mg/dl Calcium (8.5-10.1) mg/dl POC Ioniz Calcium Arnaldo 1.17 (1.12-1.32) mmol/l Ferritin (8-388) ng/ml Total Bilirubin (0.2-1) mg/dl AST (15-37) U/L ALT (12-78) U/L Alkaline Phosphatase (45-117) U/L Lactate Dehydrogenase (87-241) U/L Total Creatine Kinase (39-308) U/L CK-MB (CK-2) (0.5-3.6) ng/ml CK/CKMB % Calc (0-3.0) C-Reactive Protein (0-0.29) mg/dl NT-Pro-B Natriuret Pep (0-900) pg/ml Total Protein (6.4-8.2) gm/dl Albumin (3.4-5.0) gm/dl Globulin (2.5-4.0) gm/dl Albumin/Globulin Ratio (0.9-2) POC Stool Occult Blood Positive A (Negative) Blood Type Antibody Screen Crossmatch ECG Data Attestation: I personally reviewed and interpreted this ECG as follows: Indication: + weakness Rate (beats per minute): 61 Rhythm: + normal sinus ECG [place]: + Normal ECG ST segments: no ST depression and no ST elevation Blood Pressure Blood Pressure Findings: Normal blood pressure Blood Pressure Disposition: elevated BP felt to be situational MDM Narrative This is a 59-year-old male who presents the emergency department complaining of generalized weakness. Patient has a history of anemia. He is heme positive on my physical examination of his rectum. He was started on a Protonix bolus and drip. He was typed and screened for unit of packed red blood cells and given 1 unit of packed red blood cells. I did discuss his case with the hospitalist service who did agree to admit the patient. Patient is in agreement with the treatment plan. Patient was seen and evaluated as above in room A2. Review was performed of nursing notes and vital signs. I did review pertinent previous visits and patient history. After obtaining a thorough history and physical examination the above work up was performed. While in the department, I personally reevaluated the patient several times and each time the patient was found to be resting comfortably. The patient was educ ated upon management, educated upon todays findings/results, educated upon importance of follow up from today's visit, educated upon symptoms in which to return, had questions answered prior to discharge, verbalized understanding, and was discharged home in good condition. An order was placed for continuous cardiac monitoring. The monitor shows a rate of 62 with Normal Sinus rhythm. The patient was evaluated during the global COVID-19 pandemic, and that diagnosis was suspected/considered upon their initial presentation. Their evaluation, treatment and testing was consistent with current guidelines for patients who present with complaints or symptoms that may be related to COVID- 19. Impression & Plan Anemia, Acute GI bleeding Discharge Plan Visit Data *Final* Discharge Date/Time: 06/22/19 16:09 Chief Complaint: Shortness of Breath/Dyspnea Stated Complaint: SOB,DIZZY ED Provider: Xander Mitchell Discharge Problem: Anemia, Acute GI bleeding Patient Disposition: Admitted As Inpatient Discharge Instructions Interventions: ED Discharge Assessment Last Done: 06/22/19 16:09 Discharge Problem: Anemia Qualifiers: Anemia type: unspecified type Qualified Code(s): D64.9 - Anemia, unspecified
[2019-06-22 12:51] LABS: Basophils # (auto) 0.05 K/uL (0-0.2); Basophils % (auto) 0.5 %; Eosinophils # (auto) 0.29 K/uL (0-0.5); Eosinophils % (auto) 2.8 %; Hematocrit (blood only) 29.1 % (42-52); Hemoglobin 8.5 g/dL (14.0-18.0); Immature Granulocytes # (auto) 0.02 K/uL (0.00-0.02); Immature Granulocytes % (auto) 0.2 %; Lymphocytes # (auto) 1.39 K/uL (1.2-3.4); Lymphocytes % (auto) 13.4 %; Mean Corpuscular Hemoglobin 19.7 pg (25-34); Mean Corpuscular Hgb Conc 29.2 g/dL (32-36); Mean Corpuscular Volume 67.4 fL (80-100); Mean Platelet Volume 9.2 fL (7.4-10.4); Monocytes # (auto) 0.56 K/uL (0.11-0.59); Monocytes % (auto) 5.4 %; Neutrophils # (auto) 8.03 K/uL (1.4-6.5); Neutrophils % (auto) 77.7 %; Platelet Count 464 K/uL (130-400); RDW Coefficient of Variation 16.2 % (11.5-14.5); RDW Standard Deviation 40.4 fL (36.4-46.3); Red Blood Count 4.32 M/uL (4.7-6.1); White Blood Count 10.34 K/uL (4.8-10.8)
[2019-06-22 13:02] LABS: Partial Thromboplastin Time 28.5 Seconds (21.0-31.0); Prothrombin Time 10.1 Seconds (9.0-12.0)
[2019-06-22 13:09] LABS: Albumin Level 3.5 gm/dl (3.4-5.0); BUN Creatinine Ratio 9.8 (10-20); C Reactive Protein 2.33 mg/dl (0-0.29); Calcium 8.9 mg/dl (8.5-10.1); Creatinine Clr Calc Pharmacy 84.3 ml/min; Est GFR (African American) 87.2; Est GFR (Non-African American) 75.3; Potassium 3.9 mmol/L (3.5-5.1)
[2019-06-22 13:12] LABS: iSTAT Hemoglobin 10.5 g/dl (14.0-18.0); iSTAT Ionized Calcium 1.17 mmol/l (1.12-1.32); iSTAT Potassium 3.9 mmol/L (3.3-5.0)
[2019-06-22 13:14] LABS: Albumin Globulin Ratio 0.7 (0.9-2); Bilirubin,Total 0.2 mg/dl (0.2-1); Creatine Kinase MB 1.4 ng/ml (0.5-3.6); Globulin 4.8 gm/dl (2.5-4.0); Total Protein 8.3 gm/dl (6.4-8.2)
[2019-06-22 13:21] LABS: Hypochromasia Present; Microcytosis Present; Ovalocytes 1+
--- NOTE | 2019-06-22 13:31 | XRay Report ---
XR chest 1V portable HISTORY: 59 years-old Male Pt c/o SOB acute shortness of breath COMPARISON: Chest radiograph and CTA chest 04/22/2019 TECHNIQUE: Portable AP view of the chest FINDINGS: Cardiomediastinal and hilar silhouettes are within normal limits. Resolution of the previously descri bed left infrahilar opacity is suggestive of resolving pneumonia. No pneumothorax, pleural effusion o r overt pulmonary edema. Degenerative changes of the shoulders and spine. IMPRESSION: No acute process. ACT 112: Negative or not required by law. The above report was generated using voice recognition software. It may contain grammatical, syntax o r spelling errors. Electronically signed by: Anshul Hall M.D. 06/22/2019 1:30 PM
[2019-06-22] MEDS ORDERED: PANTOprazole 80 MG in DEXTROSE 5% 100 ML IV ONE (13:59)
[2019-06-22] MEDS ORDERED: SODIUM CHLORIDE 0.9% 250 ML IV PRN ×2 (13:59→16:52)
[2019-06-22] MEDS ORDERED: PANTOPRAZOLE BOLUS/DRIP 1 EA IV STA (13:59)
[2019-06-22] MEDS: PANTOprazole 40 MG in DEXTROSE 5% 100 ML IV SCH ×2 (14:43→19:08)
--- NOTE | 2019-06-22 15:31 | History & Physical Report ---
Date of Service June 22, 2019 Assessment & Plan (1) Dyspnea on exertion: patient describes severe symptoms, only on exertion he attributes this to his Hb of 8.5, discussed with him that he should not feel this short of breath he had a Hb of 7.8 in April and was not experiencing these symptoms need to consider other diagnoses that could be contributing to dyspnea on exertion - check echocardiogram, not just for heart failure but he may have pulmonary HTN with his smoking history - possible COPD, would recommend PFT as outpatient, smoker for decades describes coughing when he exerts himself, may have bronchospastic disease transfuse only one unit of PRBC that was started in the ED see how he feels tomorrow of note, there is no evidence of hypoxia, 96% room air (2) Symptomatic anemia: Hb is 8.5, he says he has extreme dyspnea on exertion certainly anemia could be contributing to symptoms, one unit PRBC ordered long discussion with him that any Hb above 8 should be adequate he insists that he is different, that a academic affairs dean years ago transfused him to level of 14 and then he was good for 6 years explained that there is no evidence based practice to give further transfusions after this one is complete repeat Hb in the morning (3) Rpwwr-Ypbrh-Xmbun disease: h/o cauterization of bleeding sites no recent scopes patient says he is agreeable to endoscopy while here if indicated has had some difficulty getting scopes outpatient due to COVID 19 [facility], make NPO after midnight (4) Iron deficiency: Ferritin very low at 3.0 despite Ferrous sulfate give Venofer IV tomorrow consider getting home infusions or MTU infusions if possible Ferrous sulfate will not be sufficient to raise his ferritin levels (5) Hypertension: continue home regimen BP elevated in the ED (6) Opioid dependence: continue Methadone no narcotics should be given (7) Chronic back pain: follows with his PCP Dr. Talbert prescribes Methadone and performs OMT regularly (8) Tobacco use disorder, continuous: nicotine patch History of Present Illness Chief Complaint: I need blood transfusions Primary Care Provider: Roger Talbert, DO 59 yo male with well established history of Yhqmr-Okgyi-Yyrsr disease with GI bleeding from telangiectasias, iron deficiency, anemia requiring transfusions. Recent history shows that he was admitted in February 2019 for similar presentation, was transfused, Hb responded appropriately, he felt better and went home to follow up with [facility] for endoscopic evaluation. He reports that due to COVID 19 the scopes were post poned and he has not had any type of evaluation. He was admitted briefly in April 2019 for bacterial pneumonia, got better with Levofloxacin and went home in 24 hours. At that time his Hb was 7.8 but he did not have any symptoms of severe dyspnea. Today he says that he has f elt extremely dyspneic on exertion for the past 3 days. He will walk down the stairs to his basement and when he comes back up he can hardly breathe, gasping, coughing, his daughter has wanted to call EMS a few times because he has been in so much distress. He cannot walk to the mailbox without getting extremely winded. At rest he is completely fine, can talk in full sentences. No fever or chills or night sweats recently. No sick contacts. Asked him about any history of heart failure, he denied, thinks he had an echo a few years ago. No known history of COPD but he is a smoker and has been smoking for several decades. In the ED his Hb was 8.5 and was ordered one unit to be transfused. Rectal exam showed brown stool but was heme positive. CXR was unremarkable. BMP stable. Ferritin extremely low at 3.0 despite being on Ferrous Sulfate. Allergies Allergy/AdvReac Type Severity Reaction Status Date / Time No Known Allergies Allergy Verified 06/22/19 14:29 Home Medications Home Medications Medication Instructions Recorded Confirmed Type diclofenac sodium 1 dose TOPICAL QID PRN 06/06/18 06/22/19 History fluticasone propionate 50 1 spray INTRANASAL BID PRN #16 gm 04/08/19 06/22/19 Rx mcg/actuation nasal spray,suspension albuterol sulfate 90 mcg/actuation 1 - 2 puffs INH QID #18 gm 04/14/19 06/22/19 Rx aerosol inhaler ferrous sulfate [iron] 325 mg PO BID 06/22/19 06/22/19 History gabapentin [Neurontin] 1,200 mg PO TID 06/22/19 06/22/19 History lisinopril-hydrochlorothiazide 1 tab PO QAM 06/22/19 06/22/19 History [Zestoretic] methadone [Dolophine] 20 mg PO Q12H 06/22/19 06/22/19 History nicotine [Nicoderm CQ] 1 patch TD DAILY 06/22/19 06/22/19 History pantoprazole [Protonix] 40 mg PO DAILY 06/22/19 06/22/19 History Past Med/Surg History Medical History Anemia HX Cervical disc disease C5-C6 Chronic back pain Fall from ladder (Inactive) Hepatitis C treated--no longer has Hx of bleeding disorder HAS CAUSED BLEEDING INTO STOMACH REQUIRING CAUTERIZATION-F/U DR LORETA KELLEY-HX BLOOD TRANSFUSIONS IN THE PAST Hypertension Osler-Rendu disease (Acute) Pneumonia (Inactive) Scrotal mass (Inactive) Surgical History History of colonoscopy History of esophagogastroduodenoscopy (EGD) History of herniorrhaphy X 4 History of open reduction and internal fixation (ORIF) procedure left hand/wrist fx--hardware removed History of repair of rotator cuff RIGHT History of shoulder surgery right History of tooth extraction all teeth removed Hx of excision of testicular mass X MULTIPLE BENIGN CYSTS Family History Other No family history of adverse response to anesthesia Denies family history of Colon cancer Ovarian cancer Prostate cancer Myocardial infarction Breast cancer Social History Preferred Language: Guyanese Communication Ability: Effective Visual Impairment: Limited Hearing Ability: Hard of Hearing School Health Aide Required: No Beliefs That Will Affect Care: None marital status: Current Living Situation: Alone Current Living Situation Comment: Lives with and daughter current occupational status: employed Feels Safe at Home: Yes Smoking Status: Current every day smoker Tobacco Type: cigarettes ; Cigarettes Per Day: 20 ; Second Hand Exposure: No ; Hx Alcohol Use: No Hx Substance Use: Yes substance use type: opiates and prescription drug Substa nce Use Type Other:: opiate, methadone Last Used Substance: Unknown Dental Care, Regularly: Yes Physical Activity Frequency: Daily Seatbelt Use: never Sunscreen Use: No Review of Systems Review of Systems: All systems reviewed & are unremarkable except as noted in HPI & below Constitutional: + fatigue, + malaise and + weakness; no fever, no chills, no sweats and no weight loss Respiratory: + dyspnea on exertion; no cough, no chest congestion, no dyspnea, no hemoptysis and no wheezing Cardiovascular: + edema (trace bilaterally); no chest pain, no dyspnea, no dyspnea at rest, no dyspnea on exertion, no syncope and no claudication Gastrointestinal: no abdominal pain, no nausea, no vomiting, no constipation, no diarrhea/loose stools, no blood in stools (no gross bleeding) and no melena (stools brown consistently) Physical Exam Constitutional: WD/WN, vitals as above Eyes: PERRL, conjunctivae normal, anicteric sclerae ENMT: external ear and nose normal, oropharynx normal Neck: trachea midline, no thyromegaly Respiratory: normal respiratory effort, lungs clear to auscultation Cardiovascular: RRR, no murmur, no edema Gastrointestinal (Abdomen): normal bowel sounds, soft, nontender, no hepatosplenomegaly Musculoskeletal: Head/Neck/Chest: normocephalic and head atraumatic Extremities: extremities normal to inspection, strength 5/5 throughout and + clubbing; no cyanosis and no petechiae Skin: normal turgor and + rash (telangiectasias over the nose and cheeks) Neurologic: patellar DTR's 2+ bilat, sensation intact and PERRL, EOMI, accommodation nl, no face palsy, no dysarthria Psychiatric: A+Ox3, euthymic affect Lymphatic: no cervical or axillary lymphadenopathy Results & Data Results & Data ([facility]) Vital Signs (Past 12 Hours) Vital Signs Temp Pulse Resp BP Pulse Ox 06/22/19 14:45 36.6 C 74 13 162/92 H 94 06/22/19 14:30 57 L 14 167/98 H 93 06/22/19 14:29 58 L 16 154/93 H 93 06/22/19 14:28 36.7 C 61 16 154/93 H 94 06/22/19 14:00 74 25 H 176/117 H 94 06/22/19 13:30 74 21 146/92 H 94 06/22/19 13:00 62 15 144/85 H 93 06/22/19 12:49 66 17 161/92 H 93 06/22/19 12:32 93 06/22/19 12:26 36.6 C 74 18 176/93 H 94 Laboratory Results Laboratory Results - last 24 hr 06/22/19 06/22/19 06/22/19 12:39 12:39 12:39 WBC 10.34 RBC 4.32 L Hgb 8.5 L POC Hgb Hct 29.1 L POC Hct MCV 67.4 L MCH 19.7 L MCHC 29.2 L RDW Std Deviation 40.4 RDW Coeff of Ady 16.2 H Plt Count 464 H MPV 9.2 Immature Gran % (Auto) 0.2 Neut % (Auto) 77.7 Lymph % (Auto) 13.4 [place] % (Auto) 5.4 Eos % (Auto) 2.8 Baso % (Auto) 0.5 Immature Gran # (Auto) 0.02 Neut # (Auto) 8.03 H Lymph # (Auto) 1.39 [place] # (Auto) 0.56 Eos # (Auto) 0.29 Baso # (Auto) 0.05 Hypochromasia Present Microcytosis Present Ovalocytes 1+ ESR PT 10.1 INR 1.0 APTT 28.5 PTT Ratio 1.0 POC Sodium Sodium POC Potassium Potassium POC Chloride Chloride Carbon Dioxide POC Total CO2 Anion Gap POC Anion Gap POC BUN BUN Creatinine POC Creatinine Est Cr Clr Drug Dosing Est GFR ( Amer) Est GFR (Non-Af Amer) BUN/Creatinine Ratio Glucose POC Glucose (other) Calcium POC Ioniz Calcium Arnaldo Ferritin Total Bilirubin AST ALT Alkaline Phosphatase Lactate Dehydrogenase Total Creatine Kinase CK-MB (CK-2) CK/CKMB % Calc C-Reactive Protein NT-Pro-B Natriuret Pep Total Protein Albumin Globulin Albumin/Globulin Ratio POC Stool Occult Blood Blood Type B Positive Antibody Screen NEGATIVE Crossmatch See Detail 06/22/19 06/22/19 06/22/19 12:39 12:39 12:39 WBC RBC Hgb POC Hgb Hct POC Hct MCV MCH MCHC RDW Std Deviation RDW Coeff of Ady Plt Count MPV Immature Gran % (Auto) Neut % (Auto) Lymph % (Auto) [place] % (Auto) Eos % (Auto) Baso % (Auto) Immature Gran # (Auto) Neut # (Auto) Lymph # (Auto) [place] # (Auto) Eos # (Auto) Baso # (Auto) Hypochromasia Microcytosis Ovalocytes ESR > 90 H PT INR APTT PTT Ratio POC Sodium Sodium 138 POC Potassium Potassium 3.9 POC Chloride Chloride 102 Carbon Dioxide 30 POC Total CO2 Anion Gap 6.0 POC Anion Gap POC BUN BUN 11 Creatinine 1.08 POC Creatinine Est Cr Clr Drug Dosing 84.3 Est GFR ( Amer) 87.2 Est GFR (Non-Af Amer) 75.3 BUN/Creatinine Ratio 9.8 L Glucose 83 POC Glucose (other) Calcium 8.9 POC Ioniz Calcium Arnaldo Ferritin 3.0 L Total Bilirubin 0.2 AST 11 L ALT 20 Alkaline Phosphatase 114 Lactate Dehydrogenase 156 Total Creatine Kinase 81 CK-MB (CK-2) 1.4 CK/CKMB % Calc 1.7 C-Reactive Protein 2.33 H NT-Pro-B Natriuret Pep 118 Total Protein 8.3 H Albumin 3.5 Globulin 4.8 H Albumin/Globulin Ratio 0.7 L POC Stool Occult Blood Blood Type Antibody Screen Crossmatch 06/22/19 06/22/19 12:53 13:59 WBC RBC Hgb POC Hgb 10.5 L Hct POC Hct 31 L MCV MCH MCHC RDW Std Deviation RDW Coeff of Ady Plt Count MPV Immature Gran % (Auto) Neut % (Auto) Lymph % (Auto) [place] % (Auto) Eos % (Auto) Baso % (Auto) Immature Gran # (Auto) Neut # (Auto) Lymph # (Auto) [place] # (Auto) Eos # (Auto) Baso # (Auto) Hypochromasia Microcytosis Ovalocytes ESR PT INR APTT PTT Ratio POC Sodium 138 Sodium POC Potassium 3.9 Potassium POC Chloride 99 L Chloride Carbon Dioxide POC Total CO2 28 Anion Gap POC Anion Gap 16.0 POC BUN 10 BUN Creatinine POC Creatinine 1.0 Est Cr Clr Drug Dosing Est GFR ( Amer) Est GFR (Non-Af Amer) BUN/Creatinine Ratio Glucose POC Glucose (other) 86 Calcium POC Ioniz Calcium Arnaldo 1.17 Ferritin Total Bilirubin AST ALT Alkaline Phosphatase Lactate Dehydrogenase Total Creatine Kinase CK-MB (CK-2) CK/CKMB % Calc C-Reactive Protein NT-Pro-B Natriuret Pep Total Protein Albumin Globulin Albumin/Globulin Ratio POC Stool Occult Blood Positive A Blood Type Antibody Screen Crossmatch Diagnostic Findings XR chest 1V portable HISTORY: 59 years-old Male Pt c/o SOB acute shortness of breath COMPARISON: Chest radiograph and CTA chest 04/22/2019 TECHNIQUE: Portable AP view of the chest FINDINGS: Cardiomediastinal and hilar silhouettes are within normal limits. Resolution of the previously described left infrahilar opacity is suggestive of resolving pneumonia. No pneumothorax, pleural effusion or overt pulmonary edema. Degenerative changes of the shoulders and spine. IMPRESSION: No acute process. Code Status & VTE Plan Code Status full code VTE Prophylaxis Plan VTE Prophylaxis will be ordered: Yes PG Care Time/CCT Total # of Minutes Spent Total Time Spent with Patient: Total time spent is greater than 50% in coordination of care (as documented) at patient's floor/unit and/or counseling patient: Coding Level of Care Code 16693 Initial Inpt Care Lvl 3 Diagnoses Dyspnea on exertion R06.00 Symptomatic anemia D64.9 Tjjlz-Eygou-Qtykb disease I78.0 Iron deficiency E61.1 Hypertension I10 Opioid dependence F11.20 Chronic back pain M54.6; G89.29 Back pain location: thoracic back pain Back pain laterality: bilateral Tobacco use disorder, continuous F17.209 (1) Chronic back pain Back pain location: thoracic back pain Back pain laterality: bilateral Qualified Code(s): M54.6 - Pain in thoracic spine; G89.29 - Other chronic pain
[2019-06-22] MEDS ORDERED: ONDANSETRON INJ 2 MG/ML 2 ML VIAL IV PRN (16:31)
[2019-06-22] MEDS ORDERED: DICLOFENAC SOD 1% GEL 100 GM TUBE EXT PRN (16:31)
[2019-06-22] MEDS ORDERED: ACETAMINOPHEN 325 MG TAB PO PRN (16:31)
[2019-06-22] MEDS ORDERED: FLUTICASONE PROPIONATE NA SPR 16 GM BTL PRN (16:31)
--- NOTE | 2019-06-22 18:37 | Electrocardiogram Report ---
Test Reason : Blood Pressure : / mmHG Vent. Rate : 061 BPM Atrial Rate : 061 BPM P-R Int : 140 ms QRS Dur : 086 ms QT Int : 442 ms P-R-T Axes : 060 071 067 degrees QTc Int : 444 ms Normal sinus rhythm Normal ECG When compared with ECG of 22-APR-2019 05:53, No significant change was found Confirmed by Kyle Contreras ([id number]) on 06/22/2019 6:36:46 PM Referred By: REFERRED SELF Confirmed By:Addy Contreras
[2019-06-22] MEDS ORDERED: AMIODARONE 200 MG TAB PO ONE (19:27)
[2019-06-22] MEDS: GABAPENTIN 600 MG TAB PO SCH (20:26)
[2019-06-22] MEDS: METHADONE HCL 10 MG TAB PO SCH (20:29)
[2019-06-22] MEDS ORDERED: METOPROLOL TARTRATE 25 MG TAB PO SCH (21:00)
[2019-06-23 06:57] LABS: Hematocrit (blood only) 31.8 % (42-52); Hemoglobin 9.6 g/dL (14.0-18.0); Mean Corpuscular Hemoglobin 20.9 pg (25-34); Mean Corpuscular Hgb Conc 30.2 g/dL (32-36); Mean Corpuscular Volume 69.1 fL (80-100); Mean Platelet Volume 9.9 fL (7.4-10.4); Platelet Count 373 K/uL (130-400); RDW Coefficient of Variation 17.5 % (11.5-14.5); RDW Standard Deviation 43.5 fL (36.4-46.3); White Blood Count 9.42 K/uL (4.8-10.8)
[2019-06-23 07:28] LABS: BUN Creatinine Ratio 13.6 (10-20); Creatinine Clr Calc Pharmacy 118.2 ml/min; Est GFR (African American) 115.9; Potassium 4.4 mmol/L (3.5-5.1)
[2019-06-23] MEDS ORDERED: AMIODARONE 200 MG TAB PO SCH ×2 (08:00)
[2019-06-23] MEDS: GABAPENTIN 600 MG TAB PO SCH ×2 (08:08→14:31)
[2019-06-23] MEDS: METHADONE HCL 10 MG TAB PO SCH (08:13)
--- NOTE | 2019-06-23 08:59 | Hospitalist Progress Note ---
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 causing presenting symptoms transfuse only one unit of PRBC that was started in the ED of note, there is no evidence of hypoxia, 96% room air (2) Symptomatic anemia: pt did have an appropriate rise in hgb after trnasfusion, concern for ESR > 90 (3) Tzhuq-Saxgo-Wouun disease: h/o cauterization of bleeding sites no recent scopes, or clinical signs of bleeding patient says he is agreeable to endoscopy while here if indicated has had some difficulty getting scopes outpatient due to COVID 19 [facility], make NPO after midnight (4) Iron deficiency: Ferritin very low at 3.0 despite Ferrous sulfate give Venofer IV tomorrow consider getting home infusions or MTU infusions if possible Ferrous sulfate will not be sufficient to raise his ferritin levels (5) Hypertension: continue home regimen BP elevated in the ED (6) Opioid dependence: continue Methadone no narcotics should be given (7) Chronic back pain: follows with his PCP Dr. Talbert prescribes Methadone and performs OMT regularly (8) Tobacco use disorder, continuous: nicotine patch Admission and Anticipated Discharge Date Admission Date: June 22, 2019 Results & Data Results & Data ([facility]) Vital Signs (Past 12 Hours) Vital Signs Temp Pulse Pulse Resp BP BP Pulse Ox 06/23/19 07:14 97.5 F L 57 L 18 150/85 H 92 06/23/19 03:29 97.7 F 64 18 157/83 H 91 06/23/19 02:42 64 06/23/19 00:08 97.9 F 63 20 147/86 H 94 06/22/19 21:07 97.5 F L 64 20 169/83 H 92 PG Care Time/CCT Total # of Minutes Spent Total Time Spent with Patient: Total time spent is greater than 50% in coordination of care (as documented) at patient's floor/unit and/or counseling patient: Coding Diagnoses Dyspnea on exertion R06.00 Symptomatic anemia D64.9 Jbrbi-Tkhxx-Jxovn disease I78.0 Iron deficiency E61.1 Hypertension I10 Opioid dependence F11.20 Chronic back pain M54.6; G89.29 Back pain laterality: bilateral Back pain location: thoracic back pain Tobacco use disorder, continuous F17.209 (1) Chronic back pain Back pain laterality: bilateral Back pain location: thoracic back pain Qualified Code(s): M54.6 - Pain in thoracic spine; G89.29 - Other chronic pain
[2019-06-23] MEDS ORDERED: LISINOPRIL/HCTZ 10/12.5MG TAB PO SCH (09:00)
[2019-06-23] MEDS ORDERED: NICOTINE 14 MG/24 HR PATCH TD SCH (09:00)
[2019-06-23] MEDS ORDERED: PANTOprazole 40 MG TAB PO SCH (09:00)
[2019-06-23] MEDS ORDERED: IRON SUCROSE 200 MG in 0.9 % SODIUM CHLORIDE 100 ML IV SCH (09:00)
--- NOTE | 2019-06-23 09:13 | Cardiology Consultation ---
Date of Consultation June 23, 2019 Assessment & Plan (1) Dyspnea on exertion: 1. Symptomatic VTach - 11 beat episode at 18:12 on 06/21 - acutely symptomatic with shortness of breath while changing clothes - received 400 mg amiodarone following episode, 200 mg BID today - no hx abnormal heart rhythms - EKGs otherwise bradycardic but without abnormal rhythms - ECHO without valvular abnormalities, no focal hypokinesis, normal ejection fraction - would likely benefit from stress test to evaluate for underlying CAD in setting of smoking hx and fmhx ID 2. 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 Velasquez. Briefly, the patient has been struggling with some exertional dyspnea. He is not appear to have a prominent symptom of chest discomfort. He states that his current symptoms are similar to those he has experienced in the past with low hemoglobin. His not seem to have symptoms at rest. We were asked to evaluate him due to an episode of nonsustained ventricular tachycardia occurring yesterday evening. Was some debate as to whether the patient had symptoms with this episode. My interpretation is that he was active around his room and had become short of breath as result. It seems that he had this brief episode during that time. I think it is more likely that he was dyspneic from activity rather than from the ventricular tachycardia. He did not endorse symptoms of dizziness or lightheadedness. He has not had any recent episodes of syncope or been aware of any palpitations. In the setting of preserved LV systolic function and in the absence of other concerning symptoms I think his likelihood of sudden cardiac or sustained ventricular tachycardia is low. He certainly has some risk factors for coronary artery disease and a complete evaluation would involve some assessment of his coronaries. Given his anemia the best option would be perfusion imaging, Ie Lexiscan nuclear study. This can be accomplished on an outpatient basis. He does take methadone. Methadone has been associated with ventricular tachycardia, but this is generally polymorphic VT associated with prolongation of the QT interval. His VT was moved monomorphic and his QT interval is normal. Do not believe he requires amiodarone or beta blockade based on what we have seen so far. History of Present Illness Reason for Consultation: symptomatic Vtach Attending Physician: Oliverio Cloud MD History of Present Illness 59 yo M with PMH wpgsr-drfvq-bvuqq syndrome, HTN, opioid dependence controlled on methadone who presented to the ED for worsening dyspnea on exertion for the past 3 days. States normal activities including walking to mailbox and getting laundry from downstairs basement now make him severely short of breath. He denies any SOB at rest. He states his chest feels tight during the SOB episodes and he goes into a "panic mode" because he is having trouble breathing and can feel his heart racing. he is unsure whether the heart racing precedes the SOB symptoms or if he is just more aware of his heart while SOB. He states he has had some periodic peripheral swelling in his hands and feet but this has not been on a consistent basis. He has no personal history of heart attacks, family history significant for his father dying of a heart attack at age 60. Hg on arrival at ED was 8.5, he received 1 unit which brought him up to 9.6. He feels mildly better after transfusion. environmental protection specialist showed an 11 beat run of Vtabobbi at 18:12 yesterday. During that time he was acutely short of breath with chest palpitations, but denies any preceding symptoms or changes. Received 400 mg amiodarone, followed by 200 mg BID now. Allergies Allergy/AdvReac Type Severity Reaction Status Date / Time No Known Allergies Allergy Verified 06/22/19 14:29 Home Medications Home Medications Medication Instructions Recorded Confirmed Type diclofenac sodium 1 dose TOPICAL QID PRN 06/06/18 06/22/19 History fluticasone propionate 50 1 spray INTRANASAL BID PRN #16 gm 04/08/19 06/22/19 Rx mcg/actuation nasal spray,suspension albuterol sulfate 90 mcg/actuation 1 - 2 puffs INH QID #18 gm 04/14/19 06/22/19 Rx aerosol inhaler ferrous sulfate [iron] 325 mg PO BID 06/22/19 06/22/19 History gabapentin [Neurontin] 1,200 mg PO TID 06/22/19 06/22/19 History lisinopril-hydrochlorothiazide 1 tab PO QAM 06/22/19 06/22/19 History [Zestoretic] methadone [Dolophine] 20 mg PO Q12H 06/22/19 06/22/19 History nicotine [Nicoderm CQ] 1 patch TD DAILY 06/22/19 06/22/19 History pantoprazole [Protonix] 40 mg PO DAILY 06/22/19 06/22/19 History Patient History Medical History Anemia HX Cervical disc disease C5-C6 Chronic back pain Fall from ladder (Inactive) Hepatitis C treated--no longer has Hx of bleeding disorder HAS CAUSED BLEEDING INTO STOMACH REQUIRING CAUTERIZATION-F/U DR LORETA KELLEY-HX BLOOD TRANSFUSIONS IN THE PAST Hypertension Osler-Rendu disease (Acute) Pneumonia (Inactive) Scrotal mass (Inactive) Surgical History History of colonoscopy History of esophagogastroduodenoscopy (EGD) History of herniorrhaphy X 4 History of open reduction and internal fixation (ORIF) procedure left hand/wrist fx--hardware removed History of repair of rotator cuff RIGHT History of shoulder surgery right History of tooth extraction all teeth removed Hx of excision of testicular mass X MULTIPLE BENIGN CYSTS Family History Other No family history of adverse response to anesthesia Denies family history of Colon cancer Ovarian cancer Prostate cancer Myocardial infarction Breast cancer Social History Preferred Language: Israeli Communication Ability: Effective Visual Impairment: Limited Hearing Ability: Hard of Hearing Equity Director Required: No Beliefs That Will Affect Care: None marital status: Current Living Situation: Family Current Living Situation Comment: Lives with and daughter current occupational status: employed Feels Safe at Home: Yes Smoking Status: Current every day smoker Tobacco Type: cigarettes ; Cigarettes Per Day: 5 ; Second Hand Exposure: No ; Hx Alcohol Use: No Hx Substance Use: No Dental Care, Regularly: Yes Physical Activity Frequency: Daily Seatbelt Use: never Sunscreen Use: No Review of Systems Review of Systems: All systems reviewed & are unremarkable except as noted in HPI & below Constitutional: + fatigue and + weakness Respiratory: + dyspnea on exertion; no chest congestion and no pain on inspiration Cardiovascular: + dyspnea on exertion, + palpitations and + edema; no chest pain with activity and no dyspnea at rest Physical Exam Constitutional: Tired and ill appearing. A&Ox3, able to follow conversation but looked like he was fighting falling asleep/passing out during the discussion. Respiratory: + abnormal respiratory effort (decreased air movement due to decreased inspiratory effort), no respiratory distress, no labored breathing, no retractions and does not use accessory muscles Auscultation: lungs clear to auscultation bilaterally; no crackles, no rales, no rhonchi and no wheezes Cardiovascular: Rate/Rhythm: regular rate and regular rhythm Heart Sounds: normal S1 and normal S2; no gallop, no murmur and no cardiac rub Palpation: no heave Vessels: no JVD Extremities: normal capillary refill; no calf tenderness and no edema Results & Data ([facility]) Vital Signs (Past 12 Hours) Vital Signs Temp Pulse Pulse Resp BP Pulse Ox 06/23/19 07:14 36.4 C L 57 L 18 150/85 H 92 06/23/19 03:29 36.5 C 64 18 157/83 H 91 06/23/19 02:42 64 06/23/19 00:08 36.6 C 63 20 147/86 H 94 Laboratory Results WBC 9.42 K/uL (4.8-10.8) 06/23/19 06:35 RBC 4.60 M/uL (4.7-6.1) L 06/23/19 06:35 Hgb 9.6 g/dL (14.0-18.0) L 06/23/19 06:35 POC Hgb 10.5 g/dl (14.0-18.0) L 06/22/19 12:53 Hct 31.8 % (42-52) L 06/23/19 06:35 POC Hct 31 % (42-52) L 06/22/19 12:53 MCV 69.1 fL (80-100) L 06/23/19 06:35 MCH 20.9 pg (25-34) L 06/23/19 06:35 MCHC 30.2 g/dL (32-36) L 06/23/19 06:35 RDW Std Deviation 43.5 fL (36.4-46.3) 06/23/19 06:35 RDW Coeff of Ady 17.5 % (11.5-14.5) H 06/23/19 06:35 Plt Count 373 K/uL (130-400) 06/23/19 06:35 MPV 9.9 fL (7.4-10.4) 06/23/19 06:35 Immature Gran % (Auto) 0.2 % 06/22/19 12:39 Neut % (Auto) 77.7 % 06/22/19 12:39 Lymph % (Auto) 13.4 % 06/22/19 12:39 Pepin % (Auto) 5.4 % 06/22/19 12:39 Eos % (Auto) 2.8 % 06/22/19 12:39 Baso % (Auto) 0.5 % 06/22/19 12:39 Immature Gran # (Auto) 0.02 K/uL (0.00-0.02) 06/22/19 12:39 Neut # (Auto) 8.03 K/uL (1.4-6.5) H 06/22/19 12:39 Lymph # (Auto) 1.39 K/uL (1.2-3.4) 06/22/19 12:39 Pepin # (Auto) 0.56 K/uL (0.11-0.59) 06/22/19 12:39 Eos # (Auto) 0.29 K/uL (0-0.5) 06/22/19 12:39 Baso # (Auto) 0.05 K/uL (0-0.2) 06/22/19 12:39 Hypochromasia Present 06/22/19 12:39 Microcytosis Present 06/22/19 12:39 Ovalocytes 1+ 06/22/19 12:39 ESR > 90 mm/hr (0-14) H 06/22/19 12:39 PT 10.1 Seconds (9.0-12.0) 06/22/19 12:39 INR 1.0 (0.9-1.1) 06/22/19 12:39 APTT 28.5 Seconds (21.0-31.0) 06/22/19 12:39 PTT Ratio 1.0 06/22/19 12:39 POC Sodium 138 mmol/L (135-144) 06/22/19 12:53 Sodium 138 mmol/L (136-145) 06/23/19 06:35 POC Potassium 3.9 mmol/L (3.3-5.0) 06/22/19 12:53 Potassium 4.4 mmol/L (3.5-5.1) 06/23/19 06:35 POC Chloride 99 mmol/L (101-112) L 06/22/19 12:53 Chloride 105 mmol/L (98-107) 06/23/19 06:35 Carbon Dioxide 29 mmol/L (21-32) 06/23/19 06:35 POC Total CO2 28 mmol/L (24-31) 06/22/19 12:53 Anion Gap 4.0 (3-11) 06/23/19 06:35 POC Anion Gap 16.0 mmol/L (16-25) 06/22/19 12:53 POC BUN 10 mg/dl (7-18) 06/22/19 12:53 BUN 10 mg/dl (7-18) 06/23/19 06:35 Creatinine 0.77 mg/dl (0.6-1.4) D 06/23/19 06:35 POC Creatinine 1.0 mg/dl (0.6-1.3) 06/22/19 12:53 Est Cr Clr Drug Dosing 118.2 ml/min 06/23/19 06:35 Est GFR ( Amer) 115.9 06/23/19 06:35 Est GFR (Non-Af Amer) 100.0 06/23/19 06:35 BUN/Creatinine Ratio 13.6 (10-20) 06/23/19 06:35 Glucose 97 mg/dl (70-99) 06/23/19 06:35 POC Glucose (other) 86 mg/dl (70-99) 06/22/19 12:53 Calcium 9.0 mg/dl (8.5-10.1) 06/23/19 06:35 POC Ioniz Calcium Arnaldo 1.17 mmol/l (1.12-1.32) 06/22/19 12:53 Ferritin 3.0 ng/ml (8-388) L 06/22/19 12:39 Total Bilirubin 0.2 mg/dl (0.2-1) 06/22/19 12:39 AST 11 U/L (15-37) L 06/22/19 12:39 ALT 20 U/L (12-78) 06/22/19 12:39 Alkaline Phosphatase 114 U/L (45-117) 06/22/19 12:39 Lactate Dehydrogenase 156 U/L (87-241) 06/22/19 12:39 Total Creatine Kinase 81 U/L (39-308) 06/22/19 12:39 CK-MB (CK-2) 1.4 ng/ml (0.5-3.6) 06/22/19 12:39 CK/CKMB % Calc 1.7 (0-3.0) 06/22/19 12:39 C-Reactive Protein 2.33 mg/dl (0-0.29) H 06/22/19 12:39 NT-Pro-B Natriuret Pep 118 pg/ml (0-900) 06/22/19 12:39 Total Protein 8.3 gm/dl (6.4-8.2) H 06/22/19 12:39 Albumin 3.5 gm/dl (3.4-5.0) 06/22/19 12:39 Globulin 4.8 gm/dl (2.5-4.0) H 06/22/19 12:39 Albumin/Globulin Ratio 0.7 (0.9-2) L 06/22/19 12:39 POC Stool Occult Blood Positive (Negative) A 06/22/19 13:59 Blood Type B Positive 06/22/19 12:39 Antibody Screen NEGATIVE 06/22/19 12:39 Crossmatch See Detail 06/22/19 12:39 Resident Activity Tracking Resident Involvement: Resident Care Provided Care Provided: Adult Hospital Medicine (1) Anemia Anemia type: unspecified type Qualified Code(s): D64.9 - Anemia, unspecified
--- NOTE | 2019-06-23 09:19 | Gastrointestinal Consultation ---
Date of Consultation June 23, 2019 Assessment & Plan (1) Iron deficiency: OP EGD/Colonoscopy arranged for July 18, [address] Reyes at [place] [facility]. Discussed with Dr. Cloud. GI will sign off. Please notify us if any gross GI bleeding or any other new/worsening GI issues. Present on Admission?: Yes (2) Anemia: Present on Admission?: Yes Supervising Physician Co-Signing Physician Notes I have discussed the management with TALA Loo. Patient admitted through the ER yesterday for sob and found to be slightly anemic. No bun rise and recieved 1 unit of blood. 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 He has not had overt gi bleeding during this admission, though ? hemoccult + stool. Per chart review is + covid 19 symptoms given sob. Given low ferritin in the past - would opt for outpatient egd/colon for evaluation of iron deficiency anemia - this is arranged to be done in [place] on 07/18/19 with myself. Ok to discharge home on PPI once daily (40 mg po daily). Avoidance of ethanol if he is taking in any is highly recommended. GI will sign off. History of Present Illness Reason for Consultation: GI bleed, anemia Requesting Physician: Dr. Satya Duron Attending Physician: Oliverio Cloud MD History of Present Illness Mr. Sean Hyatt is a 59 yr old male pt of Dr. Roger Talbert. Mr. Bruno carries a hx of Osler Fung Rendu, possibly also COPD who presented to the ED for cough, generalized weakness and SOB. He reports feeling these symptoms previously when he was anemic. Because he suspected need for a transfusion, he presented with that request. Notes were reviewed and pt reported no GI bleeding though occult stool on arrival was (+). According to nursing notes, no records of gross GI bleeding since arrival. On arrival, Hb 8.5, he received a transfusion and Hb now 9.6. BUN remains normal. The pt underwent EGD in 2016 with multiple non bleeding gastric and duodenal angiectasias. Colonoscopy in 2015 with a superficial rectal erosion, otherwise normal. He no showed for a GI office visit in May. Allergies Allergy/AdvReac Type Severity Reaction Status Date / Time No Known Allergies Allergy Verified 06/22/19 14:29 Home Medications Home Medications Medication Instructions Recorded Confirmed Type diclofenac sodium 1 dose TOPICAL QID PRN 06/06/18 06/22/19 History fluticasone propionate 50 1 spray INTRANASAL BID PRN #16 gm 04/08/19 06/22/19 Rx mcg/actuation nasal spray,suspension albuterol sulfate 90 mcg/actuation 1 - 2 puffs INH QID #18 gm 04/14/19 06/22/19 Rx aerosol inhaler ferrous sulfate [iron] 325 mg PO BID 06/22/19 06/22/19 History gabapentin [Neurontin] 1,200 mg PO TID 06/22/19 06/22/19 History lisinopril-hydrochlorothiazide 1 tab PO QAM 06/22/19 06/22/19 History [Zestoretic] methadone [Dolophine] 20 mg PO Q12H 06/22/19 06/22/19 History nicotine [Nicoderm CQ] 1 patch TD DAILY 06/22/19 06/22/19 History pantoprazole [Protonix] 40 mg PO DAILY 06/22/19 06/22/19 History Patient History Medical History Anemia HX Cervical disc disease C5-C6 Chronic back pain Fall from ladder (Inactive) Hepatitis C treated--no longer has Hx of bleeding disorder HAS CAUSED BLEEDING INTO STOMACH REQUIRING CAUTERIZATION-F/U DR LORETA KELLEY-HX BLOOD TRANSFUSIONS IN THE PAST Hypertension Osler-Rendu disease (Acute) Pneumonia (Inactive) Scrotal mass (Inactive) Surgical History History of colonoscopy History of esophagogastroduodenoscopy (EGD) History of herniorrhaphy X 4 History of open reduction and internal fixation (ORIF) procedure left hand/wrist fx--hardware removed History of repair of rotator cuff RIGHT History of shoulder surgery right History of tooth extraction all teeth removed Hx of excision of testicular mass X MULTIPLE BENIGN CYSTS Family History Other No family history of adverse response to anesthesia Denies family history of Colon cancer Ovarian cancer Prostate cancer Myocardial infarction Breast cancer Social History Preferred Language: Divehi Communication Ability: Effective Visual Impairment: Limited Hearing Ability: Hard of Hearing Wound Treatment Rn Required: No Beliefs That Will Affect Care: None marital status: Current Living Situation: Family Current Living Situation Comment: Lives with and daughter current occupational status: employed Feels Safe at Home: Yes Smoking Status: Current every day smoker Tobacco Type: cigarettes ; Cigarettes Per Day: 5 ; Second Hand Exposure: No ; Hx Alcohol Use: No Hx Substance Use: No Dental Care, Regularly: Yes Physical Activity Frequency: Daily Seatbelt Use: never Sunscreen Use: No Review of Systems Review of Systems: ROS from chart review negative for CP, fevers, abdominal pain, nausea, vomiting. Constitutional: +weakness, weight loss, denies fevers Eyes: No eye redness, no impaired vision or double vision Physical Exam Physical Exam: COVID testing is pending. Exam was deferred. Results & Data ([facility]) Vital Signs (Past 12 Hours) Vital Signs Temp Pulse Pulse Resp BP Pulse Ox 06/23/19 07:14 36.4 C L 57 L 18 150/85 H 92 06/23/19 03:29 36.5 C 64 18 157/83 H 91 06/23/19 02:42 64 06/23/19 00:08 36.6 C 63 20 147/86 H 94 Laboratory Results BUN 10 Ferritin 3 Hb 9.6 post transfusion (1) Anemia Anemia type: unspecified type Qualified Code(s): D64.9 - Anemia, unspecified
--- NOTE | 2019-06-23 10:27 | XCELERA ---
[id number] [id number]
[2019-06-23 12:21] LABS: Appearance Urine Clear (Clear); Bilirubin Urine Negative (Negative); Blood Urine Negative (Negative); Color Urine Yellow; Glucose Urine UA Negative (Negative); Ketones Urine Negative (Negative); Leukocyte Esterase Urine Negative (Negative); Nitrite Urine Negative (Negative); Protein Urine Negative (Negative); Specific Gravity Urine 1.013 (1.000-1.030); Urobilinogen Urine Negative (Negative); pH Urine 8.5 (4.5-7.5)
--- NOTE | 2019-06-23 16:57 | Electrocardiogram Report ---
Test Reason : Blood Pressure : / mmHG Vent. Rate : 057 BPM Atrial Rate : 057 BPM P-R Int : 150 ms QRS Dur : 088 ms QT Int : 458 ms P-R-T Axes : 070 069 069 degrees QTc Int : 445 ms Sinus bradycardia Otherwise normal ECG When compared with ECG of 22-JUN-2019 12:47, No significant change was found Confirmed by Kyle Contreras ([id number]) on 06/23/2019 4:57:11 PM Referred By: REFERRED SELF Confirmed By:Addy Contreras
--- NOTE | 2019-06-23 18:32 | Discharge Summary ---
Date of Service June 23, 2019 Admission HPI Per Admitting Provider 59 yo male with well established history of Yvsif-Mtkew-Qsknr disease with GI bleeding from telangiectasias, iron deficiency, anemia requiring transfusions. Recent history shows that he was admitted in February 2019 for similar presentation, was transfused, Hb responded appropriately, he felt better and went [facility]. He reports that due to COVID 19 the scopes were post poned and he has not had any type of evaluation. He was admitted briefly in April 2019 for bacterial pneumonia, got better with Levofloxacin and went home in 24 hours. At that time his Hb was 7.8 but he did not have any symptoms of severe dyspnea. Today he says that he has felt extremely dyspneic on exertion for the past 3 days. He will walk down the stairs to his basement and when he comes back up he can hardly breathe, gasping, coughing, his daughter has wanted to call EMS a few times because he has been in so much distress. He cannot walk to the mailbox without getting extremely winded. At rest he is completely fine, can talk in full sentences. No fever or chills or night sweats recently. No sick contacts. Asked him about any history of heart failure, he denied, thinks he had an echo a few years ago. No known history of COPD but he is a smoker and has been smoking for several decades. In the ED his Hb was 8.5 and was ordered one unit to be transfused. Rectal exam showed brown stool but was heme positive. CXR was unremarkable. BMP stable. Ferritin extremely low at 3.0 despite being on Ferrous Sulfate. Principal Diagnosis exertional dyspnea symptomatic angina hereditary hemorrhagic tele angiectasia elevated Erythrocyte sedimentation rate Discharge Exam The patient appeared well claims to be at his baseline Vital signs as documented. Lungs are clear to auscultation and appear unlabored Cardiac exam, Rhythm is regular.. No murmurs, rubs or gallops. Abdominal exam reveals normal bowel sounds, soft non tender, no masses Extremities are nonedematous and both pedal pulses are normal. Neurologic exam is alert and oriented, no focal loss of strength or sensation Skin is with telangiectasia especially on bridge of nose Psychologically is without concerns for anxiety or depression Discharge Data Allergies Allergy/AdvReac Type Severity Reaction Status Date / Time No Known Allergies Allergy Verified 05/17/20 14:29 Consultations 06/22/19 14:38 ED Decision to Admit Stat 06/22/19 16:31 Consult Gastroenterology Routine 06/22/19 18:31 Consult Cardiology Routine Hospital Course (1) Dyspnea on exertion: patient describes severe symptoms, only on exertion he attributes this to his Hb of 8.5, pt feels much better after transfusion, pt interested in going home to care for daughter, states he will keep follow up appointments with gastroenterology and cardiology( stress testing) need to consider other diagnoses that could be contributing to dyspnea on exertion - check echocardiogram, not just for heart failure but he may have pulmonary HTN with his smoking history - possible COPD, would recommend PFT as outpatient, smoker for decades describes coughing when he exerts himself, may have bronchospastic disease possible 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 in part causing presenting symptoms transfused one unit of PRBC that was started in the ED of note, there is no evidence of hypoxia, 96% room air (2) Symptomatic anemia: pt did have an appropriate rise in hgb after transfusion, now without symptoms (3) Gutzc-Jlivq-Gdgnf disease: h/o cauterization of bleeding sites no recent scopes, or clinical signs of bleeding patient says he is agreeable to endoscopy while here if indicated has had some difficulty getting scopes outpatient due to COVID 19 consult [facility], since does not seem to be actively bleeding recommend outpt follow up and has out pt colonoscopy in upcomming weeks (4) Iron deficiency: Ferritin very low at 3.0 despite Ferrous sulfate, pt claims compliance with oral medicines given Venofer consider getting home infusions as an outpt recommend outpt surveillance of iron levels (5) Hypertension: continue home regimen BP elevated in the ED (6) Opioid dependence: continue Methadone no narcotics should be given (7) Chronic back pain: follows with his PCP Dr. 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, did suggest outpt follow up and consider Rheumatologic follow up Total Time Total Time Spent Total Time Spent (In Minutes): It required greater than 30 minutes to prepare this patient for discharge, this includes conversations with cardiology regarding his outpatient follow-up coordination and medication management Discharge Plan Discharge Items Patient Disposition: Home - Self-Care Reason For Visit: SYMPTOMATIC ANEMIA, SEVERE DYSPNEA ON EXERTION Discharge Diagnosis: symptomatic iron deficiency anemia Activity: Resume your previous activity Non-emergency contact: Primary Care Provider and [employer] Call non-emergency contact if: you have any medication questions and your symptoms worsen Follow-up/Referrals: [facility] [Other] - 06/26/19 11:00 am (Please, be at the registration desk, in the main lobby of the [facility], on June 25 at 11:00 am to register for a stress test. YOU SHOULD NOT EAT OR DRINK ANYTHING FOR 4 HOURS, PRIOR TO THE TEST. YOU SHOULD NOT HAVE ANY CAFFEINATED OR DECAFFEINATED DRINKS FOR 24 HOURS, PRIOR TO THE TEST. If you need to change this appointment, call the Central Scheduling Dept at [phone].) Roger Talbert DO [Primary Care Provider] - Diet: Heart Healthy Ambulatory Orders: NM yuni perf spect lexiscan (Routine) Timeframe: 2 Days Location: Determined by Patient Ordered By: Oliverio York Attending Provider Instructions: If you find certain activity makes you feel worse, please limit this activity. please follow up for outpt stress testing and Gastroeterology as scheduled Always return if you feel worsening symptoms For your stress test of 06/26/19 at 11 am, please arrive 30 mins early for paper work and registration. No Caffiene for at least 24 hours hold your metoprolol for the morning of your stress test Pending Studies at Discharge: No Stand-Alone Forms: My [facility] [employer], Smoking Cessation Medications and DC Order Prescriptions: Continued albuterol sulfate [ProAir HFA] 90 mcg/actuation HFA aerosol inhaler 1 - 2 puffs INH QID Qty: 18 RF: 2 fluticasone propionate [Flonase Allergy Relief] 50 mcg/actuation spray,suspension 1 spray INTRANASAL BID PRN (Reason: Allergy Symptoms) Qty: 16 RF: 5 diclofenac sodium 1 % Gel 1 dose TOPICAL QID PRN (Reason: joint pain) RF: 0 gabapentin [Neurontin] 600 mg tablet 1,200 mg PO TID RF: 0 nicotine [Nicoderm CQ] 14 mg/24 hr patch 24 hour 1 patch TD DAILY RF: 0 methadone [Dolophine] 10 mg tablet 20 mg PO Q12H RF: 0 pantoprazole [Protonix] 40 mg tablet,delayed release (DR/EC) 40 mg PO DAILY RF: 0 ferrous sulfate [iron] 325 mg (65 mg iron) tablet 325 mg PO BID RF: 0 lisinopril-hydrochlorothiazide [Zestoretic] 10-12.5 mg tablet 1 tab PO QAM RF: 0 Discharge Orders: Discharge Order (Routine); Ordered 06/23/19 Ordered By: Oliverio Partida/Other Patient Handouts: Nuclear Stress Test Admission Data Admit Date/Time: 06/22/19 15:28 Attending Provider: Oliverio Cloud Admit Provider: Satya Duron Primary Care Provider: Roger Talbert Other Providers: Satya Duron ; Karis Duron ; Melissa Carrillo ; Alida Aguilar ; Etta Elizondo ; Vitor Shaw ; Adriano Menendez ; Wyatt Salvador ; Mehreen Rankin ; Gee Bailey ; Sharad Carter ; Moraima Okeefe ; Marquita Calderon ; Marisela Rowe ; Suzanne Reyes ; Onesimo Pulido ; Matthew Contreras. Other Interventions: Discharge Summary Assessment (RN) Last Done: 06/23/19 14:32 DC Date/Time DO NOT enter until pt leaves facility: 06/23/19 14:59 Coding Level of Care Code D/C Day Management >30 mins Diagnoses Dyspnea on exertion R06.00 Symptomatic anemia D64.9 Wmhdn-Vfdcq-Beuto disease I78.0 Iron deficiency E61.1 Hypertension I10 Opioid dependence F11.20 Chronic back pain M54.6; G89.29 Back pain location: thoracic back pain Back pain laterality: bilateral Tobacco use disorder, continuous F17.209 ESR raised R70.0
== END 2019-06-23 14:59 | disposition home or self-care (01) | DRG 300 ==
LOC: ED 12:23 → INTOOBSV 15:28 → 2W 15:28 → SUATTDRO 15:28 → 2W 16:09

== ENCOUNTER 2019-12-24 21:18 | Inpatient (IN) ==
[2019-12-24] MEDS ORDERED: SODIUM CHLORIDE 0.9% 250 ML IV PRN (21:36)
--- NOTE | 2019-12-24 21:39 | Emergency Department Note ---
History of Present Illness General Chief complaint: Abnormal Labs/Diagnostic Testing Stated complaint: bleeding internally, hemoglobin low Time Seen by Provider: 12/24/19 21:25 Source: patient History of Present Illness Provider complaint: Shortness of breath Onset (ago): day(s) 4 Location: chest Severity: moderate Pain Consistency: + constant Maximum Pain Intensity: 5 Quality: + other (Shortness of breath) Exacerbated By: + other (Exertion) Associated symptoms: + weakness; no chest pain, no cough, no fever/chills and no nausea/vomiting This is a 59-year-old male with a history of Xpxqc-Rifnc-Jgiqn presenting with shortness of breath and fatigue for the past 4 to 5 days. He states he feels more short of breath when he exerts himself. He is otherwise short of breath constantly. He denies any associated fever, cough, loss of taste or smell, abdominal pain, vomiting, diarrhea or black or bloody stools. He was seen by his physician and had a low hemoglobin. He was sent here for admission and transfusion. He denies any known exposure to COVID-19. He has had transfusions in the past due to his disease. Home Medications Medication Instructions Recorded Confirmed Type fluticasone propionate 50 1 spray INTRANASAL BID PRN #16 gm 08/20/19 12/24/19 Rx mcg/actuation nasal spray,suspension fluticasone propionate 220 1 puff INHALATION BID #12 g 09/23/19 12/24/19 Rx mcg/actuation HFA aerosol inhaler gabapentin 600 mg tablet 1,200 mg PO TID #540 tab 09/29/19 12/24/19 Rx albuterol sulfate [ProAir HFA] 1 - 2 puffs INH QID PRN 11/23/19 12/24/19 History diclofenac sodium 2 gm TOPICAL QID PRN 11/23/19 12/24/19 History methadone 10 mg tablet 10 mg PO Q8H 30 Days #90 tab 12/12/19 12/24/19 Rx hydroxyzine HCl 50 mg PO Q6 PRN 12/24/19 12/24/19 History Allergies Allergy/AdvReac Type Severity Reaction Status Date / Time No Known Allergies Allergy Verified 12/24/19 23:18 Past Med/Surg History Medical History (Updated 12/25/19 @ 00:42 by Oliverio Haley MD) Anemia HX Cervical disc disease C5-C6 Chronic back pain Dog bite of face 08/12/2019- received care at [facility]- Lip and nose sutured and pt placed on antibiotics. Fall from ladder Hepatitis C treated--no longer has Hx of bleeding disorder HAS CAUSED BLEEDING INTO STOMACH REQUIRING CAUTERIZATION-F/U DR KAN Mario CAYUGA-HX BLOOD TRANSFUSIONS IN THE PAST Hypertension Osler-Rendu disease Pneumonia Scrotal mass Surgical History History of colonoscopy History of esophagogastroduodenoscopy (EGD) History of herniorrhaphy X 4 History of open reduction and internal fixation (ORIF) procedure left hand/wrist fx--hardware removed History of repair of rotator cuff RIGHT History of shoulder surgery right History of tooth extraction all teeth removed Hx of excision of testicular mass X MULTIPLE BENIGN CYSTS Family History Other No family history of adverse response to anesthesia Denies family history of Colon cancer Ovarian cancer Prostate cancer Myocardial infarction Breast cancer Social History Smoking Status: Never smoker Tobacco Type: Cigarettes Cigarettes Per Day: 5; Second Hand Exposure: No; Hx Alcohol Use: No Hx Substance Use: No Preferred Language: Fijian Communication Ability: Effective Visual Impairment: Limited Hearing Ability: Hard of Hearing 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 and A total of 10 systems reviewed and were otherwise negative Physical Exam Vital Signs Vital Signs - 24 hr 12/24/19 21:19 12/24/19 21:46 12/24/19 23:50 Temperature 36.6 C 36.8 C Temperature Source Oral Oral Pulse Rate 74 69 Respiratory Rate 18 19 Respiratory Effort / Characteristics Non-Labored Spontaneous Respiratory Depth Normal Blood Pressure 151/85 H 166/99 H Blood Pressure Mean 107 121 Blood Pressure Position Sitting Sitting Pulse Oximetry 91 96 91 Oxygen Delivery Method Room Air Room Air Sepsis Recent Fever Within 48 Hours No Sepsis New/Unexplained Change in Mental Status N/A Sepsis Action Taken by Nursing No Action Required 12/25/19 00:05 12/25/19 00:20 12/25/19 00:33 Temperature 36.6 C 36.6 C 36.7 C Temperature Source Oral Oral Oral Pulse Rate 64 67 Respiratory Rate 15 24 Respiratory Effort / Characteristics Respiratory Depth Blood Pressure 159/94 H 160/98 H Blood Pressure Mean 115 118 Blood Pressure Position Sitting Sitting Pulse Oximetry 93 94 Oxygen Delivery Method Sepsis Recent Fever Within 48 Hours Sepsis New/Unexplained Change in Mental Status Sepsis Action Taken by Nursing Constitutional: Vital signs reviewed. Eyes: Pupils are equal round reactive to light. Conjunctiva are noninjected. ENT: Pharynx is clear without erythema or exudate. Mucous membranes are moist. Neck supple without meningeal signs. Respiratory: Clear to auscultation bilaterally. Breath sounds are equal bilaterally. Cardiovascular: Regular rate and rhythm. No rubs or gallops. GI: Soft, nondistended and nontender. Bowel sounds are present. Rectal: Guaiac positive brown stool. No blood. Musculoskeletal: No peripheral edema. No lower extremity tenderness. Integumentary: No cyanosis. or jaundice. Telangiectasias to the face. Neurological: The patient is awake and alert. No focal deficits. Psychiatric: Normal affect. Not anxious appearing. Course Administered Medications Discontinued Medications Pantoprazole Sodium 80 mg/ (Dextrose) 100 mls @ 400 mls/hr IV ONE STA Stop: 12/24/19 22:42 Last Infusion: 12/24/19 23:21 Dose: 0 mls/hr Documented by: [id number] Admin: 12/24/19 23:09 Dose: 400 mls/hr Documented by: [id number] Critical Care Time Critical Care Time: Yes Total Critical Care Time: 35 I have personally spent approximately 35 minutes of critical care time in the direct management of this patient. This includes bedside care, interpretation of diagnostic studies, and testing, discussion with consultants, patient, and family members, and other required patient management activities. These minutes are in excess of all separately billable procedures. Medical Decision Making Differential Diagnosis Hckjn-Stxkk-Lvoqv, GI bleed, symptomatic anemia, ACS, pneumonia Medical Records Attestation: I reviewed the patient's medical records. The patient was seen by Dr. Talbert today who attempted to admit the patient for symptomatic anemia and transfusion. He was unable to contact the hospitalist and so sent the patient to the ED. His hemoglobin yesterday was 7.7. Home Medications Current Medication List: was personally reviewed by me Laboratory Data Attestation: I reviewed the patient's lab results. Result diagrams: 12/24/19 21:46 12/24/19 21:46 Lab Results 12/24/19 12/24/19 12/24/19 Range/Units 21:46 21:46 21:46 WBC 3.72 L (4.8-10.8) K/uL RBC 3.77 L (4.7-6.1) M/uL Hgb 8.3 L (14.0-18.0) g/dL Hct 27.9 L (42-52) % MCV 74.0 L (80-100) fL MCH 22.0 L (25-34) pg MCHC 29.7 L (32-36) g/dL RDW Std Deviation 43.0 (36.4-46.3) fL RDW Coeff of Ady 15.8 H (11.5-14.5) % Plt Count 356 (130-400) K/uL MPV 10.1 (7.4-10.4) fL Immature Gran % (Auto) 0.3 % Neut % (Auto) 62.0 % Lymph % (Auto) 25.0 % [place] % (Auto) 11.6 % Eos % (Auto) 0.8 % Baso % (Auto) 0.3 % Neut # (Auto) 2.31 (1.4-6.5) K/uL Lymph # (Auto) 0.93 L (1.2-3.4) K/uL [place] # (Auto) 0.43 (0.11-0.59) K/uL Eos # (Auto) 0.03 (0-0.5) K/uL Baso # (Auto) 0.01 (0-0.2) K/uL Immature Gran # (Auto) 0.01 (0.00-0.02) K/uL Hypochromasia Present Ovalocytes 1+ PT (9.0-12.0) Seconds INR (0.9-1.1) APTT (21.0-31.0) Seconds PTT Ratio Sodium 138 (136-145) mmol/L Potassium 3.8 (3.5-5.1) mmol/L Chloride 102 (98-107) mmol/L Carbon Dioxide 30 (21-32) mmol/L Anion Gap 6.0 (3-11) BUN 9 (7-18) mg/dl Creatinine 0.79 (0.6-1.4) mg/dl Est Cr Clr Drug Dosing Not Reportable Est GFR ( Amer) 114.7 Est GFR (Non-Af Amer) 99.0 BUN/Creatinine Ratio 10.8 (10-20) Glucose 78 (70-99) mg/dl Calcium 8.6 (8.5-10.1) mg/dl Total Bilirubin 0.2 (0.2-1) mg/dl AST 21 (15-37) U/L ALT 20 (12-78) U/L Alkaline Phosphatase 110 (45-117) U/L Troponin I < 0.015 (0-0.045) ng/ml Total Protein 7.1 (6.4-8.2) gm/dl Albumin 3.2 L (3.4-5.0) gm/dl Globulin 3.9 (2.5-4.0) gm/dl Albumin/Globulin Ratio 0.8 L (0.9-2) COVID-19 Eval Order SARS-CoV-2, RNA, NAAT (NEGATIVE) SARS-CoV-2 Ag (Rapid) (Negative) Blood Type B Positive Antibody Screen NEGATIVE Crossmatch See Detail 12/24/19 12/24/19 12/24/19 Range/Units 21:46 22:46 22:46 WBC (4.8-10.8) K/uL RBC (4.7-6.1) M/uL Hgb (14.0-18.0) g/dL Hct (42-52) % MCV (80-100) fL MCH (25-34) pg MCHC (32-36) g/dL RDW Std Deviation (36.4-46.3) fL RDW Coeff of Ady (11.5-14.5) % Plt Count (130-400) K/uL MPV (7.4-10.4) fL Immature Gran % (Auto) % Neut % (Auto) % Lymph % (Auto) % [place] % (Auto) % Eos % (Auto) % Baso % (Auto) % Neut # (Auto) (1.4-6.5) K/uL Lymph # (Auto) (1.2-3.4) K/uL [place] # (Auto) (0.11-0.59) K/uL Eos # (Auto) (0-0.5) K/uL Baso # (Auto) (0-0.2) K/uL Immature Gran # (Auto) (0.00-0.02) K/uL Hypochromasia Ovalocytes PT 10.4 (9.0-12.0) Seconds INR 1.0 (0.9-1.1) APTT 30.5 (21.0-31.0) Seconds PTT Ratio 1.1 Sodium (136-145) mmol/L Potassium (3.5-5.1) mmol/L Chloride (98-107) mmol/L Carbon Dioxide (21-32) mmol/L Anion Gap (3-11) BUN (7-18) mg/dl Creatinine (0.6-1.4) mg/dl Est Cr Clr Drug Dosing Est GFR ( Amer) Est GFR (Non-Af Amer) BUN/Creatinine Ratio (10-20) Glucose (70-99) mg/dl Calcium (8.5-10.1) mg/dl Total Bilirubin (0.2-1) mg/dl AST (15-37) U/L ALT (12-78) U/L Alkaline Phosphatase (45-117) U/L Troponin I (0-0.045) ng/ml Total Protein (6.4-8.2) gm/dl Albumin (3.4-5.0) gm/dl Globulin (2.5-4.0) gm/dl Albumin/Globulin Ratio (0.9-2) COVID-19 Eval Order Covid19 [facility] SARS-CoV-2, RNA, NAAT (NEGATIVE) SARS-CoV-2 Ag (Rapid) Positive A* (Negative) Blood Type Antibody Screen Crossmatch 12/24/19 Range/Units 22:46 WBC (4.8-10.8) K/uL RBC (4.7-6.1) M/uL Hgb (14.0-18.0) g/dL Hct (42-52) % MCV (80-100) fL MCH (25-34) pg MCHC (32-36) g/dL RDW Std Deviation (36.4-46.3) fL RDW Coeff of Ady (11.5-14.5) % Plt Count (130-400) K/uL MPV (7.4-10.4) fL Immature Gran % (Auto) % Neut % (Auto) % Lymph % (Auto) % [place] % (Auto) % Eos % (Auto) % Baso % (Auto) % Neut # (Auto) (1.4-6.5) K/uL Lymph # (Auto) (1.2-3.4) K/uL [place] # (Auto) (0.11-0.59) K/uL Eos # (Auto) (0-0.5) K/uL Baso # (Auto) (0-0.2) K/uL Immature Gran # (Auto) (0.00-0.02) K/uL Hypochromasia Ovalocytes PT (9.0-12.0) Seconds INR (0.9-1.1) APTT (21.0-31.0) Seconds PTT Ratio Sodium (136-145) mmol/L Potassium (3.5-5.1) mmol/L Chloride (98-107) mmol/L Carbon Dioxide (21-32) mmol/L Anion Gap (3-11) BUN (7-18) mg/dl Creatinine (0.6-1.4) mg/dl Est Cr Clr Drug Dosing Est GFR ( Amer) Est GFR (Non-Af Amer) BUN/Creatinine Ratio (10-20) Glucose (70-99) mg/dl Calcium (8.5-10.1) mg/dl Total Bilirubin (0.2-1) mg/dl AST (15-37) U/L ALT (12-78) U/L Alkaline Phosphatase (45-117) U/L Troponin I (0-0.045) ng/ml Total Protein (6.4-8.2) gm/dl Albumin (3.4-5.0) gm/dl Globulin (2.5-4.0) gm/dl Albumin/Globulin Ratio (0.9-2) COVID-19 Eval Order SARS-CoV-2, RNA, NAAT POSITIVE A* (NEGATIVE) SARS-CoV-2 Ag (Rapid) (Negative) Blood Type Antibody Screen Crossmatch Imaging Data Attestation: I personally reviewed and interpreted this imaging study as follows: My Impression: Chest x-ray per my interpretation shows no acute cardiopulmonary process. Radiologist's Impression: ECG Data Attestation: I personally reviewed and interpreted this ECG as follows: Indication: + SOB/dyspnea Rate (beats per minute): 70 Rhythm: + normal sinus ECG [place]: + Normal ECG ST segments: no ST elevation ECG Findings: no PVCs MDM Narrative I did evaluate the patient as noted above. The patient is presenting for admission for symptomatic anemia with shortness of breath and fatigue. He denies any cough or cold symptoms or any chest pain. He has been transfused in the past due to Zwuqn-Rhxpr-Lluuo syndrome. On exam he has guaiac positive with brown stool. IV access was established. He was given Protonix IV. I did place an order for continuous cardiac monitoring. The monitor showed normal sinus rhythm at a rate of 74 bpm. I did order and personally review the patient's 12- lead EKG as described above. He has no acute ischemic changes on twelve-lead EKG. I did order and personally reviewed the images of the patient's chest x- ray as described above. Chest x-ray is clear without evidence of infiltrate. I did order a transfusion of 2 units packed RBCs. Transfusion was started in the emergency department. I did obtain informed consent. I did order and review the patient's blood work as noted in the electronic medical record. His white c ount is 3.7. Hemoglobin is 8.3. Electrolytes are unremarkable. A screening COVID-19 test for admission was obtained. This was positive. He was placed in respiratory isolation. He is not requiring any oxygen. He will be hospitalized for further care and evaluation. I did discuss the case with the hospitalist and case picker. Impression & Plan Symptomatic anemia, Nrrtb-Jglsu-Abdep disease, Acute GI bleeding, COVID-19 Discharge Plan Visit Data Chief Complaint: Abnormal Labs/Diagnostic Testing Stated Complaint: bleeding internally, hemoglobin low ED Provider: Oliverio Haley Discharge Problem: Symptomatic anemia, Yiurg-Aixra-Ldnzg disease, Acute GI bleeding, COVID-19 Patient Disposition: Admitted As Inpatient Forms Stand Alone Forms: My [facility] Prescriptions Prescriptions: No Action gabapentin [Neurontin] 600 mg tablet 1,200 mg PO TID Qty: 540 RF: 1 Flovent HFA 220 mcg/actuation HFA aerosol inhaler 1 puff inhalation BID Qty: 12 RF: 2 methadone [Dolophine] 10 mg tablet 10 mg PO Q8H 30 Days Qty: 90 RF: 0 fluticasone propionate [Flonase Allergy Relief] 50 mcg/actuation spray,suspension 1 spray INTRANASAL BID PRN (Reason: Allergy Symptoms) Qty: 16 RF: 5 albuterol sulfate [ProAir HFA] 90 mcg/actuation HFA aerosol inhaler 1 - 2 puffs INH QID PRN (Reason: Shortness Of Breath Or Wheezing) RF: 0 diclofenac sodium 1 % gel 2 gm TOPICAL QID PRN (Reason: Joint Pain) RF: 0 hydroxyzine HCl 50 mg tablet 50 mg PO Q6 PRN (Reason: Anxiety) RF: 0 Referrals Referrals: Roger Talbert, [Primary Care Provider] -
[2019-12-24 22:11] LABS: Basophils # (auto) 0.01 K/uL (0-0.2); Basophils % (auto) 0.3 %; Eosinophils # (auto) 0.03 K/uL (0-0.5); Eosinophils % (auto) 0.8 %; Hematocrit (blood only) 27.9 % (42-52); Hemoglobin 8.3 g/dL (14.0-18.0); Immature Granulocytes # (auto) 0.01 K/uL (0.00-0.02); Immature Granulocytes % (auto) 0.3 %; Lymphocytes # (auto) 0.93 K/uL (1.2-3.4); Mean Corpuscular Hgb Conc 29.7 g/dL (32-36); Mean Platelet Volume 10.1 fL (7.4-10.4); Monocytes # (auto) 0.43 K/uL (0.11-0.59); Monocytes % (auto) 11.6 %; Neutrophils # (auto) 2.31 K/uL (1.4-6.5); Platelet Count 356 K/uL (130-400); RDW Coefficient of Variation 15.8 % (11.5-14.5); Red Blood Count 3.77 M/uL (4.7-6.1); White Blood Count 3.72 K/uL (4.8-10.8)
[2019-12-24 22:25] LABS: Partial Thromboplastin Ratio 1.1; Partial Thromboplastin Time 30.5 Seconds (21.0-31.0); Prothrombin Time 10.4 Seconds (9.0-12.0)
[2019-12-24] MEDS ORDERED: PANTOprazole 80 MG in DEXTROSE 5% 100 ML IV STA (22:28)
[2019-12-24 22:29] LABS: Alanine Aminotransferase 20 U/L (12-78); Albumin Level 3.2 gm/dl (3.4-5.0); Aspartate Aminotransferase 21 U/L (15-37); BUN Creatinine Ratio 10.8 (10-20); Blood Urea Nitrogen 9 mg/dl (7-18); Calcium 8.6 mg/dl (8.5-10.1); Carbon Dioxide 30 mmol/L (21-32); Chloride 102 mmol/L (98-107); Est GFR (African American) 114.7; Glucose 78 mg/dl (70-99); Potassium 3.8 mmol/L (3.5-5.1); Sodium 138 mmol/L (136-145)
[2019-12-24 22:34] LABS: Albumin Globulin Ratio 0.8 (0.9-2); Alkaline Phosphatase 110 U/L (45-117); Bilirubin,Total 0.2 mg/dl (0.2-1); Globulin 3.9 gm/dl (2.5-4.0); Total Protein 7.1 gm/dl (6.4-8.2); Troponin I < 0.015 ng/ml (0-0.045)
[2019-12-24 23:28] LABS: Hypochromasia Present; Ovalocytes 1+
--- NOTE | 2019-12-24 23:46 | History & Physical Report ---
Date of Service December 24, 2019 Assessment & Plan (1) Symptomatic anemia: 59yo C male presenting with fatigue, CONROY/SOB. Patient with history of Ifwbe-Dvnmo-Stgeh syndrome, chronic anemia. He has had GI bleeding in the past requiring transfusion support and IV iron. He denies melena, hematochezia. BUN, coags and platelets are within normal limits. Hgb=8.3, Hct=27.9, MCV=74 and MCH=22. Gradual decline from 10.3 on 11/23/19. Recent iron studies with iron level of 9 and ferritin of 7.1 (drawn pre-Covid). Patient reported to be strongly hemoccult positive in the ER, stool brown. EGD in 2017 with multiple non-bleeding gastric and duodenal angiectasias. Patient has been seen by Dr. Reyes in the past. He was admitted to [facility] for similar presentation of extreme fatigue and CONROY - at that time he had an Hgb of 8.5. His symptoms improved with transfusion. 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 Uncertain how much Covid-19 is contributing to patient's complaints of fatigue, dyspnea. -Admit to medical with telemetry -NPO except medications -Transfuse 2u PRBCs for symptomatic anemia -Monitor CBC q 8 hours -Protonix 40mg IV BID -GI consultation appreciated - ?need for EGD during this hospital stay vs outpatient followup. Patient is presently HD stable, no brisk bleeding suggested by exam, BUN is normal. Covid-19 POSITIVE Present on Admission?: Yes (2) GIB (gastrointestinal bleeding): As above. Patient presently HD stable, NAD. Stool is brown. IV access in place -Protonix 40mg IV BID -Transfusion -GI consultation appreciated -Trend CBC Present on Admission?: Yes (3) COVID-19: Patient found to be positive for Covid-19. He thinks he was exposed through a family friend several weeks ago. Presently with adequate oxygenation on room air. -Maintain isolation precautions -No indication for Dexamethasone, Remdesivir at this time -?transfusion of convalescent plasma - will hold off for now as patient is to receive PRBCs -Albuterol PRN -Patient instructed to notify his family of his recent positive Covid-19 test - family should monitor for symptoms, self quarantine as able. Present on Admission?: Yes (4) Chronic back pain: Patinet with chronic spinal pain. History of opioid dependency -Continue methadone 10mg po TID -Continue Gabapentin Present on Admission?: Yes (5) Hypertension: Chronic -Continue Zestoretic -Continue to monitor F/E/N - Heplock. Monitor electrolytes. NPO Ppx - SCDs Code - Full Dispo - Admit to medical with telemetry Present on Admission?: Yes History of Present Illness Chief Complaint: SOB Primary Care Provider: Roger Talbert DO Sean Bruno is a 59yo C male with history of Ooste-Axqpx-Fybiu disease, chronic anemia presenting with progressive CONROY and SOB as well as fatigue. Patient was seen by his PCP today with these complaints - found to be anemic with Hbg=. He was recommended to come to the ER for possible admission. Found to be positive for SARS-CoV-2. Patient is unsure where he contracted the virus. Presently with no complaint of chest pain, cough, fever, chills, loss of taste or smell, nausea, vomiting or diarrhea. ER Course: Hemoccult positive, Protonix bolus and gtt, transfusion ordered Allergies Allergy/AdvReac Type Severity Reaction Status Date / Time No Known Allergies Allergy Verified 12/24/19 23:18 Home Medications Medication Instructions Recorded Confirmed Type fluticasone propionate 50 1 spray INTRANASAL BID PRN #16 gm 08/20/19 12/24/19 Rx mcg/actuation nasal spray,suspension fluticasone propionate 220 1 puff INHALATION BID #12 g 09/23/19 12/24/19 Rx mcg/actuation HFA aerosol inhaler gabapentin 600 mg tablet 1,200 mg PO TID #540 tab 09/29/19 12/24/19 Rx albuterol sulfate [ProAir HFA] 1 - 2 puffs INH QID PRN 11/23/19 12/24/19 History diclofenac sodium 2 gm TOPICAL QID PRN 11/23/19 12/24/19 History methadone 10 mg tablet 10 mg PO Q8H 30 Days #90 tab 12/12/19 12/24/19 Rx hydroxyzine HCl 50 mg PO Q6 PRN 12/24/19 12/24/19 History Past Med/Surg History Medical History (Updated 12/24/19 @ 23:58 by Kinga Suazo DO) Anemia HX Cervical disc disease C5-C6 Chronic back pain Dog bite of face 08/12/2019- received care at [facility]- Lip and nose sutured and pt placed on antibiotics. Fall from ladder Hepatitis C treated--no longer has Hx of bleeding disorder HAS CAUSED BLEEDING INTO STOMACH REQUIRING CAUTERIZATION-F/U DR KAN Mario [place]-HX BLOOD TRANSFUSIONS IN THE PAST Hypertension Osler-Rendu disease Pneumonia Scrotal mass Surgical History History of colonoscopy History of esophagogastroduodenoscopy (EGD) History of herniorrhaphy X 4 History of open reduction and internal fixation (ORIF) procedure left hand/wrist fx--hardware removed History of repair of rotator cuff RIGHT History of shoulder surgery right History of tooth extraction all teeth removed Hx of excision of testicular mass X MULTIPLE BENIGN CYSTS Family History Other No family history of adverse response to anesthesia Denies family history of Colon cancer Ovarian cancer Prostate cancer Myocardial infarction Breast cancer Social History Smoking Status: Never smoker Tobacco Type: Cigarettes Cigarettes Per Day: 5; Second Hand Exposure: No; Hx Alcohol Use: No Hx Substance Use: No Preferred Language: Maltese Communication Ability: Effective Visual Impairment: Limited Hearing Ability: Hard of Hearing 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 Beliefs That Will Affect Care: None marital status: Current Living Situation: Family Current Living Situation Comment: Lives with and daughter current occupational status: employed Feels Safe at Home: Yes Dental Care, Regularly: Yes Physical Activity Frequency: Daily Seatbelt Use: never Sunscreen Use: No Assistive Devices: None Review of Systems Review of Systems: All systems reviewed & are unremarkable except as noted in HPI & below Physical Exam Physical Exam: General: patient resting comfortably, NAD, non-toxic in appearance, AA&O x 4 Skin: warm, dry, intact, +telangiectasias on face/nose HEENT: NC/AT, PERRL, EOMI, anicteric sclera, conjunctiva without injection, ex ternal ear normal to inspection and nontender, nares patent, moist mucus membranes, dentition intact, no oropharyngeal lesions, neck supple, trachea midline, no LAD, no thyromegaly, no JVD Heart: +S1/S2, regular, no m/r/g Lungs: equal air entry bilaterally, no rales/rhonchi/wheezes Abd: +BS, soft, NT/ND, no masses/organomegaly/ascites Ext: warm, 2+ pulses in UE/LE bilaterally, no clubbing/cyanosis or edema Neuro: nonfocal, patient AA&O x 4, speech intact, no facial droop, moving all extremities on command with equal strength 5/5 Results & Data Results & Data ([facility]) Vital Signs (Past 12 Hours) Vital Signs Temp Pulse Resp BP Pulse Ox 12/24/19 21:46 96 12/24/19 21:19 36.6 C 74 18 151/85 H 91 Laboratory Results Lab Results 12/24/19 12/24/19 12/24/19 Range/Units 21:46 21:46 21:46 WBC 3.72 L (4.8-10.8) K/uL RBC 3.77 L (4.7-6.1) M/uL Hgb 8.3 L (14.0-18.0) g/dL Hct 27.9 L (42-52) % MCV 74.0 L (80-100) fL MCH 22.0 L (25-34) pg MCHC 29.7 L (32-36) g/dL RDW Std Deviation 43.0 (36.4-46.3) fL RDW Coeff of Ady 15.8 H (11.5-14.5) % Plt Count 356 (130-400) K/uL MPV 10.1 (7.4-10.4) fL Immature Gran % (Auto) 0.3 % Neut % (Auto) 62.0 % Lymph % (Auto) 25.0 % [place] % (Auto) 11.6 % Eos % (Auto) 0.8 % Baso % (Auto) 0.3 % Neut # (Auto) 2.31 (1.4-6.5) K/uL Lymph # (Auto) 0.93 L (1.2-3.4) K/uL [place] # (Auto) 0.43 (0.11-0.59) K/uL Eos # (Auto) 0.03 (0-0.5) K/uL Baso # (Auto) 0.01 (0-0.2) K/uL Immature Gran # (Auto) 0.01 (0.00-0.02) K/uL Hypochromasia Present Ovalocytes 1+ PT (9.0-12.0) Seconds INR (0.9-1.1) APTT (21.0-31.0) Seconds PTT Ratio Sodium 138 (136-145) mmol/L Potassium 3.8 (3.5-5.1) mmol/L Chloride 102 (98-107) mmol/L Carbon Dioxide 30 (21-32) mmol/L Anion Gap 6.0 (3-11) BUN 9 (7-18) mg/dl Creatinine 0.79 (0.6-1.4) mg/dl Est Cr Clr Drug Dosing Not Reportable Est GFR ( Amer) 114.7 Est GFR (Non-Af Amer) 99.0 BUN/Creatinine Ratio 10.8 (10-20) Glucose 78 (70-99) mg/dl Calcium 8.6 (8.5-10.1) mg/dl Total Bilirubin 0.2 (0.2-1) mg/dl AST 21 (15-37) U/L ALT 20 (12-78) U/L Alkaline Phosphatase 110 (45-117) U/L Troponin I < 0.015 (0-0.045) ng/ml Total Protein 7.1 (6.4-8.2) gm/dl Albumin 3.2 L (3.4-5.0) gm/dl Globulin 3.9 (2.5-4.0) gm/dl Albumin/Globulin Ratio 0.8 L (0.9-2) COVID-19 Eval Order SARS-CoV-2, RNA, NAAT (NEGATIVE) SARS-CoV-2 Ag (Rapid) (Negative) Blood Type B Positive Antibody Screen NEGATIVE Crossmatch See Detail 12/24/19 12/24/19 12/24/19 Range/Units 21:46 22:46 22:46 WBC (4.8-10.8) K/uL RBC (4.7-6.1) M/uL Hgb (14.0-18.0) g/dL Hct (42-52) % MCV (80-100) fL MCH (25-34) pg MCHC (32-36) g/dL RDW Std Deviation (36.4-46.3) fL RDW Coeff of Ady (11.5-14.5) % Plt Count (130-400) K/uL MPV (7.4-10.4) fL Immature Gran % (Auto) % Neut % (Auto) % Lymph % (Auto) % [place] % (Auto) % Eos % (Auto) % Baso % (Auto) % Neut # (Auto) (1.4-6.5) K/uL Lymph # (Auto) (1.2-3.4) K/uL [place] # (Auto) (0.11-0.59) K/uL Eos # (Auto) (0-0.5) K/uL Baso # (Auto) (0-0.2) K/uL Immature Gran # (Auto) (0.00-0.02) K/uL Hypochromasia Ovalocytes PT 10.4 (9.0-12.0) Seconds INR 1.0 (0.9-1.1) APTT 30.5 (21.0-31.0) Seconds PTT Ratio 1.1 Sodium (136-145) mmol/L Potassium (3.5-5.1) mmol/L Chloride (98-107) mmol/L Carbon Dioxide (21-32) mmol/L Anion Gap (3-11) BUN (7-18) mg/dl Creatinine (0.6-1.4) mg/dl Est Cr Clr Drug Dosing Est GFR ( Amer) Est GFR (Non-Af Amer) BUN/Creatinine Ratio (10-20) Glucose (70-99) mg/dl Calcium (8.5-10.1) mg/dl Total Bilirubin (0.2-1) mg/dl AST (15-37) U/L ALT (12-78) U/L Alkaline Phosphatase (45-117) U/L Troponin I (0-0.045) ng/ml Total Protein (6.4-8.2) gm/dl Albumin (3.4-5.0) gm/dl Globulin (2.5-4.0) gm/dl Albumin/Globulin Ratio (0.9-2) COVID-19 Eval [facility] SARS-CoV-2, RNA, NAAT (NEGATIVE) SARS-CoV-2 Ag (Rapid) Positive A* (Negative) Blood Type Antibody Screen Crossmatch 12/24/19 Range/Units 22:46 WBC (4.8-10.8) K/uL RBC (4.7-6.1) M/uL Hgb (14.0-18.0) g/dL Hct (42-52) % MCV (80-100) fL MCH (25-34) pg MCHC (32-36) g/dL RDW Std Deviation (36.4-46.3) fL RDW Coeff of Ady (11.5-14.5) % Plt Count (130-400) K/uL MPV (7.4-10.4) fL Immature Gran % (Auto) % Neut % (Auto) % Lymph % (Auto) % [place] % (Auto) % Eos % (Auto) % Baso % (Auto) % Neut # (Auto) (1.4-6.5) K/uL Lymph # (Auto) (1.2-3.4) K/uL [place] # (Auto) (0.11-0.59) K/uL Eos # (Auto) (0-0.5) K/uL Baso # (Auto) (0-0.2) K/uL Immature Gran # (Auto) (0.00-0.02) K/uL Hypochromasia Ovalocytes PT (9.0-12.0) Seconds INR (0.9-1.1) APTT (21.0-31.0) Seconds PTT Ratio Sodium (136-145) mmol/L Potassium (3.5-5.1) mmol/L Chloride (98-107) mmol/L Carbon Dioxide (21-32) mmol/L Anion Gap (3-11) BUN (7-18) mg/dl Creatinine (0.6-1.4) mg/dl Est Cr Clr Drug Dosing Est GFR ( Amer) Est GFR (Non-Af Amer) BUN/Creatinine Ratio (10-20) Glucose (70-99) mg/dl Calcium (8.5-10.1) mg/dl Total Bilirubin (0.2-1) mg/dl AST (15-37) U/L ALT (12-78) U/L Alkaline Phosphatase (45-117) U/L Troponin I (0-0.045) ng/ml Total Protein (6.4-8.2) gm/dl Albumin (3.4-5.0) gm/dl Globulin (2.5-4.0) gm/dl Albumin/Globulin Ratio (0.9-2) COVID-19 Eval Order SARS-CoV-2, RNA, NAAT POSITIVE A* (NEGATIVE) SARS-CoV-2 Ag (Rapid) (Negative) Blood Type Antibody Screen Crossmatch Diagnostic Findings By my interpretation - CXR with mild hyperinflation, no acute process/consolidation/PNA/PTX ECG Additional Comments: EKG with SR at 70bpm, normal axis, PACs, MA=332, QRS=4, WBb=173, no acute ischemic changes Code Status & VTE Plan VTE Prophylaxis Plan VTE Prophylaxis will be ordered: Yes PG Care Time/CCT Total # of Minutes Spent Total Time Spent with Patient: Total time spent is greater than 50% in coordination of care (as documented) at patient's floor/unit and/or counseling patient: Coding Level of Care Code 52056 Initial Inpt Care Lvl 3 Diagnoses Symptomatic anemia D64.9 GIB (gastrointestinal bleeding) K92.2 GI bleed type/associated pathology: unspecified gastrointestinal hemorrhage type COVID-19 U07.1 Chronic back pain M54.6; G89.29 Back pain location: thoracic back pain Back pain laterality: bilateral Hypertension I10 Hypertension type: essential hypertension (1) Chronic back pain Back pain location: thoracic back pain Back pain laterality: bilateral Qualified Code(s): M54.6 - Pain in thoracic spine; G89.29 - Other chronic pain (2) GIB (gastrointestinal bleeding) GI bleed type/associated pathology: unspecified gastrointestinal hemorrhage type Qualified Code(s): K92.2 - Gastrointestinal hemorrhage, unspecified (3) Hypertension Hypertension type: essential hypertension Qualified Code(s): I10 - Essential (primary) hypertension
[2019-12-25] MEDS ORDERED: ONDANSETRON INJ 2 MG/ML 2 ML VIAL IV PRN (01:24)
[2019-12-25] MEDS ORDERED: ALBUTEROL HFA 8 GM INHALER INH PRN (01:24)
[2019-12-25] MEDS ORDERED: ACETAMINOPHEN 325 MG TAB PO PRN (01:24)
[2019-12-25] MEDS ORDERED: hydrOXYzine HCl 25 MG TAB PO PRN (01:24)
[2019-12-25] MEDS ORDERED: SODIUM CHLORIDE 0.9% 250 ML IV PRN (03:58)
[2019-12-25] MEDS ORDERED: METHADONE HCL 10 MG TAB PO SCH (06:00)
--- NOTE | 2019-12-25 08:15 | XRay Report ---
SINGLE VIEW CHEST CLINICAL HISTORY: Dyspnea. FINDINGS: An AP, portable, upright chest radiograph is compared to study dated 11/23/2019. Correlatio n is made with chest CT dated 04/22/2019. The heart is top normal for projection noting atherosclerot ic calcification of the thoracic aorta. Emphysema and chronic interstitial thickening are similar to previous. There is bibasilar scarring/atelectasis. No airspace consolidation or large pleural effusio n is identified. No pneumothorax is seen. There are healed right-sided rib fractures. Degenerative ch syed is noted throughout the thoracic spine. There is evidence of right shoulder separation. IMPRESSION: Emphysematous change with no acute cardiopulmonary abnormality. ACT 112: Negative or not required by law. Electronically signed by: Wyatt Williamson M.D. 12/25/2019 8:14 AM
--- NOTE | 2019-12-25 08:47 | Gastrointestinal Consultation ---
Date of Consultation December 25, 2019 Assessment & Plan (1) GIB (gastrointestinal bleeding): Though no clear evidence of gross GI bleeding, with his hx of Uqted-Pmfbc-Xicoq and hx of prior gastric and duodenal angiectasia, it is likely that his acute drop in Hb is from a slow GI bleed. Appreciate primary hospitalists management of fluids and blood transfusions. Will plan for OP EGD and colonoscopy in approx 4 weeks, after pt has had full recovery from COVID-19. Will follow patient and will reconsider doing an urgent IP EGD if there is clear evidence of gross GI bleeding and a further drop in Hb/Hct. For today, OK to have a full liquids diet. Present on Admission?: Yes Supervising Physician Co-Signing Physician Notes Attending attestation I have seen, examined this patient, and agree with the findings and above by our mid-level provider Ms. Karis EDGAR, with the following additions: No signs of GI bleeding and presents with symptomatic anemia, Brown stools, no melena. Hb baseline is around 9. Given lack of acute bleeding, Covid Positivity, will defer elective procedure due to increased risk of pulmonary complications BID PPI Avoid Antiplatelets Call with questions History of Present Illness Reason for Consultation: GIB - Xrrfq-Wiqer-Kojjo, Covid + Requesting Physician: Dr. Suazo Attending Physician: Augusto Newman History of Present Illness 59 yr old male pt of Dr. Roger Talbert. Mr. Bruno carries a hx of Osler Connor Rendu, possibly also COPD, who presented to the ED yesterday because he was SOB and was found to be COVID +. GI is consulted for a GI bleed. Because he is COVID positive and no gross GI bleeding, instead of entering the room, Dr. Shaw and I spoke with the pt by phone. He denies any gross GI bleeding or current significant abdominal pain though he does currently have nausea that he suspects is from not having food to eat. He recalls "horrendous" abdominal pain, "in the front," near his umbilicus, present intermittently for most of a day occurring earlier this week. He recalls having loose, frequent BMs on the day that he had the pain. On arrival, Hb 7.7. He received 2 units of RBCs and Hb this morning is 8.3. he passed one brown, formed BM since arrival early this morning. No vomiting. Prior Endoscopy: Two EGDs [place] [address] Calderon with multiple gastric and duodenal angioectasia's APC'ed. He was seen by myself and Dr. Reyes here at [facility] in June 2019 and set up for EGD and colonoscopy at [facility], but those did not take place. When asked, he recalls cancelling but doesn't recall why. He was laid off from work and believes it may have something to do with that. Most recent Colonoscopy in 2016 with mild rectal erythema, otherwise normal. Allergies Allergy/AdvReac Type Severity Reaction Status Date / Time No Known Allergies Allergy Verified 12/24/19 23:18 Home Medications Medication Instructions Recorded Confirmed Type fluticasone propionate 50 1 spray INTRANASAL BID PRN #16 gm 08/20/19 12/24/19 Rx mcg/actuation nasal spray,suspension fluticasone propionate 220 1 puff INHALATION BID #12 g 09/23/19 12/24/19 Rx mcg/actuation HFA aerosol inhaler gabapentin 600 mg tablet 1,200 mg PO TID #540 tab 09/29/19 12/24/19 Rx albuterol sulfate [ProAir HFA] 1 - 2 puffs INH QID PRN 11/23/19 12/24/19 History diclofenac sodium 2 gm TOPICAL QID PRN 11/23/19 12/24/19 History methadone 10 mg tablet 10 mg PO Q8H 30 Days #90 tab 12/12/19 12/24/19 Rx hydroxyzine HCl 50 mg PO Q6 PRN 12/24/19 12/24/19 History Patient History Medical History (Updated 12/25/19 @ 00:42 by Oliverio Haley MD) Anemia HX Cervical disc disease C5-C6 Chronic back pain Dog bite of face 08/12/2019- received care at [facility]- Lip and nose sutured and pt placed on antibiotics. Fall from ladder Hepatitis C treated--no longer has Hx of bleeding disorder HAS CAUSED BLEEDING INTO STOMACH REQUIRING CAUTERIZATION-F/U DR KAN [facility]-HX BLOOD TRANSFUSIONS IN THE PAST Hypertension Osler-Rendu disease Pneumonia Scrotal mass Surgical History History of colonoscopy History of esophagogastroduodenoscopy (EGD) History of herniorrhaphy X 4 History of open reduction and internal fixation (ORIF) procedure left hand/wrist fx--hardware removed History of repair of rotator cuff RIGHT History of shoulder surgery right History of tooth extraction all teeth removed Hx of excision of testicular mass X MULTIPLE BENIGN CYSTS Family History Other No family history of adverse response to anesthesia Denies family history of Colon cancer Ovarian cancer Prostate cancer Myocardial infarction Breast cancer Social History Smoking Status: Former smoker Tobacco Type: Cigarettes Cigarettes Per Day: 10; Second Hand Exposure: No; Hx Alcohol Use: No Hx Substance Use: No Preferred Language: Montenegrin Communication Ability: Effective Visual Impairment: Limited Hearing Ability: Hard of Hearing 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 Beliefs That Will Affect Care: None marital status: Current Living Situation: Alone Current Living Situation Comment: Lives with and daughter current occupational status: employed Feels Safe at Home: Yes Dental Care, Regularly: Yes Physical Activity Frequency: Daily Seatbelt Use: never Sunscreen Use: No Assistive Devices: Glasses Review of Systems Review of Systems: ROS: Gen: + weakness, easily fatigued, no fevers, weight loss Eyes: No eye redness, or pain, no recent vision changes Resp: + SOB, no cough Cardio: No palpitations/irregular beats, no chest pain GI: See HPI otherwise (-) : Denies pain on urination Skin: No jaundice, itching or new rashes Physical Exam Physical Exam: Deferred Results & Data ([facility]) Vital Signs (Past 12 Hours) Vital Signs Temp Pulse Pulse Resp BP BP Pulse Ox 12/25/19 07:45 36.6 C 72 18 160/76 H 92 12/25/19 06:45 36.7 C 62 18 151/83 H 94 12/25/19 06:15 36.4 C L 64 18 168/94 H 95 12/25/19 06:00 36.7 C 58 L 18 167/95 H 94 12/25/19 05:45 36.4 C L 61 18 169/91 H 94 12/25/19 03:52 36.6 C 61 18 147/81 H 93 12/25/19 02:11 66 12/25/19 01:50 36.8 C 60 18 160/90 H 92 12/25/19 01:38 36.8 C 60 18 160/90 H 92 12/25/19 00:50 36.7 C 64 14 179/89 H 93 12/25/19 00:33 36.7 C 12/25/19 00:20 36.6 C 67 24 160/98 H 94 12/25/19 00:05 36.6 C 64 15 159/94 H 93 12/24/19 23:50 36.8 C 69 19 166/99 H 91 12/24/19 21:46 96 12/24/19 21:19 36.6 C 74 18 151/85 H 91 Laboratory Results WBC 3.7,Hb 8.3, Hct 27.9, Glucose 356, INR 1.0, Na 138, K 3.8, Ch 102, CO2 30, BUN 9, Cr. 0.78, glucose 78. (1) GIB (gastrointestinal bleeding) GI bleed type/associated pathology: unspecified gastrointestinal hemorrhage type Qualified Code(s): K92.2 - Gastrointestinal hemorrhage, unspecified
[2019-12-25] MEDS: FLUTICASONE FUROATE 100MCG 14 PUFFS/INHALER INH SCH (08:59)
[2019-12-25] MEDS: GABAPENTIN 600 MG TAB PO SCH ×3 (09:00→20:49)
[2019-12-25] MEDS: PANTOprazole 40 MG in SYRINGE 0 ML IV SCH ×2 (09:00→20:49)
[2019-12-25] MEDS: METHADONE HCL 10 MG TAB PO SCH ×2 (09:03→17:09)
[2019-12-25 10:08] LABS: Basophils # (auto) 0.01 K/uL (0-0.2); Basophils % (auto) 0.3 %; Eosinophils # (auto) 0.02 K/uL (0-0.5); Eosinophils % (auto) 0.5 %; Hematocrit (blood only) 31.3 % (42-52); Hemoglobin 9.5 g/dL (14.0-18.0); Immature Granulocytes # (auto) 0.01 K/uL (0.00-0.02); Immature Granulocytes % (auto) 0.3 %; Lymphocytes # (auto) 0.55 K/uL (1.2-3.4); Lymphocytes % (auto) 14.9 %; Mean Corpuscular Hemoglobin 22.4 pg (25-34); Mean Corpuscular Hgb Conc 30.4 g/dL (32-36); Mean Corpuscular Volume 73.6 fL (80-100); Monocytes # (auto) 0.43 K/uL (0.11-0.59); Monocytes % (auto) 11.7 %; Neutrophils # (auto) 2.67 K/uL (1.4-6.5); Neutrophils % (auto) 72.3 %; Platelet Count 325 K/uL (130-400); RDW Standard Deviation 43.3 fL (36.4-46.3); Red Blood Count 4.25 M/uL (4.7-6.1); White Blood Count 3.69 K/uL (4.8-10.8)
[2019-12-25 10:30] LABS: BUN Creatinine Ratio 11.8 (10-20); Calcium 8.7 mg/dl (8.5-10.1); Est GFR (African American) 126.7; Est GFR (Non-African American) 109.3
[2019-12-25] MEDS ORDERED: CHLORASEPTIC 1.4% SOLN 180 ML BTL PO PRN (10:32)
[2019-12-25 10:35] LABS: Hypochromasia Present; Microcytosis Present
[2019-12-25 13:15] LABS: Basophils # (auto) 0.01 K/uL (0-0.2); Basophils % (auto) 0.3 %; Eosinophils # (auto) 0.01 K/uL (0-0.5); Eosinophils % (auto) 0.3 %; Hematocrit (blood only) 31.7 % (42-52); Hemoglobin 9.7 g/dL (14.0-18.0); Immature Granulocytes # (auto) 0.01 K/uL (0.00-0.02); Immature Granulocytes % (auto) 0.3 %; Lymphocytes # (auto) 0.84 K/uL (1.2-3.4); Lymphocytes % (auto) 23.5 %; Mean Corpuscular Hemoglobin 22.4 pg (25-34); Mean Corpuscular Hgb Conc 30.6 g/dL (32-36); Mean Corpuscular Volume 73.2 fL (80-100); Monocytes # (auto) 0.35 K/uL (0.11-0.59); Monocytes % (auto) 9.8 %; Neutrophils # (auto) 2.36 K/uL (1.4-6.5); Neutrophils % (auto) 65.8 %; Nucleated RBC # (auto) 0.03 K/uL (0-0); Nucleated RBC % (auto) 0.7 %; Platelet Count 319 K/uL (130-400); RDW Coefficient of Variation 15.8 % (11.5-14.5); RDW Standard Deviation 42.9 fL (36.4-46.3); Red Blood Count 4.33 M/uL (4.7-6.1); White Blood Count 3.58 K/uL (4.8-10.8)
[2019-12-25 13:48] LABS: Hypochromasia Present; Microcytosis Present; Polychromasia 1+
--- NOTE | 2019-12-25 15:24 | Electrocardiogram Report ---
Test Reason : Blood Pressure : / mmHG Vent. Rate : 070 BPM Atrial Rate : 070 BPM P-R Int : 138 ms QRS Dur : 084 ms QT Int : 426 ms P-R-T Axes : 072 069 071 degrees QTc Int : 460 ms Sinus rhythm with Premature atrial complexes Otherwise normal ECG When compared with ECG of 19-DEC-2019 23:19, Premature atrial complexes are now Present Confirmed by Luis Ramirez ([id number]) on 12/25/2019 3:23:36 PM Referred By: Roger Talbert Confirmed By:Luis Ramirez
[2019-12-25 21:19] LABS: Basophils # (auto) 0.01 K/uL (0-0.2); Basophils % (auto) 0.3 %; Eosinophils # (auto) 0.05 K/uL (0-0.5); Eosinophils % (auto) 1.4 %; Hematocrit (blood only) 32.3 % (42-52); Hemoglobin 9.8 g/dL (14.0-18.0); Immature Granulocytes # (auto) 0.02 K/uL (0.00-0.02); Immature Granulocytes % (auto) 0.6 %; Lymphocytes # (auto) 1.03 K/uL (1.2-3.4); Lymphocytes % (auto) 29.4 %; Mean Corpuscular Hemoglobin 22.4 pg (25-34); Mean Corpuscular Hgb Conc 30.3 g/dL (32-36); Mean Corpuscular Volume 73.9 fL (80-100); Mean Platelet Volume 10.2 fL (7.4-10.4); Monocytes # (auto) 0.48 K/uL (0.11-0.59); Monocytes % (auto) 13.7 %; Neutrophils # (auto) 1.91 K/uL (1.4-6.5); Neutrophils % (auto) 54.6 %; Platelet Count 342 K/uL (130-400); RDW Coefficient of Variation 16.2 % (11.5-14.5); RDW Standard Deviation 44.1 fL (36.4-46.3); Red Blood Count 4.37 M/uL (4.7-6.1)
[2019-12-25 22:34] LABS: Polychromasia 1+
--- NOTE | 2019-12-25 23:01 | Hospitalist Progress Note ---
Date of Service December 25, 2019 Assessment & Plan (1) Symptomatic anemia: 59yo C male presenting with fatigue, CONROY/SOB. Patient with history of Zqkrb-Yreyk-Kxwpd syndrome, chronic anemia. He has had GI bleeding in the past requiring transfusion support and IV iron. He denies melena, hematochezia. BUN, coags and platelets are within normal limits. Hgb=8.3, Hct=27.9, MCV=74 and MCH=22. Gradual decline from 10.3 on 11/23/19. Recent iron studies with iron level of 9 and ferritin of 7.1 (drawn pre-Covid). Patient reported to be strongly hemoccult positive in the ER, stool brown. EGD in 2017 with multiple non-bleeding gastric and duodenal angiectasias. Patient has been seen by Dr. Reyes in the past. He was admitted to [facility] for similar presentation of extreme fatigue and CONROY - at that time he had an Hgb of 8.5. His symptoms improved with transfusion. 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 Uncertain how much Covid-19 is contributing to patient's complaints of fatigue, dyspnea. -Admit to medical with telemetry -Transfused 2u PRBCs for symptomatic anemia -Hemoglobin is stable. -Protonix 40mg IV BID --radha have colonoscopy as an outpatient. -GI consultation appreciated - Patient is presently HD stable, no brisk bleeding suggested by exam, BUN is normal. Covid-19 POSITIVE (2) GIB (gastrointestinal bleeding): As above. Patient presently HD stable, NAD. Stool is brown. IV access in place -Protonix 40mg IV BID -Transfusion -GI consultation appreciated -Trend CBC (3) COVID-19: Patient found to be positive for Covid-19. He thinks he was exposed thro ugh a family friend several weeks ago. Presently with adequate oxygenation on room air. -Maintain isolation precautions -No indication for Dexamethasone, Remdesivir at this time -?transfusion of convalescent plasma - will hold off for now as patient is to receive PRBCs -Albuterol PRN -Patient instructed to notify his family of his recent positive Covid-19 test - family should monitor for symptoms, self quarantine as able. (4) Chronic back pain: Patinet with chronic spinal pain. History of opioid dependency -Continue methadone 10mg po TID -Continue Gabapentin (5) Hypertension: Chronic -Continue Zestoretic -Continue to monitor F/E/N - Heplock. Admission and Anticipated Discharge Date Admission Date: December 24, 2019 Subjective 59 yo male reports feeling better. He has no new complaints. Review of Systems Review of Systems: All systems reviewed & are unremarkable except as noted in HPI & below Physical Exam Physical Exam: General: patient resting comfortably, NAD, non-toxic in appearance, AA&O x 4 Skin: warm, dry, intact, +telangiectasias on face/nose HEENT: NC/AT, PERRL, EOMI, anicteric sclera, conjunctiva without injection, external ear normal to inspection and nontender, nares patent, moist mucus membranes, dentition intact, no oropharyngeal lesions, neck supple, trachea midline, no LAD, no thyromegaly, no JVD Heart: +S1/S2, regular, no m/r/g Lungs: equal air entry bilaterally, no rales/rhonchi/wheezes Abd: +BS, soft, NT/ND, no masses/organomegaly/ascites Ext: warm, 2+ pulses in UE/LE bilaterally, no clubbing/cyanosis or edema Neuro: nonfocal, patient AA&O x 4, speech intact, no facial droop, moving all extremities on command with equal strength 5/5 Results & Data Results & Data ([facility]) Vital Signs (Past 12 Hours) Vital Signs Temp Pulse Pulse Resp BP Pulse Ox 12/25/19 18:51 36.6 C 72 18 160/76 H 91 12/25/19 17:10 71 12/25/19 14:33 36.6 C 70 143/78 H 96 12/25/19 11:45 36.3 C L 64 18 160/92 H 94 PG Care Time/CCT Total # of Minutes Spent Total Time Spent with Patient: Total time spent is greater than 50% in coordination of care (as documented) at patient's floor/unit and/or counseling patient: Coding Level of Care Code 79891 Subseq Hosp Care Lvl 3 Diagnoses Symptomatic anemia D64.9 GIB (gastrointestinal bleeding) K92.2 GI bleed type/associated pathology: unspecified gastrointestinal hemorrhage type COVID-19 U07.1 Chronic back pain M54.6; G89.29 Back pain laterality: bilateral Back pain location: thoracic back pain Hypertension I10 Hypertension type: essential hypertension Time Spent (min) 35 (1) GIB (gastrointestinal bleeding) GI bleed type/associated pathology: unspecified gastrointestinal hemorrhage type Qualified Code(s): K92.2 - Gastrointestinal hemorrhage, unspecified (2) Chronic back pain Back pain laterality: bilateral Back pain location: thoracic back pain Qualified Code(s): M54.6 - Pain in thoracic spine; G89.29 - Other chronic pain (3) Hypertension Hypertension type: essential hypertension Qualified Code(s): I10 - Essential (primary) hypertension
[2019-12-26] MEDS: METHADONE HCL 10 MG TAB PO SCH ×3 (01:29→17:04)
[2019-12-26 06:09] LABS: Basophils # (auto) 0.01 K/uL (0-0.2); Basophils % (auto) 0.2 %; Eosinophils # (auto) 0.06 K/uL (0-0.5); Eosinophils % (auto) 1.4 %; Hematocrit (blood only) 33.1 % (42-52); Hemoglobin 9.7 g/dL (14.0-18.0); Immature Granulocytes # (auto) 0.02 K/uL (0.00-0.02); Immature Granulocytes % (auto) 0.5 %; Lymphocytes # (auto) 0.89 K/uL (1.2-3.4); Lymphocytes % (auto) 21.5 %; Mean Corpuscular Hemoglobin 21.8 pg (25-34); Mean Corpuscular Hgb Conc 29.3 g/dL (32-36); Mean Corpuscular Volume 74.5 fL (80-100); Mean Platelet Volume 10.1 fL (7.4-10.4); Monocytes # (auto) 0.57 K/uL (0.11-0.59); Monocytes % (auto) 13.8 %; Neutrophils # (auto) 2.59 K/uL (1.4-6.5); Neutrophils % (auto) 62.6 %; Platelet Count 359 K/uL (130-400); RDW Coefficient of Variation 16.3 % (11.5-14.5); RDW Standard Deviation 44.7 fL (36.4-46.3); Red Blood Count 4.44 M/uL (4.7-6.1); White Blood Count 4.14 K/uL (4.8-10.8)
[2019-12-26 06:36] LABS: Hypochromasia Present; Ovalocytes 1+; Polychromasia 1+
[2019-12-26 07:05] LABS: BUN Creatinine Ratio 18.1 (10-20); Calcium 8.6 mg/dl (8.5-10.1); Creatinine Clr Calc Pharmacy 104.6 ml/min; Est GFR (African American) 112.4; Potassium 4.6 mmol/L (3.5-5.1)
[2019-12-26] MEDS: FLUTICASONE FUROATE 100MCG 14 PUFFS/INHALER INH SCH (08:49)
[2019-12-26] MEDS: PANTOprazole 40 MG in SYRINGE 0 ML IV SCH ×2 (08:50→20:38)
[2019-12-26] MEDS: GABAPENTIN 600 MG TAB PO SCH ×3 (08:50→20:38)
--- NOTE | 2019-12-26 10:58 | XRay Report ---
XR chest 1V portable HISTORY: covid/ dc lower oxygen saturation. COMPARISON: Chest 12/24/2019. FINDINGS: No pneumothorax. No pleural effusions. The lungs are clear. No focal lung consolidations to suggest pneumonia. No evidence for pulmonary edema. The heart is normal in size. Old, healed right-s ided rib fractures. Suspect mild emphysema. IMPRESSION: No significant change compared to the prior study. No acute process. ACT 112: Negative or not required by law. Electronically signed by: Milton Livingston M.D. 12/26/2019 10:57 AM
[2019-12-26 12:01] LABS: D Dimer 510 ug/L FEU (0-500)
[2019-12-27] MEDS: METHADONE HCL 10 MG TAB PO SCH ×2 (00:11→08:55)
--- NOTE | 2019-12-27 08:16 | Hospitalist Progress Note ---
Date of Service December 26, 2019 Assessment & Plan (1) Symptomatic anemia: 59yo C male presenting with fatigue, CONROY/SOB. Patient with history of Xaagj-Skegv-Wdrvd syndrome, chronic anemia. He has had GI bleeding in the past requiring transfusion support and IV iron. He denies melena, hematochezia. BUN, coags and platelets are within normal limits. Hgb=8.3, Hct=27.9, MCV=74 and MCH=22. Gradual decline from 10.3 on 11/23/19. Recent iron studies with iron level of 9 and ferritin of 7.1 (drawn pre-Covid). Patient reported to be strongly hemoccult positive in the ER, stool brown. EGD in 2017 with multiple non-bleeding gastric and duodenal angiectasias. Patient has been seen by Dr. Reyes in the past. He was admitted to [facility] for similar presentation of extreme fatigue and CONROY - at that time he had an Hgb of 8.5. His symptoms improved with transfusion. 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 Uncertain how much Covid-19 is contributing to patient's complaints of fatigue, dyspnea. -Admit to medical with telemetry -Transfused 2u PRBCs for symptomatic anemia/ feeling improved. -Hemoglobin is stable. -Protonix 40mg IV BID --radha have colonoscopy as an outpatient. -GI consultation appreciated - Patient is presently HD stable, no brisk bleeding suggested by exam, BUN is normal. Covid-19 POSITIVE (2) GIB (gastrointestinal bleeding): As above. Patient presently HD stable, NAD. Stool is brown. IV access in place -Protonix 40mg IV BID -Transfusion -GI consultation appreciated -Trend CBC (3) COVID-19: Patient found to be positive for Covid-19. -He thinks he was exposed through a family friend several weeks ago. Presently with adequate oxygenation on room air. -Maintain isolation precautions -No indication for Dexamethasone, Remdesivir at this time. will hold off these medications for now as patient remains on room air. chest x ray appears normal. will monitor for another 24 hours, if he continues to not have elevated inflammatory markers will discharge in AM. -Albuterol PRN -Patient instructed to notify his family of his recent positive Covid-19 test - family should monitor for symptoms, self quarantine as able. (4) Chronic back pain: Patinet with chronic spinal pain. History of opioid dependency -Continue methadone 10mg po TID -Continue Gabapentin (5) Hypertension: Chronic -Continue Zestoretic -Continue to monitor F/E/N - Heplock. Admission and Anticipated Discharge Date Admission Date: December 24, 2019 Subjective Late entry: 59 yo male reports feeling well. He has no new complaints. He is concerned about possibly requiring remdesivir. Review of Systems Review of Systems: All systems reviewed & are unremarkable except as noted in HPI & below Physical Exam Physical Exam: General: patient resting comfortably, NAD, non-toxic in appearance, AA&O x 4 Skin: warm, dry, intact, +telangiectasias on face/nose HEENT: NC/AT, PERRL, EOMI, anicteric sclera, conjunctiva without injection, external ear normal to inspection and nontender, nares patent, moist mucus membranes, dentition intact, no oropharyngeal lesions, neck supple, trachea midline, no LAD, no thyromegaly, no JVD Heart: +S1/S2, regular, no m/r/g Lungs: equal air entry bilaterally, no rales/rhonchi/wheezes Abd: +BS, soft, NT/ND, no masses/organomegaly/ascites Ext: warm, 2+ pulses in UE/LE bilaterally, no clubbing/cyanosis or edema Neuro: nonfocal, patient AA&O x 4, speech intact, no facial droop, moving all extremities on command with equal strength 5/5 Results & Data Results & Data ([facility]) Vital Signs (Past 12 Hours) Vital Signs Temp Pulse Pulse Resp BP BP Pulse Ox 12/27/19 08:00 36.4 C L 57 L 20 160/96 H 94 12/27/19 06:58 58 L 12/27/19 04:25 36.6 C 66 16 157/91 H 91 12/27/19 00:12 36.4 C L 66 16 159/85 H 96 12/26/19 23:56 58 L 12/26/19 20:44 36.5 C 65 16 155/97 H 93 PG Care Time/CCT Total # of Minutes Spent Total Time Spent with Patient: Total time spent is greater than 50% in coordination of care (as documented) at patient's floor/unit and/or counseling patient: Coding Level of Care Code 41559 Subseq Hosp Care Lvl 3 Diagnoses Symptomatic anemia D64.9 GIB (gastrointestinal bleeding) K92.2 GI bleed type/associated pathology: unspecified gastrointestinal hemorrhage type COVID-19 U07.1 Chronic back pain M54.6; G89.29 Back pain laterality: bilateral Back pain location: thoracic back pain Hypertension I10 Hypertension type: essential hypertension Time Spent (min) 35 (1) GIB (gastrointestinal bleeding) GI bleed type/associated pathology: unspecified gastrointestinal hemorrhage type Qualified Code(s): K92.2 - Gastrointestinal hemorrhage, unspecified (2) Chronic back pain Back pain laterality: bilateral Back pain location: thoracic back pain Qualified Code(s): M54.6 - Pain in thoracic spine; G89.29 - Other chronic pain (3) Hypertension Hypertension type: essential hypertension Qualified Code(s): I10 - Essential (primary) hypertension
[2019-12-27] MEDS: FLUTICASONE FUROATE 100MCG 14 PUFFS/INHALER INH SCH (08:55)
[2019-12-27] MEDS: GABAPENTIN 600 MG TAB PO SCH (08:55)
[2019-12-27] MEDS: PANTOprazole 40 MG in SYRINGE 0 ML IV SCH (08:55)
[2019-12-27 09:02] LABS: Basophils # (auto) 0.02 K/uL (0-0.2); Basophils % (auto) 0.4 %; Eosinophils # (auto) 0.11 K/uL (0-0.5); Hematocrit (blood only) 35.5 % (42-52); Hemoglobin 10.4 g/dL (14.0-18.0); Immature Granulocytes # (auto) 0.01 K/uL (0.00-0.02); Immature Granulocytes % (auto) 0.2 %; Lymphocytes # (auto) 1.11 K/uL (1.2-3.4); Lymphocytes % (auto) 20.3 %; Mean Corpuscular Hemoglobin 21.8 pg (25-34); Mean Corpuscular Hgb Conc 29.3 g/dL (32-36); Mean Corpuscular Volume 74.6 fL (80-100); Mean Platelet Volume 10.1 fL (7.4-10.4); Monocytes # (auto) 0.52 K/uL (0.11-0.59); Monocytes % (auto) 9.5 %; Neutrophils # (auto) 3.69 K/uL (1.4-6.5); Neutrophils % (auto) 67.6 %; Platelet Count 373 K/uL (130-400); RDW Coefficient of Variation 16.3 % (11.5-14.5); RDW Standard Deviation 44.4 fL (36.4-46.3); Red Blood Count 4.76 M/uL (4.7-6.1); White Blood Count 5.46 K/uL (4.8-10.8)
--- NOTE | 2019-12-27 09:11 | XRay Report ---
XR chest 1V portable HISTORY: Shortness of breath. covid COMPARISON: Chest 12/26/2019. FINDINGS: No pneumothorax. No pleural effusions. No focal lung consolidations to suggest pneumonia. N o evidence for pulmonary edema. The heart is normal in size. There are old, healed right-sided rib fr actures. Suspect mild emphysema. IMPRESSION: No significant change compared to the prior study. No acute process. ACT 112: Negative or not required by law. Electronically signed by: Milton Livingston M.D. 12/27/2019 9:10 AM
[2019-12-27 09:36] LABS: Albumin Level 3.2 gm/dl (3.4-5.0); BUN Creatinine Ratio 17.8 (10-20); Creatinine Clr Calc Pharmacy 122.2 ml/min; Est GFR (African American) 119.9; Est GFR (Non-African American) 103.4; Potassium 4.3 mmol/L (3.5-5.1)
[2019-12-27 09:37] LABS: Ovalocytes 1+
[2019-12-27 09:41] LABS: Albumin Globulin Ratio 0.8 (0.9-2); Bilirubin,Total 0.3 mg/dl (0.2-1); Ferritin 12.3 ng/ml (8-388); Total Protein 7.2 gm/dl (6.4-8.2)
[2019-12-27] MEDS ORDERED: GABAPENTIN 600 MG TAB PO SCH (16:00)
[2019-12-27] MEDS ORDERED: PANTOprazole 40 MG in SYRINGE 0 ML IV SCH (20:00)
[2019-12-28] MEDS ORDERED: FLUTICASONE FUROATE 100MCG 14 PUFFS/INHALER INH SCH (08:00)
--- NOTE | 2020-01-04 23:10 | Discharge Summary ---
Date of Service December 27, 2019 Admission HPI Per Admitting Provider Sean Bruno is a 59yo C male with history of Jkglm-Okbtm-Wrktj disease, chronic anemia presenting with progressive CONROY and SOB as well as fatigue. Patient was seen by his PCP today with these complaints - found to be anemic with Hbg=. He was recommended to come to the ER for possible admission. Found to be positive for SARS-CoV-2. Patient is unsure where he contracted the virus. Presently with no complaint of chest pain, cough, fever, chills, loss of taste or smell, nausea, vomiting or diarrhea. ER Course: Hemoccult positive, Protonix bolus and gtt, transfusion ordered Principal Diagnosis symptomatic anemia Discharge Exam General: patient resting comfortably, NAD, non-toxic in appearance, AA&O x 4 Skin: warm, dry, intact, +telangiectasias on face/nose HEENT: NC/AT, PERRL, EOMI, anicteric sclera, conjunctiva without injection, external ear normal to inspection and nontender, nares patent, moist mucus membranes, dentition intact, no oropharyngeal lesions, neck supple, trachea midline, no LAD, no thyromegaly, no JVD Heart: +S1/S2, regular, no m/r/g Lungs: equal air entry bilaterally, no rales/rhonchi/wheezes Abd: +BS, soft, NT/ND, no masses/organomegaly/ascites Ext: warm, 2+ pulses in UE/LE bilaterally, no clubbing/cyanosis or edema Neuro: nonfocal, patient AA&O x 4, speech intact, no facial droop, moving all extremities on command with equal strength 5/5 Discharge Data Allergies Allergy/AdvReac Type Severity Reaction Status Date / Time No Known Allergies Allergy Verified 12/24/19 23:18 Consultations 12/24/19 22:41 ED Decision to Admit Stat 12/25/19 01:24 Consult Gastroenterology Routine Hospital Course (1) Symptomatic anemia: 59yo C male presenting with fatigue, CONROY/SOB. Patient with history of Htpri-Jvcnl-Rtqdm syndrome, chronic anemia. He has had GI bleeding in the past requiring transfusion support and IV iron. He denies melena, hematochezia. BUN, coags and platelets are within normal limits. Hgb=8.3, Hct=27.9, MCV=74 and MCH=22. Gradual decline from 10.3 on 11/23/19. Recent iron studies with iron level of 9 and ferritin of 7.1 (drawn pre-Covid). Patient reported to be strongly hemoccult positive in the ER, stool brown. EGD in 2017 with multiple non-bleeding gastric and duodenal angiectasias. Patient has been seen by Dr. Reyes in the past. He was admitted to [facility] for similar presentation of extreme fatigue and CONROY - at that time he had an Hgb of 8.5. His symptoms improved with transfusion. 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 Uncertain how much Covid-19 is contributing to patient's complaints of fatigue, dyspnea. -Admit to medical with telemetry -Transfused 2u PRBCs for symptomatic anemia/ feeling improved. -Hemoglobin is stable. -Protonix 40mg IV BID --radha have colonoscopy as an outpatient. -GI consultation appreciated - Patient is presently HD stable, no brisk bleeding suggested by exam, BUN is normal. Covid-19 POSITIVE (2) GIB (gastrointestinal bleeding): As above. Patient presently HD stable, NAD. Stool is brown. IV access in place -Protonix 40mg IV BID -Transfusion -GI consultation appreciated -Trend CBC (3) COVID-19: Patient found to be positive for Covid-19. -He thinks he was exposed through a family friend several weeks ago. Presently with adequate oxygenation on room air. -Maintain isolation precautions -No indication for Dexamethasone, Remdesivir at this time. will hold off these medications for now as patient remains on room air. -Albuterol PRN -Patient instructed to notify his family of his recent positive Covid-19 test - family should monitor for symptoms, self quarantine as able. (4) Chronic back pain: Patinet with chronic spinal pain. History of opioid dependency -Continue methadone 10mg po TID -Continue Gabapentin (5) Hypertension: Chronic -Continue Zestoretic -Continue to monitor F/E/N - Heplock. Total Time Total Time Spent Total Time Spent (In Minutes): 32 Total Time Includes: Examination of the Patient, Discharge Planning and Medication Reconciliation Discharge Plan Discharge Items Patient Disposition: Home - Self-Care Reason For Visit: SYMPTOMATIC ANEMIA, COVID-19 + Discharge Diagnosis: symptomatic anemia, COVID 19= Activity: Resume your previous activity Non-emergency contact: Primary Care Provider Call non-emergency contact if: you have any medication questions Follow-up/Referrals: Roger Talbert, [Primary Care Provider] - (The office will call with appt date and time ) Diet: Regular Addtl Attending Provider Instructions: Coronavirus disease 2019 (COVID-19) is a virus that causes a respiratory illness. It is caused by a coronavirus called 2019 novel coronavirus (2019- nCoV). There are many types of coronavirus. Coronaviruses are a very common cause of bronchitis. They may sometimes cause lung infection(pneumonia). Symptoms can range from mild to severe respiratory illness. These viruses are also foundin some animals. COVID-19 was first found in people in [facility], in late 2018. In 2020, several cases of COVID-19 have been confirmed in the [place] Public health officials are working to find the source. How the virus spreads is not yet fully known. It may be spread through droplets of fluid that a person coughs or sneezes into the air. It may be spread if you touch a surface with virus on it, such as a handle or object, and then touch your mouth. What are the symptoms of COVID-19? Some people have no symptoms or mild symptoms. Symptoms may appear 2 to 14 days after contact with the virus. Symptoms can include: Fever Coughing Trouble breathing What are possible complications from COVID-19? In many cases, this virus can cause infection (pneumonia) in both lungs. In some cases, this can cause . How is COVID-19 diagnosed? Your healthcare provider will ask about your symptoms. He or she will also ask about your recent travel and contact with sick people. Testing for the virus is only done through the CDC. If yourhealthcare provider thinks you may have COVID- 19, he or she will work with your local health department and the CDC on testing. Follow all instructions from your healthcare provider. COVID-19 is diagnosed by: Nasal and throat swab. A cotton-tipped swab is wiped inside your nose or throat. This is done to check for viruses in your nasal mucus. Sputum culture. A small sample of mucus coughed from your lungs (sputum) is collected if you have a cough. It is checked for the virus. How is COVID-19 treated? There is currently no medicine to treat the virus. Treatment is done to help your body while it fights the virus. This is known as supportive care. Supportive care may include: Pain medicine. These include acetaminophen and ibuprofen. They are used to help ease pain and reduce fever. Bed rest. This helps your body fight the illness. For severe illness, you may need to stay in the hospital. Care during severe illness may include: IV (intravenous) fluids.These are given through a vein to help keep your body hydrated. Oxygen. Supplemental oxygen or ventilation with a breathing machine (ventilator) may be given. This is done to keep enough oxygen in your body. Thankfully, you do not have a severe illness. If you have been diagnosed with COVID-19 Follow all instructions from your healthcare provider. Dont leave your home, except to get medical care. Call your healthcare providers office before going. They can prepare and give you instructions. This will help prevent the virus from spreading. Dont go to work, school, or public areas. Dont use public transport or taxis. Stay away from other people in your home. Have them wear face masks around you. Dont share household items or food. Wear a face mask if you can. This includes at home or in a medical facility. Cover your face with a tissue when you cough or sneeze. Throw the tissue away. Wash your hands. Wash your hands often. Caregivers should: Follow all instructions from healthcare staff. Wear a face mask and protective clothing as advised. Wash hands often. Keep track of the sick persons symptoms. Clean surfaces, fabrics, and laundry thoroughly. Keep other people away from the sick person. When to call your healthcare provider Call your healthcare provider: If youve recently traveled and have symptoms If you have been diagnosed with COVID-19 and your symptoms are worse To learn more To find out more about COVID-19, visit the CDC website at www.cdc.gov/coronavirus/2019-ncov/index.html. The [employer]. [address] [place] [address], [place] [address]. All rights reserved. This information is not intended as a substitute for professional medical care. Always follow your healthcare professional's instructions. This information has been adapted from [employer] Pending Studies at Discharge: No Stand-Alone Forms: My [facility] [employer], Smoking Cessation Medications and DC Order Prescriptions: Continued gabapentin [Neurontin] 600 mg tablet 1,200 mg PO TID Qty: 540 RF: 1 Flovent HFA 220 mcg/actuation HFA aerosol inhaler 1 puff inhalation BID Qty: 12 RF: 2 methadone [Dolophine] 10 mg tablet 10 mg PO Q8H 30 Days Qty: 90 RF: 0 fluticasone propionate [Flonase Allergy Relief] 50 mcg/actuation spray,suspension 1 spray INTRANASAL BID PRN (Reason: Allergy Symptoms) Qty: 16 RF: 5 albuterol sulfate [ProAir HFA] 90 mcg/actuation HFA aerosol inhaler 1 - 2 puffs INH QID PRN (Reason: Shortness Of Breath Or Wheezing) RF: 0 diclofenac sodium 1 % gel 2 gm TOPICAL QID PRN (Reason: Joint Pain) RF: 0 hydroxyzine HCl 50 mg tablet 50 mg PO Q6 PRN (Reason: Anxiety) RF: 0 Discharge Orders: Discharge Order (Routine); Ordered 12/27/19 Ordered By: Augusto Newman Admission Data Admit Date/Time: 12/24/19 23:33 Attending Provider: Augusto Newman Admit Provider: Kinga Suazo Primary Care Provider: Roger Talbert Other Providers: Kinga Suazo ; Suzanne Reyes Other Interventions: Discharge Summary Assessment (RN) Last Done: 12/27/19 11:40 Coding Level of Care Code D/C Day Management >30 mins Diagnoses Symptomatic anemia D64.9 GIB (gastrointestinal bleeding) K92.2 GI bleed type/associated pathology: unspecified gastrointestinal hemorrhage type COVID-19 U07.1 Chronic back pain M54.6; G89.29 Back pain location: thoracic back pain Back pain laterality: bilateral Hypertension I10 Hypertension type: essential hypertension
--- NOTE | 2020-01-08 10:37 | Coding Query ---
CODING QUERY To promote full compliance with coding requirements relating to patient care, provider participation is requested in all cases of icd 9 coder uncertainty. Please assist us with the question(s) below: Coding Question(s): Per 12/26/19 Progress Note, documentation states "Acute Blood Loss Anemia." This does not make the Discharge Summary. Please clarify below: (x ) Patient has Acute Blood Loss Anemia ( ) Acute Blood Loss Anemia Ruled Out ( ) Other Please Explain: Thank you Kiko Mora Principal Diagnosis: "that condition established after study, to be chiefly responsible for occasioning the admission of the patient to the hospital for care." Co-Existing Principal Diagnosis: "when two or more diagnoses equally meet the criteria for principal diagnosis as determined by the circumstances of admission, diagnostic work up, and/or therapy provided, and the Alphabetic Index, Tabular List, or another coding guideline does not provide sequencing direction, any one of the diagnoses may be sequenced first." "When the physician has documented what appears to be a current diagnosis in the body of the record, but has not included the diagnosis in the final diagnostic statement, the physician should be asked whether the diagnosis should be added." (Source Coding Clinic 2 QTR90. p3-4) [facility]
== END 2019-12-27 13:51 | disposition home or self-care (01) | DRG 299 ==
LOC: ED 21:18 → 2W 23:33 → SUATTDRO 23:33 → 2W 12-25 00:49

== ENCOUNTER 2020-02-22 03:04 | Observation (INO) ==
[2020-02-22 04:05] LABS: Partial Thromboplastin Ratio 0.9; Partial Thromboplastin Time 24.7 Seconds (21.0-31.0); Prothrombin Time 10.4 Seconds (9.0-12.0)
[2020-02-22 04:06] LABS: Albumin Level 3.5 gm/dl (3.4-5.0); BUN Creatinine Ratio 19.7 (10-20); Calcium 8.7 mg/dl (8.5-10.1); Creatinine Clr Calc Pharmacy 104.6 ml/min; Est GFR (African American) 110.3; Est GFR (Non-African American) 95.1; Potassium 3.6 mmol/L (3.5-5.1)
[2020-02-22 04:09] LABS: Bilirubin,Total 0.2 mg/dl (0.2-1); Globulin 3.6 gm/dl (2.5-4.0); Total Protein 7.1 gm/dl (6.4-8.2)
[2020-02-22 04:32] LABS: Hematocrit (blood only) 25.6 % (42-52); Hemoglobin 7.3 g/dL (14.0-18.0); Mean Corpuscular Hemoglobin 19.7 pg (25-34); Mean Corpuscular Hgb Conc 28.5 g/dL (32-36); Mean Platelet Volume 9.5 fL (7.4-10.4); Platelet Count 488 K/uL (130-400); RDW Coefficient of Variation 16.6 % (11.5-14.5); RDW Standard Deviation 41.9 fL (36.4-46.3); Red Blood Count 3.71 M/uL (4.7-6.1); White Blood Count 10.87 K/uL (4.8-10.8)
[2020-02-22] MEDS ORDERED: SODIUM CHLORIDE 0.9% 250 ML IV PRN (04:35)
[2020-02-22] MEDS ORDERED: PANTOprazole 80 MG in DEXTROSE 5% 100 ML IV ONE (04:35)
[2020-02-22] MEDS ORDERED: PANTOPRAZOLE BOLUS/DRIP 1 EA IV STA (04:35)
[2020-02-22 04:39] LABS: Basophils # (auto) 0.02 K/uL (0-0.2); Basophils % (auto) 0.2 %; Eosinophils # (auto) 0.19 K/uL (0-0.5); Eosinophils % (auto) 1.7 %; Hypochromasia Present; Immature Granulocytes # (auto) 0.03 K/uL (0.00-0.02); Immature Granulocytes % (auto) 0.3 %; Lymphocytes # (auto) 2.31 K/uL (1.2-3.4); Lymphocytes % (auto) 21.3 %; Microcytosis Present; Monocytes # (auto) 0.88 K/uL (0.11-0.59); Monocytes % (auto) 8.1 %; Neutrophils # (auto) 7.44 K/uL (1.4-6.5); Neutrophils % (auto) 68.4 %; Ovalocytes 1+
--- NOTE | 2020-02-22 05:02 | History & Physical Report ---
Date of Service February 22, 2020 Assessment & Plan (1) Symptomatic anemia: Patient with microcytic anemia. Hgb=7.3 which is decreased from 8.3 on 02/17/20. POC Occult blood test POSITIVE. Concern for GI bleeding source. Patient denies melena/hematochezia/hemorrhoids/abdominal pain. He has Oxfin-Qwsdb-Zbhty syndrome and is at risk for telangiectasias that could cause bleeding. He is afebrile, HD stable. NAD -Observation to medical with telemetry -Maintain PIVs x 2 -Transfuse 1 u PRBCs - ordered in ER -Monitor CBC -Continue Protonix infusion -NPO -GI Consultation - possible EGD later today Present on Admission?: Yes (2) Sore throat: Posterior pharynx is erythematous with small white plaques. ?Possible karly infection - esophagitis presenting as sore throat and dysphagia? Patient takes Advair. Also recently on PO Prednisone, ?pill esophagitis - however, patient states his sore throat has been ongoing for weeks. -Check rapid strep -Check monospot -Nystatin QID -GI - EGD as above will assist in diagnosis Present on Admission?: Yes (3) Hypertension: Chronic. Stable. Blood pressure mildly elevated in ER -Continue Lisinopril-HCTZ -Continue to monitor Present on Admission?: Yes (4) Mxjci-Hlenq-Mkklz disease: Noted Present on Admission?: Yes (5) Opioid dependence: Patient on Methadone 10mg po TID -Continue Methadone Present on Admission?: Yes (6) Tobacco use disorder, continuous: Patient smokes only 1/4 ppd. Cessation encouraged -Nicotine patch F/E/N - Transfusion 1u PRBCs, monitor electrolytes, NPO Ppx - SCDs Code - Full per discussion with patient Dispo - Observation to medical with telemetry Present on Admission?: Yes History of Present Illness Chief Complaint: SOB Primary Care Provider: DO Sean Olmos Rajat Bruno is a 59yo C male with history of Nqarh-Moilb-Mloip syndrome, HTN, HCV, recent Covid-19 illness in December s/p recovery. He presents today with mild shortness of breath, decreased exercise tolerance. Patient was to have an outpatient EGD/[place] performed next week. However, he was told to come in to the ER by Dr. Florez of GI due to concern for decreased in Hgb, possible GIB. Patient denies melena/hematochezia. No hematemesis or hematuria. 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 Patient also complaining of a very sore throat and dysphagia. He thinks this has been ongoing for the last several weeks. He was recently started on Advair but is uncertain if his symptoms started before of after this. He denies fever/chills/cough/SOB/abdominal pain/nausea/vomiting/diarrhea or constipation. No additional complaints at this time. In the ER he was found to be afebrile, HD stable, NAD. Hgb of 7.3 down from 8.3 on 02/17/20. ER Course: Protonix. NSS. Blood ordered Allergies Allergy/AdvReac Type Severity Reaction Status Date / Time No Known Allergies Allergy Verified 02/22/20 04:09 Home Medications Medication Instructions Recorded Confirmed Type fluticasone propionate 50 1 spray INTRANASAL BID PRN #16 gm 08/20/19 02/22/20 Rx mcg/actuation nasal spray,suspension gabapentin 600 mg tablet 1,200 mg PO TID #540 tab 09/29/19 02/22/20 Rx diclofenac sodium 2 gm TOPICAL QID PRN 11/23/19 02/22/20 History hydroxyzine HCl 50 mg PO Q6H PRN 12/24/19 02/22/20 History fluticasone 250 mcg-salmeterol 50 1 inh INHALATION BID #60 ea 02/09/20 02/22/20 Rx mcg/dose blistr powdr for inhalation methadone 10 mg tablet 10 mg PO Q8H 30 Days #90 tab 02/09/20 02/22/20 Rx albuterol sulfate [Ventolin HFA] 1 - 2 puff INHALATION QID PRN 02/17/20 02/22/20 History lisinopril-hydrochlorothiazide 1 tab PO DAILY 02/17/20 02/22/20 History prednisone 50 mg PO DAILY 02/22/20 02/22/20 History Past Med/Surg History Medical History (Updated 02/22/20 @ 05:52 by Kinga Suazo DO) Anemia HX Cervical disc disease C5-C6 Chronic back pain Dog bite of face 08/12/2019- received care at [facility]- Lip and nose sutured and pt placed on antibiotics. Fall from ladder Hepatitis C treated--no longer has Hx of bleeding disorder HAS CAUSED BLEEDING INTO STOMACH REQUIRING CAUTERIZATION-F/U DR LORETA KELLEY-HX BLOOD TRANSFUSIONS IN THE PAST Hypertension Osler-Rendu disease Pneumonia Scrotal mass Surgical History History of colonoscopy History of esophagogastroduodenoscopy (EGD) History of herniorrhaphy X 4 History of open reduction and internal fixation (ORIF) procedure left hand/wrist fx--hardware removed History of repair of rotator cuff RIGHT History of shoulder surgery right History of tooth extraction all teeth removed Hx of excision of testicular mass X MULTIPLE BENIGN CYSTS Family History Other No family history of adverse response to anesthesia Denies family history of Colon cancer Ovarian cancer Prostate cancer Myocardial infarction Breast cancer Social History Smoking Status: Current some day smoker Tobacco Type: Cigarettes Cigarettes Per Day: 10; Second Hand Exposure: No; Hx Alcohol Use: No Hx Substance Use: No Preferred Language: Korean Communication Ability: Effective Visual Impairment: Limited Hearing Ability: Hard of Hearing 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: No Beliefs That Will Affect Care: None marital status: Current Living Situation: Alone Current Living Situation Comment: Lives with and daughter current occupational status: employed Feels Safe at Home: Yes Dental Care, Regularly: Yes Physical Activity Frequency: Daily Seatbelt Use: never Sunscreen Use: No Assistive Devices: None Review of Systems Review of Systems: All systems reviewed & are unremarkable except as noted in HPI & below Physical Exam Physical Exam: General: patient resting comfortably, NAD, non-toxic in appearance, AA&O x 4 Skin: warm, dry, intact, no rashes or lesions HEENT: NC/AT, PERRL, EOMI, anicteric sclera, conjunctiva without injection, external ear normal to inspection and nontender, nares patent, moist mucus membranes, dentition intact, posterior pharynx red, some white plaques present which mostly cleared with sips of water, neck supple, trachea midline, +tonsilar LAD, tender, mobile, no thyromegaly, no JVD, Heart: +S1/S2, regular, no m/r/g Lungs: equal air entry bilaterally, no rales/rhonchi/wheezes Abd: +BS, soft, NT/ND, no masses/organomegaly/ascites Ext: warm, 2+ pulses in UE/LE bilaterally, no clubbing/cyanosis or edema Neuro: nonfocal, patient AA&O x 4, speech intact, no facial droop, moving all extremities on command with equal strength 5/5 Results & Data Results & Data ([facility]) Vital Signs (Past 12 Hours) Vital Signs Temp Pulse Resp BP Pulse Ox 02/22/20 03:12 36.6 C 87 22 151/83 H 95 Laboratory Results Lab Results 02/22/20 02/22/20 02/22/20 Range/Units 03:32 03:32 03:32 WBC 10.87 H (4.8-10.8) K/uL RBC 3.71 L (4.7-6.1) M/uL Hgb 7.3 L (14.0-18.0) g/dL Hct 25.6 L (42-52) % MCV 69.0 L (80-100) fL MCH 19.7 L (25-34) pg MCHC 28.5 L (32-36) g/dL RDW Std Deviation 41.9 (36.4-46.3) fL RDW Coeff of Ady 16.6 H (11.5-14.5) % Plt Count 488 H (130-400) K/uL MPV 9.5 (7.4-10.4) fL Immature Gran % (Auto) 0.3 % Neut % (Auto) 68.4 % Lymph % (Auto) 21.3 % [place] % (Auto) 8.1 % Eos % (Auto) 1.7 % Baso % (Auto) 0.2 % Neut # (Auto) 7.44 H (1.4-6.5) K/uL Lymph # (Auto) 2.31 (1.2-3.4) K/uL [place] # (Auto) 0.88 H (0.11-0.59) K/uL Eos # (Auto) 0.19 (0-0.5) K/uL Baso # (Auto) 0.02 (0-0.2) K/uL Immature Gran # (Auto) 0.03 H (0.00-0.02) K/uL Hypochromasia Present Microcytosis Present Ovalocytes 1+ PT 10.4 (9.0-12.0) Seconds INR 1.0 (0.9-1.1) APTT 24.7 (21.0-31.0) Seconds PTT Ratio 0.9 Sodium 139 (136-145) mmol/L Potassium 3.6 (3.5-5.1) mmol/L Chloride 105 (98-107) mmol/L Carbon Dioxide 33 H (21-32) mmol/L Anion Gap 1.0 L (3-11) BUN 17 (7-18) mg/dl Creatinine 0.87 (0.6-1.4) mg/dl Est Cr Clr Drug Dosing 104.6 ml/min Est GFR ( Amer) 110.3 Est GFR (Non-Af Amer) 95.1 BUN/Creatinine Ratio 19.7 (10-20) Glucose 89 (70-99) mg/dl Calcium 8.7 (8.5-10.1) mg/dl Total Bilirubin 0.2 (0.2-1) mg/dl AST 10 L (15-37) U/L ALT 20 (12-78) U/L Alkaline Phosphatase 77 (45-117) U/L Total Protein 7.1 (6.4-8.2) gm/dl Albumin 3.5 (3.4-5.0) gm/dl Globulin 3.6 (2.5-4.0) gm/dl Albumin/Globulin Ratio 1.0 (0.9-2) POC Stool Occult Blood (Negative) Blood Type Antibody Screen Crossmatch 02/22/20 02/22/20 Range/Units 03:59 Unknown WBC (4.8-10.8) K/uL RBC (4.7-6.1) M/uL Hgb (14.0-18.0) g/dL Hct (42-52) % MCV (80-100) fL MCH (25-34) pg MCHC (32-36) g/dL RDW Std Deviation (36.4-46.3) fL RDW Coeff of Ady (11.5-14.5) % Plt Count (130-400) K/uL MPV (7.4-10.4) fL Immature Gran % (Auto) % Neut % (Auto) % Lymph % (Auto) % [place] % (Auto) % Eos % (Auto) % Baso % (Auto) % Neut # (Auto) (1.4-6.5) K/uL Lymph # (Auto) (1.2-3.4) K/uL [place] # (Auto) (0.11-0.59) K/uL Eos # (Auto) (0-0.5) K/uL Baso # (Auto) (0-0.2) K/uL Immature Gran # (Auto) (0.00-0.02) K/uL Hypochromasia Microcytosis Ovalocytes PT (9.0-12.0) Seconds INR (0.9-1.1) APTT (21.0-31.0) Seconds PTT Ratio Sodium (136-145) mmol/L Potassium (3.5-5.1) mmol/L Chloride (98-107) mmol/L Carbon Dioxide (21-32) mmol/L Anion Gap (3-11) BUN (7-18) mg/dl Creatinine (0.6-1.4) mg/dl Est Cr Clr Drug Dosing ml/min Est GFR ( Amer) Est GFR (Non-Af Amer) BUN/Creatinine Ratio (10-20) Glucose (70-99) mg/dl Calcium (8.5-10.1) mg/dl Total Bilirubin (0.2-1) mg/dl AST (15-37) U/L ALT (12-78) U/L Alkaline Phosphatase (45-117) U/L Total Protein (6.4-8.2) gm/dl Albumin (3.4-5.0) gm/dl Globulin (2.5-4.0) gm/dl Albumin/Globulin Ratio (0.9-2) POC Stool Occult Blood Positive A (Negative) Blood Type B Positive Antibody Screen NEGATIVE Crossmatch See Detail ECG Additional Comments: NSR, no acute ischemic changes PG Care Time/CCT Total # of Minutes Spent Total Time Spent with Patient: Total time spent is greater than 50% in coordination of care (as documented) at patient's floor/unit and/or counseling patient: Coding Level of Care Code 58384 OBS Care - Level 3 Diagnoses Symptomatic anemia D64.9 Sore throat J02.9 Hypertension I10 Hypertension type: essential hypertension Rqsip-Sbozm-Vvtvw disease I78.0 Opioid dependence F11.21 Substance use status: in remission Tobacco use disorder, continuous F17.209 (1) Hypertension Hypertension type: essential hypertension Qualified Code(s): I10 - Essential (primary) hypertension (2) Opioid dependence Substance use status: in remission Qualified Code(s): F11.21 - Opioid dependence, in remission
[2020-02-22] MEDS: PANTOprazole 40 MG in DEXTROSE 5% 100 ML IV SCH ×4 (05:08→21:39)
[2020-02-22] MEDS ORDERED: hydrOXYzine HCl 25 MG TAB PO PRN (06:24)
[2020-02-22] MEDS ORDERED: ALBUTEROL HFA 8 GM INHALER INH PRN (06:24)
[2020-02-22] MEDS ORDERED: ONDANSETRON INJ 2 MG/ML 2 ML VIAL IV PRN (06:24)
[2020-02-22] MEDS: METHADONE HCL 10 MG TAB PO SCH ×3 (07:33→20:38)
--- NOTE | 2020-02-22 07:58 | Anesthesiology Consultation ---
Date of Service February 22, 2020 Assessment & Plan (1) Encounter for pre-operative examination: Chart Review Chart Review: Acceptable Risk for Surgery History Surgery Operation Date: 02/22/20 12:00 Proposed Procedures p Esophagogastroduodenoscopy - Adalberto Florez MD Height/Weight Height: 6 ft 1 in Weight: 83.6 kg Allergies Allergy/AdvReac Type Severity Reaction Status Date / Time No Known Allergies Allergy Verified 02/22/20 04:09 Medications Home Medications Medication Instructions Recorded Confirmed Last Taken fluticasone propionate 50 1 spray INTRANASAL BID PRN #16 gm 08/20/19 02/22/20 02/01/20 mcg/actuation nasal spray,suspension gabapentin 600 mg tablet 1,200 mg PO TID #540 tab 09/29/19 02/22/20 02/21/20 diclofenac sodium 2 gm TOPICAL QID PRN 11/23/19 02/22/20 Unknown hydroxyzine HCl 50 mg PO Q6H PRN 12/24/19 02/22/20 Unknown fluticasone 250 mcg-salmeterol 50 1 inh INHALATION BID #60 ea 02/09/20 02/22/20 02/21/20 mcg/dose blistr powdr for inhalation methadone 10 mg tablet 10 mg PO Q8H 30 Days #90 tab 02/09/20 02/22/20 02/21/20 albuterol sulfate [Ventolin HFA] 1 - 2 puff INHALATION QID PRN 02/17/20 02/22/20 Unknown lisinopril-hydrochlorothiazide 1 tab PO DAILY 02/17/20 02/22/20 Unknown prednisone 50 mg PO DAILY 02/22/20 02/22/20 02/21/20 Active Medications Generic Name Dose Route Start Last Admin Trade Name Freq PRN Reason Stop Dose Admin Pantoprazole Sodium 40 mg/ 100 mls @ 20 mls/hr 02/22/20 04:50 02/22/20 05:08 Dextrose IV 03/23/20 04:49 8 mg/hr Q5H TOSHIA 20 mls/hr Administration 8 MG/HR Methadone HCl 10 mg 02/22/20 06:45 02/22/20 07:33 Methadone Hcl 10 Mg Tab PO 03/07/20 06:44 10 mg Q8 TOSHIA Administration Past Medical History Medical History (Updated 02/22/20 @ 08:00 by Kiko Don MD) Anemia HX Cervical disc disease C5-C6 Chronic back pain Dog bite of face 08/12/2019- received care at [facility]- Lip and nose sutured and pt placed on antibiotics. Fall from ladder Hepatitis C treated--no longer has Hx of bleeding disorder HAS CAUSED BLEEDING INTO STOMACH REQUIRING CAUTERIZATION-F/U DR KAN Mario HORTON-HX BLOOD TRANSFUSIONS IN THE PAST Hypertension Osler-Rendu disease Pneumonia Scrotal mass Past Family History Family History Other No family history of adverse response to anesthesia Denies family history of Colon cancer Ovarian cancer Prostate cancer Myocardial infarction Breast cancer Past Surgical History Surgical History History of colonoscopy History of esophagogastroduodenoscopy (EGD) History of herniorrhaphy X 4 History of open reduction and internal fixation (ORIF) procedure left hand/wrist fx--hardware removed History of repair of rotator cuff RIGHT History of shoulder surgery right History of tooth extraction all teeth removed Hx of excision of testicular mass X MULTIPLE BENIGN CYSTS Social History Smoking Status: Current some day smoker tobacco type: cigarettes Smoking cigarettes per day: 10 Do You Dip or Chew Tobacco: No Hx Alcohol Use: No Hx Substance Use: No substance use type: does not use Substance Use Type Other:: opiate, methadone Last Used Substance: Unknown Physical Exam Vital Signs Last Vital Signs Temp 36.8 C 02/22/20 07:00 Pulse 67 02/22/20 07:00 Resp 16 02/22/20 07:00 BP 162/94 H 02/22/20 07:00 Pulse Ox 96 02/22/20 07:00 Testing Laboratory Results 02/22/20 03:32 02/22/20 03:32 PT 10.4 Seconds (9.0-12.0) 02/22/20 03:32 INR 1.0 (0.9-1.1) 02/22/20 03:32 APTT 24.7 Seconds (21.0-31.0) 02/22/20 03:32 Blood Type B Positive 02/22/20 03:59 Antibody Screen NEGATIVE 02/22/20 03:59 Echocardiogram Date: 06/23/19 EF: 65-70% LV Function: normal Other Findings: + diastolic dysfunction (mild) Valvular Disease: + no significant valvular disease
--- NOTE | 2020-02-22 08:12 | Gastrointestinal Consultation ---
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 Recs: NPO EGD to further evaluate and treat today trend H/H, transfuse prn hgb <7 Thank you for allowing me to participate in the care of this patient. 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 He notes decreased exercise tolerance, dyspnea, and has had weakness. Hgb has dropped to 7.3 today from 12 about two weeks ago. Also notes dysphagia and sore throat. labs reviewed, VSS. Allergies Allergy/AdvReac Type Severity Reaction Status Date / Time No Known Allergies Allergy Verified 02/22/20 04:09 Home Medications Medication Instructions Recorded Confirmed Type fluticasone propionate 50 1 spray INTRANASAL BID PRN #16 gm 08/20/19 02/22/20 Rx mcg/actuation nasal spray,suspension gabapentin 600 mg tablet 1,200 mg PO TID #540 tab 09/29/19 02/22/20 Rx diclofenac sodium 2 gm TOPICAL QID PRN 11/23/19 02/22/20 History hydroxyzine HCl 50 mg PO Q6H PRN 12/24/19 02/22/20 History fluticasone 250 mcg-salmeterol 50 1 inh INHALATION BID #60 ea 02/09/20 02/22/20 Rx mcg/dose blistr powdr for inhalation methadone 10 mg tablet 10 mg PO Q8H 30 Days #90 tab 02/09/20 02/22/20 Rx albuterol sulfate [Ventolin HFA] 1 - 2 puff INHALATION QID PRN 02/17/20 02/22/20 History lisinopril-hydrochlorothiazide 1 tab PO DAILY 02/17/20 02/22/20 History prednisone 50 mg PO DAILY 02/22/20 02/22/20 History Patient History Medical History (Updated 02/22/20 @ 08:00 by Kiko Don MD) Anemia HX Cervical disc disease C5-C6 Chronic back pain Dog bite of face 08/12/2019- received care at [facility]- Lip and nose sutured and pt placed on antibiotics. Fall from ladder Hepatitis C treated--no longer has Hx of bleeding disorder HAS CAUSED BLEEDING INTO STOMACH REQUIRING CAUTERIZATION-F/U DR LORETA KELLEY-HX BLOOD TRANSFUSIONS IN THE PAST Hypertension Osler-Rendu disease Pneumonia Scrotal mass Surgical History History of colonoscopy History of esophagogastroduodenoscopy (EGD) History of herniorrhaphy X 4 History of open reduction and internal fixation (ORIF) procedure left hand/wrist fx--hardware removed History of repair of rotator cuff RIGHT History of shoulder surgery right History of tooth extraction all teeth removed Hx of excision of testicular mass X MULTIPLE BENIGN CYSTS Family History Other No family history of adverse response to anesthesia Denies family history of Colon cancer Ovarian cancer Prostate cancer Myocardial infarction Breast cancer Social History Smoking Status: Current some day smoker Tobacco Type: Cigarettes Cigarettes Per Day: 10; Second Hand Exposure: Yes; Do You Dip or Chew Tobacco: No; Tobacco Cessation Education Requested by Patient: No Hx Alcohol Use: No Hx Substance Use: No Preferred Language: Austrian Communication Ability: Effective Visual Impairment: Limited Hearing Ability: Hard of Hearing 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: No Beliefs That Will Affect Care: None marital status: Current Living Situation: Family Current Living Situation Comment: lives with daughter current occupational status: employed Other Information That Helps Us Care for You: No Feels Safe at Home: Yes Dental Care, Regularly: Yes Physical Activity Frequency: Daily Seatbelt Use: never Sunscreen Use: No Assistive Devices: Glasses Review of Systems Constitutional: no fever, no chills and no weight loss Eyes: as per Subjective / HPI Ear, Nose, Mouth, Throat: as per Subjective / HPI Respiratory: no dyspnea and no dyspnea on exertion Cardiovascular: no chest pain and no palpitations Gastrointestinal: as per Subjective / HPI Musculoskeletal: no joint pain and no swelling Integumentary: no rash and no lesions Neurologic: no numbness and no paresthesia Psychiatric: no depression and no anxiety Endocrine: no fatigue Hematologic / Lymphatic: no easy bleeding and no easy bruising Physical Exam Constitutional: WD/WN, vitals as above Eyes: EOM intact bilaterally Neck: normal visual inspection Respiratory: normal respiratory effort, lungs clear to auscultation Cardiovascular: RRR, no murmur, no edema Gastrointestinal (Abdomen): Inspection/Auscultation: abdomen normal to inspection; abdomen not distended Percussion/Palpation: abdomen soft; abdomen nontender and no hepatosplenomegaly Musculoskeletal: Extremities: no cyanosis Gait: normal gait Skin: no rashes, warm and dry Neurologic: moves all extremities Psychiatric: A+Ox3, euthymic affect Results & Data ([facility]) Vital Signs (Past 12 Hours) Vital Signs Temp Pulse Resp BP Pulse Ox 02/22/20 07:35 36.6 C 54 L 18 173/87 H 02/22/20 07:00 36.8 C 67 16 162/94 H 96 02/22/20 06:49 36.5 C 62 12 162/89 H 96 02/22/20 06:30 36.5 C 62 20 139/71 97 02/22/20 05:59 36.6 C 69 20 165/98 H 92 02/22/20 05:45 87 22 160/92 H 92 02/22/20 05:32 36.6 C 70 16 169/90 H 92 02/22/20 05:31 67 14 02/22/20 05:02 74 16 158/83 H 02/22/20 03:34 75 15 160/79 H 93 02/22/20 03:12 36.6 C 87 22 151/83 H 95 PG Care Time/CCT Total # of Minutes Spent Total Time Spent with Patient: Total time spent is greater than 50% in coordination of care (as documented) at patient's floor/unit and/or counseling patient: Coding Level of Care Code 89784 Inpt Consult Level 4 Diagnoses GIB (gastrointestinal bleeding) K92.2 GI bleed type/associated pathology: unspecified gastrointestinal hemorrh age type Anemia D64.9 Anemia type: unspecified type (1) GIB (gastrointestinal bleeding) GI bleed type/associated pathology: unspecified gastrointestinal hemorrhage type Qualified Code(s): K92.2 - Gastrointestinal hemorrhage, unspecified (2) Anemia Anemia type: unspecified type Qualified Code(s): D64.9 - Anemia, unspecified
[2020-02-22] MEDS ORDERED: ATROPINE SULFATE 0.1 MG/ML 10ML SYR IV PRN (08:38)
[2020-02-22] MEDS ORDERED: LIDOCAINE HCL 2% 2 ML VIAL/AMP(20MG/ML) INFIL ONE (09:14)
[2020-02-22] MEDS ORDERED: PROPOFOL IV EMULSION 10 MG/ML 20 ML VIAL IV ONE (09:14)
--- NOTE | 2020-02-22 09:27 | GI REPORT ---
Patient Name: Sean Bruno Procedure Date: 02/22/2020 8:25 AM Date of : 1960 Admit Type: Inpatient Age: 59 Gender: Male Attending MD: Adalberto Florez MD Procedure: Upper GI endoscopy Providers: Adalberto Florez MD Referring MD: Augusto Newman M.d. Indications: Iron deficiency anemia secondary to chronic blood loss Medicines: Monitored Anesthesia Care Complications: No immediate complications. Estimated blood loss: None. Estimated Blood Loss: Estimated blood loss: none. Procedure: Pre-Anesthesia Assessment: - Prior Anticoagulants: The patient has taken no previous anticoagulant or antiplatelet agents. - ASA Grade Assessment: II - A patient with mild systemic disease. After obtaining informed consent, the endoscope was passed under direct vision. Throughout the procedure, the patient's blood pressure, pulse, and oxygen saturations were monitored continuously. The Endoscope was introduced through the mouth, and advanced to the second part of duodenum. The upper GI endoscopy was accomplished without difficulty. The patient tolerated the procedure well. Findings: Moderately severe esophagitis with no bleeding was found. Cells for cytology were obtained by brushing. Estimated blood loss: none. Multiple small angioectasias with no bleeding were found in the gastric body and in the gastric antrum. Coagulation for hemostasis using argon plasma at 0.3 liters/minute and 40 baker was successful. Estimated blood loss: none. Multiple medium angioectasias with stigmata of recent bleeding were found in the duodenal bulb. Coagulation for hemostasis using argon plasma at 0.3 liters/minute and 40 baker was successful. Estimated blood loss: none. The second portion of the duodenum was normal. Impression: - Moderately severe candidiasis esophagitis. Cells for cytology obtained. - Multiple non-bleeding angioectasias in the stomach. Treated with argon plasma coagulation (APC). - Multiple recently bleeding angioectasias in the duodenum. Treated with argon plasma coagulation (APC). - Normal second portion of the duodenum. Recommendation: - [facility]. - Advance diet as tolerated today. -complete PRBC transfusion - follow up cytology results for karly brushing - trend H/H, supportive care Adalberto Florez MD 02/22/2020 9:27:17 AM This report has been signed electronically. Note Initiated On: 02/22/2020 8:25 AM Number of Addenda: 0 I attest to the content of the Intraoperative Record and orders documented therein, exceptions below {[id number]}
[2020-02-22] MEDS: FLUTICASONE/VILANTEROL 100/25MCG 14 PUFFS/INHALER INH SCH (09:58)
[2020-02-22] MEDS: NYSTATIN SUSP 500,000 U/5 ML UDC PO SCH ×4 (09:58→20:28)
[2020-02-22] MEDS: GABAPENTIN 600 MG TAB PO SCH ×3 (09:58→20:28)
[2020-02-22] MEDS: NICOTINE 7 MG/24 HR TDSY TD SCH (09:59)
[2020-02-22] MEDS: LISINOPRIL/HCTZ 10/12.5MG TAB PO SCH ×2 (09:59→10:04)
--- NOTE | 2020-02-22 15:25 | Procedure Note ---
Procedure Note Date of Service February 22, 2020 GI brief procedure note: EGD findings: several AVMs in the stomach and duodenum, treated with APC. extensive esophagitis, brushings for cytology taken for possible karly. Recs: trend H/H, transfuse prn advance diet as tolerated f/u cytology results Adalberto Florez MD Gastroenterology Coding
--- NOTE | 2020-02-22 15:34 | Anesthesiology Progress Note ---
Date of Service February 22, 2020 Anesthesia Post Procedure Vital Signs Vital Signs: Temp Pulse Pulse Pulse Resp BP BP 02/22/20 12:44 36.8 C 74 18 143/76 H 02/22/20 11:55 36.4 C L 69 20 150/88 H 02/22/20 10:12 37.2 C 68 18 156/82 H 02/22/20 09:49 36.5 C 66 16 155/84 H 02/22/20 09:40 37.0 C 67 20 136/85 02/22/20 09:30 66 12 144/83 H 02/22/20 09:20 36.2 C L 65 15 148/89 H 02/22/20 07:35 36.6 C 54 L 18 173/87 H 02/22/20 07:00 36.8 C 67 16 162/94 H 02/22/20 06:49 36.5 C 62 12 162/89 H 02/22/20 06:30 36.5 C 62 20 139/71 02/22/20 05:59 36.6 C 69 20 165/98 H 02/22/20 05:45 87 22 160/92 H 02/22/20 05:32 36.6 C 70 16 169/90 H 02/22/20 05:31 67 14 02/22/20 05:02 74 16 158/83 H 02/22/20 03:34 75 15 160/79 H 02/22/20 03:12 36.6 C 87 22 151/83 H Pulse Ox 02/22/20 12:44 92 02/22/20 11:55 92 02/22/20 10:12 92 02/22/20 09:49 95 02/22/20 09:40 95 02/22/20 09:30 93 02/22/20 09:20 95 02/22/20 07:35 02/22/20 07:00 96 02/22/20 06:49 96 02/22/20 06:30 97 02/22/20 05:59 92 02/22/20 05:45 92 02/22/20 05:32 92 02/22/20 05:31 02/22/20 05:02 02/22/20 03:34 93 02/22/20 03:12 95 Transfer of Care Handoff Completed per policy Notes Mental Status: alert / awake / arousable Patient Amnestic to Procedure: Yes Nausea / Vomiting: adequately controlled Pain: adequately controlled Airway Patency, RR, SpO2: stable & adequate BP & HR: stable & adequate Hydration State: stable & adequate Anesthetic Complications: no major complications apparent
[2020-02-22 17:11] LABS: Hematocrit (blood only) 28.7 % (42-52); Hemoglobin 8.7 g/dL (14.0-18.0)
[2020-02-22] MEDS: prednisoLONE SYRUP 15 MG/5 ML BTL PO SCH (20:27)
[2020-02-23] MEDS: PANTOprazole 40 MG in DEXTROSE 5% 100 ML IV SCH ×2 (02:53→07:51)
--- NOTE | 2020-02-23 06:06 | Electrocardiogram Report ---
Test Reason : Blood Pressure : / mmHG Vent. Rate : 074 BPM Atrial Rate : 074 BPM P-R Int : 130 ms QRS Dur : 090 ms QT Int : 392 ms P-R-T Axes : 065 057 060 degrees QTc Int : 435 ms Normal sinus rhythm Normal ECG When compared with ECG of 17-FEB-2020 17:48, No significant change was found Confirmed by Luis Ramirez ([id number]) on 02/23/2020 6:05:50 AM Referred By: Adalberto Florez Confirmed By:Luis Ramirez
[2020-02-23 06:36] LABS: Hematocrit (blood only) 29.9 % (42-52); Hemoglobin 8.8 g/dL (14.0-18.0); Immature Granulocytes # (auto) 0.02 K/uL (0.00-0.02); Immature Granulocytes % (auto) 0.2 %; Lymphocytes # (auto) 0.59 K/uL (1.2-3.4); Mean Corpuscular Hemoglobin 20.9 pg (25-34); Mean Corpuscular Hgb Conc 29.4 g/dL (32-36); Monocytes # (auto) 0.37 K/uL (0.11-0.59); Monocytes % (auto) 3.8 %; Neutrophils # (auto) 8.88 K/uL (1.4-6.5); Platelet Count 488 K/uL (130-400); RDW Coefficient of Variation 17.8 % (11.5-14.5); RDW Standard Deviation 45.3 fL (36.4-46.3); Red Blood Count 4.21 M/uL (4.7-6.1); White Blood Count 9.86 K/uL (4.8-10.8)
[2020-02-23] MEDS: METHADONE HCL 10 MG TAB PO SCH (06:36)
[2020-02-23 07:06] LABS: Hypochromasia Present; Microcytosis Present; Ovalocytes 1+
[2020-02-23 07:24] LABS: BUN Creatinine Ratio 16.6 (10-20); Calcium 9.4 mg/dl (8.5-10.1); Creatinine Clr Calc Pharmacy 124.7 ml/min; Est GFR (African American) 118.5; Est GFR (Non-African American) 102.2
[2020-02-23] MEDS: NYSTATIN SUSP 500,000 U/5 ML UDC PO SCH (07:56)
[2020-02-23] MEDS: GABAPENTIN 600 MG TAB PO SCH (07:56)
[2020-02-23] MEDS: NICOTINE 7 MG/24 HR TDSY TD SCH (07:56)
[2020-02-23] MEDS: LISINOPRIL/HCTZ 10/12.5MG TAB PO SCH (07:56)
[2020-02-23] MEDS: prednisoLONE SYRUP 15 MG/5 ML BTL PO SCH (07:57)
[2020-02-23] MEDS: FLUTICASONE/VILANTEROL 100/25MCG 14 PUFFS/INHALER INH SCH (07:57)
--- NOTE | 2020-02-23 10:11 | Discharge Summary ---
Date of Service February 23, 2020 Admission HPI Per Admitting Provider Sean Bruno is a 59yo C male with history of Bmhcr-Rgrln-Wnxqf syndrome, HTN, HCV, recent Covid-19 illness in December s/p recovery. He presents today with mild shortness of breath, decreased exercise tolerance. Patient was to have an outpatient EGD/[facility] performed next week. However, he was told to come in to the ER by Dr. Florez of GI due to concern for decreased in Hgb, possible GIB. Patient denies melena/hematochezia. No hematemesis or hematuria. 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 Patient also complaining of a very sore throat and dysphagia. He thinks this has been ongoing for the last several weeks. He was recently started on Advair but is uncertain if his symptoms started before of after this. He denies fever/chills/cough/SOB/abdominal pain/nausea/vomiting/diarrhea or constipation. No additional complaints at this time. In the ER he was found to be afebrile, HD stable, NAD. Hgb of 7.3 down from 8.3 on 02/17/20. ER Course: Protonix. NSS. Blood ordered Principal Diagnosis symptomatic anemia Discharge Exam General: patient resting comfortably, NAD, non-toxic in appearance, AA&O x 4 Skin: warm, dry, intact, no rashes or lesions HEENT: NC/AT, PERRL, EOMI, anicteric sclera, conjunctiva without injection, neck supple, trachea midline, +tonsilar LAD, tender, mobile, no thyromegaly, no JVD, Heart: +S1/S2, regular, no m/r/g Lungs: equal air entry bilaterally, no rales/rhonchi/wheezes Abd: +BS, soft, NT/ND, no masses/organomegaly/ascites Ext: warm, 2+ pulses in UE/LE bilaterally, no clubbing/cyanosis or edema Neuro: nonfocal, patient AA&O x 4, speech intact, no facial droop, moving all extremities on command with equal strength 5/5 Discharge Data Allergies Allergy/AdvReac Type Severity Reaction Status Date / Time No Known Allergies Allergy Verified 02/26/20 13:54 Consultations 02/22/20 05:21 ED Decision to Admit Stat 02/22/20 06:24 Consult Gastroenterology Routine Procedures Performed Operation Date: 02/22/20 12:00 Actual Procedures p Esophagogastroduodenoscopy(Not Applicable) - Adalberto Florez MD Hospital Course (1) Symptomatic anemia: Patient with microcytic anemia. Hgb=7.3 which is decreased from 8.3 on 02/17/20. POC Occult blood test POSITIVE. Concern for GI bleeding source. Patient denies melena/hematochezia/hemorrhoids/abdominal pain. He has Zaiqw-Igmrb-Jckxg syndrome and is at risk for telangiectasias that could cause bleeding. He is afebrile, HD stable. NAD -Observation to medical with telemetry -Maintain PIVs x 2 -Transfuse 1 u PRBCs - ordered in ER -Monitor CBC -Continue Protonix infusion -GI Consultation - EGD completed: Post procedure day #1 from EGD for active GI bleeding by Dr. Florez. 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 Florez yesterday. He is stable w/o further evidence of GI bleeding. Recommendations: May change to BID PPI such as Pantoprazole 40mg po BID No GI contraindication to discharge. Continue OP GI f/u with with [facility] in 1-2 months. Soft diet. (2) Sore throat: Posterior pharynx is erythematous with small white plaques. ?Possible karly infection - esophagitis presenting as sore throat and dysphagia? Patient takes Advair. Also recently on PO Prednisone, ?pill esophagitis - however, patient states his sore throat has been ongoing for weeks. -Check rapid strep -Check monospot -Nystatin QID -GI - EGD as above will assist in diagnosis (3) Hypertension: Chronic. Stable. Blood pressure mildly elevated in ER -Continue Lisinopril-HCTZ -Continue to monitor (4) Nqmqs-Ernzc-Ynpsk disease: Noted (5) Opioid dependence: Patient on Methadone 10mg po TID -Continue Methadone (6) Tobacco use disorder, continuous: Patient smokes only 1/4 ppd. Cessation encouraged -Nicotine patch F/E/N - Transfusion 1u PRBCs, monitor electrolytes, NPO Ppx - SCDs Code - Full per discussion with patient Dispo - Observation to medical with telemetry Total Time Total Time Spent Total Time Spent (In Minutes): 32 Discharge Plan Discharge Items Patient Disposition: Home - Self-Care Reason For Visit: SYMPTOMATIC ANEMIA, ?GIB Discharge Diagnosis: symptomatic anemia/ GIB Activity: Resume your previous activity Non-emergency contact: Primary Care Provider Call non-emergency contact if: you have any medication questions Follow-up/Referrals: Roger Talbert DO [Primary Care Provider] - 02/26/20 2:00 pm Adalberto Florez MD [Physician] - 02/25/20 3:20 pm Diet: Regular Addtl Attending Provider Instructions: You have been hospitalized for an acute medical problem. During your stay at [facility], we have made an effort to correct the problem that brought you to the hospital while keeping you as comfortable as possible. Medications were used to bring your condition under control and your discharge instructions will include directions for any medications you should take after leaving the hospital. Please make sure you see your Primary Care Provider as part of your follow up plan. Followup with PCP in 1-2 weeks Pending Studies at Discharge: No Stand-Alone Forms: My [facility], Smoking Cessation Medications and DC Order Prescriptions: New nystatin 100,000 unit/mL Suspension 5 ml PO QID Qty: 200 RF: 0 pantoprazole 40 mg tablet,delayed release (DR/EC) 40 mg PO BID 14 Days Qty: 28 RF: 0 Continued gabapentin [Neurontin] 600 mg tablet 1,200 mg PO TID Qty: 540 RF: 1 fluticasone propionate [Flonase Allergy Relief] 50 mcg/actuation spray,suspension 1 spray INTRANASAL BID PRN (Reason: Allergy Symptoms) Qty: 16 RF: 5 fluticasone propion-salmeterol [Advair Diskus] 250-50 mcg/dose blister with device 1 inh inhalation BID Qty: 60 RF: 5 methadone [Dolophine] 10 mg tablet 10 mg PO Q8H 30 Days Qty: 90 RF: 0 lisinopril-hydrochlorothiazide 10-12.5 mg Tablet 1 tab PO DAILY RF: 0 albuterol sulfate [Ventolin HFA] 90 mcg/actuation HFA aerosol inhaler 1 - 2 puff INHALATION QID PRN (Reason: Shortness Of Breath Or Wheezing) RF: 0 diclofenac sodium 1 % gel 2 gm TOPICAL QID PRN (Reason: Joint Pain) RF: 0 hydroxyzine HCl 50 mg tablet 50 mg PO Q6H PRN (Reason: Anxiety) RF: 0 No Action fluconazole 200 mg tablet See Rx Instructions PO DAILY Qty: 15 RF: 0 prednisone 20 mg tablet 20 mg PO DAILY Qty: 40 RF: 0 Discharge Orders: Discharge Order (Routine); Ordered 02/23/20 Ordered By: Augusto Newman Admission Data Admit Date/Time: 02/22/20 05:30 Attending Provider: Augusto Newman Admit Provider: Kinga Suazo Primary Care Provider: Roger Talbert Other Providers: Kinga Suazo ; Adalberto Florez Other Interventions: Discharge Summary Assessment (RN) Last Done: 02/23/20 10:36 Coding Level of Care Code 43047 OBS Care - Discharge Diagnoses Symptomatic anemia D64.9 Sore throat J02.9 Hypertension I10 Hypertension type: essential hypertension Vqfmo-Exzch-Igqkk disease I78.0 Opioid dependence F11.21 Substance use status: in remission Tobacco use disorder, continuous F17.209
--- NOTE | 2020-02-23 11:35 | Gastroenterology Progress Note ---
Date of Service February 23, 2020 Assessment & Plan (1) Cpjxp-Bzvgz-Iimox disease: Post procedure day #1 from EGD for active GI bleeding by Dr. Florez. 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 Florez yesterday. He is stable w/o further evidence of GI bleeding. Recommendations: May change to BID PPI such as Pantoprazole 40mg po BID No GI contraindication to discharge. Continue OP GI f/u with with [facility] in 1-2 months. Soft diet. Present on Admission?: Yes Admission and Anticipated Discharge Date Admission Date: February 22, 2020 Supervising Physician Co-Signing Physician Notes I have discussed the patient's management with the advanced practitioner. P cecille refer to the nurse practitioner's note for the documented findings and plan of care. Subjective Mr. Sean Bruno is a 59 yr old male with hx Opuxe-Ibodl-Hdvui syndrome with previous AVMs in GI tract treated via EGD, HTN, HCV, Admitted for melena and symptomatic anemia Hb 7.3 from 12 about two weeks ago. EGD by Dr. Florez on 02/22/20 with APC to multiple gastric and duodenal AVMs, also with candidiasis. Today: Hb 8.8, stable. Feels well. Eating well. No BMs since prior to EGD. Pt requesting DC. Review of Systems Review of Systems: ROS: Gen: Denies weakness, fevers, weight loss Eyes: No eye redness, or pain, no recent vision changes Resp: No SOB, no cough Cardio: No palpitations/irregular beats, no chest pain GI: No abdominal pain, no nausea/vomiting. No melena since prior to EGD : Denies pain on urination Skin: No jaundice, itching or new rashes Physical Exam Constitutional: WD/WN, vitals as above Eyes: PERRL, conjunctivae normal, anicteric sclerae ENMT: external ear and nose normal, oropharynx normal Neck: trachea midline, no thyromegaly Respiratory: normal respiratory effort, lungs clear to auscultation Cardiovascular: RRR, no murmur, no edema Gastrointestinal (Abdomen): normal bowel sounds, soft, nontender, no hepatosplenomegaly Musculoskeletal: no cyanosis or clubbing, extremities motor strength 5/5 Skin: no rashes, warm and dry multiple telangiectasias Neurologic: PERRL, EOMI, accommodation nl, no face palsy, no dysarthria Psychiatric: A+Ox3, euthymic affect Lymphatic: no cervical or axillary lymphadenopathy Results & Data ([facility]) Vital Signs (Past 12 Hours) Vital Signs Temp Pulse Pulse Resp BP BP Pulse Ox 02/23/20 10:36 37.2 C 67 81 17 147/66 H 94 02/23/20 02:35 37.2 C 81 17 147/66 H 94 02/22/20 23:45 160/81 H Laboratory Results WBC 9.8, Hb 8.8, Hct 29.9, Platelets 488, Na 137, K 5.0, BUN 12, Cr 0.73. Diagnostic Findings EGD 02/22/20: - Moderately severe candidiasis esophagitis. Cells for cytology obtained. - Multiple non-bleeding angioectasias in the stomach. Treated with argon plasma coagulation (APC). - Multiple recently bleeding angioectasias in the duodenum. Treated with argon plasma coagulation (APC). - Normal second portion of the duodenum.
--- NOTE | 2020-02-23 15:02 | Emergency Department Note ---
Impression & Plan Anemia due to chronic blood loss, Bahpt-Qgwbz-Guwhg disease, GIB (gastrointestinal bleeding) ED Provider Note NAME: BUTCH RINCON AGE: 59 SEX: M ARRIVES VIA: Walk-In INFORMANT: Patient, ED PROVIDER(S): Delmy Melo MD CHIEF COMPLAINT: Anemia, GI bleed PLAN: Disposition: Inpatient Condition: Fair Referral: Hospitalist MEDICAL DECISION MAKING: This patient was evaluated and appeared to be in no distress. IV access was obtained and laboratory work was drawn. The patient was placed on the laboratory monitor and noted to be in a sinus rhythm at 75 bpm. Patient stool guaiac is positive. Patient was started on IV Protonix bolus and drip. He was typed and crossed for 2 units due to hemoglobin of 7.3. He was ordered for 1 unit to be transfused. Case was discussed with Dr. Suazo of the hospitalist service who will evaluate the patient for further management and GI consultation. Triage Nursing notes reviewed. Additional history obtained from Prior medical records reviewed Vital Signs: reviewed and remarkable for hypertension Differential diagnosis:Diverticulosis, AVM, coagulopathy, colitis, inflammatory bowel disease, malignancy, Ofelia-Richards tear, esophagitis, peptic ulcer disease, variceal bleed, gastritis, epistaxis, fissure, hemorrhoids, as well as other pathologies. ER treatment provided: IV Protonix PRBC transfusion Diagnostics interpreted by me: ECG: Normal sinus rhythm at 74 bpm. Normal axis. QTC is 435. No PVC, no PAC. Normal ST segments. Cardiac Monitoring: An order for cardiac monitoring was placed and the patient is noted to be in a normal sinus rhythm at 75 bpm. Laboratory studies: Hemoglobin is noted to be 7.3, stool guaiac is positive. Consultation(s): Hospitalist HPI: 59/M arrives for evaluation of anemia. 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 Patient is scheduled for endoscopy in several days but was due to receive his prep in the mail. He contacted the on-call pattern illustrator when he did not receive the prep. He explained that he continues to have melanotic stools. His laboratory work was reviewed and it indicates that his hemoglobin has dropped to 7.3. Patient was sent to the emergency department for further management as the patient complained of weakness and shortness of breath. Patient does have history of recurrent GI bleeds. He does require frequent transfusions. ROS: See above HPI for pertinent positives & negatives. A total of 10 systems reviewed and were otherwise negative. PAST MEDICAL HISTORY:See Below PAST SURGICAL HISTORY:See Below FAMILY HISTORY:See Below SOCIAL HISTORY:Positive tobacco, lives at home with his son. HOME MEDICATIONS:See Below ALLERGIES:See Below PHYSICAL EXAMINATION: Vital signs reviewed. Noted to be hypertensive General: Chronically ill-appearing 59-year-old male, in no significant distress. HEENT: No scleral icterus, pale conjunctiva, PERRLA, neck supple. Cardiovascular: Regular rate and rhythm, no extra sounds. Pulmonary: Clear to auscultation bilaterally, normal work of breathing. Abdomen: Soft, nontender, nondistended, positive bowel sounds. Musculoskeletal: Atraumatic, no peripheral edema. Neurologic: Patient awake alert and oriented x 3 GI: Guaiac positive dark brown/black stools Skin: Warm, dry, no rash I have personally spent greater than 35 minutes of critical care time in the direct management of this patient. This includes bedside care, interpretation of diagnostic studies, and testing, discussion with consultants, patient, and family members, and other required patient management activities. This 35 minutes is in excess of all separately billable procedures. Delmy Melo MD Past Med/Surg History Medical History (Updated 02/24/20 @ 22:05 by Delmy Melo MD) Anemia HX Cervical disc disease C5-C6 Chronic back pain Dog bite of face 08/12/2019- received care at [facility]- Lip and nose sutured and pt placed on antibiotics. Fall from ladder Hepatitis C treated--no longer has Hx of bleeding disorder HAS CAUSED BLEEDING INTO STOMACH REQUIRING CAUTERIZATION-F/U DR KAN [facility]-HX BLOOD TRANSFUSIONS IN THE PAST Hypertension Osler-Rendu disease Pneumonia Scrotal mass Surgical History History of colonoscopy History of esophagogastroduodenoscopy (EGD) History of herniorrhaphy X 4 History of open reduction and internal fixation (ORIF) procedure left hand/wrist fx--hardware removed History of repair of rotator cuff RIGHT History of shoulder surgery right History of tooth extraction all teeth removed Hx of excision of testicular mass X MULTIPLE BENIGN CYSTS Family History Other No family history of adverse response to anesthesia Denies family history of Colon cancer Ovarian cancer Prostate cancer Myocardial infarction Breast cancer Social History Smoking Status: Current some day smoker Tobacco Type: Cigarettes Cigarettes Per Day: 10; Second Hand Exposure: Yes; Hx Alcohol Use: No Hx Substance Use: No Preferred Language: Yoruba Communication Ability: Effective Visual Impairment: Limited Hearing Ability: Hard of Hearing Software Test Manager Required: No Beliefs That Will Affect Care: None marital status: Current Living Situation: Family Current Living Situation Comment: lives with daughter current occupational status: employed Feels Safe at Home: Yes Dental Care, Regularly: Yes Physical Activity Frequency: Daily Seatbelt Use: never Sunscreen Use: No Assistive Devices: None Allergies Allergies Allergy/AdvReac Type Severity Reaction Status Date / Time No Known Allergies Allergy Verified 02/22/20 04:09 Home Meds Home Medications Medication Instructions Recorded Confirmed diclofenac sodium 2 gm TOPICAL QID PRN 11/23/19 02/24/20 hydroxyzine HCl 50 mg PO Q6H PRN 12/24/19 02/24/20 albuterol sulfate [Ventolin HFA] 1 - 2 puff INHALATION QID PRN 02/17/20 02/24/20 lisinopril-hydrochlorothiazide 1 tab PO DAILY 02/17/20 02/24/20 Previous Rx's Medication Instructions Recorded fluticasone propionate 50 1 spray INTRANASAL BID PRN #16 gm 08/20/19 mcg/actuation nasal spray,suspension gabapentin 600 mg tablet 1,200 mg PO TID #540 tab 09/29/19 fluticasone 250 mcg-salmeterol 50 1 inh INHALATION BID #60 ea 02/09/20 mcg/dose blistr powdr for inhalation methadone 10 mg tablet 10 mg PO Q8H 30 Days #90 tab 02/09/20 nystatin 5 ml PO QID #200 ml 02/23/20 pantoprazole 40 mg PO BID 14 Days #28 tab 02/23/20 Results & Data (ED) Laboratory Data Result diagrams: 02/23/20 05:41 02/23/20 05:41 Lab Results 02/22/20 02/22/20 02/22/20 Range/Units 03:32 03:32 03:32 WBC 10.87 H (4.8-10.8) K/uL RBC 3.71 L (4.7-6.1) M/uL Hgb 7.3 L (14.0-18.0) g/dL Hct 25.6 L (42-52) % MCV 69.0 L (80-100) fL MCH 19.7 L (25-34) pg MCHC 28.5 L (32-36) g/dL RDW Std Deviation 41.9 (36.4-46.3) fL RDW Coeff of Ady 16.6 H (11.5-14.5) % Plt Count 488 H (130-400) K/uL MPV 9.5 (7.4-10.4) fL Immature Gran % (Auto) 0.3 % Neut % (Auto) 68.4 % Lymph % (Auto) 21.3 % Steele % (Auto) 8.1 % Eos % (Auto) 1.7 % Baso % (Auto) 0.2 % Neut # (Auto) 7.44 H (1.4-6.5) K/uL Lymph # (Auto) 2.31 (1.2-3.4) K/uL Steele # (Auto) 0.88 H (0.11-0.59) K/uL Eos # (Auto) 0.19 (0-0.5) K/uL Baso # (Auto) 0.02 (0-0.2) K/uL Immature Gran # (Auto) 0.03 H (0.00-0.02) K/uL Hypochromasia Present Microcytosis Present Ovalocytes 1+ PT 10.4 (9.0-12.0) Seconds INR 1.0 (0.9-1.1) APTT 24.7 (21.0-31.0) Seconds PTT Ratio 0.9 Sodium 139 (136-145) mmol/L Potassium 3.6 (3.5-5.1) mmol/L Chloride 105 (98-107) mmol/L Carbon Dioxide 33 H (21-32) mmol/L Anion Gap 1.0 L (3-11) BUN 17 (7-18) mg/dl Creatinine 0.87 (0.6-1.4) mg/dl Est Cr Clr Drug Dosing 104.6 ml/min Est GFR ( Amer) 110.3 Est GFR (Non-Af Amer) 95.1 BUN/Creatinine Ratio 19.7 (10-20) Glucose 89 (70-99) mg/dl Calcium 8.7 (8.5-10.1) mg/dl Total Bilirubin 0.2 (0.2-1) mg/dl AST 10 L (15-37) U/L ALT 20 (12-78) U/L Alkaline Phosphatase 77 (45-117) U/L Total Protein 7.1 (6.4-8.2) gm/dl Albumin 3.5 (3.4-5.0) gm/dl Globulin 3.6 (2.5-4.0) gm/dl Albumin/Globulin Ratio 1.0 (0.9-2) Hepatitis C Ab Screen (Neg) Monoscreen (Negative) Blood Type Antibody Screen Crossmatch 02/22/20 02/22/20 02/22/20 Range/Units 03:32 03:32 03:59 WBC (4.8-10.8) K/uL RBC (4.7-6.1) M/uL Hgb (14.0-18.0) g/dL Hct (42-52) % MCV (80-100) fL MCH (25-34) pg MCHC (32-36) g/dL RDW Std Deviation (36.4-46.3) fL RDW Coeff of Ady (11.5-14.5) % Plt Count (130-400) K/uL MPV (7.4-10.4) fL Immature Gran % (Auto) % Neut % (Auto) % Lymph % (Auto) % Steele % (Auto) % Eos % (Auto) % Baso % (Auto) % Neut # (Auto) (1.4-6.5) K/uL Lymph # (Auto) (1.2-3.4) K/uL Steele # (Auto) (0.11-0.59) K/uL Eos # (Auto) (0-0.5) K/uL Baso # (Auto) (0-0.2) K/uL Immature Gran # (Auto) (0.00-0.02) K/uL Hypochromasia Microcytosis Ovalocytes PT (9.0-12.0) Seconds INR (0.9-1.1) APTT (21.0-31.0) Seconds PTT Ratio Sodium (136-145) mmol/L Potassium (3.5-5.1) mmol/L Chloride (98-107) mmol/L Carbon Dioxide (21-32) mmol/L Anion Gap (3-11) BUN (7-18) mg/dl Creatinine (0.6-1.4) mg/dl Est Cr Clr Drug Dosing ml/min Est GFR ( Amer) Est GFR (Non-Af Amer) BUN/Creatinine Ratio (10-20) Glucose (70-99) mg/dl Calcium (8.5-10.1) mg/dl Total Bilirubin (0.2-1) mg/dl AST (15-37) U/L ALT (12-78) U/L Alkaline Phosphatase (45-117) U/L Total Protein (6.4-8.2) gm/dl Albumin (3.4-5.0) gm/dl Globulin (2.5-4.0) gm/dl Albumin/Globulin Ratio (0.9-2) Hepatitis C Ab Screen Pos A (Neg) Monoscreen Negative (Negative) Blood Type B Positive Antibody Screen NEGATIVE Crossmatch See Detail Administered Medications Discontinued Medications Fluticasone/Vilanterol (Fluticasone/Vilanterol 100/25mcg 14 Puffs/Inhaler) 1 puffs INH DAILY TOSHIA Stop: 03/23/20 08:59 Last Admin: 02/23/20 07:57 Dose: 1 puffs Documented by: [id number] Admin: 02/22/20 09:58 Dose: 1 puffs Documented by: [id number] Gabapentin (Gabapentin 600 Mg Tab) 1,200 mg PO TID TOSHIA Stop: 03/23/20 08:59 Last Admin: 02/23/20 07:56 Dose: 1,200 mg Documented by: [id number] Admin: 02/22/20 20:28 Dose: 1,200 mg Documented by: [id number] Admin: 02/22/20 13:59 Dose: 1,200 mg Documented by: [id number] Admin: 02/22/20 09:58 Dose: 1,200 mg Documented by: [id number] Lisinopril/HCTZ (Lisinopril/Hctz 10/12.5mg Tab) 1 tab PO DAILY TOSHIA Stop: 03/23/20 08:59 Last Admin: 02/23/20 07:56 Dose: 1 tab Documented by: [id number] Admin: 02/22/20 10:04 Dose: Not Given Documented by: [id number] Pantoprazole Sodium (Protonix Bolus/Drip) 0 mls @ 1 mls/hr IV ONE STA Stop: 02/22/20 04:36 Last Admin: 02/22/20 05:08 Dose: Not Given Documented by: [id number] Pantoprazole Sodium 40 mg/ (Dextrose) 100 mls @ 20 mls/hr IV Q5H TOSHIA Stop: 03/23/20 04:49 Last Admin: 02/23/20 07:51 Dose: 8 mg/hr, 20 mls/hr Documented by: [id number] Infusion: 02/23/20 07:51 Dose: 0 mg/hr, 0 mls/hr Documented by: [id number] Admin: 02/23/20 02:53 Dose: 8 mg/hr, 20 mls/hr Documented by: [id number] Infusion: 02/23/20 02:37 Dose: 0 mg/hr, 0 mls/hr Documented by: [id number] Admin: 02/22/20 21:39 Dose: 8 mg/hr, 20 mls/hr Documented by: [id number] Infusion: 02/22/20 21:39 Dose: 8 mg/hr, 20 mls/hr Documented by: [id number] Admin: 02/22/20 17:24 Dose: 8 mg/hr, 20 mls/hr Documented by: [id number] Infusion: 02/22/20 17:01 Dose: 0 mg/hr, 0 mls/hr Documented by: [id number] Admin: 02/22/20 10:40 Dose: 8 mg/hr, 20 mls/hr Documented by: [id number] Infusion: 02/22/20 10:08 Dose: 8 mg/hr, 20 mls/hr Documented by: [id number] Admin: 02/22/20 05:08 Dose: 8 mg/hr, 20 mls/hr Documented by: [id number] Pantoprazole Sodium 80 mg/ (Dextrose) 120 mls @ 400 mls/hr IV NOW ONE Stop: 02/22/20 04:52 Last Infusion: 02/22/20 05:26 Dose: 0 mls/hr Documented by: [id number] Admin: 02/22/20 05:08 Dose: 400 mls/hr Documented by: [id number] Methadone HCl (Methadone Hcl 10 Mg Tab) 10 mg PO Q8 [facility] Stop: 03/07/20 06:44 Last Admin: 02/23/20 06:36 Dose: 10 mg Documented by: [id number] Admin: 02/22/20 20:38 Dose: 10 mg Documented by: [id number] Admin: 02/22/20 13:59 Dose: 10 mg Documented by: [id number] Admin: 02/22/20 07:33 Dose: 10 mg Documented by: [id number] Miscellaneous (Remove Nicoderm Patch) 1 ea N/A DAILY@[id number] [facility] Stop: 03/24/20 08:58 Last Admin: 02/23/20 07:57 Dose: 1 ea Documented by: [id number] Nicotine (Nicotine 7 Mg/24 Hr Tdsy) 7 mg TD QAM [facility] Stop: 03/23/20 08:59 Last Admin: 02/23/20 07:56 Dose: 7 mg Documented by: [id number] Admin: 02/22/20 09:59 Dose: 7 mg Documented by: [id number] Nystatin (Nystatin Susp 500,000 U/5 Ml Udc) 5 ml PO QID [facility] Stop: 03/03/20 08:59 Last Admin: 02/23/20 07:56 Dose: 5 ml Documented by: [id number] Admin: 02/22/20 20:28 Dose: 5 ml Documented by: [id number] Admin: 02/22/20 17:25 Dose: 5 ml Documented by: [id number] Admin: 02/22/20 12:45 Dose: 5 ml Documented by: [id number] Admin: 02/22/20 09:58 Dose: 5 ml Documented by: [id number] Prednisolone (Prednisolone Syrup 15 Mg/5 Ml Btl) 40 mg PO DAILY [facility] Stop: 03/23/20 19:44 Last Admin: 02/23/20 07:57 Dose: 40 mg Documented by: [id number] Admin: 02/22/20 20:27 Dose: 40 mg Documented by: [id number] Discharge Plan Visit Data Chief Complaint: Shortness of Breath/Dyspnea Stated Complaint: SOB,DROP IN HEMOGLOBIN - REF BY ED Provider: Delmy Melo Discharge Problem: Anemia due to chronic blood loss, Wqpfo-Czwpy-Jaaea disease, GIB (gastrointestinal bleeding) Patient Disposition: Admitted As Inpatient Discharge Instructions Interventions: ED Discharge Assessment Last Done: 02/22/20 06:07 Discharge Problem: GIB (gastrointestinal bleeding) Qualifiers: GI bleed type/associated pathology: melena Qualified Code(s): K92.1 - Melena
== END 2020-02-23 11:52 | disposition home or self-care (01) ==
LOC: ED 03:04 → 3N 03:04 → SUATTDRO 05:30 → 3N 06:07

== ENCOUNTER 2021-02-14 10:03 | Observation (INO) ==
--- NOTE | 2021-02-14 11:07 | XRay Report ---
XR chest 2V PA/lateral CLINICAL HISTORY: Cough. COMPARISON STUDY: Chest CT April 01, 2020 chest radiograph August 09, 2020. FINDINGS: Mild lung hyperinflation is again noted. No pneumothorax or pleural effusion. No consolidat ion. Cardiac size is stable. Old right-sided rib fractures are incidentally noted. There is no pneumo thorax or pleural effusion. The appearance of the chest is unchanged. IMPRESSION: No acute cardiopulmonary findings. No change in appearance of the chest. ACT 112: Negative or not required by law. Electronically signed by: Jeremiah Smith M.D. 02/14/2021 11:05 AM
[2021-02-14 11:39] LABS: Hematocrit (blood only) 28.7 % (42-52); Mean Corpuscular Hgb Conc 27.9 g/dL (32-36); Mean Platelet Volume 9.5 fL (7.4-10.4); Platelet Count 417 K/uL (130-400); RDW Coefficient of Variation 16.1 % (11.5-14.5); RDW Standard Deviation 39.5 fL (36.4-46.3); Red Blood Count 4.22 M/uL (4.7-6.1); White Blood Count 7.91 K/uL (4.8-10.8)
[2021-02-14 11:40] LABS: Partial Thromboplastin Time 26.6 Seconds (21.0-31.0)
[2021-02-14] MEDS ORDERED: SODIUM CHLORIDE 0.9% 250 ML IV PRN (11:58)
[2021-02-14 12:00] LABS: Basophils # (auto) 0.04 K/uL (0-0.2); Basophils % (auto) 0.5 %; Eosinophils # (auto) 0.08 K/uL (0-0.5); Hypochromasia Present; Immature Granulocytes # (auto) 0.01 K/uL (0.00-0.02); Immature Granulocytes % (auto) 0.1 %; Lymphocytes # (auto) 0.54 K/uL (1.2-3.4); Lymphocytes % (auto) 6.8 %; Microcytosis Present; Monocytes # (auto) 0.65 K/uL (0.11-0.59); Monocytes % (auto) 8.2 %; Neutrophils # (auto) 6.59 K/uL (1.4-6.5); Neutrophils % (auto) 83.4 %
--- NOTE | 2021-02-14 12:01 | Emergency Department Note ---
Impression & Plan Anemia, Jqnig-Mytqo-Aiiay disease ADMIT ED Provider Note HPI: The patient is a 60-year-old male with history of Osler Connor Rendu syndrome, who presents to the emergency department with complaint of generalized weakness. Patient states this is been ongoing for about the past 3 to 4 weeks. He states he has had worsening of his chronic back pain as well. Patient tells me that he has been assessed by multiple emergency departments as well as his primary care doctor recently, his hemoglobin has been steadily downtrending, was last at 8.7, he states that he continues to feel weak to the point where he is having some difficulty with his activities of daily living and feels very low energy. He denies any shikha blood per rectum or hematemesis. States he does get some shortness of breath with ambulation. Denies any chest pain. On arrival here to the ED the patient is hemodynamically stable, he is somewhat listless on my initial evaluation but he is alert and saturating well on room air. ROS: -General: Generalized weakness -Pulmonary: Dyspnea *10 point review systems was conducted and is otherwise negative unless stated above *Outpatient medications and allergy history reviewed PE: General: Alert, NAD HEENT: Normocephalic, atraumatic Eyes: Extraocular eye movement is intact, no scleral erythema Pulmonary: Clear to auscultation bilaterally, no wheezing Cardio: Regular rate and rhythm GI: Abdomen is soft, nontender, rectal exam does not show any evidence of gross bleeding, occult stool is negative : No suprapubic tenderness MSK: No evidence of trauma or malformation of the extremities, no edema Skin: No evidence of rash Neuro: Alert, no focal deficits Psychiatric: Cooperative manager financial services: - An order was placed for continuous cardiac monitoring - Patient was noted to be in sinus rhythm with rate of 85 EKG: Rate: 88 Rhythm: Sinus rhythm Intervals: Within normal limits ST changes: No ST elevation Time: 1105 Medical Decision Making: Patient presented to the emergency department generalized weakness, states he whitehead s been increasingly short of breath, 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 He tells me when he lived in [place] he got these about every 2 to 3 months. His hemoglobin has been downtrending steadily, he was recently evaluated as an outpatient for this and had a hemoglobin of 8.7, today it is 8.0. Despite this, his occult stool testing is negative. Patient tells me that he does have a history of gastric AVMs that have previously required cautery about 1 year ago here at this facility. Patient is hemodynamically stable here, I did order him 2 units packed red blood cells given his symptomatic anemia, he is noted to have a low MCV and may also benefit from iron therapy, he did sign consent for PRBCs at the bedside, he was transfused 2 units packed red blood cells, his COVID-19 testing was performed for his inpatient admission and this was positive. I suspect this is the source of his generalized weakness possibly in conjunction with his anemia. Troponin is negative, EKG does not show any ischemic changes. Chest x-ray does not show any evidence of any acute findings. On reassessment patient states he still feels too weak to go home, given his anemia with generalized weakness, COVID-19 positive status, I did speak with the on-call hospitalist and the patient was admitted to a telemetry bed for further management and possibly GI consultation. He was given a dose of morphine for his chronic back pain. Patient was in agreement to the above plan he was admitted in stable condition. * CRITICAL CARE TIME: ( 33 ) minutes -Management of symptomatic anemia in patient with complex medical history with hemoglobin of 8.0 requiring infusion of packed red blood cells for stabilization/symptomatic improvement, time spent at the bedside, interpretation of diagnostic studies, discussion with other physicians, arrangement of admission Diagnosis: 1. Symptomatic anemia 2. Encounter for packed red blood cell transfusion 3. COVID-19 infection 4. History of hereditary hemorrhagic telangiectasia Disposition: Admission Chino Spann DO Emergency Medicine Past Med/Surg History Medical History Anemia inhaler for this bc pt becomes very SOB AVM (arteriovenous malformation) pt unaware Cervical disc disease C5-C6 Chronic back pain Dog bite of face 08/12/2019- received care at [facility]- Lip and nose sutured and pt placed on antibiotics. Hepatitis C treated--no longer has Hx of bleeding disorder HAS CAUSED BLEEDING INTO STOMACH REQUIRING CAUTERIZATION-F/U [facility]-HX BLOOD TRANSFUSIONS IN THE PAST Hypertension Osler-Rendu disease Surgical History History of colonoscopy History of esophagogastroduodenoscopy (EGD) History of herniorrhaphy History of open reduction and internal fixation (ORIF) procedure History of repair of rotator cuff History of shoulder surgery History of tooth extraction Hx of excision of testicular mass Family History Other No family history of adverse response to anesthesia Denies family history of Colon cancer Ovarian cancer Prostate cancer Myocardial infarction Breast cancer Social History (Updated 02/10/21 @ 11:32 by TAM Jon) Smoking Status: Former smoker Tobacco Type: Cigarettes Cigarettes Per Day: 7-8 cigs per day; Second Hand Exposure: No; Hx Alcohol Use: No Hx Substance Use: No Preferred Language: Bulgarian Communication Ability: Effective Visual Impairment: Limited Hearing Ability: Hard of Hearing Commercial Cleaner Required: No Beliefs That Will Affect Care: None marital status: Current Living Situation: Family Current Living Situation Comment: lives with daughter current occupational status: employed Feels Safe at Home: Yes Childhood Exposure to Second-Hand Smoke: No Dental Care, Regularly: Yes Physical Activity Frequency: Daily Seatbelt Use: never Sunscreen Use: No Assistive Devices: Glasses Allergies Allergies Allergy/AdvReac Type Severity Reaction Status Date / Time No Known Allergies Allergy Verified 02/14/21 14:15 Home Meds Home Medications Medication Instructions Recorded Confirmed diclofenac sodium 1 % topical gel 2 gm TOPICAL QID PRN 11/23/19 02/14/21 albuterol sulfate 90 mcg/actuation 1 - 2 puff INHALATION QID PRN 02/17/20 02/14/21 aerosol inhaler (Ventolin HFA) Previous Rx's Medication Instructions Recorded fluticasone propionate 50 1 spray INTRANASAL BID PRN #16 gm 08/20/19 mcg/actuation nasal spray,suspension (Flonase Allergy Relief) Advair Diskus 250 mcg-50 mcg/dose 1 inh INHALATION BID #60 ea NS 10/28/20 powder for inhalation (fluticasone propion-salmeterol) gabapentin 600 mg tablet 1,200 mg PO TID #540 tab 12/21/20 (Neurontin) lisinopril 10 1 tab PO QAM #90 tab 12/21/20 mg-hydrochlorothiazide 12.5 mg tablet tizanidine 4 mg capsule 4 mg PO BID PRN #60 cap 02/10/21 Results & Data (ED) Vital Signs Vital Signs - 24 hr 02/14/21 10:12 02/14/21 12:02 02/14/21 12:09 Temperature 37.2 C Temperature Source Temporal Artery Scan Pulse Rate 100 H 97 H Pulse Rate [Apical] 87 Pulse Rate from SpO2 Sensor Pulse Rhythm Pulse Strength Respiratory Rate 20 24 20 Respiratory Effort / Characteristics Non-Labored Non-Labored Spontaneous Respiratory Depth Normal Normal Respiratory Pattern Regular Blood Pressure 154/88 H Blood Pressure [Left Arm] Blood Pressure [Right Arm] 168/92 H Blood Pressure Mean 110 Blood Pressure Mean [Left Arm] Blood Pressure Mean [Right Arm] 117 Blood Pressure Position Blood Pressure Position [Left Arm] Blood Pressure Position [Right Arm] Pulse Oximetry 96 95 Oxygen Delivery Method Room Air Room Air Sepsis Recent Fever Within 48 Hours No Sepsis New/Unexplained Change in Mental Status N/A Sepsis Action Taken by Nursing No Action Required 02/14/21 12:30 02/14/21 12:57 02/14/21 13:00 Temperature Temperature Source Pulse Rate 87 92 H Pulse Rate [Apical] Pulse Rate from SpO2 Sensor 84 88 Pulse Rhythm Pulse Strength Respiratory Rate 24 24 Respiratory Effort / Characteristics Respiratory Depth Respiratory Pattern Blood Pressure 162/104 H 172/80 H Blood Pressure [Left Arm] Blood Pressure [Right Arm] Blood Pressure Mean 123 110 Blood Pressure Mean [Left Arm] Blood Pressure Mean [Right Arm] Blood Pressure Position Blood Pressure Position [Left Arm] Blood Pressure Position [Right Arm] Pulse Oximetry 97 94 Oxygen Delivery Method Sepsis Recent Fever Within 48 Hours Sepsis New/Unexplained Change in Mental Status Sepsis Action Taken by Nursing 02/14/21 13:06 02/14/21 13:30 02/14/21 14:00 Temperature Temperature Source Pulse Rate 91 H 88 97 H Pulse Rate [Apical] Pulse Rate from SpO2 Sensor Pulse Rhythm Pulse Strength Respiratory Rate 24 20 24 Respiratory Effort / Characteristics Respiratory Depth Respiratory Pattern Blood Pressure 172/91 H 143/80 H Blood Pressure [Left Arm] Blood Pressure [Right Arm] Blood Pressure Mean 118 101 Blood Pressure Mean [Left Arm] Blood Pressure Mean [Right Arm] Blood Pressure Position Blood Pressure Position [Left Arm] Blood Pressure Position [Right Arm] Pulse Oximetry Oxygen Delivery Method Sepsis Recent Fever Within 48 Hours Sepsis New/Unexplained Change in Mental Status Sepsis Action Taken by Nursing 02/14/21 14:30 02/14/21 14:45 02/14/21 14:50 Temperature 37.2 C Temperature Source Oral Pulse Rate 85 80 Pulse Rate [Apical] 88 Pulse Rate from SpO2 Sensor Pulse Rhythm Regular Pulse Strength Normal Respiratory Rate 20 22 22 Respiratory Effort / Characteristics Respiratory Depth Respiratory Pattern Blood Pressure 168/96 H 145/88 H Blood Pressure [Left Arm] Blood Pressure [Right Arm] 158/89 H Blood Pressure Mean 120 107 Blood Pressure Mean [Left Arm] Blood Pressure Mean [Right Arm] 112 Blood Pressure Position Sitting Blood Pressure Position [Left Arm] Blood Pressure Position [Right Arm] Pulse Oximetry 95 97 96 Oxygen Delivery Method Room Air Sepsis Recent Fever Within 48 Hours Sepsis New/Unexplained Change in Mental Status Sepsis Action Taken by Nursing 02/14/21 15:05 02/14/21 15:20 02/14/21 15:27 Temperature 37.3 C 37 C 36.9 C Temperature Source Oral Oral Oral Pulse Rate 88 82 82 Pulse Rate [Apical] 82 Pulse Rate from SpO2 Sensor Pulse Rhythm Pulse Strength Respiratory Rate 19 19 19 Respiratory Effort / Characteristics Respiratory Depth Respiratory Pattern Blood Pressure 163/87 H 111/72 179/101 H Blood Pressure [Left Arm] 111/72 Blood Pressure [Right Arm] Blood Pressure Mean 112 85 127 Blood Pressure Mean [Left Arm] 85 Blood Pressure Mean [Right Arm] Blood Pressure Position Sitting Semi-fowlers Blood Pressure Position [Left Arm] Blood Pressure Position [Right Arm] Semi-fowlers Pulse Oximetry 97 97 96 Oxygen Delivery Method Room Air Sepsis Recent Fever Within 48 Hours Sepsis New/Unexplained Change in Mental Status Sepsis Action Taken by Nursing 02/14/21 15:35 02/14/21 15:50 Temperature 37.3 C 37.1 C Temperature Source Oral Oral Pulse Rate 85 Pulse Rate [Apical] 86 Pulse Rate from SpO2 Sensor Pulse Rhythm Pulse Strength Respiratory Rate 18 19 Respiratory Effort / Characteristics Respiratory Depth Respiratory Pattern Blood Pressure 159/102 H Blood Pressure [Left Arm] 163/87 H Blood Pressure [Right Arm] Blood Pressure Mean 121 Blood Pressure Mean [Left Arm] 112 Blood Pressure Mean [Right Arm] Blood Pressure Position Blood Pressure Position [Left Arm] Sitting Blood Pressure Position [Right Arm] Pulse Oximetry 97 96 Oxygen Delivery Method Sepsis Recent Fever Within 48 Hours Sepsis New/Unexplained Change in Mental Status Sepsis Action Taken by Nursing Laboratory Data Result diagrams: 02/14/21 11:10 02/14/21 11:10 Lab Results 02/14/21 02/14/21 02/14/21 Range/Units 11:10 11:10 11:10 WBC 7.91 (4.8-10.8) K/uL RBC 4.22 L (4.7-6.1) M/uL Hgb 8.0 L (14.0-18.0) g/dL Hct 28.7 L (42-52) % MCV 68.0 L (80-100) fL MCH 19.0 L (25-34) pg MCHC 27.9 L (32-36) g/dL RDW Std Deviation 39.5 (36.4-46.3) fL RDW Coeff of Ady 16.1 H (11.5-14.5) % Plt Count 417 H (130-400) K/uL MPV 9.5 (7.4-10.4) fL Immature Gran % (Auto) 0.1 % Neut % (Auto) 83.4 % Lymph % (Auto) 6.8 % Gooding % (Auto) 8.2 % Eos % (Auto) 1.0 % Baso % (Auto) 0.5 % Neut # (Auto) 6.59 H (1.4-6.5) K/uL Lymph # (Auto) 0.54 L (1.2-3.4) K/uL Gooding # (Auto) 0.65 H (0.11-0.59) K/uL Eos # (Auto) 0.08 (0-0.5) K/uL Baso # (Auto) 0.04 (0-0.2) K/uL Immature Gran # (Auto) 0.01 (0.00-0.02) K/uL Hypochromasia Present Microcytosis Present PT 10.0 (9.0-12.0) Seconds INR 1.0 (0.9-1.1) APTT 26.6 (21.0-31.0) Seconds PTT Ratio 1.0 Sodium 134 L (136-145) mmol/L Potassium 3.8 (3.5-5.1) mmol/L Chloride 104 (98-107) mmol/L Carbon Dioxide 28 (21-32) mmol/L Anion Gap 2.0 L (3-11) BUN 6 L (7-18) mg/dl Creatinine 0.77 (0.6-1.4) mg/dl Est Cr Clr Drug Dosing Not Reportable Est GFR ( Amer) 115.1 ml/min Est GFR (Non-Af Amer) 99.3 ml/min BUN/Creatinine Ratio 7.4 L (10-20) Glucose 95 (70-99) mg/dl Calcium 8.9 (8.5-10.1) mg/dl Total Bilirubin 0.5 (0.2-1) mg/dl AST 7 L (15-37) U/L ALT 14 (12-78) Alkaline Phosphatase 98 (45-117) U/L Troponin I (0-0.045) ng/ml Total Protein 7.3 (6.4-8.2) gm/dl Albumin 3.6 (3.4-5.0) gm/dl Globulin 3.7 (2.5-4.0) gm/dl Albumin/Globulin Ratio 1.0 (0.9-2) SARS-CoV-2 (PCR) (Negative) Influenza Type A (PCR) (Neg) Influenza Type B (PCR) (Neg) RSV (RT-PCR) (Neg) Blood Type Antibody Screen Crossmatch 02/14/21 02/14/21 02/14/21 Range/Units 11:10 11:54 12:00 WBC (4.8-10.8) K/uL RBC (4.7-6.1) M/uL Hgb (14.0-18.0) g/dL Hct (42-52) % MCV (80-100) fL MCH (25-34) pg MCHC (32-36) g/dL RDW Std Deviation (36.4-46.3) fL RDW Coeff of Ady (11.5-14.5) % Plt Count (130-400) K/uL MPV (7.4-10.4) fL Immature Gran % (Auto) % Neut % (Auto) % Lymph % (Auto) % Gooding % (Auto) % Eos % (Auto) % Baso % (Auto) % Neut # (Auto) (1.4-6.5) K/uL Lymph # (Auto) (1.2-3.4) K/uL Gooding # (Auto) (0.11-0.59) K/uL Eos # (Auto) (0-0.5) K/uL Baso # (Auto) (0-0.2) K/uL Immature Gran # (Auto) (0.00-0.02) K/uL Hypochromasia Microcytosis PT (9.0-12.0) Seconds INR (0.9-1.1) APTT (21.0-31.0) Seconds PTT Ratio Sodium (136-145) mmol/L Potassium (3.5-5.1) mmol/L Chloride (98-107) mmol/L Carbon Dioxide (21-32) mmol/L Anion Gap (3-11) BUN (7-18) mg/dl Creatinine (0.6-1.4) mg/dl Est Cr Clr Drug Dosing Est GFR ( Amer) ml/min Est GFR (Non-Af Amer) ml/min BUN/Creatinine Ratio (10-20) Glucose (70-99) mg/dl Calcium (8.5-10.1) mg/dl Total Bilirubin (0.2-1) mg/dl AST (15-37) U/L ALT (12-78) Alkaline Phosphatase (45-117) U/L Troponin I < 0.015 (0-0.045) ng/ml Total Protein (6.4-8.2) gm/dl Albumin (3.4-5.0) gm/dl Globulin (2.5-4.0) gm/dl Albumin/Globulin Ratio (0.9-2) SARS-CoV-2 (PCR) POSITIVE A* (Negative) Influenza Type A (PCR) Negative (Neg) Influenza Type B (PCR) Negative (Neg) RSV (RT-PCR) Negative (Neg) Blood Type B Positive Antibody Screen NEGATIVE Crossmatch See Detail Administered Medications Discontinued Medications Acetaminophen (Acetaminophen 1000 Mg/100 Ml Iv) 1,000 mg IV ONCE ONE Stop: 02/14/21 12:46 Last Admin: 02/14/21 13:04 Dose: 1,000 mg Documented by: [id number] Morphine Sulfate (Morphine Sulfate 4 Mg/Ml 1 Ml Carp\Vial) Confirm Administered Dose 4 mg .ROUTE .STK-MED ONE Stop: 02/14/21 16:03 Last Admin: 02/14/21 16:06 Dose: 4 mg Documented by: [id number] Morphine Sulfate (Morphine Sulfate 4 Mg/Ml 1 Ml Carp\Vial) 4 mg IV NOW STA Stop: 02/14/21 16:04 Last Admin: 02/14/21 16:07 Dose: Not Given Documented by: [id number] Morphine Sulfate (Morphine Sulfate 2 Mg/Ml Carp) 2 mg IV NOW STA Stop: 02/14/21 19:55 Last Admin: 02/14/21 20:14 Dose: 2 mg Documented by: [id number] Imaging Data Radiologist's Impression: Chest X-Ray 02/14/21 10:17 XR chest 2V PA/lateral CLINICAL HISTORY: Cough. COMPARISON STUDY: Chest CT April 01, 2020 chest radiograph August 09, 2020. FINDINGS: Mild lung hyperinflation is again noted. No pneumothorax or pleural effusion. No consolidation. Cardiac size is stable. Old right-sided rib fractures are incidentally noted. There is no pneumothorax or pleural effusion. The appearance of the chest is unchanged. IMPRESSION: No acute cardiopulmonary findings. No change in appearance of the chest. ACT 112: Negative or not required by law. Electronically signed by: Jeremiah Smith M.D. 02/14/2021 11:05 AM Discharge Plan Visit Data Chief Complaint: Cough Stated Complaint: covid + ED Provider: Chino Spann Discharge Problem: Anemia, Waqkm-Egffe-Zpjhf disease Patient Disposition: Admitted As Inpatient Discharge Instructions Interventions: ED Discharge Assessment Last Done: 02/14/21 18:22 Discharge Problem: Anemia Qualifiers: Anemia type: unspecified type Qualified Code(s): D64.9 - Anemia, unspecified
[2021-02-14 12:13] LABS: Alanine Aminotransferase 14 (12-78); Albumin Level 3.6 gm/dl (3.4-5.0); Aspartate Aminotransferase 7 U/L (15-37); BUN Creatinine Ratio 7.4 (10-20); Blood Urea Nitrogen 6 mg/dl (7-18); Calcium 8.9 mg/dl (8.5-10.1); Carbon Dioxide 28 mmol/L (21-32); Chloride 104 mmol/L (98-107); Est GFR (African American) 115.1 ml/min; Est GFR (Non-African American) 99.3 ml/min; Glucose 95 mg/dl (70-99); Potassium 3.8 mmol/L (3.5-5.1); Sodium 134 mmol/L (136-145)
[2021-02-14 12:15] LABS: Alkaline Phosphatase 98 U/L (45-117); Bilirubin,Total 0.5 mg/dl (0.2-1); Globulin 3.7 gm/dl (2.5-4.0); Total Protein 7.3 gm/dl (6.4-8.2)
[2021-02-14] MEDS ORDERED: ACETAMINOPHEN 1000 MG/100 ML IV IV ONE (12:45)
[2021-02-14 13:13] LABS: Influenza A virus by PCR Negative (Neg); Influenza B virus by PCR Negative (Neg); RSV by PCR Negative (Neg)
[2021-02-14 13:16] LABS: SARS CoV2 RNA(COVID-19) InHosp POSITIVE (Negative)
--- NOTE | 2021-02-14 14:16 | Electrocardiogram Report ---
Test Reason : Blood Pressure : / mmHG Vent. Rate : 088 BPM Atrial Rate : 088 BPM P-R Int : 128 ms QRS Dur : 088 ms QT Int : 376 ms P-R-T Axes : 067 055 062 degrees QTc Int : 454 ms Poor data quality, interpretation may be adversely affected Sinus rhythm with Premature atrial complexes Otherwise normal ECG When compared with ECG of 10-AUG-2020 06:26, Premature atrial complexes are now Present Confirmed by Brenton Ospina ([id number]) on 02/14/2021 2:16:05 PM Referred By: Confirmed By:Brenton Ospina
[2021-02-14] MEDS ORDERED: PANTOprazole 40 MG in SYRINGE 0 ML IV ONE (15:52)
[2021-02-14] MEDS ORDERED: MoRPHine SULFATE 4 MG/ML 1 ML CARP\\VIAL ONE (16:02)
[2021-02-14] MEDS ORDERED: MoRPHine SULFATE 4 MG/ML 1 ML CARP\\VIAL IV STA (16:03)
--- NOTE | 2021-02-14 16:06 | History & Physical Report ---
Date of Service February 14, 2021 Assessment & Plan (1) Symptomatic anemia: Plan: Aim hemoglobin >9. Transfuse 2 units then recheck H&H Start pantoprazole 40mg IV BID, patient reports taking omeprazole as outpatient but generally confused about his medications. Recommend prescribing on discharge given lack of alternative bleeding sites. Suspect his symptoms related to anemia rather than COVID-19 below given history however difficult to distinguish between the two. 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 (5) Chronic back pain: Plan: Continue his usual gabapentin Prior opiate dependance, patient requesting morphine as worse than usual but given history will prescribe tramadol alone at this time. Plan: VTE Prophylaxis - chemical prophylaxis contraindicated, SCDs Diet - clear liquid, can advance tomorrow if hemoglobin stable Disposition - observation status to med/tele Admission and Anticipated Discharge Date Admission Date: January 14, 2021 History of Present Illness Chief Complaint: Generalized fatigue Primary Care Provider: Roger Talbert DO Sean Bruno is a 60 year old male with Jepxh-Wswdt-Cvbsy syndrome and history of blood and Venofer transfusions who presents to the ER sent by his PCP Dr Talbert for a blood transfusion. Although he also had a cough, nasal congestion and sore throat since Sunday and his daughter is known COVID-19 positive. He reports previously having COVID-19 14 months ago. He denies any known acute bleeding but reports in the past it has been gastrointestinally and from his skin rather than epistaxis. He was having iron and blood transfusions while living in [place] but has not followed up with hematology here. Current hemoglobin 8.0 from 8.7; 7 days earlier. He reports symptoms of shortness of breath, generalized fatigue that proceed his COVID-19 symptoms. He denies any melena, bright red blood in stool or epistaxis. He reports taking omeprazole at home although this is not on his medication list. In the ER he was started on blood transfusion prior to iron levels taken however ferritin and iron levels have chronically historically been low. Last B12 level in 2019 elevated. No folate level previously taken. He tested positive for SARS-COV-2 in the ER with positive exposure. CXR was unremarkable for acute etiology. Allergies Allergy/AdvReac Type Severity Reaction Status Date / Time No Known Allergies Allergy Verified 02/14/21 14:15 Home Medications Medication Instructions Recorded Confirmed Type fluticasone propionate 50 1 spray INTRANASAL BID PRN #16 gm 08/20/19 02/14/21 Rx mcg/actuation nasal spray,suspension (Flonase Allergy Relief) diclofenac sodium 1 % topical gel 2 gm TOPICAL QID PRN 11/23/19 02/14/21 History albuterol sulfate 90 mcg/actuation 1 - 2 puff INHALATION QID PRN 02/17/20 02/14/21 History aerosol inhaler (Ventolin HFA) Advair Diskus 250 mcg-50 mcg/dose 1 inh INHALATION BID #60 ea NS 10/28/20 02/14/21 Rx powder for inhalation (fluticasone propion-salmeterol) gabapentin 600 mg tablet 1,200 mg PO TID #540 tab 12/21/20 02/14/21 Rx (Neurontin) lisinopril 10 1 tab PO QAM #90 tab 12/21/20 02/14/21 Rx mg-hydrochlorothiazide 12.5 mg tablet tizanidine 4 mg capsule 4 mg PO BID PRN #60 cap 02/10/21 02/14/21 Rx Past Med/Surg History Medical History Anemia inhaler for this bc pt becomes very SOB AVM (arteriovenous malformation) pt unaware Cervical disc disease C5-C6 Chronic back pain Dog bite of face 08/12/2019- received care at [facility]- Lip and nose sutured and pt placed on antibiotics. Hepatitis C treated--no longer has Hx of bleeding disorder HAS CAUSED BLEEDING INTO STOMACH REQUIRING CAUTERIZATION-F/U DR KAN Mario [place]-HX BLOOD TRANSFUSIONS IN THE PAST Hypertension Osler-Rendu disease Surgical History History of colonoscopy History of esophagogastroduodenoscopy (EGD) History of herniorrhaphy History of open reduction and internal fixation (ORIF) procedure History of repair of rotator cuff History of shoulder surgery History of tooth extraction Hx of excision of testicular mass Family History Other No family history of adverse response to anesthesia Denies family history of Colon cancer Ovarian cancer Prostate cancer Myocardial infarction Breast cancer Social History (Updated 02/10/21 @ 11:32 by TAM Jon) Smoking Status: Former smoker Tobacco Type: Cigarettes Cigarettes Per Day: 7-8 cigs per day; Second Hand Exposure: No; Do You Dip or Chew Tobacco: No; Hx Alcohol Use: No Hx Substance Use: No Preferred Language: Nepali Communication Ability: Effective Visual Impairment: Limited Hearing Ability: Hard of Hearing 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 Beliefs That Will Affect Care: None marital status: Current Living Situation: Family Current Living Situation Comment: lives with daughter current occupational status: employed Other Information That Helps Us Care for You: No Feels Safe at Home: Yes Safety Concerns: Feels Safe At This Time Childhood Exposure to Second-Hand Smoke: No Dental Care, Regularly: Yes Physical Activity Frequency: Daily Seatbelt Use: never Sunscreen Use: No Assistive Devices: None Review of Systems Review of Systems: All systems reviewed & are unremarkable except as noted in HPI & below Physical Exam Constitutional: WD/WN, vitals as above Eyes: + anicteric sclerae; normal pupil size ENMT: external ear and nose normal, oropharynx normal Neck: trachea midline, no thyromegaly Respiratory: normal respiratory effort, lungs clear to auscultation Cardiovascular: RRR, no murmur, no edema Gastrointestinal (Abdomen): Inspection/Auscultation: normal bowel sounds Percussion/Palpation: + abdomen tender (mild generalized (pt reports this is normal when he is anemic)) and abdomen soft; no guarding and abdomen not rigid Musculoskeletal: no cyanosis or clubbing, extremities motor strength 5/5 Skin: no rashes, warm and dry Neurologic: moves all extremities and awake; not confused Psychiatric: A+Ox3, euthymic affect Results & Data Results & Data ([facility]) Vital Signs (Past 12 Hours) Vital Signs Temp Pulse Pulse Resp BP BP BP 02/14/21 15:50 37.1 C 85 19 159/102 H 02/14/21 15:35 37.3 C 86 18 163/87 H 02/14/21 15:20 37 C 82 82 19 111/72 111/72 02/14/21 15:05 37.3 C 88 19 163/87 H 02/14/21 14:50 88 22 158/89 H 02/14/21 14:45 37.2 C 80 22 145/88 H 02/14/21 14:30 85 20 168/96 H 02/14/21 14:00 97 H 24 143/80 H 02/14/21 13:30 88 20 172/91 H 02/14/21 13:06 91 H 24 02/14/21 13:00 172/80 H 02/14/21 12:57 92 H 24 02/14/21 12:30 87 24 162/104 H 02/14/21 12:09 87 20 168/92 H 02/14/21 12:02 97 H 24 02/14/21 10:12 37.2 C 100 H 20 154/88 H Pulse Ox 02/14/21 15:50 96 02/14/21 15:35 97 02/14/21 15:20 97 02/14/21 15:05 97 02/14/21 14:50 96 02/14/21 14:45 97 02/14/21 14:30 95 02/14/21 14:00 02/14/21 13:30 02/14/21 13:06 02/14/21 13:00 02/14/21 12:57 94 02/14/21 12:30 97 02/14/21 12:09 95 02/14/21 12:02 02/14/21 10:12 96 Laboratory Results Abnormal lab results 02/14/21 02/14/21 02/14/21 Range/Units 11:10 11:10 11:54 RBC 4.22 L (4.7-6.1) M/uL Hgb 8.0 L (14.0-18.0) g/dL Hct 28.7 L (42-52) % MCV 68.0 L (80-100) fL MCH 19.0 L (25-34) pg MCHC 27.9 L (32-36) g/dL RDW Coeff of Ady 16.1 H (11.5-14.5) % Plt Count 417 H (130-400) K/uL Neut # (Auto) 6.59 H (1.4-6.5) K/uL Lymph # (Auto) 0.54 L (1.2-3.4) K/uL Beltrami # (Auto) 0.65 H (0.11-0.59) K/uL Sodium 134 L (136-145) mmol/L Anion Gap 2.0 L (3-11) BUN 6 L (7-18) mg/dl BUN/Creatinine Ratio 7.4 L (10-20) AST 7 L (15-37) U/L SARS-CoV-2 (PCR) (Negative) Crossmatch See Detail 02/14/21 Range/Units 12:00 RBC (4.7-6.1) M/uL Hgb (14.0-18.0) g/dL Hct (42-52) % MCV (80-100) fL MCH (25-34) pg MCHC (32-36) g/dL RDW Coeff of Ady (11.5-14.5) % Plt Count (130-400) K/uL Neut # (Auto) (1.4-6.5) K/uL Lymph # (Auto) (1.2-3.4) K/uL Bel[place]ami # (Auto) (0.11-0.59) K/uL Sodium (136-145) mmol/L Anion Gap (3-11) BUN (7-18) mg/dl BUN/Creatinine Ratio (10-20) AST (15-37) U/L SARS-CoV-2 (PCR) POSITIVE A* (Negative) Crossmatch Diagnostic Findings XR chest 2V PA/lateral CLINICAL HISTORY: Cough. COMPARISON STUDY: Chest CT April 01, 2020 chest radiograph August 09, 2020. FINDINGS: Mild lung hyperinflation is again noted. No pneumothorax or pleural effusion. No consolidation. Cardiac size is stable. Old right-sided rib fractures are incidentally noted. There is no pneumothorax or pleural effusion. The appearance of the chest is unchanged. IMPRESSION: No acute cardiopulmonary findings. No change in appearance of the chest. Medications Administered ER Medications Given: Acetaminophen 1000mg IV Pantoprazole 40mg IV Morphine 4mg IV ECG Indication: SOB/dyspnea Rate (beats per minute): 88 Rhythm: normal sinus Findings: + PAC Comparison ECG Date: from (August 10, 2020) Change: the following changes noted (PACs now present) Code Status & VTE Plan Code Status Full VTE Prophylaxis Plan VTE Prophylaxis will be ordered: Yes Reason for no VTE drug order: Contraindicated PG Care Time/CCT Total # of Minutes Spent Total Time Spent with Patient: Total time spent is greater than 50% in coordination of care (as documented) at patient's floor/unit and/or counseling patient: Coding Level of Care Code INT OBSERVATION CARE 70M LVL 3 Diagnoses Qfbfk-Fnqgb-Dubjg disease I78.0 Symptomatic anemia D64.9 SARS-CoV-2 positive U07.1 Hypertension I10 Hypertension type: essential hypertension Chronic back pain M54.9; G89.29 (1) Hypertension Hypertension type: essential hypertension Qualified Code(s): I10 - Essential (primary) hypertension
[2021-02-14] MEDS ORDERED: tiZANidine HCL 4 MG TABLET PO PRN (18:57)
[2021-02-14] MEDS ORDERED: POLYETHYLENE (MIRALAX) 17 GM PACK PO PRN (18:57)
[2021-02-14] MEDS ORDERED: ACETAMINOPHEN 325 MG TAB PO PRN (18:57)
[2021-02-14] MEDS ORDERED: ONDANSETRON INJ 2 MG/ML 2 ML VIAL IV PRN (18:57)
[2021-02-14] MEDS ORDERED: MoRPHine SULFATE 2 MG/ML CARP IV STA (19:54)
[2021-02-14] MEDS ORDERED: FLUTICASONE/VILANTEROL 200/25MCG 14 PUFFS/INHALER INH SCH (21:00)
[2021-02-14] MEDS: GABAPENTIN 600 MG TAB PO SCH (22:03)
[2021-02-14] MEDS: PANTOprazole 40 MG in SYRINGE 0 ML IV SCH (22:04)
[2021-02-14 22:36] LABS: Hemoglobin 9.5 g/dL (14.0-18.0)
[2021-02-15] MEDS: DICLOFENAC SOD 1% GEL 100 GM TUBE EXT PRN ×2 (00:51→10:45)
[2021-02-15] MEDS: traMADol HCL 50 MG TABLET PO PRN ×3 (00:57→10:43)
[2021-02-15 06:29] LABS: Basophils # (auto) 0.04 K/uL (0-0.2); Basophils % (auto) 0.5 %; Eosinophils # (auto) 0.02 K/uL (0-0.5); Eosinophils % (auto) 0.3 %; Hematocrit (blood only) 32.9 % (42-52); Hemoglobin 9.7 g/dL (14.0-18.0); Immature Granulocytes # (auto) 0.01 K/uL (0.00-0.02); Immature Granulocytes % (auto) 0.1 %; Lymphocytes # (auto) 0.73 K/uL (1.2-3.4); Lymphocytes % (auto) 9.9 %; Mean Corpuscular Hemoglobin 20.7 pg (25-34); Mean Corpuscular Hgb Conc 29.5 g/dL (32-36); Mean Corpuscular Volume 70.3 fL (80-100); Mean Platelet Volume 9.5 fL (7.4-10.4); Monocytes # (auto) 0.79 K/uL (0.11-0.59); Monocytes % (auto) 10.7 %; Neutrophils # (auto) 5.82 K/uL (1.4-6.5); Neutrophils % (auto) 78.5 %; Platelet Count 350 K/uL (130-400); RDW Coefficient of Variation 18.6 % (11.5-14.5); RDW Standard Deviation 46.9 fL (36.4-46.3); Red Blood Count 4.68 M/uL (4.7-6.1); White Blood Count 7.41 K/uL (4.8-10.8)
[2021-02-15 06:59] LABS: BUN Creatinine Ratio 12.3 (10-20); Calcium 8.9 mg/dl (8.5-10.1); Creatinine Clr Calc Pharmacy 109.6 ml/min; Est GFR (African American) 112.2 ml/min; Est GFR (Non-African American) 96.8 ml/min; Hypochromasia Present; Microcytosis Present; Ovalocytes 1+; Potassium 3.7 mmol/L (3.5-5.1)
[2021-02-15] MEDS: PANTOprazole 40 MG in SYRINGE 0 ML IV SCH (09:06)
[2021-02-15] MEDS: GABAPENTIN 600 MG TAB PO SCH ×2 (09:07→14:53)
[2021-02-15] MEDS ORDERED: dexAMETHasone 1 MG TAB PO ONE (15:55)
--- NOTE | 2021-02-15 16:24 | Discharge Summary ---
Date of Service February 15, 2021 Admission HPI Per Admitting Provider Sean Bruno is a 60 year old male with Zyhbv-Uudnj-Ddfic syndrome and history of blood and Venofer transfusions who presents to the ER sent by his PCP Dr Talbert for a blood transfusion. Although he also had a cough, nasal congestion and sore throat since Sunday and his daughter is known COVID-19 positive. He reports previously having COVID-19 14 months ago. He denies any known acute bleeding but reports in the past it has been gastrointestinally and from his skin rather than epistaxis. He was having iron and blood transfusions while living in [place] but has not followed up with hematology here. Current hem oglobin 8.0 from 8.7; 7 days earlier. He reports symptoms of shortness of breath, generalized fatigue that proceed his COVID-19 symptoms. He denies any melena, bright red blood in stool or epistaxis. He reports taking omeprazole at home although this is not on his medication list. In the ER he was started on blood transfusion prior to iron levels taken however ferritin and iron levels have chronically historically been low. Last B12 level in 2018 elevated. No folate level previously taken. He tested positive for SARS-COV-2 in the ER with positive exposure. CXR was unremarkable for acute etiology. Discharge Data Allergies Allergy/AdvReac Type Severity Reaction Status Date / Time No Known Allergies Allergy Verified 02/14/21 14:15 Consultations 02/14/21 15:44 ED Decision to Admit Stat Hospital Course (1) Symptomatic anemia: Aim hemoglobin >9. Transfuse 2 units then recheck H&H Start pantoprazole 40mg IV BID, patient reports taking omeprazole as outpatient but generally confused about his medications. Recommend prescribing on discharge given lack of alternative bleeding sites. Suspect his symptoms related to anemia rather than COVID-19 below given history however difficult to distinguish between the two. 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 (5) Chronic back pain: Continue his usual gabapentin Prior opiate dependance, patient requesting morphine as worse than usual but given history will prescribe tramadol alone at this time. VTE Prophylaxis - chemical prophylaxis contraindicated, SCDs Diet - clear liquid, can advance tomorrow if hemoglobin stable Disposition - observation status to med/tele Discharge Plan Discharge Items Patient Disposition: Home - Self-Care Reason For Visit: SYMPTOMATIC ANEMIA Discharge Diagnosis: Symptomatic anemia, COVID-19 Condition on Discharge: Fair Activity: Resume your previous activity Non-emergency contact: Primary Care Provider Call non-emergency contact if: you have any medication questions and your symptoms worsen Follow-up/Referrals: Roger Talbert, DO [Primary Care Provider] - (Follow up within 1-2 weeks.) Diet: Regular Addtl Attending Provider Instructions: You were admitted and transfused blood for your anemia. Your hemoglobin was up to 9.7 on the day of discharge. You were also found to have COVID-19 but had mild symptoms of fever and occasionally mildly low pulse ox reading. Please take Tylenol (acetaminophen) as needed for fevers, and take a steroid pill called dexamethasone 6 mg once daily for the next 10 days. For your muscular back pain, please continue using the Voltaren gel on your back and you will be given a small dose of tramadol for a few days for pain. If you develop worsening shortness of breath, chest pain, leg swelling or pain, or oxygen levels below 88%, please return to the ER right away. 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 Pending Studies at Discharge: No Stand-Alone Forms: My [facility] [employer], Smoking Cessation Medications and DC Order Prescriptions: New tramadol 50 mg Tablet 50 mg PO Q6 PRN (Reason: pain) Qty: 15 RF: 0 dexamethasone 6 mg tablet 6 mg PO DAILY Qty: 9 RF: 0 omeprazole 20 mg capsule,delayed release(DR/EC) 20 mg PO BID Qty: 60 RF: 0 ferrous sulfate 325 mg (65 mg iron) tablet 325 mg PO BID Qty: 60 RF: 0 Continued fluticasone propion-salmeterol [Advair Diskus] 250-50 mcg/dose blister with device 1 inh inhalation BID Qty: 60 RF: 5 gabapentin [Neurontin] 600 mg tablet 1,200 mg PO TID Qty: 540 RF: 1 lisinopril-hydrochlorothiazide 10-12.5 mg tablet 1 tab PO QAM Qty: 90 RF: 1 diclofenac sodium 1 % gel 2 g TOPICAL QID PRN (Reason: Joint Pain) Qty: 100 RF: 2 tizanidine 4 mg capsule 4 mg PO BID PRN (Reason: muscle spasticity) Qty: 60 RF: 1 fluticasone propionate [Flonase Allergy Relief] 50 mcg/actuation spray,suspension 1 spray INTRANASAL BID PRN (Reason: Allergy Symptoms) Qty: 16 RF: 5 albuterol sulfate [Ventolin HFA] 90 mcg/actuation HFA aerosol inhaler 1 - 2 puff INHALATION QID PRN (Reason: Shortness Of Breath Or Wheezing) RF: 0 diclofenac sodium 1 % gel 2 g TOPICAL QID PRN (Reason: Joint Pain) Qty: 100 RF: 2 Discharge Orders: Discharge Order (Routine); Ordered 02/15/21 Ordered By: Aleksandra Durham Admission Data Admit Date/Time: 02/14/21 15:59 Attending Provider: Aleksandra Durham Admit Provider: Chris Monroe Primary Care Provider: Roger Talbert Other Providers: Chris Monroe Coding Diagnoses Symptomatic anemia D64.9 Ldadp-Geopi-Dcfsk disease I78.0 SARS-CoV-2 positive U07.1 Hypertension I10 Hypertension type: essential hypertension Chronic back pain M54.9; G89.29
== END 2021-02-15 17:00 | disposition home or self-care (01) ==
LOC: ED 10:03 → 2W 10:03 → SUATTDRO 15:59 → 2W 18:22

== ENCOUNTER 2022-02-06 15:40 | Inpatient (IN) ==
[2022-02-06 16:46] LABS: Basophils # (auto) 0.07 K/uL (0-0.2); Basophils % (auto) 0.8 %; Eosinophils # (auto) 0.25 K/uL (0-0.50); Eosinophils % (auto) 2.8 %; Hemoglobin 7.7 g/dl (14.0-18.0); Immature Granulocytes # (auto) 0.03 K/uL (0.00-0.02); Immature Granulocytes % (auto) 0.3 %; Lymphocytes # (auto) 1.14 K/uL (1.2-3.4); Lymphocytes % (auto) 12.8 %; Mean Corpuscular Hemoglobin 20.5 pg (25.0-34.0); Mean Corpuscular Hgb Conc 29.6 g/dL (32.0-36.0); Mean Corpuscular Volume 69.3 fL (80.0-100.0); Monocytes # (auto) 0.67 K/uL (0.24-0.82); Monocytes % (auto) 7.5 %; Neutrophils # (auto) 6.73 K/uL (1.4-6.5); Neutrophils % (auto) 75.8 %; RDW Coefficient of Variation 16.6 % (11.5-14.5); RDW Standard Deviation 41.5 fL (36.4-46.3); Red Blood Count 3.75 M/uL (4.63-6.08); White Blood Count 8.89 K/ul (4.8-10.8)
--- NOTE | 2022-02-06 17:05 | Emergency Department Note ---
History of Present Illness General Chief complaint: Syncope Time Seen by Provider: 02/06/22 17:01 History of Present Illness Maximum Pain Intensity: 4 This 61-year-old male patient presents to the emergency department via EMS for evaluation of shortness of breath and a syncopal episode while taking a shower today. He denies hitting his head and denies any loss of consciousness that he knows of. He states that he does not digest iron well and his hemoglobin levels drop quickly. He sees [facility] heme/onc for transfusions periodically. He was unable to follow-up with hematology for transfusion because of the holidays. His O2 was in the low 80s per EMS and he was placed on 6 L of O2 by nasal cannula. Pulse ox on room air in the ER was 91%. He has an appt with his PCP tomorrow, but after the syncopal episode this morning he got concerned. He states that he has had 3 syncopal episodes since his blood has been decreasing over the past week. He states that he has chest pain and SOB that is typical for when he gets significantly anemic. However, he became concerned because his chest pain seemed worse this time. Has a mild dry cough, but no fevers or URI symptoms. Had pneumonia a few weeks ago, but the cough never fully resolved. He has a history of Osler-Rendu Syndrome and frequently becomes anemic. Denies hematochezia, melena, hematuria, hemoptysis, or hematemesis at this time. He typically gets transfusions when his hgb is in the 7's per patient. He also gets periodic iron transfusions as well. He went to [facility] last week and his Hgb was around 7.2 per patient, but they do not transfuse unless patients are below 6 per patient. He states that they wanted to admit him for observation, but he wanted to follow up with hematology as an outpatient, but couldn't get in with them because of the holidays. Unable to get into hematology until 10 days from now. Home Medications Medication Instructions Recorded Confirmed Type diclofenac sodium 1 % topical gel 2 g topical QID PRN Joint Pain 08/01/21 02/06/22 Rx #100 grams fluticasone furoate 100 1 inh inhalation DAILY #60 ea 08/02/21 02/06/22 Rx mcg-vilanterol 25 mcg/dose inhalation powder albuterol sulfate 90 mcg/actuation 1 - 2 puff inhalation QID PRN 11/30/21 02/06/22 Rx aerosol inhaler (Ventolin HFA) Shortness Of Breath Or Wheezing #8.5 grams Advair Diskus 250 mcg-50 mcg/dose 1 inh inhalation BID #60 ea 12/08/21 02/06/22 Rx powder for inhalation (fluticasone propion-salmeterol) lisinopril 10 1 tab PO QAM #90 tabs 01/24/22 02/06/22 Rx mg-hydrochlorothiazide 12.5 mg tablet oxycodone-acetaminophen 5 mg-325 1 tab PO .q12 hour PRN pain #60 01/24/22 02/06/22 Rx mg tablet (Percocet) tabs fluticasone propionate 50 1 spray intranasal BID PRN Allergy 01/27/22 02/06/22 Rx mcg/actuation nasal Symptoms #16 grams spray,suspension (Flonase Allergy Relief) gabapentin 600 mg tablet 600 mg PO TID 02/06/22 02/06/22 History Allergies Allergy/AdvReac Type Severity Reaction Status Date / Time cyclobenzaprine AdvReac Unknown MUSCLE Verified 02/06/22 21:53 [From Flexeril] CONTRACTIONS Past Med/Surg History Medical History Anemia inhaler for this bc pt becomes very SOB AVM (arteriovenous malformation) pt unaware Cervical disc disease C5-C6 Chronic back pain Dog bite of face 08/12/2019- received care at [facility]- Lip and nose sutured and pt placed on antibiotics. Hepatitis C treated--no longer has Hx of bleeding disorder HAS CAUSED BLEEDING INTO STOMACH REQUIRING CAUTERIZATION-F/U DR KAN [facility]-HX BLOOD TRANSFUSIONS IN THE PAST Hypertension Osler-Rendu disease Surgical History History of colonoscopy History of esophagogastroduodenoscopy (EGD) History of herniorrhaphy X 4 History of open reduction and internal fixation (ORIF) procedure left hand/wrist fx--hardware removed History of repair of rotator cuff RIGHT History of shoulder surgery right History of tooth extraction all teeth removed Hx of excision of testicular mass X MULTIPLE BENIGN CYSTS Family History Other No family history of adverse response to anesthesia Denies family history of Colon cancer Ovarian cancer Prostate cancer Myocardial infarction Breast cancer Social History Smoking Status: Current every day smoker Tobacco Type: Cigarettes Cigarettes Per Day: 4; Second Hand Exposure: No; Do You Dip or Chew Tobacco: No; Hx Alcohol Use: No Hx Substance Use: No Preferred Language: Maori Communication Ability: Effective Visual Impairment: Limited Hearing Ability: Hard of Hearing Bow Stapler Required: No Beliefs That Will Affect Care: None marital status: Current Living Situation: Alone Current Living Situation Comment: lives with daughter current occupational status: employed How many Children do You have: 1 Other Information That Helps Us Care for You: No Feels Safe at Home: Yes Safety Concerns: Feels Safe At This Time Childhood Exposure to Second-Hand Smoke: No Dental Care, Regularly: Yes Physical Activity Frequency: Daily Seatbelt Use: never Sunscreen Use: No Assistive Devices: Oxygen - Continuous Review of Systems See HPI for pertinent positives & negatives. Physical Exam Vital Signs Vital Signs - 24 hr 02/06/22 16:03 02/06/22 16:19 02/06/22 16:19 Temperature 36.5 C Temperature Source Oral Pulse Rate 82 Pulse Rate [Apical] Pulse Rate from SpO2 Sensor Respiratory Rate 20 Blood Pressure 157/84 H Blood Pressure [Left Arm] Blood Pressure Mean 108 Blood Pressure Mean [Left Arm] Blood Pressure Position Blood Pressure Position [Left Arm] Pulse Oximetry 91 85 L 94 Oxygen Delivery Method Room Air Room Air Nasal Cannula Oxygen Flow Rate 3 Sepsis Recent Fever Within 48 Hours No Sepsis New/Unexplained Change in Mental Status N/A Sepsis Action Taken by Nursing No Action Required 02/06/22 18:41 02/06/22 15:59 02/06/22 15:59 Temperature Temperature Source Pulse Rate 81 Pulse Rate [Apical] 70 Pulse Rate from SpO2 Sensor 81 Respiratory Rate 18 17 Blood Pressure 157/84 H Blood Pressure [Left Arm] 166/108 H Blood Pressure Mean 108 Blood Pressure Mean [Left Arm] 127 Blood Pressure Position Blood Pressure Position [Left Arm] Sitting Pulse Oximetry 97 91 Oxygen Delivery Method Nasal Cannula Nasal Cannula Oxygen Flow Rate 3 3 Sepsis Recent Fever Within 48 Hours Sepsis New/Unexplained Change in Mental Status Sepsis Action Taken by Nursing 02/06/22 16:00 02/06/22 16:10 02/06/22 16:20 Temperature Temperature Source Pulse Rate 79 82 81 Pulse Rate [Apical] Pulse Rate from SpO2 Sensor 80 81 82 Respiratory Rate 18 15 18 Blood Pressure Blood Pressure [Left Arm] Blood Pressure Mean Blood Pressure Mean [Left Arm] Blood Pressure Position Blood Pressure Position [Left Arm] Pulse Oximetry 91 90 93 Oxygen Delivery Method Oxygen Flow Rate Sepsis Recent Fever Within 48 Hours Sepsis New/Unexplained Change in Mental Status Sepsis Action Taken by Nursing 02/06/22 16:30 02/06/22 16:30 02/06/22 16:40 Temperature Temperature Source Pulse Rate 78 74 Pulse Rate [Apical] Pulse Rate from SpO2 Sensor 77 74 Respiratory Rate 18 18 Blood Pressure 177/95 H Blood Pressure [Left Arm] Blood Pressure Mean 122 Blood Pressure Mean [Left Arm] Blood Pressure Position Blood Pressure Position [Left Arm] Pulse Oximetry 95 97 Oxygen Delivery Method Oxygen Flow Rate Sepsis Recent Fever Within 48 Hours Sepsis New/Unexplained Change in Mental Status Sepsis Action Taken by Nursing 02/06/22 16:50 02/06/22 17:00 02/06/22 17:00 Temperature Temperature Source Pulse Rate 77 76 Pulse Rate [Apical] Pulse Rate from SpO2 Sensor 76 Respiratory Rate 15 17 Blood Pressure 154/87 H Blood Pressure [Left Arm] Blood Pressure Mean 109 Blood Pressure Mean [Left Arm] Blood Pressure Position Blood Pressure Position [Left Arm] Pulse Oximetry 94 Oxygen Delivery Method Oxygen Flow Rate Sepsis Recent Fever Within 48 Hours Sepsis New/Unexplained Change in Mental Status Sepsis Action Taken by Nursing 02/06/22 17:10 02/06/22 17:20 02/06/22 17:30 Temperature Temperature Source Pulse Rate 78 82 Pulse Rate [Apical] Pulse Rate from SpO2 Sensor 79 81 Respiratory Rate 21 26 H Blood Pressure 148/81 H Blood Pressure [Left Arm] Blood Pressure Mean 103 Blood Pressure Mean [Left Arm] Blood Pressure Position Blood Pressure Position [Left Arm] Pulse Oximetry 98 98 Oxygen Delivery Method Oxygen Flow Rate Sepsis Recent Fever Within 48 Hours Sepsis New/Unexplained Change in Mental Status Sepsis Action Taken by Nursing 02/06/22 17:30 02/06/22 17:40 02/06/22 17:50 Temperature Temperature Source Pulse Rate 73 71 74 Pulse Rate [Apical] Pulse Rate from SpO2 Sensor 71 75 Respiratory Rate 16 17 16 Blood Pressure Blood Pressure [Left Arm] Blood Pressure Mean Blood Pressure Mean [Left Arm] Blood Pressure Position Blood Pressure Position [Left Arm] Pulse Oximetry 92 91 Oxygen Delivery Method Oxygen Flow Rate Sepsis Recent Fever Within 48 Hours Sepsis New/Unexplained Change in Mental Status Sepsis Action Taken by Nursing 02/06/22 18:00 02/06/22 18:00 02/06/22 18:10 Temperature Temperature Source Pulse Rate 72 74 Pulse Rate [Apical] Pulse Rate from SpO2 Sensor 68 77 Respiratory Rate 16 23 Blood Pressure 170/95 H Blood Pressure [Left Arm] Blood Pressure Mean 120 Blood Pressure Mean [Left Arm] Blood Pressure Position Blood Pressure Position [Left Arm] Pulse Oximetry 92 91 Oxygen Delivery Method Oxygen Flow Rate Sepsis Recent Fever Within 48 Hours Sepsis New/Unexplained Change in Mental Status Sepsis Action Taken by Nursing 02/06/22 18:28 02/06/22 18:30 02/06/22 18:35 Temperature Temperature Source Pulse Rate 69 Pulse Rate [Apical] Pulse Rate from SpO2 Sensor 75 68 Respiratory Rate 14 Blood Pressure 166/108 H Blood Pressure [Left Arm] Blood Pressure Mean 127 Blood Pressure Mean [Left Arm] Blood Pressure Position Blood Pressure Position [Left Arm] Pulse Oximetry 89 L 89 L Oxygen Delivery Method Oxygen Flow Rate Sepsis Recent Fever Within 48 Hours Sepsis New/Unexplained Change in Mental Status Sepsis Action Taken by Nursing 02/06/22 18:35 02/06/22 18:40 02/06/22 18:50 Temperature Temperature Source Pulse Rate 77 71 73 Pulse Rate [Apical] Pulse Rate from SpO2 Sensor 75 71 73 Respiratory Rate 20 15 19 Blood Pressure Blood Pressure [Left Arm] Blood Pressure Mean Blood Pressure Mean [Left Arm] Blood Pressure Position Blood Pressure Position [Left Arm] Pulse Oximetry 90 97 95 Oxygen Delivery Method Oxygen Flow Rate Sepsis Recent Fever Within 48 Hours Sepsis New/Unexplained Change in Mental Status Sepsis Action Taken by Nursing 02/06/22 19:00 02/06/22 19:00 02/06/22 19:10 Temperature Temperature Source Pulse Rate 86 82 Pulse Rate [Apical] Pulse Rate from SpO2 Sensor 85 84 Respiratory Rate 24 18 Blood Pressure 169/116 H Blood Pressure [Left Arm] Blood Pressure Mean 133 Blood Pressure Mean [Left Arm] Blood Pressure Position Blood Pressure Position [Left Arm] Pulse Oximetry 93 90 Oxygen Delivery Method Oxygen Flow Rate Sepsis Recent Fever Within 48 Hours Sepsis New/Unexplained Change in Mental Status Sepsis Action Taken by Nursing 02/06/22 19:20 02/06/22 19:30 02/06/22 19:30 Temperature Temperature Source Pulse Rate 99 H 86 Pulse Rate [Apical] Pulse Rate from SpO2 Sensor 87 Respiratory Rate 24 21 Blood Pressure 191/109 H Blood Pressure [Left Arm] Blood Pressure Mean 136 Blood Pressure Mean [Left Arm] Blood Pressure Position Blood Pressure Position [Left Arm] Pulse Oximetry 92 Oxygen Delivery Method Oxygen Flow Rate Sepsis Recent Fever Within 48 Hours Sepsis New/Unexplained Change in Mental Status Sepsis Action Taken by Nursing 02/06/22 19:40 02/06/22 19:50 02/06/22 20:08 Temperature Temperature Source Pulse Rate 83 108 H Pulse Rate [Apical] Pulse Rate from SpO2 Sensor 82 Respiratory Rate 18 26 H Blood Pressure 176/99 H Blood Pressure [Left Arm] Blood Pressure Mean 124 Blood Pressure Mean [Left Arm] Blood Pressure Position Blood Pressure Position [Left Arm] Pulse Oximetry 89 L Oxygen Delivery Method Oxygen Flow Rate Sepsis Recent Fever Within 48 Hours Sepsis New/Unexplained Change in Mental Status Sepsis Action Taken by Nursing 02/06/22 20:08 02/06/22 20:10 02/06/22 20:00 Temperature Temperature Source Pulse Rate 79 Pulse Rate [Apical] Pulse Rate from SpO2 Sensor 83 79 Respiratory Rate 17 Blood Pressure Blood Pressure [Left Arm] Blood Pressure Mean Blood Pressure Mean [Left Arm] Blood Pressure Position Blood Pressure Position [Left Arm] Pulse Oximetry 97 97 96 Oxygen Delivery Method Nasal Cannula Oxygen Flow Rate 2 Sepsis Recent Fever Within 48 Hours Sepsis New/Unexplained Change in Mental Status Sepsis Action Taken by Nursing 02/06/22 20:30 02/06/22 20:54 02/06/22 21:05 Temperature 36.7 C 36.6 C 36.7 C Temperature Source Oral Oral Oral Pulse Rate 83 79 96 H Pulse Rate [Apical] Pulse Rate from SpO2 Sensor Respiratory Rate 24 21 19 Blood Pressure 171/103 H 171/95 H 171/92 H Blood Pressure [Left Arm] Blood Pressure Mean 125 120 118 Blood Pressure Mean [Left Arm] Blood Pressure Position Sitting Blood Pressure Position [Left Arm] Pulse Oximetry 95 96 90 Oxygen Delivery Method Oxygen Flow Rate 3 3 3 Sepsis Recent Fever Within 48 Hours Sepsis New/Unexplained Change in Mental Status Sepsis Action Taken by Nursing 02/06/22 21:09 Temperature 36.7 C Temperature Source Oral Pulse Rate 82 Pulse Rate [Apical] Pulse Rate from SpO2 Sensor Respiratory Rate 24 Blood Pressure 167/93 H Blood Pressure [Left Arm] Blood Pressure Mean 117 Blood Pressure Mean [Left Arm] Blood Pressure Position Sitting Blood Pressure Position [Left Arm] Pulse Oximetry 97 Oxygen Delivery Method Oxygen Flow Rate 3 Sepsis Recent Fever Within 48 Hours Sepsis New/Unexplained Change in Mental Status Sepsis Action Taken by Nursing VITALS: Vitals are noted on the nurse's note and reviewed by myself. GENERAL: 61-year-old male, in no acute distress, non-diaphoretic, well-developed well-nourished. SKIN: Multiple telangiectasias noted. Capillary refill <2 sec. No tenting of the skin. HEAD: Normocephalic, atraumatic. EARS: External auditory canals clear, tympanic membranes pearly brown without erythema or effusion bilaterally. EYES: PERRLA. EOMI. Conjunctivae without injection, sclerae without icterus. NOSE: Patent without discharge. MOUTH: Mucous membranes moist. Uvula midline. Airway patent. NECK: Supple without nuchal rigidity. HEART: Regular rate and rhythm without murmurs gallops or rubs. LUNGS: Clear to auscultation bilaterally without wheezes, rales or rhonchi. No retractions or accessory muscle use. ABDOMEN: Positive bowel sounds x 4. Normal tympanic percussion. Soft, nontender, without masses or organomegaly. Hughes sign negative. No guarding or rebound tenderness. No focal RLQ or LLQ tenderness. MUSCULOSKELETAL: No gross musculoskeletal defects. NEURO: Patient was alert and oriented to person place and time. Normal mental status exam. Cerebellar function intact. No focal neurological deficits. Course Administered Medications Albuterol (Albut/Ipratrop 3mg/0.5mg Neb 3 Ml Vial) 3 ml INH Q6R [facility] Stop: 03/09/22 00:59 Last Admin: 02/07/22 00:47 Dose: 3 ml Documented By: RAZA Gabapentin (Gabapentin 600 Mg Tab) 1,200 mg PO TID TOSHIA Stop: 03/09/22 00:08 Last Admin: 02/07/22 01:29 Dose: 1,200 mg Documented By: VIRI Lactated Ringer's (Lr) 1,000 mls @ 125 mls/hr IV .Q8H TOSHIA Stop: 03/09/22 00:08 Last Admin: 02/07/22 00:54 Dose: 125 mls/hr Documented By: ED Discontinued Medications Albuterol (Albut/Ipratrop 3mg/0.5mg Neb 3 Ml Vial) 3 ml NEB NOW STA; Protocol Stop: 02/06/22 21:21 Last Admin: 02/06/22 22:03 Dose: 3 ml Documented By: AMS Sodium Chloride (Nss 1000ml) 1,000 mls @ 999 mls/hr IV .Q1H1M ONE Stop: 02/06/22 18:27 Last Infusion: 02/06/22 18:34 Dose: 0 mls/hr Documented By: Admin: 02/06/22 17:34 Dose: 999 mls/hr Documented By: SONYA Pantoprazole Sodium 80 mg/ (Dextrose) 100 mls @ 400 mls/hr IV ONE STA Stop: 02/06/22 21:36 Last Infusion: 02/07/22 00:57 Dose: 0 mls/hr Documented By: Admin: 02/07/22 00:12 Dose: 400 mls/hr Documented By: ED Ioversol (Optiray 320 500ml) 115 ml IV ONCE ONE Stop: 02/06/22 20:01 Last Admin: 02/06/22 20:01 Dose: 115 ml Documented By: KARIN Medical Decision Making Differential Diagnosis Differential diagnosis includes anemia, GI bleed, NH, pneumonia, PE, COVID, RSV, influenza, viral illness, acute intracranial etiology, vasovagal syncope, or other etiologies. Laboratory Data Attestation: I reviewed the patient's lab results. Result diagrams: 02/07/22 00:32 02/06/22 16:20 Lab Results 02/06/22 02/06/22 02/06/22 Range/Units 16:20 16:20 16:20 WBC 8.89 (4.8-10.8) K/ul RBC 3.75 L (4.63-6.08) M/uL Hgb 7.7 L (14.0-18.0) g/dl Hct 26.0 L (40.1-51.0) % MCV 69.3 L (80.0-100.0) fL MCH 20.5 L (25.0-34.0) pg MCHC 29.6 L (32.0-36.0) g/dL RDW Std Deviation 41.5 (36.4-46.3) fL RDW Coeff of Ady 16.6 H (11.5-14.5) % Plt Count 436 H (130-400) K/uL MPV 10.3 (9.4-12.4) fL Immature Gran % (Auto) 0.3 % Neut % (Auto) 75.8 % Lymph % (Auto) 12.8 % [place] % (Auto) 7.5 % Eos % (Auto) 2.8 % Baso % (Auto) 0.8 % Reticulocyte % (Auto) 1.2 (0.5-2.0) % Neut # (Auto) 6.73 H (1.4-6.5) K/uL Lymph # (Auto) 1.14 L (1.2-3.4) K/uL [place] # (Auto) 0.67 (0.24-0.82) K/uL Eos # (Auto) 0.25 (0-0.50) K/uL Baso # (Auto) 0.07 (0-0.2) K/uL Reticulocyte # 0.04 (0.02-0.10) 10^6/uL Immature Gran # (Auto) 0.03 H (0.00-0.02) K/uL Polychromasia 1+ Microcytosis Present Ovalocytes 1+ Peripher Smr Path Cons PT (9.0-12.0) Seconds INR (0.9-1.1) APTT (21.0-31.0) Seconds PTT Ratio Sodium 138 (136-145) mmol/L Potassium 4.5 (3.5-5.1) mmol/L Chloride 103 (98-107) mmol/L Carbon Dioxide 31 (21-32) mmol/L Anion Gap 4 (3-11) BUN 15 (6-23) mg/dl Creatinine 0.73 (0.6-1.4) mg/dl Est Cr Clr Drug Dosing 125.1 ml/min Est GFR ( Amer) 116.9 ml/min Est GFR (Non-Af Amer) 100.8 ml/min BUN/Creatinine Ratio 20.5 H (10-20) Glucose 95 (70-99(Fasting)) mg/dl Calcium 8.7 (8.5-10.1) mg/dl Magnesium (1.7-2.4) mg/dl Iron (35-175) mcg/dl TIBC Unsaturated IBC (155-355) mcg/dl Transferrin % Sat Ferritin (8-388) ng/ml Total Bilirubin 0.2 (0.2-1.0) mg/dl AST 13 (13-39) U/L ALT 11 (7-52) U/L Alkaline Phosphatase 82 (34-104) U/L Troponin I High Sens 4.5 (0-20) pg/ml Total Protein 7.1 (6.0-8.3) gm/dl Albumin 4.2 (3.4-5.0) gm/dl Globulin 2.9 (2.5-4.0) gm/dl Albumin/Globulin Ratio 1.4 (0.9-2) TSH 1.576 (0.300-4.500) uIu/ml Urine Color Urine Appearance (Clear) Urine pH (4.5-7.5) Ur Specific Combs (1.000-1.030) Urine Protein (Negative) Urine Glucose (UA) (Negative) Urine Ketones (Negative) Urine Blood (Negative) Urine Nitrite (Negative) Urine Bilirubin (Negative) Urine Urobilinogen (Negative) Ur Leukocyte Esterase (Negative) SARS-CoV-2 (PCR) (Negative) Influenza Type A (PCR) (Neg) Influenza Type B (PCR) (Neg) RSV (RT-PCR) (Neg) Blood Type Antibody Screen Crossmatch 02/06/22 02/06/22 02/06/22 Range/Units 16:20 16:20 16:20 WBC (4.8-10.8) K/ul RBC (4.63-6.08) M/uL Hgb (14.0-18.0) g/dl Hct (40.1-51.0) % MCV (80.0-100.0) fL MCH (25.0-34.0) pg MCHC (32.0-36.0) g/dL RDW Std Deviation (36.4-46.3) fL RDW Coeff of Ady (11.5-14.5) % Plt Count (130-400) K/uL MPV (9.4-12.4) fL Immature Gran % (Auto) % Neut % (Auto) % Lymph % (Auto) % [place] % (Auto) % Eos % (Auto) % Baso % (Auto) % Reticulocyte % (Auto) Cancelled (0.5-2.0) % Neut # (Auto) (1.4-6.5) K/uL Lymph # (Auto) (1.2-3.4) K/uL [place] # (Auto) (0.24-0.82) K/uL Eos # (Auto) (0-0.50) K/uL Baso # (Auto) (0-0.2) K/uL Reticulocyte # Cancelled (0.02-0.10) 10^6/uL Immature Gran # (Auto) (0.00-0.02) K/uL Polychromasia Microcytosis Ovalocytes Peripher Smr Path Cons Cancelled PT 10.3 (9.0-12.0) Seconds INR 1.0 (0.9-1.1) APTT 26.9 (21.0-31.0) Seconds PTT Ratio 1.0 Sodium (136-145) mmol/L Potassium (3.5-5.1) mmol/L Chloride (98-107) mmol/L Carbon Dioxide (21-32) mmol/L Anion Gap (3-11) BUN (6-23) mg/dl Creatinine (0.6-1.4) mg/dl Est Cr Clr Drug Dosing ml/min Est GFR ( Amer) ml/min Est GFR (Non-Af Amer) ml/min BUN/Creatinine Ratio (10-20) Glucose (70-99(Fasting)) mg/dl Calcium (8.5-10.1) mg/dl Magnesium (1.7-2.4) mg/dl Iron < 10 L (35-175) mcg/dl TIBC TNP Unsaturated IBC 458 H (155-355) mcg/dl Transferrin % Sat TNP Ferritin 2.5 L (8-388) ng/ml Total Bilirubin (0.2-1.0) mg/dl AST (13-39) U/L ALT (7-52) U/L Alkaline Phosphatase (34-104) U/L Troponin I High Sens (0-20) pg/ml Total Protein (6.0-8.3) gm/dl Albumin (3.4-5.0) gm/dl Globulin (2.5-4.0) gm/dl Albumin/Globulin Ratio (0.9-2) TSH (0.300-4.500) uIu/ml Urine Color Urine Appearance (Clear) Urine pH (4.5-7.5) Ur Specific Combs (1.000-1.030) Urine Protein (Negative) Urine Glucose (UA) (Negative) Urine Ketones (Negative) Urine Blood (Negative) Urine Nitrite (Negative) Urine Bilirubin (Negative) Urine Urobilinogen (Negative) Ur Leukocyte Esterase (Negative) SARS-CoV-2 (PCR) (Negative) Influenza Type A (PCR) (Neg) Influenza Type B (PCR) (Neg) RSV (RT-PCR) (Neg) Blood Type Antibody Screen Crossmatch 02/06/22 02/06/22 02/06/22 Range/Units 16:20 16:30 16:30 WBC (4.8-10.8) K/ul RBC (4.63-6.08) M/uL Hgb (14.0-18.0) g/dl Hct (40.1-51.0) % MCV (80.0-100.0) fL MCH (25.0-34.0) pg MCHC (32.0-36.0) g/dL RDW Std Deviation (36.4-46.3) fL RDW Coeff of Ady (11.5-14.5) % Plt Count (130-400) K/uL MPV (9.4-12.4) fL Immature Gran % (Auto) % Neut % (Auto) % Lymph % (Auto) % [place] % (Auto) % Eos % (Auto) % Baso % (Auto) % Reticulocyte % (Auto) (0.5-2.0) % Neut # (Auto) (1.4-6.5) K/uL Lymph # (Auto) (1.2-3.4) K/uL [place] # (Auto) (0.24-0.82) K/uL Eos # (Auto) (0-0.50) K/uL Baso # (Auto) (0-0.2) K/uL Reticulocyte # (0.02-0.10) 10^6/uL Immature Gran # (Auto) (0.00-0.02) K/uL Polychromasia Microcytosis Ovalocytes Peripher Smr Path Cons PT (9.0-12.0) Seconds INR (0.9-1.1) APTT (21.0-31.0) Seconds PTT Ratio Sodium (136-145) mmol/L Potassium (3.5-5.1) mmol/L Chloride (98-107) mmol/L Carbon Dioxide (21-32) mmol/L Anion Gap (3-11) BUN (6-23) mg/dl Creatinine (0.6-1.4) mg/dl Est Cr Clr Drug Dosing ml/min Est GFR ( Amer) ml/min Est GFR (Non-Af Amer) ml/min BUN/Creatinine Ratio (10-20) Glucose (70-99(Fasting)) mg/dl Calcium (8.5-10.1) mg/dl Magnesium 2.1 (1.7-2.4) mg/dl Iron (35-175) mcg/dl TIBC Unsaturated IBC (155-355) mcg/dl Transferrin % Sat Ferritin (8-388) ng/ml Total Bilirubin (0.2-1.0) mg/dl AST (13-39) U/L ALT (7-52) U/L Alkaline Phosphatase (34-104) U/L Troponin I High Sens (0-20) pg/ml Total Protein (6.0-8.3) gm/dl Albumin (3.4-5.0) gm/dl Globulin (2.5-4.0) gm/dl Albumin/Globulin Ratio (0.9-2) TSH (0.300-4.500) uIu/ml Urine Color Yellow Urine Appearance Clear (Clear) Urine pH 6.0 (4.5-7.5) Ur Specific Combs 1.025 (1.000-1.030) Urine Protein Negative (Negative) Urine Glucose (UA) Negative (Negative) Urine Ketones Negative (Negative) Urine Blood Negative (Negative) Urine Nitrite Negative (Negative) Urine Bilirubin Negative (Negative) Urine Urobilinogen Negative (Negative) Ur Leukocyte Esterase Negative (Negative) SARS-CoV-2 (PCR) NEGATIVE (Negative) Influenza Type A (PCR) Negative (Neg) Influenza Type B (PCR) Negative (Neg) RSV (RT-PCR) Negative (Neg) Blood Type Antibody Screen Crossmatch 02/06/22 02/06/22 Range/Units 18:14 18:18 WBC (4.8-10.8) K/ul RBC (4.63-6.08) M/uL Hgb (14.0-18.0) g/dl Hct (40.1-51.0) % MCV (80.0-100.0) fL MCH (25.0-34.0) pg MCHC (32.0-36.0) g/dL RDW Std Deviation (36.4-46.3) fL RDW Coeff of Ady (11.5-14.5) % Plt Count (130-400) K/uL MPV (9.4-12.4) fL Immature Gran % (Auto) % Neut % (Auto) % Lymph % (Auto) % [place] % (Auto) % Eos % (Auto) % Baso % (Auto) % Reticulocyte % (Auto) (0.5-2.0) % Neut # (Auto) (1.4-6.5) K/uL Lymph # (Auto) (1.2-3.4) K/uL [place] # (Auto) (0.24-0.82) K/uL Eos # (Auto) (0-0.50) K/uL Baso # (Auto) (0-0.2) K/uL Reticulocyte # (0.02-0.10) 10^6/uL Immature Gran # (Auto) (0.00-0.02) K/uL Polychromasia Microcytosis Ovalocytes Peripher Smr Path Cons PT (9.0-12.0) Seconds INR (0.9-1.1) APTT (21.0-31.0) Seconds PTT Ratio Sodium (136-145) mmol/L Potassium (3.5-5.1) mmol/L Chloride (98-107) mmol/L Carbon Dioxide (21-32) mmol/L Anion Gap (3-11) BUN (6-23) mg/dl Creatinine (0.6-1.4) mg/dl Est Cr Clr Drug Dosing ml/min Est GFR ( Amer) ml/min Est GFR (Non-Af Amer) ml/min BUN/Creatinine Ratio (10-20) Glucose (70-99(Fasting)) mg/dl Calcium (8.5-10.1) mg/dl Magnesium (1.7-2.4) mg/dl Iron (35-175) mcg/dl TIBC Unsaturated IBC (155-355) mcg/dl Transferrin % Sat Ferritin (8-388) ng/ml Total Bilirubin (0.2-1.0) mg/dl AST (13-39) U/L ALT (7-52) U/L Alkaline Phosphatase (34-104) U/L Troponin I High Sens 4.4 (0-20) pg/ml Total Protein (6.0-8.3) gm/dl Albumin (3.4-5.0) gm/dl Globulin (2.5-4.0) gm/dl Albumin/Globulin Ratio (0.9-2) TSH (0.300-4.500) uIu/ml Urine Color Urine Appearance (Clear) Urine pH (4.5-7.5) Ur Specific Combs (1.000-1.030) Urine Protein (Negative) Urine Glucose (UA) (Negative) Urine Ketones (Negative) Urine Blood (Negative) Urine Nitrite (Negative) Urine Bilirubin (Negative) Urine Urobilinogen (Negative) Ur Leukocyte Esterase (Negative) SARS-CoV-2 (PCR) (Negative) Influenza Type A (PCR) (Neg) Influenza Type B (PCR) (Neg) RSV (RT-PCR) (Neg) Blood Type B Positive Antibody Screen NEGATIVE Crossmatch See Detail Imaging Data Radiologist's Impression: Chest X-Ray 02/06/22 17:27 SINGLE VIEW CHEST CLINICAL HISTORY: Atypical chest pain. Dyspnea FINDINGS: An AP, portable, upright chest radiograph is compared to study dated 02/14/2021 and correlated with chest CT dated 04/01/2020. The heart is enlarged noting atherosclerotic calcification of the thoracic aorta. The pulmonary vasculature is noncongested. Emphysema and chronic interstitial thickening is similar to previous. Scarring/atelectasis is noted at the lung bases. The lungs and pleural spaces are otherwise clear. No pneumothorax is seen. The skeletal structures are osteopenic. The bony thorax is grossly intact. IMPRESSION: Cardiomegaly and emphysema with no active disease in the chest. ACT 112: Negative or not required by law. Electronically signed by: Wyatt Williamson M.D. 02/06/2022 5:40 PM Chest CTA 02/06/22 19:23 CT ANGIOGRAM OF THE CHEST CLINICAL HISTORY: Dyspnea. Syncope. Hypoxia. COMPARISON STUDY: Chest x-ray dated 02/06/2022. Chest CT dated 04/01/2020 and 02/08/2016. TECHNIQUE: Following the IV administration of 150 cc of Optiray 320, CT angiogram of the chest was performed from the upper abdomen to the thoracic inlet utilizing the pulmonary embolus protocol. Images are reviewed in the axial, sagittal, and coronal planes. 3-D MIPS images are created and assessed. IV contrast was administered without complication. A dose lowering technique was utilized adhering to the principles of ALARA. CT DOSE: 430.17 mGy.cm FINDINGS: Thyroid: Imaged portions of the thyroid gland are normal in size and attenuation. Thoracic aorta: There is atherosclerotic calcification of the thoracic aorta, which is normal in caliber and demonstrates standard 3-vessel arch anatomy. No dissection is seen. Pulmonary vasculature: The pulmonary trunk is normal in caliber. There are no filling defects identified in main, lobar, or proximal segmental pulmonary branches to suggest pulmonary embolus. The segmental and subsegmental branches are not well assessed due to motion artifact, particularly in the lower lobes. Heart: The heart is enlarged and without pericardial effusion. There are coronary artery calcifications. Lungs and pleural spaces: Evaluation of the lung parenchyma is degraded by motion artifact. Emphysematous changes similar to previous. No airspace consolidation or pleural effusion is identified. Scarring/atelectasis is noted at the lung bases. There are 2 left upper lobe pulmonary nodules measuring 3 mm seen on images #224 and #201. A 5 mm triangular nodule at the left lung base is seen on image #80. 2 mm nodules in the right upper and right middle lobes are seen on images #221 and #153. These are unchanged from 2017 and of doubtful significance. Mediastinum: There is no mediastinal lymphadenopathy. Hailee: Clear. Axillae: There is no axillary lymphadenopathy. Upper abdomen: Partially visualized upper abdominal viscera is within normal limits. Skeletal structures: The skeletal structures are osteopenic. Degenerative change is noted in the spine. No lytic or blastic bony lesions are seen. There are healed bilateral rib fractures. IMPRESSION: 1. Motion compromised examination. 2. There is no evidence of central pulmonary in the main, lobar, or proximal segmental pulmonary arteries. The segmental and subsegmental vessels are not well assessed due to motion artifact. 3. Cardiomegaly and emphysema. 4. No airspace consolidation or pleural effusion is identified. 5. Additional findings as above. ACT 112: Negative or not required by law. Electronically signed by: Wyatt Williamson M.D. 02/06/2022 8:14 PM MDM Narrative I examined the patient. An IV lock was placed and labs were drawn. He was given 1 L normal saline solution bolus. He declined any medication for pain while in the emergency department. The patient denies any symptoms of bleeding, but does have Cxzpi-Spprs-Axfbu with a history of bleeding AVMs in the past. Continuous nuclear monitoring technician: Order was placed for continuous nuclear monitoring technician. Patient was placed on the nuclear monitoring technician and continuous pulse ox. Patient was noted to be in normal sinus rhythm at an initial rate of 78 bpm per my interpretation. The patient was placed on 2-3 L of oxygen by nasal cannula with good improvement of his pulse ox. EKG was interpreted by myself and showed normal sinus rhythm at 81 bpm with no acute ST or T wave changes. Troponin x2 were negative. Hemoglobin low at 7.7, hematocrit 26, platelet count elevated at 436. Iron less than 10. Ferritin low at 2.5. Percent sat and TIBC were not completed in the lab. Coags were maya l. CMP essentially unremarkable. TSH normal at 1.576. Urinalysis negative for UTI and no evidence for blood. COVID, RSV, and influenza were negative. I interpreted the imaging and agree with the radiologist's reading as per the data section of the note. Chest x-ray showed cardiomegaly and emphysema, but no active disease of the chest. CT scan of the chest with PE protocol showed no evidence for PE. I had a meaningful discussion about this patient with Dr. Jennings. They agree with my assessment and the treatment plan. I spoke with Dr. Hansen of hematology who recommended the patient get 1 unit of packed red blood cells for his anemia. He would also benefit from iron infusions if he were admitted. The patient has symptomatic anemia and his pulse ox drops to the mid to upper 80s on room air with any exertion or when he is trying to sleep. Therefore, I feel the patient would benefit from admission for further evaluation and treatment of his symptoms. I spoke with the on-call spitalist who agreed to admit the patient. Please refer to their dictation for further details. The patient's care was transferred in stable condition. Impression & Plan Symptomatic anemia, Kznky-Vycoo-Xgxku disease, Dyspnea on exertion, Iron deficiency, Anemia due to chronic blood loss, AVM (arteriovenous malformation), Hypoxia Discharge Plan Visit Data Chief Complaint: Syncope ED Provider: Brandon Jennings ED Midlevel Provider: Radha Tejada Discharge Problem: Symptomatic anemia, Alobd-Ezuun-Kmwlv disease, Dyspnea on exertion, Iron deficiency, Anemia due to chronic blood loss, AVM (arteriovenous malformation), Hypoxia Patient Disposition: Admitted As Inpatient Condition: Good Discharge Instructions Interventions: ED Discharge Assessment Last Done: 02/06/22 23:58 Addendum February 07, 2022 03:50 HPI: Patient is a 69-year-old gentleman with a past medical history of Osler- Rendu disease who presents emergency department for evaluation of syncope that occurred when he was in the shower today and associated shortness of breath. The patient denies loss of consciousness or head strike. He reports he has chest pain and shortness of breath which she correlates with being anemic in the setting of this Ronnie Rendu disease. He reports he was seen at [facility] last week and had a hemoglobin of 7.2 but did not receive transfusion at that time. They recommended admission but the patient preferred to follow-up with hematology but was unsuccessful due to the holidays. He denies bloody or black stools. A/P: EKG without overt acute ischemia. CXR negative for acute cardiopulmonary process. WBC within normal limits. H/H 7.7/26.0 down from 8.6/29 several weeks ago. Platelets 436K similar to prior. Chemistry without metabolic acidosis. High- sensitivity troponin within normal limits. The patient did have an oxygen requirement where his O2 saturation was 89% on room air subsequently placed on nasal cannula. ASAEL Tejada reviewed with hematology. Appreciate recommendations for admission for further management. Agrees with transfusion of 1 unit PRBCs which was ordered. I was consulted by the Advanced Practice Provider.I performed a substantive portion of the visit.This includes aspects of the HPI, MDM, diagnostic interpretations, and disposition/plan. I discussed the case with the ASAEL, examined the patient, and agree with the findings and plan as documented in ASAEL Tejada's note.
[2022-02-06 17:06] LABS: Appearance Urine Clear (Clear); Bilirubin Urine Negative (Negative); Blood Urine Negative (Negative); Color Urine Yellow; Glucose Urine UA Negative (Negative); Ketones Urine Negative (Negative); Leukocyte Esterase Urine Negative (Negative); Nitrite Urine Negative (Negative); Protein Urine Negative (Negative); Specific Gravity Urine 1.025 (1.000-1.030); Urobilinogen Urine Negative (Negative)
[2022-02-06 17:06] LABS: Mean Platelet Volume 10.3 fL (9.4-12.4); Microcytosis Present; Ovalocytes 1+; Platelet Count 436 K/uL (130-400); Polychromasia 1+
[2022-02-06 17:08] LABS: Albumin Globulin Ratio 1.4 (0.9-2); Albumin Level 4.2 gm/dl (3.4-5.0); BUN Creatinine Ratio 20.5 (10-20); Bilirubin,Total 0.2 mg/dl (0.2-1.0); Calcium 8.7 mg/dl (8.5-10.1); Creatinine Clr Calc Pharmacy 125.1 ml/min; Est GFR (African American) 116.9 ml/min; Est GFR (Non-African American) 100.8 ml/min; Globulin 2.9 gm/dl (2.5-4.0); Potassium 4.5 mmol/L (3.5-5.1); Total Protein 7.1 gm/dl (6.0-8.3)
[2022-02-06 17:14] LABS: Troponin I High Sensitivity 4.5 pg/ml (0-20)
[2022-02-06] MEDS ORDERED: SODIUM CHLORIDE 0.9% 1000ML 1,000 ML IV ONE (17:27)
[2022-02-06 17:34] LABS: Influenza A virus by PCR Negative (Neg); Influenza B virus by PCR Negative (Neg); RSV by PCR Negative (Neg); SARS CoV2 RNA(COVID-19) Ceph NEGATIVE (Negative)
--- NOTE | 2022-02-06 17:42 | XRay Report ---
SINGLE VIEW CHEST CLINICAL HISTORY: Atypical chest pain. Dyspnea FINDINGS: An AP, portable, upright chest radiograph is compared to study dated 02/14/2021 and correlat ed with chest CT dated 04/01/2020. The heart is enlarged noting atherosclerotic calcification of the t horacic aorta. The pulmonary vasculature is noncongested. Emphysema and chronic interstitial thickeni ng is similar to previous. Scarring/atelectasis is noted at the lung bases. The lungs and pleural spa kiki are otherwise clear. No pneumothorax is seen. The skeletal structures are osteopenic. The bony th orax is grossly intact. IMPRESSION: Cardiomegaly and emphysema with no active disease in the chest. ACT 112: Negative or not required by law. Electronically signed by: Wyatt Williamson M.D. 02/06/2022 5:40 PM
[2022-02-06 18:19] LABS: Partial Thromboplastin Time 26.9 Seconds (21.0-31.0); Prothrombin Time 10.3 Seconds (9.0-12.0)
[2022-02-06 18:41] LABS: Ferritin 2.5 ng/ml (8-388)
[2022-02-06 18:42] LABS: Iron < 10 mcg/dl (35-175); Unsaturated Iron Binding Cap 458 mcg/dl (155-355)
--- NOTE | 2022-02-06 19:11 | Electrocardiogram Report ---
Test Reason : Blood Pressure : / mmHG Vent. Rate : 081 BPM Atrial Rate : 081 BPM P-R Int : 130 ms QRS Dur : 086 ms QT Int : 366 ms P-R-T Axes : 068 071 071 degrees QTc Int : 425 ms Poor data quality, interpretation may be adversely affected Normal sinus rhythm Normal ECG When compared with ECG of 14-FEB-2021 11:05, Premature atrial complexes are no longer Present Nonspecific T wave abnormality no longer evident in Anterior leads Confirmed by Kyle Contreras ([id number]) on 02/06/2022 7:11:16 PM Referred By: Confirmed By:Addy Contreras
[2022-02-06] MEDS ORDERED: SODIUM CHLORIDE 0.9% 250 ML IV PRN (19:23)
[2022-02-06] MEDS ORDERED: OPTIRAY 320 500ml IV ONE (20:00)
--- NOTE | 2022-02-06 20:17 | CT Scan Report ---
CT ANGIOGRAM OF THE CHEST CLINICAL HISTORY: Dyspnea. Syncope. Hypoxia. COMPARISON STUDY: Chest x-ray dated 02/06/2022. Chest CT dated 04/01/2020 and 02/08/2016. TECHNIQUE: Following the IV administration of 150 cc of Optiray 320, CT angiogram of the chest was pe rformed from the upper abdomen to the thoracic inlet utilizing the pulmonary embolus protocol. Images are reviewed in the axial, sagittal, and coronal planes. 3-D MIPS images are created and assessed. I V contrast was administered without complication. A dose lowering technique was utilized adhering to the principles of ALARA. CT DOSE: 430.17 mGy.cm FINDINGS: Thyroid: Imaged portions of the thyroid gland are normal in size and attenuation. Thoracic aorta: There is atherosclerotic calcification of the thoracic aorta, which is normal in jovan gordy and demonstrates standard 3-vessel arch anatomy. No dissection is seen. Pulmonary vasculature: The pulmonary trunk is normal in caliber. There are no filling defects identif ied in main, lobar, or proximal segmental pulmonary branches to suggest pulmonary embolus. The segmen morgan and subsegmental branches are not well assessed due to motion artifact, particularly in the lower lobes. Heart: The heart is enlarged and without pericardial effusion. There are coronary artery calcificatio ns. Lungs and pleural spaces: Evaluation of the lung parenchyma is degraded by motion artifact. Emphysema tous changes similar to previous. No airspace consolidation or pleural effusion is identified. Scarri ng/atelectasis is noted at the lung bases. There are 2 left upper lobe pulmonary nodules measuring 3 mm seen on images #224 and #201. A 5 mm triangular nodule at the left lung base is seen on image #80. 2 mm nodules in the right upper and right middle lobes are seen on images #221 and #153. These are u nchanged from 2017 and of doubtful significance. Mediastinum: There is no mediastinal lymphadenopathy. Hailee: Clear. Axillae: There is no axillary lymphadenopathy. Upper abdomen: Partially visualized upper abdominal viscera is within normal limits. Skeletal structures: The skeletal structures are osteopenic. Degenerative change is noted in the spin e. No lytic or blastic bony lesions are seen. There are healed bilateral rib fractures. IMPRESSION: 1. Motion compromised examination. 2. There is no evidence of central pulmonary in the main, lobar, or proximal segmental pulmonary brannon lesa. The segmental and subsegmental vessels are not well assessed due to motion artifact. 3. Cardiomegaly and emphysema. 4. No airspace consolidation or pleural effusion is identified. 5. Additional findings as above. ACT 112: Negative or not required by law. Electronically signed by: Wyatt Williamson M.D. 02/06/2022 8:14 PM
--- NOTE | 2022-02-06 20:56 | History & Physical Report ---
Date of Service February 06, 2022 Assessment & Plan (1) Symptomatic anemia: Plan: Worsening symptoms x1 week and syncope x3 in last several days, Hgb 7.7 on presentation (baseline 8-10). --> suspect acute on chronic anemia due to multiple possible etiologies: 1. ?Upper GI bleed: No symptoms of GI bleeding although patient has h/o bleeding AVMs (2/2 to Tiywd-Gdboy-Mgcug). 2. Uncontrolled CONSTANTINO: Does have established history of iron deficiency with need for chronic iron infusions and RBC infusions (with concern for GI iron malabsorption) so this is likely playing a role as well. 3. Less likely bone marrow suppression as patient sees Hematology and reports that this was looked into in the past. - patient is currently hemodynamically stable - admit to med/tele - consult GI - appreciate recs - NPO pending GI eval - s/p 1unit pRBCs, will plan to transfuse further for Hgb <8 (symptomatic) - maintenance IVFs with LR @125cc/hr, to be started after RBC transfusion complete - check H/H Q6H - FOBT all stools - give Protonix 80mg IV bolus now, continue with 40mg IV BID - iron and ferritin profoundly low - may require IV iron transfusions while inpatient; defer to primary team - check peripheral smear and reticulocyte count for index (2) Hypoxia: Plan: Requiring 2-3L supplemental O2 via nasal cannula to maintain sats >90%. No home O2 requirement. Suspect this is largely due to symptomatic anemia although patient does have significant smoking history and wheezes on exam, thus ?undiagnosed COPD with mild exacerbation cannot be ruled out. - give Duoneb x1 now - continue with Duonebs Q6H scheduled + Q2H PRN - utilize Pulmicort nebs BID while hospitalized (hold home Advair) - avoid IV steroids for now given concern for possible GI bleed - no PNA on imaging - defer atypical coverage - utilize supplemental O2 as necessary to maintain sats >90% - recommend outpatient PFTs if not done already for ?COPD - defer to PCP (3) Lwsgn-Yaanb-Xxlrd disease: Plan: With chronic anemia and h/o recurrent GI bleeds/AVMs. GI consulted as stated above, plan as above. - continue outpatient f/u with Dr. Castro ([facility]) for periodic monitoring and transfusions (4) Tobacco use disorder, continuous: Plan: ~80 pack year history, currently smoking ~1/2 ppd. - nicotine patch - counseled on cessation (5) Chronic back pain: Plan: Continue home Gabapentin, and added PRN Tylenol for breakthrough pain Plan FEN/GI: NPO, LR @125cc/hr DVT Prophylaxis: SCDs, chemoppx contraindicated due to ?GI bleed Code Status: full code Disposition: med/tele History of Present Illness Chief Complaint: syncope Primary Care Provider: Roger Talbert DO Sean Bruno is a 61yo male with PMHx significant for Fwqdv-Gqfqu-Pxnng disease with recurrent GI bleeds (AVMs), chronic anemia (?chronic blood loss and iron deficiency), HTN, and tobacco use disorder, who presented to [facility] ED via EMS on 02/06 for syncope x3 in last several days as well as progressive dyspnea on exertion, lightheadedness, pulsatile tinnitus, and inspiratory chest pain for 1 week - which patient says is typical for him when he gets too anemic. Fell in the shower during syncopal episode; denies head trauma or LOC with falls. When EMS arrived patient was satting in low 80s on room air and improved on 6L/min O2 via nasal cannula - SpO2 improved to low 90s. Denies N/V, hematemesis, melena or hematochezia, although reports that he usually does not see blood in stool or other stool abnormalities even during past GI bleeds. Denies recent NSAID use. Of note patient has had AVMs found on previous EGDs that were treated during bouts of symptomatic anemia. Patient did have pneumonia several weeks ago with persistent mild cough since then but no fever/chills. Of note patient sees Dr. Castro (Hematology) for occasional iron transfusions and blood transfusions due to CONSTANTINO - usually gets transfusions once ever 1-2 months. Wanted to get scheduled for iron/blood transfusion last week due to symptoms but was unable to get it done due to holiday scheduling. He went to [facility] last week and his Hgb was around 7.2, but they do not transfuse unless patients are below 6 per patient.He states that they wanted to admit him for observation, but he wanted to follow up with hematology as an outpatient, but couldn't get in with them because of the holidays.Was unable to schedule with Hematology until 10 days from now. In the ED patient was hypoxic to 89% and improved to high 90s on 3L/min nasal cannula. Afebrile and hemodynamically stable; BP up to 171/103. Labs significant for Hgb 7.7 (baseline mostly 8-10), MCV 69.3, MCHC 29.6, iron <10, ferritin 2.5, TIBC 458. hsTroponin negative x2 (checked 2 hours apart). EKG NSR. CXR with chronic cardiomegaly/emphysema but no active disease. CTA chest without PE or acute process. In the ED the patient was given NSS 1L bolus and 1 unit of pRBCs. Allergies Allergy/AdvReac Type Severity Reaction Status Date / Time cyclobenzaprine AdvReac Unknown MUSCLE Verified 02/06/22 21:53 [From Flexeril] CONTRACTIONS Home Medications Medication Instructions Recorded Confirmed Type diclofenac sodium 1 % topical gel 2 g topical QID PRN Joint Pain 08/01/21 02/06/22 Rx #100 grams fluticasone furoate 100 1 inh inhalation DAILY #60 ea 08/02/21 02/06/22 Rx mcg-vilanterol 25 mcg/dose inhalation powder albuterol sulfate 90 mcg/actuation 1 - 2 puff inhalation QID PRN 11/30/21 02/06/22 Rx aerosol inhaler (Ventolin HFA) Shortness Of Breath Or Wheezing #8.5 grams Advair Diskus 250 mcg-50 mcg/dose 1 inh inhalation BID #60 ea 12/08/21 02/06/22 Rx powder for inhalation (fluticasone propion-salmeterol) lisinopril 10 1 tab PO QAM #90 tabs 01/24/22 02/06/22 Rx mg-hydrochlorothiazide 12.5 mg tablet oxycodone-acetaminophen 5 mg-325 1 tab PO .q12 hour PRN pain #60 01/24/2203/30 Rx mg tablet (Percocet) tabs fluticasone propionate 50 1 spray intranasal BID PRN Allergy 01/27/22 02/06/22 Rx mcg/actuation nasal Symptoms #16 grams spray,suspension (Flonase Allergy Relief) gabapentin 600 mg tablet 600 mg PO TID 02/06/22 02/06/22 History Past Med/Surg History Medical History Anemia inhaler for this bc pt becomes very SOB AVM (arteriovenous malformation) pt unaware Cervical disc disease C5-C6 Chronic back pain Dog bite of face 08/12/2019- received care at [facility]- Lip and nose sutured and pt placed on antibiotics. Hepatitis C treated--no longer has Hx of bleeding disorder HAS CAUSED BLEEDING INTO STOMACH REQUIRING CAUTERIZATION-F/U DR KAN [facility]-HX BLOOD TRANSFUSIONS IN THE PAST Hypertension Osler-Rendu disease Surgical History History of colonoscopy History of esophagogastroduodenoscopy (EGD) History of herniorrhaphy X 4 History of open reduction and internal fixation (ORIF) procedure left hand/wrist fx--hardware removed History of repair of rotator cuff RIGHT History of shoulder surgery right History of tooth extraction all teeth removed Hx of excision of testicular mass X MULTIPLE BENIGN CYSTS Family History Other No family history of adverse response to anesthesia Denies family history of Colon cancer Ovarian cancer Prostate cancer Myocardial infarction Breast cancer Social History Smoking Status: Current every day smoker Tobacco Type: Cigarettes Cigarettes Per Day: 4; Second Hand Exposure: No; Hx Alcohol Use: No Hx Substance Use: No Preferred Language: Albanian Communication Ability: Effective Visual Impairment: Limited Hearing Ability: Hard of Hearing 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 NAD. Cooperative. HEENT: Atraumatic, normocephalic. Pulm: Occasional bilateral wheezes but good aeration overall. No crackles. Symmetrical chest rise. Mild increase work of breathing while on room air, which improves with 2-3L nasal cannula. Cardiac: RRR, -mrg. Radial pulses intact and symmetrical. No LE edema. Abdominal: soft, +epigastric tenderness, non-distended, BS x 4 Skin: warm, dry, no rash Results & Data Results & Data ([facility]) Vital Signs (Past 12 Hours) Vital Signs Temp Pulse Pulse Resp BP BP Pulse Ox 02/06/22 20:30 36.7 C 83 24 171/103 H 95 02/06/22 20:00 96 02/06/22 20:10 79 17 97 02/06/22 20:08 97 02/06/22 20:08 176/99 H 02/06/22 19:50 108 H 26 H 02/06/22 19:40 83 18 89 L 02/06/22 19:30 86 21 92 02/06/22 19:30 191/109 H 02/06/22 19:20 99 H 24 02/06/22 19:10 82 18 90 02/06/22 19:00 86 24 93 02/06/22 19:00 169/116 H 02/06/22 18:50 73 19 95 02/06/22 18:40 71 15 97 02/06/22 18:35 77 20 90 02/06/22 18:35 166/108 H 02/06/22 18:30 69 14 89 L 02/06/22 18:28 89 L 02/06/22 18:10 74 23 91 02/06/22 18:00 72 16 92 02/06/22 18:00 170/95 H 02/06/22 17:50 74 16 91 02/06/22 17:40 71 17 92 02/06/22 17:30 73 16 02/06/22 17:30 148/81 H 02/06/22 17:20 82 26 H 98 02/06/22 17:10 78 21 98 02/06/22 17:00 76 17 02/06/22 17:00 154/87 H 02/06/22 16:50 77 15 94 02/06/22 16:40 74 18 97 02/06/22 16:30 78 18 95 02/06/22 16:30 177/95 H 02/06/22 16:20 81 18 93 02/06/22 16:10 82 15 90 02/06/22 16:00 79 18 91 02/06/22 15:59 81 17 91 02/06/22 15:59 157/84 H 02/06/22 18:41 70 18 166/108 H 97 02/06/22 16:19 94 02/06/22 16:19 85 L 02/06/22 16:03 36.5 C 82 20 157/84 H 91 O2 Del Method O2 Flow Rate 02/06/22 20:30 3 02/06/22 20:00 Nasal Cannula 2 02/06/22 20:10 02/06/22 20:08 02/06/22 20:08 02/06/22 19:50 02/06/22 19:40 02/06/22 19:30 02/06/22 19:30 02/06/22 19:20 02/06/22 19:10 02/06/22 19:00 02/06/22 19:00 02/06/22 18:50 02/06/22 18:40 02/06/22 18:35 02/06/22 18:35 02/06/22 18:30 02/06/22 18:28 02/06/22 18:10 02/06/22 18:00 02/06/22 18:00 02/06/22 17:50 02/06/22 17:40 02/06/22 17:30 02/06/22 17:30 02/06/22 17:20 02/06/22 17:10 02/06/22 17:00 02/06/22 17:00 02/06/22 16:50 02/06/22 16:40 02/06/22 16:30 02/06/22 16:30 02/06/22 16:20 02/06/22 16:10 02/06/22 16:00 02/06/22 15:59 Nasal Cannula 3 02/06/22 15:59 02/06/22 18:41 Nasal Cannula 3 02/06/22 16:19 Nasal Cannula 3 02/06/22 16:19 Room Air 02/06/22 16:03 Room Air Supervising Physician Co-Signing Physician Notes Attending addendum: I have physically seen this patient, have supervised the medical residents activities, and agree with the H&P unless as otherwise noted. Assessment and Plan: Symptomatic anemia/syncope- Hemoglobin 7.7 on admission, with baseline 8.6-10.9 History of bleeding AVMs associated with Rkscs-Gasnv-Vojdn Concerns regarding iron deficiency associated with malabsorption Patient has been receiving IV iron infusions and RBC transfusions as outpatient Admit to monitored bed Serial H&H's To receive 1 unit PRBCs from the ED Maintenance LR at 125 mils per hour Protonix 80 mg IV followed by 40 mg IV twice daily Consult gastroenterology Hypoxia- Continue nasal cannula oxygen with target to maintain saturations greater than 90% Duonebs every 4 hours while awake and every 2 hours when necessary. Considerations of undiagnosed COPD aggravated by anemia Tobacco use disorder- Cessation counseling Nicotine patch Remaining orders notations as noted Resident Activity Tracking Resident Involvement: Resident Care Provided Care Provided: Adult Hospital Medicine (1) Chronic back pain Back pain laterality: bilateral Back pain location: thoracic back pain Qualified Code(s): M54.6 - Pain in thoracic spine; G89.29 - Other chronic pain
[2022-02-06] MEDS ORDERED: ALBUT/IPRATROP 3MG/0.5MG NEB 3 ML VIAL NEB STA (21:20)
[2022-02-06] MEDS ORDERED: PANTOprazole 80 MG in DEXTROSE 5% 100 ML IV STA (21:22)
[2022-02-06 22:05] LABS: Reticulocyte % 1.2 % (0.5-2.0); Reticulocytes # 0.04 10^6/uL (0.02-0.10)
[2022-02-07] MEDS ORDERED: ACETAMINOPHEN 1,000 MG/100 ML VIAL IV PRN (00:09)
[2022-02-07] MEDS ORDERED: ONDANSETRON INJ 2 MG/ML 2 ML VIAL IV PRN (00:09)
[2022-02-07] MEDS ORDERED: ALBUT/IPRATROP 3MG/0.5MG NEB 3 ML VIAL NEB PRN (00:09)
[2022-02-07] MEDS: ALBUT/IPRATROP 3MG/0.5MG NEB 3 ML VIAL INH SCH ×5 (00:47→20:29)
[2022-02-07] MEDS: LACTATED RINGER'S 1,000 ML IV SCH ×2 (00:54→08:03)
[2022-02-07 01:17] LABS: Hematocrit (blood only) 29.4 % (40.1-51.0); Hemoglobin 8.7 g/dl (14.0-18.0)
[2022-02-07] MEDS: GABAPENTIN 600 MG TAB PO SCH ×4 (01:29→21:07)
[2022-02-07 06:16] LABS: Basophils # (auto) 0.07 K/uL (0-0.2); Eosinophils # (auto) 0.38 K/uL (0-0.50); Eosinophils % (auto) 5.3 %; Hematocrit (blood only) 27.3 % (40.1-51.0); Hemoglobin 8.2 g/dl (14.0-18.0); Immature Granulocytes # (auto) 0.03 K/uL (0.00-0.02); Immature Granulocytes % (auto) 0.4 %; Lymphocytes # (auto) 1.52 K/uL (1.2-3.4); Lymphocytes % (auto) 21.3 %; Mean Corpuscular Hemoglobin 21.4 pg (25.0-34.0); Mean Corpuscular Volume 71.3 fL (80.0-100.0); Mean Platelet Volume 10.2 fL (9.4-12.4); Monocytes # (auto) 0.71 K/uL (0.24-0.82); Monocytes % (auto) 9.9 %; Neutrophils # (auto) 4.43 K/uL (1.4-6.5); Neutrophils % (auto) 62.1 %; Platelet Count 378 K/uL (130-400); RDW Standard Deviation 45.2 fL (36.4-46.3); Red Blood Count 3.83 M/uL (4.63-6.08); White Blood Count 7.14 K/ul (4.8-10.8)
[2022-02-07 06:35] LABS: Calcium 8.3 mg/dl (8.5-10.1); Creatinine Clr Calc Pharmacy 130.5 ml/min; Est GFR (African American) 118.9 ml/min; Est GFR (Non-African American) 102.6 ml/min; Magnesium 2.1 mg/dl (1.7-2.4); Potassium 4.1 mmol/L (3.5-5.1)
[2022-02-07] MEDS: BUDESONIDE 0.5 MG/2 ML VIAL (PULMICORT) NEB SCH ×2 (07:28→17:55)
[2022-02-07] MEDS: guaiFENesin 600 MG TABCR PO SCH ×2 (08:03→21:06)
[2022-02-07] MEDS: LISINOPRIL/HCTZ 10/12.5MG TAB PO SCH (08:03)
[2022-02-07] MEDS: NICOTINE 21 MG/24 HR TDSY TD SCH (08:04)
--- NOTE | 2022-02-07 08:09 | Hospitalist Progress Note ---
Date of Service February 07, 2022 Assessment & Plan (1) Symptomatic anemia: Plan: - Continue to monitor H&H - IV venofer 200 today - Continue to monitor BMs for any evidence of active GI bleeding - GI consulted and following - GI stated ok for diet and will continue to follow and possibly plan for outpatient endoscopy (2) Bxswa-Xhndr-Njush disease: Plan: - GI following - Continue to monitor for any evidence of active bleeding (3) Chronic back pain: Plan: Continue Percocet 5/325 one q 12 hours Continue Gabapentin 600mg TID (4) Hypertension: Plan: Continue Lisinopril/HCTZ 10.5 (5) Hypoxia: Plan: Titrate O2 to maintain O2 saturation low to mid 90s Likely COPD with smoking history Will need outpatient PFT if patient has not had recently\ May need a 2 step test before discharge if continues to need supplemental O2. (6) Tobacco use disorder, continuous: Plan: Smoking cessation discussed Offered Nicotine patch (7) Iron deficiency: Plan: Replacing today with IV venofer Per patient has a hx of not being able to absorb po iron supplementation GI following (8) Pulmonary nodule: Plan: Seen on imaging since 2017 Likely benign Will need to follow up with PCP regarding any further work up (9) COPD (chronic obstructive pulmonary disease): Plan: Suspected with 80 pack year history Discussed smoking cessation, he states he is willing to quit on Nicotine patch Continue Duonebs q 6 hours and budesonide nebs q 12 Will need PFTs likely as outpatient if never had in past (10) Chest pain: Plan: Troponin negative EKG NS no acute changesR Patient described the pain as more musculoskeletal Patient stated the pain was more shoulder pain not chest pain after re evaluating patient. Admission and Anticipated Discharge Date Admission Date: February 06, 2022 Supervising Physician Co-Signing Physician Notes I did not personally see or examine this patient. I reviewed all adler points including labs, radiology studies, and discussed plan/ agree with plan of TEGAN Arevalo except as otherwise stated: Chest pain: described as more bilateral shoulder pain into back pain, reproducible with palpation. EKG no ST/T wave changes, troponin negative. Not suspicious of ACS at this time. Subjective Patient is awake sitting up at the side of his bed. His only complaint is that he is hungry and asking for his routine back pain medication. Later in the day patient was complaining of chest pain. He described the pain as being in his bilateral shoulders and radiating to his upper back. He denies any shortness of breath and he stated the pain was reproduced with touching and rubbing his shoulders. He states that it felt more like his arthritis and chronic pain issues. He denied any diaphoresis, abdominal pain, nausea or vomiting. He states he does sometimes get the shoulder pain at home. He feels the pain is because he missed 2 doses of his percocet. Review of Systems Constitutional: + fatigue; no fever, no chills, no sweats and no anorexia Respiratory: no cough, no dyspnea and no hemoptysis Cardiovascular: + chest pain; no radiating jaw, neck or arm pain, no dyspnea, no palpitations, no lightheadedness, no syncope and no calf pain Gastrointestinal: no bloating, no heartburn, no nausea, no vomiting, no dysphagia, no change in bowel habits and no constipation Musculoskeletal: + back pain and + stiffness; no neck pain and no muscle weakness Integumentary: no rash, no lesions and no new lesions Neurologic: + syncope; no falls, no loss of sensation, no seizure-like activity and no headache(s) Psychiatric: no hopelessness, no change in appetite and no panic attacks Endocrine: + fatigue; no polydipsia and no heat intolerance Physical Exam Constitutional: WD/WN, vitals as above Neck: trachea midline, no thyromegaly Respiratory: normal respiratory effort, lungs clear to auscultation Cardiovascular: RRR, no murmur, no edema Extremities: + edema; no calf tenderness trace edema lower legs Gastrointestinal (Abdomen): normal bowel sounds, soft, nontender, no hepatosplenomegaly Skin: old healed scar abdomen Psychiatric: A+Ox3, euthymic affect Results & Data Results & Data ([facility]) Vital Signs (Past 12 Hours) Vital Signs Temp Pulse Pulse Pulse Resp BP BP 02/07/22 07:29 64 18 02/07/22 07:23 79 02/07/22 07:05 36.4 C L 67 18 163/91 H 02/07/22 02:54 36.7 C 61 19 158/100 H 02/07/22 00:10 75 02/07/22 01:09 02/07/22 01:09 36.8 C 70 18 161/90 H 02/07/22 00:47 70 18 02/07/22 00:12 36.8 C 70 18 161/90 H 02/06/22 23:58 02/06/22 23:51 36.9 C 69 16 157/97 H 02/06/22 23:39 36.8 C 80 18 178/89 H 02/06/22 22:39 36.6 C 82 18 158/99 H 02/06/22 22:00 36.7 C 87 21 146/82 H 02/06/22 21:09 36.7 C 82 24 167/93 H 02/06/22 21:05 36.7 C 96 H 19 171/92 H 02/06/22 20:54 36.6 C 79 21 171/95 H 02/06/22 20:30 36.7 C 83 24 171/103 H 02/06/22 20:10 79 17 02/06/22 20:08 02/06/22 20:08 176/99 H Pulse Ox O2 Del Method O2 Flow Rate 02/07/22 07:29 98 Nasal Cannula 5 02/07/22 07:23 02/07/22 07:05 95 Nasal Cannula 5 02/07/22 02:54 92 Nasal Cannula 5 02/07/22 00:10 02/07/22 01:09 Nasal Cannula 3 02/07/22 01:09 95 Nasal Cannula 3 02/07/22 00:47 95 Nasal Cannula 3 02/07/22 00:12 95 Nasal Cannula 3 02/06/22 23:58 Nasal Cannula 3 02/06/22 23:51 92 02/06/22 23:39 95 3 02/06/22 22:39 95 3 02/06/22 22:00 99 3 02/06/22 21:09 97 3 02/06/22 21:05 90 3 02/06/22 20:54 96 3 02/06/22 20:30 95 3 02/06/22 20:10 97 02/06/22 20:08 97 02/06/22 20:08 Laboratory Results Abnormal lab results 02/06/22 02/06/22 02/06/22 Range/Units 16:20 16:20 16:20 RBC 3.75 L (4.63-6.08) M/uL Hgb 7.7 L (14.0-18.0) g/dl Hct 26.0 L (40.1-51.0) % MCV 69.3 L (80.0-100.0) fL MCH 20.5 L (25.0-34.0) pg MCHC 29.6 L (32.0-36.0) g/dL RDW Coeff of Ady 16.6 H (11.5-14.5) % Plt Count 436 H (130-400) K/uL Neut # (Auto) 6.73 H (1.4-6.5) K/uL Lymph # (Auto) 1.14 L (1.2-3.4) K/uL Immature Gran # (Auto) 0.03 H (0.00-0.02) K/uL Anion Gap (3-11) BUN/Creatinine Ratio 20.5 H (10-20) Calcium (8.5-10.1) mg/dl Iron < 10 L (35-175) mcg/dl Unsaturated IBC 458 H (155-355) mcg/dl Ferritin 2.5 L (8-388) ng/ml Crossmatch 02/06/22 02/07/22 02/07/22 Range/Units 18:14 00:32 05:38 RBC 3.83 L (4.63-6.08) M/uL Hgb 8.7 L 8.2 L (14.0-18.0) g/dl Hct 29.4 L 27.3 L (40.1-51.0) % MCV 71.3 L (80.0-100.0) fL MCH 21.4 L (25.0-34.0) pg MCHC 30.0 L (32.0-36.0) g/dL RDW Coeff of Ady 18.0 H (11.5-14.5) % Plt Count (130-400) K/uL Neut # (Auto) (1.4-6.5) K/uL Lymph # (Auto) (1.2-3.4) K/uL Immature Gran # (Auto) 0.03 H (0.00-0.02) K/uL Anion Gap (3-11) BUN/Creatinine Ratio (10-20) Calcium (8.5-10.1) mg/dl Iron (35-175) mcg/dl Unsaturated IBC (155-355) mcg/dl Ferritin (8-388) ng/ml Crossmatch See Detail 02/07/22 02/07/22 Range/Units 05:38 12:14 RBC (4.63-6.08) M/uL Hgb 8.8 L (14.0-18.0) g/dl Hct 28.9 L (40.1-51.0) % MCV (80.0-100.0) fL MCH (25.0-34.0) pg MCHC (32.0-36.0) g/dL RDW Coeff of Ady (11.5-14.5) % Plt Count (130-400) K/uL Neut # (Auto) (1.4-6.5) K/uL Lymph # (Auto) (1.2-3.4) K/uL Immature Gran # (Auto) (0.00-0.02) K/uL Anion Gap 2 L (3-11) BUN/Creatinine Ratio (10-20) Calcium 8.3 L (8.5-10.1) mg/dl Iron (35-175) mcg/dl Unsaturated IBC (155-355) mcg/dl Ferritin (8-388) ng/ml Crossmatch Diagnostic Findings Chest X-Ray 02/06/22 17:27 SINGLE VIEW CHEST CLINICAL HISTORY: Atypical chest pain. Dyspnea FINDINGS: An AP, portable, upright chest radiograph is compared to study dated 02/14/2021 and correlated with chest CT dated 04/01/2020. The heart is enlarged noting atherosclerotic calcification of the thoracic aorta. The pulmonary vasculature is noncongested. Emphysema and chronic interstitial thickening is similar to previous. Scarring/atelectasis is noted at the lung bases. The lungs and pleural spaces are otherwise clear. No pneumothorax is seen. The skeletal structures are osteopenic. The bony thorax is grossly intact. IMPRESSION: Cardiomegaly and emphysema with no active disease in the chest. ACT 112: Negative or not required by law. Electronically signed by: Wyatt Williamson M.D. 02/06/2022 5:40 PM Chest CTA 02/06/22 19:23 CT ANGIOGRAM OF THE CHEST CLINICAL HISTORY: Dyspnea. Syncope. Hypoxia. COMPARISON STUDY: Chest x-ray dated 02/06/2022. Chest CT dated 04/01/2020 and 02/08/2016. TECHNIQUE: Following the IV administration of 150 cc of Optiray 320, CT angiogram of the chest was performed from the upper abdomen to the thoracic inlet utilizing the pulmonary embolus protocol. Images are reviewed in the axial, sagittal, and coronal planes. 3-D MIPS images are created and assessed. IV contrast was administered without complication. A dose lowering technique was utilized adhering to the principles of ALARA. CT DOSE: 430.17 mGy.cm FINDINGS: Thyroid: Imaged portions of the thyroid gland are normal in size and attenuation. Thoracic aorta: There is atherosclerotic calcification of the thoracic aorta, which is normal in caliber and demonstrates standard 3-vessel arch anatomy. No dissection is seen. Pulmonary vasculature: The pulmonary trunk is normal in caliber. There are no filling defects identified in main, lobar, or proximal segmental pulmonary branches to suggest pulmonary embolus. The segmental and subsegmental branches are not well assessed due to motion artifact, particularly in the lower lobes. Heart: The heart is enlarged and without pericardial effusion. There are coronary artery calcifications. Lungs and pleural spaces: Evaluation of the lung parenchyma is degraded by motion artifact. Emphysematous changes similar to previous. No airspace consolidation or pleural effusion is identified. Scarring/atelectasis is noted at the lung bases. There are 2 left upper lobe pulmonary nodules measuring 3 mm seen on images #224 and #201. A 5 mm triangular nodule at the left lung base is seen on image #80. 2 mm nodules in the right upper and right middle lobes are seen on images #221 and #153. These are unchanged from 2017 and of doubtful significance. Mediastinum: There is no mediastinal lymphadenopathy. Hailee: Clear. Axillae: There is no axillary lymphadenopathy. Upper abdomen: Partially visualized upper abdominal viscera is within normal limits. Skeletal structures: The skeletal structures are osteopenic. Degenerative change is noted in the spine. No lytic or blastic bony lesions are seen. There are healed bilateral rib fractures. IMPRESSION: 1. Motion compromised examination. 2. There is no evidence of central pulmonary in the main, lobar, or proximal segmental pulmonary arteries. The segmental and subsegmental vessels are not well assessed due to motion artifact. 3. Cardiomegaly and emphysema. 4. No airspace consolidation or pleural effusion is identified. 5. Additional findings as above. ACT 112: Negative or not required by law. Electronically signed by: Wyatt Williamson M.D. 02/06/2022 8:14 PM PG Care Time/CCT Total # of Minutes Spent Total Time Spent with Patient: Total time spent is greater than 50% in coordination of care (as documented) at patient's floor/unit and/or counseling patient: Coding Level of Care Code 77672 SUB INP/OBS CARE 3/50MIN Diagnoses Symptomatic anemia D64.9 Cwofp-Wjuqx-Rjosw disease I78.0 Chronic back pain M54.6; G89.29 Back pain laterality: bilateral Back pain location: thoracic back pain Hypertension I10 Hypertension type: essential hypertension Hypoxia R09.02 Tobacco use disorder, continuous F17.209 Iron deficiency E61.1 Pulmonary nodule R91.1 COPD (chronic obstructive pulmonary disease) J44.9 Chest pain R07.9 (1) Chronic back pain Back pain laterality: bilateral Back pain location: thoracic back pain Qualified Code(s): M54.6 - Pain in thoracic spine; G89.29 - Other chronic pain (2) Hypertension Hypertension type: essential hypertension Qualified Code(s): I10 - Essential (primary) hypertension
[2022-02-07] MEDS: PANTOprazole 40 MG in SYRINGE 0 ML IV SCH ×2 (09:07→21:06)
--- NOTE | 2022-02-07 09:47 | Gastrointestinal Consultation ---
Date of Consultation February 07, 2022 Assessment & Plan (1) Symptomatic anemia: Discussed with Dr. Florez. No emergent indication for EGD at this time. Would approach from hematologic standpoint. Would manage conservatively with Protonix 40 mg BID. He should be on PPI therapy at the time of discharge. Can intervene if anemia worsens/does not respond to hematologic treatment. Patient is in agreement with this approach. Can advance diet at this time. Supervising Physician Co-Signing Physician Notes I personally evaluated the patient and agree with the findings as documented by GASPER [place] History of Present Illness Reason for Consultation: Symptomatic Anemia Attending Physician: Melanie Calvillo DO History of Present Illness Patient is a 61 yo male with PMH of tobacco use, BPH, HTN, cervical disc herniation, Yjmon-Qmkrw-Lkhta disease, opioid dependence & chronic anemia with AVMs requiring intervention in the past. The patient notes he follows with hematology for infusions/transfusions but it has been quite some time since his last transfusion. He notes that he was to schedule last week but due to the holiday could not. He follows with Dr. Castro of hematology. He notes several days of progressive dyspnea on exertion, chest discomfort, & tinnitus. He notes that he had a syncopal episode at home which led to EMS finding him with O2 saturations in the low 80s on room air. He denies GI symptoms at present including n/v/d, hematemesis, melena, or hematochezia. He denies NSAID use. Last EGD 02/22/20 and indicated gastric/duodenal AVMs as well as esophagitis. Of note, it does not appear that he is on PPI therapy at home. He went to [facility] last week and his Hgb was around 7.2, but states that he was told they do not transfuse unless patients are below 6.He states that they wanted to admit him for observation, but he wanted to follow up with hematology as an outpatient, but couldn't get in with them because of the holidays.Was unable to schedule with Hematology for several weeks. In the ED patient was hypoxic to 89% and improved to high 90s on 3L/min nasal cannula. Afebrile and hemodynamically stable; BP up to 171/103. Labs significant for Hgb 7.7 (baseline mostly 8-10), MCV 69.3, MCHC 29.6, iron <10, ferritin 2.5, TIBC 458. hs Troponin negative x2 (checked 2 hours apart). EKG NSR. CXR with chronic cardiomegaly/emphysema but no active disease. CTA chest without PE or acute process. In the ED the patient was given NSS 1L bolus and 1 unit of pRBCs. Iron level <10. Unsaturated IBC 458. Ferritin 2.5. He is currently saturating at 98% on 5L O2 via NC. He is presently not inclined to undergo any GI intervention. Allergies Allergy/AdvReac Type Severity Reaction Status Date / Time cyclobenzaprine AdvReac Unknown MUSCLE Verified 02/06/22 21:53 [From Flexeril] CONTRACTIONS Home Medications Medication Instructions Recorded Confirmed Type diclofenac sodium 1 % topical gel 2 g topical QID PRN Joint Pain 08/01/21 02/06/22 Rx #100 grams fluticasone furoate 100 1 inh inhalation DAILY #60 ea 08/02/21 02/06/22 Rx mcg-vilanterol 25 mcg/dose inhalation powder albuterol sulfate 90 mcg/actuation 1 - 2 puff inhalation QID PRN 11/30/21 02/06/22 Rx aerosol inhaler (Ventolin HFA) Shortness Of Breath Or Wheezing #8.5 grams Advair Diskus 250 mcg-50 mcg/dose 1 inh inhalation BID #60 ea 12/08/21 02/06/22 Rx powder for inhalation (fluticasone propion-salmeterol) lisinopril 10 1 tab PO QAM #90 tabs 01/24/22 02/06/22 Rx mg-hydrochlorothiazide 12.5 mg tablet oxycodone-acetaminophen 5 mg-325 1 tab PO .q12 hour PRN pain #60 01/24/22 02/06/22 Rx mg tablet (Percocet) tabs fluticasone propionate 50 1 spray intranasal BID PRN Allergy 01/27/22 02/06/22 Rx mcg/actuation nasal Symptoms #16 grams spray,suspension (Flonase Allergy Relief) gabapentin 600 mg tablet 600 mg PO TID 02/06/22 02/06/22 History Patient History Medical History Anemia inhaler for this bc pt becomes very SOB AVM (arteriovenous malformation) pt unaware Cervical disc disease C5-C6 Chronic back pain Dog bite of face 08/12/2019- received care at [facility]- Lip and nose sutured and pt placed on antibiotics. Hepatitis C treated--no longer has Hx of bleeding disorder HAS CAUSED BLEEDING INTO STOMACH REQUIRING CAUTERIZATION-F/U DR LORETA COLBERT BEULAH-HX BLOOD TRANSFUSIONS IN THE PAST Hypertension Osler-Rendu disease Surgical History History of colonoscopy History of esophagogastroduodenoscopy (EGD) History of herniorrhaphy X 4 History of open reduction and internal fixation (ORIF) procedure left hand/wrist fx--hardware removed History of repair of rotator cuff RIGHT History of shoulder surgery right History of tooth extraction all teeth removed Hx of excision of testicular mass X MULTIPLE BENIGN CYSTS Family History Other No family history of adverse response to anesthesia Denies family history of Colon cancer Ovarian cancer Prostate cancer Myocardial infarction Breast cancer Social History Smoking Status: Current every day smoker Tobacco Type: Cigarettes Cigarettes Per Day: 4; Second Hand Exposure: No; Hx Alcohol Use: No Hx Substance Use: No Preferred Language: Icelandic Communication Ability: Effective Visual Impairment: Limited Hearing Ability: Hard of Hearing 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: No Beliefs That Will Affect Care: None marital status: Current Living Situation: Alone Current Living Situation Comment: lives with daughter current occupational status: employed How many Children do You have: 1 Feels Safe at Home: Yes Childhood Exposure to Second-Hand Smoke: No Dental Care, Regularly: Yes Physical Activity Frequency: Daily Seatbelt Use: never Sunscreen Use: No Assistive Devices: Oxygen - Continuous Review of Systems Constitutional: no fever and no chills Respiratory: no cough and no dyspnea Cardiovascular: no chest pain Gastrointestinal: no abdominal pain, no heartburn, no coffee ground emesis, no hematemesis, no blood in stools and no melena Integumentary: no problem reported Psychiatric: no problem reported Hematologic / Lymphatic: no unexplained weight loss Physical Exam Constitutional: WD/WN, vitals as above Respiratory: prolonged expiratory phase Cardiovascular: Rate/Rhythm: regular rate Gastrointestinal (Abdomen): normal bowel sounds, soft, nontender, no hepatosplenomegaly Musculoskeletal: Head/Neck/Chest: normocephalic Psychiatric: Orientation: alert and oriented x 3 Results & Data ([facility]) Vital Signs (Past 12 Hours) Vital Signs Temp Pulse Pulse Pulse Resp BP BP 02/07/22 07:29 64 18 02/07/22 07:23 79 02/07/22 07:05 36.4 C L 67 18 163/91 H 02/07/22 02:54 36.7 C 61 19 158/100 H 02/07/22 00:10 75 02/07/22 01:09 02/07/22 01:09 36.8 C 70 18 161/90 H 02/07/22 00:47 70 18 02/07/22 00:12 36.8 C 70 18 161/90 H 02/06/22 23:58 02/06/22 23:51 36.9 C 69 16 157/97 H 02/06/22 23:39 36.8 C 80 18 178/89 H 02/06/22 22:39 36.6 C 82 18 158/99 H 02/06/22 22:00 36.7 C 87 21 146/82 H Pulse Ox O2 Del Method O2 Flow Rate 02/07/22 07:29 98 Nasal Cannula 5 02/07/22 07:23 02/07/22 07:05 95 Nasal Cannula 5 02/07/22 02:54 92 Nasal Cannula 5 02/07/22 00:10 02/07/22 01:09 Nasal Cannula 3 02/07/22 01:09 95 Nasal Cannula 3 02/07/22 00:47 95 Nasal Cannula 3 02/07/22 00:12 95 Nasal Cannula 3 02/06/22 23:58 Nasal Cannula 3 02/06/22 23:51 92 02/06/22 23:39 95 3 02/06/22 22:39 95 3 02/06/22 22:00 99 3 PG Care Time/CCT Total # of Minutes Spent Total Time Spent with Patient: Total time spent is greater than 50% in coordination of care (as documented) at patient's floor/unit and/or counseling patient: Coding Level of Care Code 77274 Inpt Consult Level 4 Diagnoses Symptomatic anemia D64.9
[2022-02-07] MEDS ORDERED: IRON SUCROSE 200 MG in 0.9 % SODIUM CHLORIDE 100 ML IV ONE (10:00)
[2022-02-07] MEDS: oxyCODONE/ACETAMINOPHEN 5mg/325mg TAB PO PRN ×2 (10:30→20:18)
--- NOTE | 2022-02-07 12:41 | Electrocardiogram Report ---
Test Reason : Blood Pressure : / mmHG Vent. Rate : 083 BPM Atrial Rate : 083 BPM P-R Int : 136 ms QRS Dur : 086 ms QT Int : 364 ms P-R-T Axes : 102 109 105 degrees QTc Int : 427 ms Poor data quality, interpretation may be adversely affected Suspect arm lead reversal, interpretation assumes no reversal Normal sinus rhythm Rightward axis Borderline ECG When compared with ECG of 06-FEB-2022 15:55, QRS axis Shifted right Confirmed by Gee Lan ([id number]) on 02/07/2022 12:41:00 PM Referred By: REFERRED SELF Confirmed By:Gee Lan
[2022-02-07 12:51] LABS: Hematocrit (blood only) 28.9 % (40.1-51.0); Hemoglobin 8.8 g/dl (14.0-18.0)
--- NOTE | 2022-02-07 14:39 | Electrocardiogram Report ---
Test Reason : Blood Pressure : / mmHG Vent. Rate : 066 BPM Atrial Rate : 066 BPM P-R Int : 136 ms QRS Dur : 084 ms QT Int : 416 ms P-R-T Axes : 058 059 067 degrees QTc Int : 436 ms Normal sinus rhythm Normal ECG When compared with ECG of 06-FEB-2022 19:30, QRS axis Shifted left T wave inversion no longer evident in Lateral leads Confirmed by Gee Lan ([id number]) on 02/07/2022 2:39:42 PM Referred By: REFERRED SELF Confirmed By:Gee Lan
[2022-02-07] MEDS ORDERED: ACETAMINOPHEN 500 MG TAB PO PRN (22:12)
[2022-02-08] MEDS: ALBUT/IPRATROP 3MG/0.5MG NEB 3 ML VIAL INH SCH ×5 (00:07→12:24)
--- NOTE | 2022-02-08 05:54 | Billing Data ---
Date of Service February 08, 2022 Coding Level of Care Code 39478 INT INP/OBS CARE
[2022-02-08] MEDS: BUDESONIDE 0.5 MG/2 ML VIAL (PULMICORT) NEB SCH (07:06)
[2022-02-08] MEDS: LISINOPRIL/HCTZ 10/12.5MG TAB PO SCH (08:40)
[2022-02-08] MEDS: GABAPENTIN 600 MG TAB PO SCH ×2 (08:40→13:53)
[2022-02-08] MEDS: PANTOprazole 40 MG in SYRINGE 0 ML IV SCH (08:40)
[2022-02-08] MEDS: oxyCODONE/ACETAMINOPHEN 5mg/325mg TAB PO PRN (08:40)
[2022-02-08] MEDS: guaiFENesin 600 MG TABCR PO SCH (08:40)
[2022-02-08] MEDS: NICOTINE 21 MG/24 HR TDSY TD SCH (08:40)
[2022-02-08 09:02] LABS: Hematocrit (blood only) 28.6 % (40.1-51.0); Hemoglobin 8.5 g/dl (14.0-18.0); Mean Corpuscular Hgb Conc 29.7 g/dL (32.0-36.0); Mean Corpuscular Volume 70.8 fL (80.0-100.0); Mean Platelet Volume 10.2 fL (9.4-12.4); Platelet Count 396 K/uL (130-400); RDW Coefficient of Variation 18.9 % (11.5-14.5); Red Blood Count 4.04 M/uL (4.63-6.08); White Blood Count 7.79 K/ul (4.8-10.8)
--- NOTE | 2022-02-08 13:12 | Discharge Summary ---
Date of Service February 08, 2022 Admission HPI Per Admitting Provider Sean Bruno is a 61yo male with PMHx significant for Szbei-Znmew-Ypfvk disease with recurrent GI bleeds (AVMs), chronic anemia (?chronic blood loss and iron deficiency), HTN, and tobacco use disorder, who presented to [facility] ED via EMS on 02/06 for syncope x3 in last several days as well as progressive dyspnea on exertion, lightheadedness, pulsatile tinnitus, and inspiratory chest pain for 1 week - which patient says is typical for him when he gets too anemic. Fell in the shower during syncopal episode; denies head trauma or LOC with falls. When EMS arrived patient was satting in low 80s on room air and improved on 6L/min O2 via nasal cannula - SpO2 improved to low 90s. Denies N/V, hematemesis, melena or hematochezia, although reports that he usually does not see blood in stool or other stool abnormalities even during past GI bleeds. Denies recent NSAID use. Of note patient has had AVMs found on previous EGDs that were treated during bouts of symptomatic anemia. Patient did have pneumonia several weeks ago with persistent mild cough since then but no fever/chills. Of note patient sees Dr. Castro (Hematology) for occasional iron transfusions and blood transfusions due to CONSTANTINO - usually gets transfusions once ever 1-2 months. Wanted to get scheduled for iron/blood transfusion last week due to symptoms but was unable to get it done due to holiday scheduling. He went to [facility] last week and his Hgb was around 7.2, but they do not transfuse unless patients are below 6 per patient.He states that they wanted to admit him for observation, but he wanted to follow up with hematology as an outpatient, but couldn't get in with them because of the holidays.Was unable to schedule with Hematology until 10 days from now. In the ED patient was hypoxic to 89% and improved to high 90s on 3L/min nasal cannula. Afebrile and hemodynamically stable; BP up to 171/103. Labs significant for Hgb 7.7 (baseline mostly 8-10), MCV 69.3, MCHC 29.6, iron <10, ferritin 2.5, TIBC 458. hsTroponin negative x2 (checked 2 hours apart). EKG NSR. CXR with chronic cardiomegaly/emphysema but no active disease. CTA chest without PE or acute process. In the ED the patient was given NSS 1L bolus and 1 unit of pRBCs. Admission Exam Per Admitting Provider General: A&Ox3. NAD. Cooperative. HEENT: Atraumatic, normocephalic. Pulm: Occasional bilateral wheezes but good aeration overall. No crackles. Symmetrical chest rise. Mild increase work of breathing while on room air, which improves with 2-3L nasal cannula. Cardiac: RRR, -mrg. Radial pulses intact and symmetrical. No LE edema. Abdominal: soft, +epigastric tenderness, non-distended, BS x 4 Skin: warm, dry, no rash Principal Diagnosis Symptomatic Anemia Discharge Exam Constitutional WD/WN, vitals as above Neck trachea midline, no thyromegaly Respiratory normal respiratory effort, lungs clear to auscultation Cardiovascular RRR, no murmur, no edema Extremities: + edema; no calf tenderness Gastrointestinal (Abdomen) normal bowel sounds, soft, nontender, no hepatosplenomegaly Skin no rashes, warm and dry Neurologic patellar DTR's 2+ bilat, sensation intact and PERRL, EOMI, accommodation nl, no face palsy, no dysarthria Psychiatric A+Ox3, euthymic affect Discharge Data Allergies Allergy/AdvReac Type Severity Reaction Status Date / Time cyclobenzaprine AdvReac Unknown MUSCLE Verified 02/06/22 21:53 [From Flexeril] CONTRACTIONS Consultations 02/06/22 21:33 ED Decision to Admit Stat 02/07/22 00:09 Consult Gastroenterology Routine Ordered Studies 02/06/22 19:23 CT angio chest PE protocol Stat Hospital Course (1) Symptomatic anemia: Worsening symptoms x1 week and syncope x3 in last several days, Hgb 7.7 on presentation (baseline 8-10). --> suspect acute on chronic anemia due to multiple possible etiologies: 1. ?Upper GI bleed: No symptoms of GI bleeding although patient has h/o bleeding AVMs (2/2 to Aqdjw-Lcgqx-Avbsb). 2. Uncontrolled CONSTANTINO: Does have established history of iron deficiency with need for chronic iron infusions and RBC infusions (with concern for GI iron malabsorption) so this is likely playing a role as well. 3. Less likely bone marrow suppression as patient sees Hematology and reports that this was looked into in the past. Patient was evaluated by GI, who recommended BID PPI and will have outpatient evaluation and possible EGD S/P 1 unit pRBC and also 200 Venofer infusion Hgb improved appropiately after the 1 unit to 8.8 (2) Hypoxia: Requiring 2-3L supplemental O2 via nasal cannula to maintain sats >90%. No home O2 requirement. Suspect this is largely due to symptomatic anemia although patient does have significant smoking history and wheezes on exam, thus ?undiagnosed COPD with mild exacerbation cannot be ruled out. - no PNA on imaging - defer atypical coverage - utilize supplemental O2 as necessary to maintain sats >90% - recommend outpatient PFTs if not done already for ?COPD - defer to PCP Lung exam improved today with increased air exchange and was no longer requiring Oxygen supplementation to maintain saturation in low 90s. Respiratory completed a 2 step evaluation and patient had good activity tolerance and maitained O2 sats in the low to mid 90s with rest and activity. Encouraged continued smoking cessation and will rx Nicoderm patch on discharge (3) Cyayv-Vbqwl-Oysdv disease: With chronic anemia and h/o recurrent GI bleeds/AVMs. GI consulted as stated above, plan as above. - continue outpatient f/u with Dr. Castro ([facility]) for periodic monitoring an d transfusions - Will follow up also with GI in 1-2 weeks and will continue BID PPI until seen (4) Tobacco use disorder, continuous: ~80 pack year history, currently smoking ~1/2 ppd. - nicotine patch - counseled on cessation - Rx nicotine patch at discharge (5) Chronic back pain: Continue home Gabapentin, and added PRN Tylenol for breakthrough pain Continue home Oxycodone 5/325 Plan Discharge today to home with follow ups with GI, Hematology and family doctor Code Status: full code Disposition: med/tele Total Time Total Time Spent Total Time Spent (In Minutes): 40 Discharge Plan Discharge Items Patient Disposition: Home - Self-Care Reason For Visit: SYMPTOMATIC ANEMIA Discharge Diagnosis: symptomatic anemia Condition on Discharge: Good Activity: Resume your previous activity Lifting: Gradually increase as tolerated Weightbearing: Full weightbearing Non-emergency contact: Primary Care Provider Call non-emergency contact if: you have any medication questions and your symptoms worsen Follow-up/Referrals: Roger Talbert, [Primary Care Provider] - 01/11/23 11:20 am Diet: Regular Addtl Attending Provider Instructions: You were admitted with symptomatic anemia and were found to be hypoxic with a low oxygen saturation. You received a blood transfusion and also an infusion if IV iron (venofer) You were initially treated with oxygen via nc to maintain O2 saturation in low 90s. Today respiratory evaluated you and performed a 2 step evalauation and you were able to maintain oxygen saturations in the mid to low 90s with no oxygen supplementation. You have a long smoking history and likely have COPD You should follow up with your family doctor and may need to have Pulmonary Function Testing if you already have not had in the past. You should continue all your previous at home medications. You will be discharged with a nicotine patch and are encouraged to continue to abstain from smoking. Patient education on Nhorb-Gdjvo-Aqayc Syndrome also called HHT. Hereditary hemorrhagic telangiectasia (HHT; also called Legmp-Hdhav-Zgtoi syndrome) is a vascular disorder inherited as an autosomal dominant trait, with a variety of clinical manifestations that can vary even within relatives who have the same HHT pathogenic gene variant. The most common problems are epistaxis, gastrointestinal bleeding, and iron deficiency anemia, along with characteristic mucocutaneous telangiectasia. In addition, arteriovenous malformations (AVMs) frequently affect the pulmonary, hepatic, and/or cerebral circulations, demanding knowledge of the risks and benefits of screening and treatment of patients with these complications. PATHOPHYSIOLOGY GeneticsHHT is inherited as an autosomal dominant trait with varying penetrance and expression. Pathogenic variants in multiple genes can cause HHT, with three major disease-associated gene This is a genetic disorder and is not contagious RESOURCESEducational materials for patients with HHT and the location of specialized centers for diagnosing and managing HHT and pulmonary arteriovenous malformations (PAVMs) are available from[facility] https://www.Birdback/external-redirect.do?target_url=http%3A%2F%2Fcurehht.or g%2F&token=a7%4YKV4J0Y5UYlaZdli92qR0Uhd%2BNVaQ%4Ss8YXHdppR%2B8%3D&TOPIC_ID=1345 ,YASMINE HHT https://www.Birdback/external-redirect.do?target_url=https%3A%2F%2Fvascern.e u%2Fexpertise%0Ebhsp-exaomrhq-oem%2Fhht-wg%2 F&token=OKs4HATcA6zb2IZlCzjSJn63yro5oP8gU4fmiyeNM%8A47iZjsVbsc7ui4yMrR037KSMRcAH aVUsIdc985bg33rB%3D%3D&TOPIC_ID=1345 , and other patient groups. Additional information is available online: Introduction to HHT from [facility] https://www.Bump Technologiesube.com/watch?v=6LfPm0Ssv18&feature=NuVasive.be https://www.Birdback/Embedsterredirect.do?target_url=https%3A%2F %2Fwww.MedRunner%2Fwatch%3Fv%5F6YwIt3Gwx99%26feature%3Dyoutu.be&token=3BBziCZQ SxXrVzu92rbOoyB1kQvp9BXXddR6JzLSP%2KHvapEReuILFRAjfFaa1dW%6YtwRhYHA5m79RYFcj6PDQ Z0nUYD5dOxIVunVPP3wVEks%3D&TOPIC_ID=1345 Overview of HHT https://www.Bump Technologiesube.com/watch?v=g0oFTD3oWRE&feature=NuVasive.be https://www.Birdback/external-redirect.do?target_url=https%3A%2F%2Fwww. MedRunner%2Fwatch%3Fv%8By3mDNM2wVSE%26feature%3Dyoutu.be&token=3BBziCZQDrEhIlt 19bkLbgX5yGyn0PMJnmH1XmRKJ%9NLHSoR1G4M1h07PPF0%7WtqW9CeceUoonEeVQSW1T9bzVTG1beCA ji7CE8cMA7giTRK2%3D&TOPIC_ID=1345 Pending Studies at Discharge: No Stand-Alone Forms: My [facility], Smoking Cessation Medications and DC Order Prescriptions: New nicotine [Nicoderm CQ] 21 mg/24 hr Patch 24 Hour 21 mg transdermal QAM Qty: 14 0RF pantoprazole [Protonix] 40 mg tablet,delayed release (DR/EC) 40 mg PO BID 14 Days Qty: 28 0RF Continued diclofenac sodium 1 % gel 2 g TOPICAL QID PRN (Reason: Joint Pain) Qty: 100 2RF Rx Instructions: Please give patient the tube from the hospital. fluticasone furoate-vilanterol 100-25 mcg/dose blister with device 1 inh inhalation DAILY Qty: 60 2RF Hold Instructions: Home Medication placed on hold at Doctor's office fluticasone propion-salmeterol [Advair Diskus] 250-50 mcg/dose blister with device 1 inh inhalation BID Qty: 60 5RF lisinopril-hydrochlorothiazide 10-12.5 mg tablet 1 tab PO QAM Qty: 90 1RF oxycodone-acetaminophen [Percocet] 5-325 mg tablet 1 tab PO .q12 hour PRN (Reason: pain) Qty: 60 0RF Rx Instructions: No more than 1 PO twice daily. fluticasone propionate [Flonase Allergy Relief] 50 mcg/actuation spray,suspension 1 spray INTRANASAL BID PRN (Reason: Allergy Symptoms) Qty: 16 5RF albuterol sulfate [Ventolin HFA] 90 mcg/actuation HFA aerosol inhaler 1 - 2 puff INHALATION QID PRN (Reason: Shortness Of Breath Or Wheezing) Qty: 8.5 5RF gabapentin 600 mg tablet 600 mg PO TID Rx Instructions: TAKE 2 BY MOUTH 3 TIMES A DAY Discharge Orders: Discharge Order (Routine); Ordered 02/08/22 Ordered By: Margot Partida/Other Patient Handouts: Chest and Lung Problems, Anemia, Iron Supplements, Discharge Instructions: COPD Admission Data Admit Date/Time: 02/06/22 21:33 Attending Provider: Melanie Calvillo Admit Provider: Mark Britton Primary Care Provider: Roger Talbert Other Providers: Adalberto Florez ; Luis Gonzalez Other Interventions: Discharge Summary Assessment (RN) Last Done: 02/08/22 11:11 Supervising Physician Co-Signing Physician Notes PA Supervision Note: I personally saw and examined the patient. I verified all adler points and agree with TEGAN Arevalo with the following exceptions and/or additions: Subjective: 61 yo M Hx Winnie presented with acute hypoxic resp failure 2/2 symptomatic anemia in patient with likely element of COPD given 80 pack year smoking history. Feeling well and ready for discharge today. No complaints today. No BRBPR. No SOB. Physical exam: Vitals reviewed Gen: Alert and oriented, NAD CV: RRR no mgr nl S1S2 Pulm: CTAB, intermittent expiratory wheeze Abd: +BS soft NT ND no masses Skin: no rashes, warm/dry Neuro: No focal neurologic deficits Labs, Rads reviewed Assessment and Plan: symptomatic anemia, Yhdzo-Rkcch-Qljjt: History of multiple GIB in the past, follows with PCP and GI. Symptoms resolved with 1u PRBCs and Hgb has been stable, 8.5 on day of discharge. Recommended CBC in 1 week and PCP follow up. Hypoxia, smoking Hx: Hx 80 pack year smoking, no formal COPD diagnosis however likely lung involvement given that degree of smoking history. Hypoxia likely due to anemia, saturating well without oxygen in low 90s on two step. Nicotine patches for smoking cessation and follow up PCP. Otherwise plan as above. Coding Level of Care Code HOSP INP/OBS DISCH >30 MIN Diagnoses Symptomatic anemia D64.9 Hypoxia R09.02 Dxduc-Lkggx-Vupis disease I78.0 Tobacco use disorder, continuous F17.209 Chronic back pain M54.6; G89.29 Back pain laterality: bilateral Back pain location: thoracic back pain Time Spent (min) 40
== END 2022-02-08 15:58 | disposition home or self-care (01) | DRG 300 ==
LOC: ED 15:40 → 2N 21:33 → SUATTDRO 21:33 → 2N 23:58

== ENCOUNTER 2022-02-11 00:40 | Observation (INO) ==
[2022-02-11 01:23] LABS: Basophils # (auto) 0.08 K/uL (0-0.2); Basophils % (auto) 0.7 %; Eosinophils # (auto) 0.34 K/uL (0-0.50); Hemoglobin 9.6 g/dl (14.0-18.0); Immature Granulocytes # (auto) 0.02 K/uL (0.00-0.02); Immature Granulocytes % (auto) 0.2 %; Lymphocytes # (auto) 1.22 K/uL (1.2-3.4); Lymphocytes % (auto) 10.9 %; Mean Corpuscular Hemoglobin 21.3 pg (25.0-34.0); Mean Platelet Volume 9.8 fL (9.4-12.4); Monocytes # (auto) 0.78 K/uL (0.24-0.82); Neutrophils # (auto) 8.71 K/uL (1.4-6.5); Neutrophils % (auto) 78.2 %; Platelet Count 411 K/uL (130-400); RDW Coefficient of Variation 20.6 % (11.5-14.5); RDW Standard Deviation 49.4 fL (36.4-46.3); Red Blood Count 4.51 M/uL (4.63-6.08); White Blood Count 11.15 K/ul (4.8-10.8)
[2022-02-11 01:43] LABS: Anisocytosis Present; Polychromasia 1+
[2022-02-11 01:48] LABS: Troponin I High Sensitivity 5.1 pg/ml (0-20)
[2022-02-11 01:53] LABS: Albumin Globulin Ratio 1.2 (0.9-2); Albumin Level 4.2 gm/dl (3.4-5.0); BUN Creatinine Ratio 15.7 (10-20); Bilirubin,Total 0.4 mg/dl (0.2-1.0); Calcium 9.7 mg/dl (8.5-10.1); Est GFR (African American) 110.8 ml/min; Est GFR (Non-African American) 95.6 ml/min; Globulin 3.5 gm/dl (2.5-4.0); Potassium 4.6 mmol/L (3.5-5.1); Total Protein 7.7 gm/dl (6.0-8.3)
--- NOTE | 2022-02-11 04:39 | Emergency Department Note ---
History of Present Illness General Chief complaint: Shortness of Breath/Dyspnea Stated complaint: SHORT OF BREATH/CHEST PAIN Time Seen by Provider: 02/11/22 00:51 Source: patient Mode of arrival: EMS Limitations: no limitations History of Present Illness Maximum Pain Intensity: 5 This patient is a 61-year-old male with past medical history of Bdvex-Ppidd-Szilg disease who presents to the emergency department via EMS for evaluation of shortness of breath. Patient had a recent admission and states that he feels he was discharged too early. He states that he has been having some shortness of breath with exertion while at home. He is not on oxygen at home. He states that O2 sats have been dropping into the 80s at home. He states that this is happened before when he has had symptomatic anemia. He is a smoker but denies a COPD diagnosis. Home Medications Medication Instructions Recorded Confirmed Type diclofenac sodium 1 % topical gel 2 g topical QID PRN Joint Pain 08/01/21 02/11/22 Rx #100 grams fluticasone furoate 100 1 inh inhalation DAILY #60 ea 08/02/21 02/11/22 Rx mcg-vilanterol 25 mcg/dose inhalation powder albuterol sulfate 90 mcg/actuation 1 - 2 puff inhalation QID PRN 11/30/21 02/11/22 Rx aerosol inhaler (Ventolin HFA) Shortness Of Breath Or Wheezing #8.5 grams Advair Diskus 250 mcg-50 mcg/dose 1 inh inhalation BID #60 ea 12/08/21 02/11/22 Rx powder for inhalation (fluticasone propion-salmeterol) lisinopril 10 1 tab PO QAM #90 tabs 01/24/22 02/11/22 Rx mg-hydrochlorothiazide 12.5 mg tablet fluticasone propionate 50 1 spray intranasal BID PRN Allergy 01/27/22 02/11/22 Rx mcg/actuation nasal Symptoms #16 grams spray,suspension (Flonase Allergy Relief) gabapentin 600 mg tablet 600 mg PO TID 02/06/22 02/11/22 History nicotine 21 mg/24 hr daily 21 mg transdermal QAM #14 ea 02/08/22 02/11/22 Rx transdermal patch (Nicoderm CQ) pantoprazole 40 mg tablet,delayed 40 mg PO BID 14 days #28 tabs 02/08/22 02/11/22 Rx release (Protonix) oxycodone-acetaminophen 5 mg-325 1 tab PO Q12H PRN pain 02/11/22 02/11/22 History mg tablet (Percocet) Allergies Allergy/AdvReac Type Severity Reaction Status Date / Time cyclobenzaprine AdvReac Unknown MUSCLE Verified 02/11/22 01:13 [From Flexeril] CONTRACTIONS Past Med/Surg History Medical History Anemia inhaler for this bc pt becomes very SOB AVM (arteriovenous malformation) pt unaware Cervical disc disease C5-C6 Chronic back pain Dog bite of face 08/12/2019- received care at [facility]- Lip and nose sutured and pt placed on antibiotics. Hepatitis C treated--no longer has Hx of bleeding disorder HAS CAUSED BLEEDING INTO STOMACH REQUIRING CAUTERIZATION-F/U DR KAN [facility]-HX BLOOD TRANSFUSIONS IN THE PAST Hypertension Osler-Rendu disease Surgical History History of colonoscopy History of esophagogastroduodenoscopy (EGD) History of herniorrhaphy X 4 History of open reduction and internal fixation (ORIF) procedure left hand/wrist fx--hardware removed History of repair of rotator cuff RIGHT History of shoulder surgery right History of tooth extraction all teeth removed Hx of excision of testicular mass X MULTIPLE BENIGN CYSTS Family History Other No family history of adverse response to anesthesia Denies family history of Colon cancer Ovarian cancer Prostate cancer Myocardial infarction Breast cancer Social History Smoking Status: Current some day smoker Tobacco Type: Cigarettes Cigarettes Per Day: 4; Second Hand Exposure: No; Hx Alcohol Use: No Hx Substance Use: No Preferred Language: Indian Communication Ability: Effective Visual Impairment: Limited Hearing Ability: Hard of Hearing Internal Security Manager Required: No Beliefs That Will Affect Care: None marital status: Current Living Situation: Alone Current Living Situation Comment: lives with daughter current occupational status: employed How many Children do You have: 1 Feels Safe at Home: Yes Childhood Exposure to Second-Hand Smoke: No Dental Care, Regularly: Yes Physical Activity Frequency: Daily Seatbelt Use: never Sunscreen Use: No Assistive Devices: Glasses Review of Systems A total of 10 systems reviewed and were otherwise negative Physical Exam Vital Signs Vital Signs - 24 hr 02/11/22 00:47 02/11/22 00:47 02/11/22 00:53 Temperature 36.7 C Temperature Source Oral Pulse Rate 88 Pulse Rate [Apical] 82 Pulse Rate from SpO2 Sensor Pulse Rhythm Respiratory Rate 19 20 Respiratory Effort / Characteristics Non-Labored Spontaneous Non-Labored Spontaneous Respiratory Depth Normal Normal Respiratory Pattern Regular Regular Blood Pressure 133/98 Blood Pressure [Right Arm] 133/98 Blood Pressure Mean 109 Blood Pressure Mean [Right Arm] 109 Pulse Oximetry 94 94 93 Oxygen Delivery Method Nasal Cannula Nasal Cannula Nasal Cannula Oxygen Flow Rate 3 3 3 Sepsis Recent Fever Within 48 Hours No Sepsis New/Unexplained Change in Mental Status No Sepsis Action Taken by Nursing No Action Required 02/11/22 01:04 02/11/22 02:47 02/11/22 03:38 Temperature Temperature Source Pulse Rate 78 Pulse Rate [Apical] 72 Pulse Rate from SpO2 Sensor Pulse Rhythm Regular Respiratory Rate 18 Respiratory Effort / Characteristics Respiratory Depth Respiratory Pattern Blood Pressure Blood Pressure [Right Arm] 164/102 H Blood Pressure Mean Blood Pressure Mean [Right Arm] 122 Pulse Oximetry 94 89 L 93 Oxygen Delivery Method Nasal Cannula Room Air Nasal Cannula Oxygen Flow Rate 3 2 Sepsis Recent Fever Within 48 Hours Sepsis New/Unexplained Change in Mental Status Sepsis Action Taken by Nursing 02/11/22 04:00 02/11/22 05:00 Temperature Temperature Source Pulse Rate 74 78 Pulse Rate [Apical] Pulse Rate from SpO2 Sensor 74 79 Pulse Rhythm Respiratory Rate 16 16 Respiratory Effort / Characteristics Respiratory Depth Respiratory Pattern Blood Pressure 171/86 H 142/96 H Blood Pressure [Right Arm] Blood Pressure Mean 114 111 Blood Pressure Mean [Right Arm] Pulse Oximetry 94 94 Oxygen Delivery Method Oxygen Flow Rate Sepsis Recent Fever Within 48 Hours Sepsis New/Unexplained Change in Mental Status Sepsis Action Taken by Nursing VITALS: Vitals are noted on the nurse's note and reviewed by myself. GENERAL: This is a 61-year-old male, chronically ill-appearing but in no acute distress. SKIN: The skin was without rashes. EARS: External auditory canals clear, tympanic membranes pearly brown without erythema or effusion bilaterally. EYES: Pupils equal round and reactive to light and accommodation. MOUTH: Mucous membranes moist. Tonsils are not enlarged. Pharynx without erythema or exudate. NECK: Supple without nuchal rigidity. No lymphadenopathy. HEART: Regular rate and rhythm without murmurs gallops or rubs. LUNGS: Clear to auscultation bilaterally without wheezes, rales or rhonchi. No retractions or accessory muscle use. EXTREMITIES: No lower extremity edema. NEURO: Patient was alert and oriented to person place and time. Medical Decision Making Differential Diagnosis Reactive airway disease, pneumonia, pneumothorax, COPD, CHF, infections, cardiac ischemia, pulmonary embolism, musculoskeletal, gastrointestinal, as well as other pathologies. Home Medications Current Medication List: was personally reviewed by me Laboratory Data Attestation: I reviewed the patient's lab results. 02/11/22 00:55 02/11/22 00:55 Lab Results 02/11/22 02/11/22 02/11/22 Range/Units 00:55 00:55 01:10 WBC 11.15 H (4.8-10.8) K/ul RBC 4.51 L (4.63-6.08) M/uL Hgb 9.6 L (14.0-18.0) g/dl Hct 32.0 L (40.1-51.0) % MCV 71.0 L (80.0-100.0) fL MCH 21.3 L (25.0-34.0) pg MCHC 30.0 L (32.0-36.0) g/dL RDW Std Deviation 49.4 H (36.4-46.3) fL RDW Coeff of Ady 20.6 H (11.5-14.5) % Plt Count 411 H (130-400) K/uL MPV 9.8 (9.4-12.4) fL Immature Gran % (Auto) 0.2 % Neut % (Auto) 78.2 % Lymph % (Auto) 10.9 % [place] % (Auto) 7.0 % Eos % (Auto) 3.0 % Baso % (Auto) 0.7 % Neut # (Auto) 8.71 H (1.4-6.5) K/uL Lymph # (Auto) 1.22 (1.2-3.4) K/uL [place] # (Auto) 0.78 (0.24-0.82) K/uL Eos # (Auto) 0.34 (0-0.50) K/uL Baso # (Auto) 0.08 (0-0.2) K/uL Immature Gran # (Auto) 0.02 (0.00-0.02) K/uL Polychromasia 1+ Anisocytosis Present Sodium 135 L (136-145) mmol/L Potassium 4.6 (3.5-5.1) mmol/L Chloride 98 (98-107) mmol/L Carbon Dioxide 32 (21-32) mmol/L Anion Gap 5 (3-11) BUN 13 (6-23) mg/dl Creatinine 0.83 (0.6-1.4) mg/dl Est Cr Clr Drug Dosing 107.0 ml/min Est GFR ( Amer) 110.8 ml/min Est GFR (Non-Af Amer) 95.6 ml/min BUN/Creatinine Ratio 15.7 (10-20) Glucose 91 (70-99(Fasting)) mg/dl Calcium 9.7 (8.5-10.1) mg/dl Total Bilirubin 0.4 (0.2-1.0) mg/dl AST 10 L (13-39) U/L ALT 9 (7-52) U/L Alkaline Phosphatase 89 (34-104) U/L Troponin I High Sens 5.1 (0-20) pg/ml Total Protein 7.7 (6.0-8.3) gm/dl Albumin 4.2 (3.4-5.0) gm/dl Globulin 3.5 (2.5-4.0) gm/dl Albumin/Globulin Ratio 1.2 (0.9-2) SARS-CoV-2, RNA, NAAT NEGATIVE (NEGATIVE) Blood Type Antibody Screen 02/11/22 Range/Units 01:21 WBC (4.8-10.8) K/ul RBC (4.63-6.08) M/uL Hgb (14.0-18.0) g/dl Hct (40.1-51.0) % MCV (80.0-100.0) fL MCH (25.0-34.0) pg MCHC (32.0-36.0) g/dL RDW Std Deviation (36.4-46.3) fL RDW Coeff of Ady (11.5-14.5) % Plt Count (130-400) K/uL MPV (9.4-12.4) fL Immature Gran % (Auto) % Neut % (Auto) % Lymph % (Auto) % [place] % (Auto) % Eos % (Auto) % Baso % (Auto) % Neut # (Auto) (1.4-6.5) K/uL Lymph # (Auto) (1.2-3.4) K/uL [place] # (Auto) (0.24-0.82) K/uL Eos # (Auto) (0-0.50) K/uL Baso # (Auto) (0-0.2) K/uL Immature Gran # (Auto) (0.00-0.02) K/uL Polychromasia Anisocytosis Sodium (136-145) mmol/L Potassium (3.5-5.1) mmol/L Chloride (98-107) mmol/L Carbon Dioxide (21-32) mmol/L Anion Gap (3-11) BUN (6-23) mg/dl Creatinine (0.6-1.4) mg/dl Est Cr Clr Drug Dosing ml/min Est GFR ( Amer) ml/min Est GFR (Non-Af Amer) ml/min BUN/Creatinine Ratio (10-20) Glucose (70-99(Fasting)) mg/dl Calcium (8.5-10.1) mg/dl Total Bilirubin (0.2-1.0) mg/dl AST (13-39) U/L ALT (7-52) U/L Alkaline Phosphatase (34-104) U/L Troponin I High Sens (0-20) pg/ml Total Protein (6.0-8.3) gm/dl Albumin (3.4-5.0) gm/dl Globulin (2.5-4.0) gm/dl Albumin/Globulin Ratio (0.9-2) SARS-CoV-2, RNA, NAAT (NEGATIVE) Blood Type B Positive Antibody Screen NEGATIVE Imaging Data Attestation: I personally reviewed and interpreted this imaging study as follows: My Impression: CHEST 1 VIEW: Cardiomegaly. No pulmonary infiltrates. Similar to previous. ECG Data Attestation: I personally reviewed and interpreted this ECG as follows: Indication: + SOB/dyspnea Rate (beats per minute): 83 Rhythm: + normal sinus ECG Intervals/blocks: + Normal QRS ECG ST segments: + Normal ST segments MDM Narrative Continuous cardiac rehabilitation specialist: Order was placed for continuous cardiac rehabilitation specialist. Patient was placed on the cardiac rehabilitation specialist. Patient was noted to be in normal sinus rhythm at an initial rate of 70 bpm. The patient is a 61-year-old male who presents today complaining of shortness of breath. Labs revealed a leukocytosis of 11,000. Patient's hemoglobin has improved and is now 9.6. Labs are otherwise unremarkable. Chest x-ray is clear. Patient arrived on 3 L oxygen via nasal cannula. We did take him off of the oxygen here and he did drop down into the high 80s and was symptomatic with shortness of breath. Patient was placed back on oxygen and will be admitted to the hospitalist service. I do feel he would benefit from some home oxygen. The case was discussed with the [facility] hospitalist service, Dr. Gonzalez who agreed to evaluate the patient. Impression & Plan Shortness of breath Discharge Plan Visit Data Chief Complaint: Shortness of Breath/Dyspnea Stated Complaint: SHORT OF BREATH/CHEST PAIN ED Provider: Rozina Mitchell ED Midlevel Provider: Katie Starr Discharge Problem: Shortness of breath Forms Stand Alone Forms: My [facility] Prescriptions Prescriptions: No Action diclofenac sodium 1 % gel 2 g TOPICAL QID PRN (Reason: Joint Pain) Qty: 100 2RF Rx Instructions: Please give patient the tube from the hospital. fluticasone furoate-vilanterol 100-25 mcg/dose blister with device 1 inh inhalation DAILY Qty: 60 2RF Hold Instructions: Home Medication placed on hold at Doctor's office fluticasone propion-salmeterol [Advair Diskus] 250-50 mcg/dose blister with device 1 inh inhalation BID Qty: 60 5RF lisinopril-hydrochlorothiazide 10-12.5 mg tablet 1 tab PO QAM Qty: 90 1RF fluticasone propionate [Flonase Allergy Relief] 50 mcg/actuation spray,suspension 1 spray INTRANASAL BID PRN (Reason: Allergy Symptoms) Qty: 16 5RF albuterol sulfate [Ventolin HFA] 90 mcg/actuation HFA aerosol inhaler 1 - 2 puff INHALATION QID PRN (Reason: Shortness Of Breath Or Wheezing) Qty: 8.5 5RF gabapentin 600 mg tablet 600 mg PO TID Rx Instructions: TAKE 2 BY MOUTH 3 TIMES A DAY nicotine [Nicoderm CQ] 21 mg/24 hr Patch 24 Hour 21 mg transdermal QAM Qty: 14 0RF pantoprazole [Protonix] 40 mg tablet,delayed release (DR/EC) 40 mg PO BID 14 Days Qty: 28 0RF oxycodone-acetaminophen [Percocet] 5-325 mg tablet 1 tab PO Q12H PRN (Reason: pain) Rx Instructions: No more than 1 PO twice daily. Referrals Referrals: Roger Talbert, [Primary Care Provider] -
--- NOTE | 2022-02-11 04:42 | History & Physical Report ---
Date of Service February 11, 2022 Assessment & Plan (1) Hypoxia: (2) Zphzz-Kicsm-Drnxp disease: (3) Opioid dependence: (4) Tobacco use disorder, continuous: (5) Hypertension: (6) Anemia due to chronic blood loss: (7) AVM (arteriovenous malformation): (8) Benign prostatic hyperplasia with urinary obstruction and other lower urinary tract symptoms: (9) Symptomatic anemia: (10) COPD exacerbation: Plan Acute on chronic respiratory failure with hypoxia/COPD exacerbation/symptomatic anemia/tobacco abuse disorder- Patient was noted to have pulse ox 87% on room air in the ED, that improved to 92% with 2 L nasal cannula Patient reportedly had a two-step prior to discharge during last admission, however, has obvious hypoxia and likely would benefit from nasal cannula oxygen as needed when discharged to home. He would likely also benefit from nebulizers to be used at home upon discharge as well Continue nasal cannula oxygen, with titration goal of 92-94% Duonebs every 4 hours while awake and every 2 hours when necessary. Tobacco cessation counseling His hemoglobin is 9.6 upon admission, with his range tending to be from 7.7-10.9 Continue usual inhalers: Advair discus 250/50, fluticasone furoate-vilanterol, and fluticasone propionate nasal spray Could consider addition of Daliresp and or Singulair Tobacco use disorder- Continue NicoDerm 20 mg every morning Tjngj-Jcagz-Qwobs- Continuous iron transfusions in the outpatient setting and for PRBCs as needed GERD- Continue pantoprazole 40 mg p.o. twice daily Chronic pain syndrome- Acetaminophen 650 mg p.o. every 6 hours as needed for mild pain or fever Oxycodone/acetaminophen 5/325, 1 every 12 hours as needed for severe pain Patient reports that he does have his daughter close by who can help him at home History of Present Illness Chief Complaint: The patient presents to the emergency department with recurrent shortness of breath and dyspnea on exertion following a recent admission to [facility] from 02/06- 02/08/2022 for anemia due to Osler- Connor- Rendu requiring transfusion. Primary Care Provider: Roger Talbert DO The patient is a 61-year-old male with a past medical history including Fcjpv-Uqcur-Maykh, anemia requiring transfusion, hypoxia, hypertension, cervical disc disease, opioid dependence, tobacco use disorder, pulmonary nodule, BPH with LUTS, COVID-19 infection, GI bleeding secondary to AV malformations and Mónica esophagitis. The patient reports that he has had recurrent shortness of breath and dyspnea on exertion since discharge, not as bad as preadmission, but reports difficulty with routine ADLs due to his breathing. He does not use oxygen at home, and never has. He reports significant improvement in his breathing while wearing oxygen in the emergency department. He denies any signs of infection such as productive cough, sore throat, fevers or chills. Allergies Allergy/AdvReac Type Severity Reaction Status Date / Time cyclobenzaprine AdvReac Unknown MUSCLE Verified 02/11/22 01:13 [From Flexeril] CONTRACTIONS Home Medications Medication Instructions Recorded Confirmed Type diclofenac sodium 1 % topical gel 2 g topical QID PRN Joint Pain 08/01/21 02/11/22 Rx #100 grams fluticasone furoate 100 1 inh inhalation DAILY #60 ea 08/02/21 02/11/22 Rx mcg-vilanterol 25 mcg/dose inhalation powder albuterol sulfate 90 mcg/actuation 1 - 2 puff inhalation QID PRN 11/30/21 02/11/22 Rx aerosol inhaler (Ventolin HFA) Shortness Of Breath Or Wheezing #8.5 grams Advair Diskus 250 mcg-50 mcg/dose 1 inh inhalation BID #60 ea 12/08/21 02/11/22 Rx powder for inhalation (fluticasone propion-salmeterol) lisinopril 10 1 tab PO QAM #90 tabs 01/24/22 02/11/22 Rx mg-hydrochlorothiazide 12.5 mg tablet fluticasone propionate 50 1 spray intranasal BID PRN Allergy 01/27/22 02/11/22 Rx mcg/actuation nasal Symptoms #16 grams spray,suspension (Flonase Allergy Relief) gabapentin 600 mg tablet 600 mg PO TID 02/06/22 02/11/22 History nicotine 21 mg/24 hr daily 21 mg transdermal QAM #14 ea 02/08/22 02/11/22 Rx transdermal patch (Nicoderm CQ) pantoprazole 40 mg tablet,delayed 40 mg PO BID 14 days #28 tabs 02/08/22 02/11/22 Rx release (Protonix) oxycodone-acetaminophen 5 mg-325 1 tab PO Q12H PRN pain 02/11/22 02/11/22 History mg tablet (Percocet) Past Med/Surg History Medical History Anemia inhaler for this bc pt becomes very SOB AVM (arteriovenous malformation) pt unaware Cervical disc disease C5-C6 Chronic back pain Dog bite of face 08/12/2019- received care at [facility]- Lip and nose sutured and pt placed on antibiotics. Hepatitis C treated--no longer has Hx of bleeding disorder HAS CAUSED BLEEDING INTO STOMACH REQUIRING CAUTERIZATION-F/U [facility]-HX BLOOD TRANSFUSIONS IN THE PAST Hypertension Osler-Rendu disease Surgical History History of colonoscopy History of esophagogastroduodenoscopy (EGD) History of herniorrhaphy X 4 History of open reduction and internal fixation (ORIF) procedure left hand/wrist fx--hardware removed History of repair of rotator cuff RIGHT History of shoulder surgery right History of tooth extraction all teeth removed Hx of excision of testicular mass X MULTIPLE BENIGN CYSTS Family History Other No family history of adverse response to anesthesia Denies family history of Colon cancer Ovarian cancer Prostate cancer Myocardial infarction Breast cancer Social History Smoking Status: Current some day smoker Tobacco Type: Cigarettes Cigarettes Per Day: 4; Second Hand Exposure: No; Hx Alcohol Use: No Hx Substance Use: No Preferred Language: Czech Communication Ability: Effective Visual Impairment: Limited Hearing Ability: Hard of Hearing [employer] Tank [employer] Required: No Beliefs That Will Affect Care: None marital status: Current Living Situation: Alone Current Living Situation Comment: lives with daughter current occupational status: employed How many Children do You have: 1 Feels Safe at Home: Yes Childhood Exposure to Second-Hand Smoke: No Dental Care, Regularly: Yes Physical Activity Frequency: Daily Seatbelt Use: never Sunscreen Use: No Assistive Devices: Glasses Review of Systems Review of Systems: The patient denies chest pain, palpitations, cough, lower extremity swelling, sore throat, fevers, chills, sweats, weight change, fatigue, nausea, vomiting, diarrhea , constipation, abdominal pain, pelvic pain, blood in urine or stool, dysuria, urinary frequency or urgency, lightheadedness, dizziness, headache, memory loss, loss of consciousness, rash, abnormal bruising or bleeding, imbalance, focal or generalized weakness, numbness or tingling in arms or legs, generalized arthralgias or myalgias, back or neck pain, or night sweats. The review of systems is otherwise negative other than for that already noted above, and at least 10 systems have been reviewed. Physical Exam Physical Exam: The patient is awake, alert and oriented 3, well developed and well nourished, normocephalic and atraumatic, lying in bed and in no acute distress. HEENT--PERRL, EOMI, mucous membranes and oropharynx normal. Neck--supple. No JVD. No bruits. Thyroid normal, trachea midline, no adenopathy. Heart--normal S1 and S2. No murmurs, rubs or gallops. Lungs--clear bilaterally, no respiratory distress, no accessory muscle use. Abdomen--normal bowel sounds and soft. Nontender. Nondistended, no hernias or masses, no organomegaly. Extremities--no cyanosis or clubbing. No edema. There are good distal pulses b/l. Dermatologic--normal skin turgor, normal color, no abnormal lymph nodes, no rash. Neurologic--cranial nerves II through XII grossly intact. Rheumatologic--normal range of motion. Psychiatric--normal affect. Results & Data Results & Data ([facility]) Vital Signs (Past 12 Hours) Vital Signs Temp Pulse Pulse Resp BP BP Pulse Ox 02/11/22 03:38 72 164/102 H 93 02/11/22 02:47 89 L 02/11/22 01:04 78 18 94 02/11/22 00:53 88 20 133/98 93 02/11/22 00:47 36.7 C 82 19 133/98 94 02/11/22 00:47 94 O2 Del Method O2 Flow Rate 02/11/22 03:38 Nasal Cannula 2 02/11/22 02:47 Room Air 02/11/22 01:04 Nasal Cannula 3 02/11/22 00:53 Nasal Cannula 3 02/11/22 00:47 Nasal Cannula 3 02/11/22 00:47 Nasal Cannula 3 Laboratory Results Laboratory Results WBC 11.15 K/ul (4.8-10.8) H 02/11/22 00:55 RBC 4.51 M/uL (4.63-6.08) L 02/11/22 00:55 Hgb 9.6 g/dl (14.0-18.0) L 02/11/22 00:55 Hct 32.0 % (40.1-51.0) L 02/11/22 00:55 MCV 71.0 fL (80.0-100.0) L 02/11/22 00:55 MCH 21.3 pg (25.0-34.0) L 02/11/22 00:55 MCHC 30.0 g/dL (32.0-36.0) L 02/11/22 00:55 RDW Std Deviation 49.4 fL (36.4-46.3) H 02/11/22 00:55 RDW Coeff of Ady 20.6 % (11.5-14.5) H 02/11/22 00:55 Plt Count 411 K/uL (130-400) H 02/11/22 00:55 MPV 9.8 fL (9.4-12.4) 02/11/22 00:55 Immature Gran % (Auto) 0.2 % 02/11/22 00:55 Neut % (Auto) 78.2 % 02/11/22 00:55 Lymph % (Auto) 10.9 % 02/11/22 00:55 Guthrie % (Auto) 7.0 % 02/11/22 00:55 Eos % (Auto) 3.0 % 02/11/22 00:55 Baso % (Auto) 0.7 % 02/11/22 00:55 Neut # (Auto) 8.71 K/uL (1.4-6.5) H 02/11/22 00:55 Lymph # (Auto) 1.22 K/uL (1.2-3.4) 02/11/22 00:55 Guthrie # (Auto) 0.78 K/uL (0.24-0.82) 02/11/22 00:55 Eos # (Auto) 0.34 K/uL (0-0.50) 02/11/22 00:55 Baso # (Auto) 0.08 K/uL (0-0.2) 02/11/22 00:55 Immature Gran # (Auto) 0.02 K/uL (0.00-0.02) 02/11/22 00:55 Polychromasia 1+ 02/11/22 00:55 Anisocytosis Present 02/11/22 00:55 Sodium 135 mmol/L (136-145) L 02/11/22 00:55 Potassium 4.6 mmol/L (3.5-5.1) 02/11/22 00:55 Chloride 98 mmol/L (98-107) 02/11/22 00:55 Carbon Dioxide 32 mmol/L (21-32) 02/11/22 00:55 Anion Gap 5 (3-11) 02/11/22 00:55 BUN 13 mg/dl (6-23) 02/11/22 00:55 Creatinine 0.83 mg/dl (0.6-1.4) 02/11/22 00:55 Est Cr Clr Drug Dosing 107.0 ml/min 02/11/22 00:55 Est GFR ( Amer) 110.8 ml/min 02/11/22 00:55 Est GFR (Non-Af Amer) 95.6 ml/min 02/11/22 00:55 BUN/Creatinine Ratio 15.7 (10-20) 02/11/22 00:55 Glucose 91 mg/dl (70-99(Fasting)) 02/11/22 00:55 Calcium 9.7 mg/dl (8.5-10.1) 02/11/22 00:55 Total Bilirubin 0.4 mg/dl (0.2-1.0) 02/11/22 00:55 AST 10 U/L (13-39) L 02/11/22 00:55 ALT 9 U/L (7-52) 02/11/22 00:55 Alkaline Phosphatase 89 U/L (34-104) 02/11/22 00:55 Troponin I High Sens 5.1 pg/ml (0-20) 02/11/22 00:55 Total Protein 7.7 gm/dl (6.0-8.3) 02/11/22 00:55 Albumin 4.2 gm/dl (3.4-5.0) 02/11/22 00:55 Globulin 3.5 gm/dl (2.5-4.0) 02/11/22 00:55 Albumin/Globulin Ratio 1.2 (0.9-2) 02/11/22 00:55 SARS-CoV-2, RNA, NAAT NEGATIVE (NEGATIVE) 02/11/22 01:10 Blood Type B Positive 02/11/22 01:21 Antibody Screen NEGATIVE 02/11/22 01:21 Code Status & VTE Plan Code Status Full code VTE Prophylaxis Plan VTE Prophylaxis will be ordered: Yes PG Care Time/CCT Total # of Minutes Spent Total Time Spent with Patient: Total time spent is greater than 50% in coordination of care (as documented) at patient's floor/unit and/or counseling patient: Coding Level of Care Code 82206 INT INP/OBS CARE 375MIN Diagnoses Hypoxia R09.02 Jymse-Xhqet-Hmkiz disease I78.0 Opioid dependence F11.21 Substance use status: in remission Tobacco use disorder, continuous F17.209 Hypertension I10 Hypertension type: essential hypertension Anemia due to chronic blood loss D50.0 AVM (arteriovenous malformation) Q27.30 Benign prostatic hyperplasia with urinary obstruction and other lower urinary tract symptoms N40.1; N13.8 Symptomatic anemia D64.9 COPD exacerbation J44.1 (1) Opioid dependence Substance use status: in remission Qualified Code(s): F11.21 - Opioid dependence, in remission (2) Hypertension Hypertension type: essential hypertension Qualified Code(s): I10 - Essential (primary) hypertension
--- NOTE | 2022-02-11 05:25 | Emergency Department Note ---
ED Visit Note I was consulted by the Advanced Practice Provider. I saw the patient personally and performed a substantive portion of the visit. This includes aspects of the HPI, MDM, diagnostic interpretations, and disposition/plan. .
[2022-02-11] MEDS ORDERED: FLUTICASONE PROPIONATE NA SPR 16 GM BTL NAE PRN (06:42)
[2022-02-11] MEDS ORDERED: ACETAMINOPHEN 325 MG TAB PO PRN (06:42)
[2022-02-11] MEDS ORDERED: ALBUTEROL HFA 8 GM INHALER INH PRN (06:42)
[2022-02-11] MEDS ORDERED: ONDANSETRON INJ 2 MG/ML 2 ML VIAL IV PRN (06:42)
--- NOTE | 2022-02-11 07:59 | XRay Report ---
XR chest 1V portable HISTORY: 61 years-old Male Dyspnea acute shortness of breath COMPARISON: Chest radiograph and CTA chest February 06, 2022 TECHNIQUE: AP view of the chest FINDINGS: Emphysema. Cardiomediastinal and hilar silhouettes are unchanged. No pneumothorax, pleural effusion, airspace consolidation or overt pulmonary edema. Degenerative changes of the shoulders and spine. Chr onic right-sided rib fracture deformities. IMPRESSION: Emphysema without acute process. ACT 112: Negative or not required by law. The above report was generated using voice recognition software. It may contain grammatical, syntax o r spelling errors. Electronically signed by: Wally Hall M.D. 02/11/2022 7:58 AM
[2022-02-11] MEDS: ALBUT/IPRATROP 3MG/0.5MG NEB 3 ML VIAL NEB PRN ×2 (08:01→21:05)
[2022-02-11] MEDS: NICOTINE 21 MG/24 HR TDSY TD SCH (08:57)
[2022-02-11] MEDS: FLUTICASONE/VILANTEROL 200/25MCG 14 PUFFS/INHALER INH SCH (08:57)
[2022-02-11] MEDS: GABAPENTIN 600 MG TAB PO SCH ×3 (08:57→21:25)
[2022-02-11] MEDS: PANTOprazole 40 MG TAB PO SCH ×2 (08:57→21:25)
[2022-02-11] MEDS: LISINOPRIL/HCTZ 10/12.5MG TAB PO SCH (08:57)
[2022-02-11] MEDS ORDERED: FLUTICASONE/VILANTEROL 100/25MCG 14 PUFFS/INHALER INH SCH (09:00)
[2022-02-11] MEDS: oxyCODONE/ACETAMINOPHEN 5mg/325mg TAB PO PRN ×2 (09:02→21:24)
--- NOTE | 2022-02-11 10:07 | Communication Note ---
Date of Service: February 11, 2022 Please see today's H+P for full plan except as otherwise stated: No evidence of PNA or pulm edema on CXR. Do feel patient is a bit wheezy today, will give methylpred 40mg IV x1 dose today and transition to prednisone for taper tomorrow. Feel that patient would benefit greatly from home oxygen given patient had saturation of 87% on room air on arrival to hospital. Hold onto patient overnight, patient having difficulty finding ride for home today but can optimize his respiratory status today and hopefully discharge tomorrow.
[2022-02-11] MEDS ORDERED: methylPREDNISolone 40 MG in SYRINGE 0 ML IV ONE (14:24)
[2022-02-12 08:01] LABS: Basophils # (auto) 0.02 K/uL (0-0.2); Basophils % (auto) 0.1 %; Eosinophils # (auto) 0.09 K/uL (0-0.50); Eosinophils % (auto) 0.6 %; Hematocrit (blood only) 33.7 % (40.1-51.0); Immature Granulocytes # (auto) 0.07 K/uL (0.00-0.02); Immature Granulocytes % (auto) 0.5 %; Lymphocytes # (auto) 1.35 K/uL (1.2-3.4); Mean Corpuscular Hemoglobin 21.3 pg (25.0-34.0); Mean Corpuscular Hgb Conc 29.7 g/dL (32.0-36.0); Mean Corpuscular Volume 71.7 fL (80.0-100.0); Mean Platelet Volume 10.3 fL (9.4-12.4); Monocytes # (auto) 1.37 K/uL (0.24-0.82); Monocytes % (auto) 9.2 %; Neutrophils # (auto) 12.06 K/uL (1.4-6.5); Neutrophils % (auto) 80.6 %; Platelet Count 441 K/uL (130-400); RDW Coefficient of Variation 20.3 % (11.5-14.5); White Blood Count 14.96 K/ul (4.8-10.8)
[2022-02-12] MEDS: PANTOprazole 40 MG TAB PO SCH (08:15)
[2022-02-12] MEDS: GABAPENTIN 600 MG TAB PO SCH (08:15)
[2022-02-12] MEDS: LISINOPRIL/HCTZ 10/12.5MG TAB PO SCH (08:15)
[2022-02-12] MEDS: NICOTINE 21 MG/24 HR TDSY TD SCH (08:16)
[2022-02-12] MEDS: FLUTICASONE/VILANTEROL 200/25MCG 14 PUFFS/INHALER INH SCH (08:16)
[2022-02-12 08:22] LABS: Albumin Level 4.5 gm/dl (3.4-5.0); BUN Creatinine Ratio 27.7 (10-20); Calcium 9.2 mg/dl (8.5-10.1); Creatinine Clr Calc Pharmacy 79.3 ml/min; Est GFR (African American) 82.3 ml/min; Magnesium 2.4 mg/dl (1.7-2.4); Phosphorus 5.6 mg/dl (2.5-4.9); Potassium 4.7 mmol/L (3.5-5.1)
[2022-02-12 08:26] LABS: Hypochromasia Present; Microcytosis Present; Polychromasia 1+
--- NOTE | 2022-02-12 08:34 | Discharge Summary ---
Discharge Summary Date of Service February 12, 2022 Admission HPI Per Admitting Provider The patient is a 61-year-old male with a past medical history including Bmued-Sizae-Zbdwd, anemia requiring transfusion, hypoxia, hypertension, cervical disc disease, opioid dependence, tobacco use disorder, pulmonary nodule, BPH with LUTS, COVID-19 infection, GI bleeding secondary to AV malformations and Mónica esophagitis. The patient reports that he has had recurrent shortness of breath and dyspnea on exertion since discharge, not as bad as preadmission, but reports difficulty with routine ADLs due to his breathing. He does not use oxygen at home, and never has. He reports significant improvement in his breathing while wearing oxygen in the emergency department. He denies any signs of infection such as productive cough, sore throat, fevers or chills. Admission Exam Per Admitting Provider The patient is awake, alert and oriented 3, well developed and well nourished, normocephalic and atraumatic, lying in bed and in no acute distress. HEENT--PERRL, EOMI, mucous membranes and oropharynx normal. Neck--supple. No JVD. No bruits. Thyroid normal, trachea midline, no adenop athy. Heart--normal S1 and S2. No murmurs, rubs or gallops. Lungs--clear bilaterally, no respiratory distress, no accessory muscle use. Abdomen--normal bowel sounds and soft. Nontender. Nondistended, no hernias or masses, no organomegaly. Extremities--no cyanosis or clubbing. No edema. There are good distal pulses b/l. Dermatologic--normal skin turgor, normal color, no abnormal lymph nodes, no r vanesa. Neurologic--cranial nerves II through XII grossly intact. Rheumatologic--normal range of motion. Psychiatric--normal affect. Principal Dx & Hospital Course #1 = Principal Diagnosis (1) Hypoxia: (2) Srijv-Glvie-Tkjzs disease: (3) Opioid dependence: (4) Tobacco use disorder, continuous: (5) Hypertension: (6) Anemia due to chronic blood loss: (7) AVM (arteriovenous malformation): (8) Benign prostatic hyperplasia with urinary obstruction and other lower urinary tract symptoms: (9) Symptomatic anemia: (10) COPD exacerbation: Plan Acute on chronic respiratory failure with hypoxia/COPD exacerbation/symptomatic anemia/tobacco abuse disorder: Patient was noted to have pulse ox 87% on room air in the ED, that improved to 92% with 2 L nasal cannula. Patient reportedly had a two-step prior to discharge during last admission, however, has obvious hypoxia and would benefit from nasal cannula oxygen as needed (with activity, prn for sleep, etc) when discharged to home given hypoxia on room air on admission. Goal SpO2 92%. Nebulizers also sent to patient's pharmacy for prn use. Tobacco cessation counseling; patient has not smoked since his last admission. Hgb on discharge 10. Continue usual inhalers: Advair Diskus 250/50, fluticasone furoate-vilanterol, and fluticasone propionate nasal spray. Prednisone x5 days sent to patient's pharmacy, for total of 7 days of steroid treatment. Tobacco use disorder: Continue NicoDerm 21 mg every morning. Gjbuu-Swnkm-Iuksk: Continuous iron transfusions in the outpatient setting and for PRBCs as needed. Venofer x1 received while admitted. GERD: Continue pantoprazole 40 mg p.o. twice daily. Chronic pain syndrome: Tylenol as needed at home. Patient reports that he does have his daughter close by who can help him at home. Discharge home with care by patient and his daughter. Discharge Exam Constitutional WD/WN, vitals as above Respiratory normal respiratory effort, lungs clear to auscultation Updated Medication List Medication Instructions Recorded Confirmed Type diclofenac sodium 1 % topical gel 2 g topical QID PRN Joint Pain 08/01/21 02/11/22 Rx #100 grams fluticasone furoate 100 1 inh inhalation DAILY #60 ea 08/02/21 02/11/22 Rx mcg-vilanterol 25 mcg/dose inhalation powder Advair Diskus 250 mcg-50 mcg/dose 1 inh inhalation BID #60 ea 12/08/21 02/11/22 Rx powder for inhalation (fluticasone propion-salmeterol) lisinopril 10 1 tab PO QAM #90 tabs 01/24/22 02/11/22 Rx mg-hydrochlorothiazide 12.5 mg tablet fluticasone propionate 50 1 spray intranasal BID PRN Allergy 01/27/22 02/11/22 Rx mcg/actuation nasal Symptoms #16 grams spray,suspension (Flonase Allergy Relief) gabapentin 600 mg tablet 600 mg PO TID 02/06/22 02/11/22 History nicotine 21 mg/24 hr daily 21 mg transdermal QAM #14 ea 02/08/22 02/11/22 Rx transdermal patch (Nicoderm CQ) pantoprazole 40 mg tablet,delayed 40 mg PO BID 14 days #28 tabs 02/08/22 02/11/22 Rx release (Protonix) ipratropium 0.5 mg-albuterol 3 mg 3 ml NEB Q6H PRN shortness of 02/11/22 Rx (2.5 mg base)/3 mL nebulization breath or wheezing #90 mL soln oxycodone-acetaminophen 5 mg-325 1 tab PO Q12H PRN pain 02/11/22 02/11/22 History mg tablet (Percocet) albuterol sulfate 90 mcg/actuation 1 - 2 puff inhalation QID PRN 02/12/22 Rx aerosol inhaler (Ventolin HFA) Shortness Of Breath Or Wheezing #8.5 grams prednisone 20 mg tablet 40 mg PO DAILY 4 days #8 tabs 02/12/22 Rx Hospital Stay Data Consultations 02/11/22 05:21 ED Decision to Admit Stat Discharge Instructions Given to Patient (Per Discharging Provider) You were admitted to the hospital due to low oxygen levels. You were given oxygen to use when you are walking around and doing activities. You should use 2 liters of oxygen with activity, but we do not think you will need oxygen at rest. You should have your primary care doctor get you set up for a sleep study since you described some shortness of breath with sleeping at times; this could be a sign of sleep apnea. I have attached the information for our Pulmonology group to your paperwork; please call their office to schedule a hospital follow up appointment for evaluation for COPD (Wyatt Nino listed above). Lastly, you were given another dose of Venofer for Uwllj-Qvbjp-Cigdp, which should be assumed by your primary care provider on discharge. I sent a short course of prednisone (4 more days for a total of 6 days of steroids including your hospital doses) to your [facility] pharmacy in [place]. I also sent nebulizer medication for as needed for shortness of breath or wheezing. Please check your oxygen level at home. Your goal oxygen level is 92%. Total Time Total Time Spent Total Time Spent (In Minutes): 45 minutes Coding Level of Care Code HOSP INP/OBS DISCH >30 MIN Diagnoses Hypoxia R09.02 Ndmba-Eqmxd-Ppnqj disease I78.0 Opioid dependence F11.21 Substance use status: in remission Tobacco use disorder, continuous F17.209 Hypertension I10 Hypertension type: essential hypertension Anemia due to chronic blood loss D50.0 AVM (arteriovenous malformation) Q27.30 Benign prostatic hyperplasia with urinary obstruction and other lower urinary tract symptoms N40.1; N13.8 Symptomatic anemia D64.9 COPD exacerbation J44.1
[2022-02-12] MEDS ORDERED: predniSONE 20 MG TAB PO SCH (09:00)
[2022-02-12] MEDS: oxyCODONE/ACETAMINOPHEN 5mg/325mg TAB PO PRN (09:20)
[2022-02-12] MEDS ORDERED: IRON SUCROSE 300 MG in SODIUM CHLORIDE 0.9% 250 ML IV SCH (11:00)
--- NOTE | 2022-02-12 21:51 | Electrocardiogram Report ---
Test Reason : Blood Pressure : / mmHG Vent. Rate : 083 BPM Atrial Rate : 083 BPM P-R Int : 138 ms QRS Dur : 082 ms QT Int : 366 ms P-R-T Axes : 065 053 065 degrees QTc Int : 430 ms Normal sinus rhythm Normal ECG When compared with ECG of 07-FEB-2022 14:06, No significant change was found Confirmed by Luis Ramirez ([id number] on 02/12/2022 9:51:33 PM Referred By: Roger Talbert Confirmed By:Luis Ramirez
== END 2022-02-12 13:15 | disposition home or self-care (01) ==
LOC: EDINP 00:40 → ED 00:40 → SUATTDRO 04:41 → 2N 06:43